=== PATIENT | male | born 1950 | race Caucasian/White ===

== ENCOUNTER 2017-07-03 12:11 | Inpatient (IN) | payer MEDICARE, SELFPAY ==
[2017-07-03] VITALS (18 sets, daily range): BP systolic 107–128; BP diastolic 60–77; PULSE 79–101; RESP 16–21; TEMP 36.8–37.6; O2SAT 91–94; BMI 28.4; BMI 28.0
[2017-07-03 12:25] LABS: Bedside Glucose 116 mg/dL (70-110)
--- NOTE | 2017-07-03 12:27 | EKG12_ITS ---
Test Reason : CONFUSSION Blood Pressure : / mmHG Vent. Rate : 101 BPM Atrial Rate : 101 BPM P-R Int : 154 ms QRS Dur : 100 ms QT Int : 356 ms P-R-T Axes : 066 040 009 degrees QTc Int : 461 ms Sinus tachycardia Otherwise normal ECG Confirmed by ROBERTA CARROLL, ROSAS ([id number]), photography editor JESS LEHMAN ([id number]) on 07/05/2017 3:18:19 PM Referred By: MALACHI Confirmed By:ROSAS GRANADOS MD
--- NOTE | 2017-07-03 12:27 | CT_ITS ---
STUDY: CT BRAIN WITHOUT CONTRAST REASON FOR EXAM: Male, 67 years old. Altered mental status RADIATION DOSAGE (If Supplied By Facility): CTDIvol = ( 44.99 ) mGy, DLP = ( 846.73 ) mGycm TECHNIQUE: Transaxial CT imaging of the brain was performed without administration of intravenous contrast material. Individualized dose optimization techniques were used for this CT. COMPARISON: None. FINDINGS: No evidence for shift of midline structures, mass effect or compression of ventricles noted. No acute intra-articular extra-axial hemorrhage is seen. No abnormal intracranial fluid collections identified. Age-related involutional changes are seen. Few scattered foci of low-attenuation in the periventricular and subcortical white matter which are nonspecific in imaging appearance however likely related with chronic small vessel disease. Intracranial atherosclerotic vascular calcifications are seen. The calvarium is intact. Mastoid air cells are clear. No discrete orbital mass. IMPRESSION: No evidence for acute intracranial hemorrhage, mass effect or acute large territory infarcts. Mild chronic small vessel disease. Electronically Signed: Brayden Ohara, at 14:38 EDT Tel , Service support , CT/Brain/Head without Contrast
--- NOTE | 2017-07-03 12:27 | RAD_ITS ---
STUDY: X-RAY CHEST REASON FOR EXAM: Male, 67 years old. Altered mental status TECHNIQUE: Single view of the chest was obtained COMPARISON: None. FINDINGS: Left lower lobe airspace opacity noted. Small left-sided pleural effusion. Mild pulmonary vascular congestion. No pneumothorax. Osseous structures demonstrate no acute abnormalities. IMPRESSION: Left lower lobe retrocardiac region airspace opacity and small left-sided pleural effusion. Mild pulmonary vascular congestion. Electronically Signed: Brayden Ohara, at 14:37 EDT Tel , Service support , RAD/Chest 1 View (Portable)
--- NOTE | 2017-07-03 12:30 | ED.VISSUMM ---
- ER Visit Summary Date of Service: 07/03/17 Chief Complaint: Altered mental status History of Present Illness: The patient is a 67 M with limited ability to provide history. Per nursing, the patient was confused at home. Slow to answer questions. EMS found that he was 74% on room air. He responded to nonrebreather. He was in the 80s on arrival here on room air and he was placed on a Ventimask. Patient has no complaints. Denies pain, chest pain, shortness of breath, nausea, vomiting, diarrhea, trouble urinating, abdominal pain or back pain, skin rashes, fevers, or injury. He says he never had this before. Physical Examination: Vital signs unremarkable. Heart rate 101 and respiratory rate 21. 91% on nasal cannula good patient is oriented ?2. Slow to respond and slightly lethargic. HEENT exam unremarkable. Neck nontender with good range of motion. Cranial nerves grossly intact. Heart sounds regular. Lungs clear. Abdomen soft and nontender. Skin shows some ecchymosis to his upper extremities, forearms. Neurovascularly intact distally in all extremities. Test Results: EKG showed sinus rhythm at a rate of 101. No sign of acute ischemia or infarction pattern. Laboratory studies, chest x-ray, head CT, urinalysis, and cultures pending. Emergency Department Course and Treatment: Patient presents with confusion and hypoxia. He was placed on oxygen and a monitor. He seems to be improved as far as his vital signs. He will need a thorough workup and close monitoring. Patient remained stable on the ventimask. Chest x-ray showed a left lower lobe infiltrate and he was started on Levaquin. Cultures are pending. Lactate is 2.2 and he does meets severe sepsis criteria without signs of shock. CT head showed no acute findings. White count 11.2. Troponin normal. ABG showed a pH of 7.376, O2 57 and CO2 50. Urinalysis unremarkable. Tox screen and alcohol unremarkable except for positive for opiates. Hospitalist was contacted. Patient will be admitted to PCU for further care. Treatment Plan: As above Disposition: Admission Impression: 1. Severe sepsis 2. Community-acquired pneumonia 3. Encephalopathy This note was generated with [employer] software. It may contain incorrect words, spelling, and punctuation that were not noted in review of the chart prior to signing ED Disposition - Plan for ED Patient: Chief Complaint: Confusion
--- NOTE | 2017-07-03 12:31 | PCA ---
NO OLD EKG IN MUSE
[2017-07-03] MEDS: Ipratropium/Albuterol Sulfate 3 ML AMPUL.NEB INHALATION ×3 (12:41→22:27)
[2017-07-03] MEDS: 0.9% Normal Saline 1,000 ML 999 ML IV (12:45)
[2017-07-03 12:47] LABS: Prothrombin Time (Protime)PT. 13.6 SECONDS (11.7-14.9)
[2017-07-03 12:48] LABS: Absolute Lymphocyte Count 1.79 X10^3/ul (0.83-4.51); Absolute Neutrophil Count 8.4 X10^3/uL (2.0-7.7); Basophil# 0.07 X10^3/uL; Basophil% 0.6 % (0-1); Eosinophil# 0.41 X10^3/uL; Eosinophils% 3.7 % (0-5); Hematocrit 44.4 % (40-54); Hemoglobin 14.2 g/dl (13.0-16.5); Lymphocyte # 1.79 X10^3/ul (4.0); Mean Corpuscular Hgb 30.9 pg (27.0-32.0); Mean Corpuscular Volume 96.7 fL (80-94); Mean Platelet Vol. 10.8 fl (6.2-12.0); Monocyte# 0.55 X10^3/uL; Monocyte% 4.9 % (0-10); Neutrophil # 8.35 X10^3/uL (2.7-7.7); Neutrophil % 74.5 % (47-70); POSITIVE COUNT NO; POSITIVE DIFFERENTIAL NO; POSITIVE MORPHOLOGY NO; Partial Thromboplast Time 32.2 Seconds (24.1-36.2); Platelet Count 124 K/mm3 (150-450); RBC Distribution Width CV 15.4 % (11.6-14.6); RBC Distribution Width SD 54.3 fl (35.1-43.9); Red Blood Count 4.59 M/mm3 (4.6-6.2); White Blood Count 11.2 K/mm3 (4.4-11.0)
[2017-07-03 12:55] LABS: ALB/GLOB Ratio 0.7 RATIO (0.9-2.4); AST(SGOT) 36 U/L (15-37); Alanine Aminotransfer ALT/SGPT 31 U/L (16-61); Albumin, Serum 3.2 g/dL (3.2-5.0); Alkaline Phosphatase 175 U/L (45-117); Anion Gap 4 (5-15); BUN 15 mg/dL (7-18); Calcium,Total 9.2 mg/dL (8.5-10.1); Chloride 101 mmol/L (98-107); Creatinine, Serum 1.36 mg/dL (0.70-1.30); EST Glomerular Filtration Rate 56 mL/min (>60); Est Glom Filt Rate - Afr Amer 67 mL/min (>60); Estimated Creatinine Clearance 61.28 ml/min; Globulin 4.7 g/dL (2.2-4.2); Glucose 118 mg/dL (74-106); Protein, Total 7.9 g/dL (6.4-8.2); Sodium Level 136 mmol/L (136-145)
[2017-07-03 12:58] LABS: Lactic Acid 2.2 mmol/L (0.4-2.0)
--- NOTE | 2017-07-03 12:58 | ED.RN ---
lactic acid 2.2
[2017-07-03 13:00] LABS: Allen Test POS; Base Excess 4 mmol/L (-2 to +2); Bicarbonate 29.3 mmol/L (22-26); Blood Gas Specimen Type ART; FI02 50; PO2 57 mmHG (75-100); SITE L Radial; SO2 88 % (95-99); Time Given 1254; Total Carbon Dioxide 31 mmol/L; pCO2 50.1 mmHg (35-45); pH 7.38 (7.35-7.45)
[2017-07-03 13:27] LABS: Bacteria 0 SEEN /hpf (None Seen); Mucous, Urine 0 SEEN /hpf (<or=2+); Red Blood Cells-Urine 0 SEEN /hpf (0-5)
[2017-07-03 13:28] LABS: Color, Urine Yellow (Yellow); Glucose, Dipstick Normal (Normal); Ketone-Dipstick Negative (Negative); Leukocyte Esterase-Dipstick 25 /ul (Negative); Nitrite-Dipstick Negative (Negative); Occult Blood-Urine 150 /ul (Negative); Protein-Dipstick 15 mg/dl (Negative); Urine Bilirubin Dipstick Negative (Negative); Urine Clarity Clear (Clear); Urine Urobilinogen Normal (Normal)
[2017-07-03 13:34] LABS: Squamous Epithelial Cells - UA 0-5 SEEN /hpf (0-5); White Blood Cells 0-5 SEEN /hpf (0-5)
[2017-07-03 14:04] LABS: Amphetamine Urine VISTA NEGATIVE (<1000 ng/mL); Barbiturate Urine VISTA NEGATIVE (< 200 ng/mL); Benzodiazepine Urine VISTA NEGATIVE (< 200 ng/mL); Cocaine Urine VISTA NEGATIVE (< 300 ng/mL); Ecstacy Urine VISTA NEGATIVE (< 500 ng/mL); Methadone Urine VISTA NEGATIVE (< 300 ng/mL); PCP Urine VISTA NEGATIVE (< 25 ng/mL); THC Urine VISTA NEGATIVE (< 50 ng/mL); Vista UDS pH Range 6
--- NOTE | 2017-07-03 14:23 | NURSING ---
DR COPELAND IN ROOM
[2017-07-03] MEDS: levoFLOXacin IV 750 MG/150 ML BAG 100 MG IV (15:14)
--- NOTE | 2017-07-03 15:27 | NURSING ---
111 SEVERE SEPSIS, ENCEPHALOPATHY TERELETSKY
[2017-07-03 16:38] LABS: Reflex Lactate? Y
--- NOTE | 2017-07-03 17:14 | PCM.HP.STD ---
Problem List (1) Mental status change Status: Acute Qualifiers: Altered mental status type: somnolence Qualified Code(s): R40.0 - Somnolence History of Present Illness Date of Admission: 07/03/17 Chief Complaint: Mental status change The patient is a 67 year old M who was seen in the emergency room at [facility] after being brought in at the direction of his due to change in mental status today. Patient had become more somnolent today and was acting confused at times and was incontinent of urine. Refused to go to the ER but the insisted and he was brought in by squad. Review of systems was unable to be obtained from the patient due to his lethargy and altered mental status, information was obtained from family members who were in the room at the time of my examination. Evaluation in the emergency room included labs which showed a white blood cell count of 11.2, creatinine was 1.36, lactic acid was 2.2, and patient's temperature was 99.2. Patient's pulse rate was increased at 101, respiratory rate was increased at 21. Patient was placed on a Ventimask due to low pulse ox, on a Ventimask with 50% oxygen, his pH was 7.38, PCO2 was 50.1, and PO2 was 57. Chest x-ray was obtained which showed the presence of a left lower lobe infiltrate, patient's brain CT did not show any acute process. Patient was felt to have severe sepsis due to community-acquired pneumonia, he was given IV Levaquin in the emergency room and he will be admitted to PCU for ongoing care. Past Medical History Allergies No Known Allergies Allergy (Verified 07/03/17 12:11) Home Medications: Ambulatory Orders Medication Instructions Recorded Aspirin [Aspirin, Baby] 81 mg PO DAILY@0800 07/03/17 Atenolol [Tenormin] 25 mg PO DAILY 07/03/17 Gabapentin [Neurontin] 600 mg PO TIDCM 07/03/17 Metformin HCl 1,000 mg PO BID 07/03/17 Multivitamin with Minerals/Lut 1 each PO BID 07/03/17 [Pub Multivitamin 50 Plus Tab] Oxycodone HCl/Acetaminophen 1 each PO 4X/DAY PRN PRN 07/03/17 [Oxycodon-Acetaminophen 7.5-325] Potassium Chloride [K-Dur] 10 meq PO DAILY 07/03/17 Simvastatin [Zocor] 10 mg PO QHS 07/03/17 Surgical History: total knee arthroplasty, - - Multiple coronary artery stents lumbar spine surgery due to degenerative disc disease of the lumbar spine Psychiatric History: No pertinent psych hx Lives: Spouse/ Significant Other Smoking Status: Heavy Smoker (>10/day) Tobacco Use: Cigarettes Alcohol: None Drugs: None - *Family History Maternal History Items: No pertinent history Paternal History Items: No pertinent history Review of Systems Comment: Review of systems was unobtainable due to the patient's somnolence and confusion, patient was oriented as to person and place VTE Information - Inpt Only VTE Present on Admission: No VTE Mechan Device Prophylaxis: None VTE Pharm Prophylaxis ordered?: Yes Patient Problems: Active and Suspected Problems Mental status change (Acute) - Physical Exam General: No apparent distress, Well developed, Well nourished, Lethargic HEENT: Atraumatic, PERRLA, Normocephalic Oral: Moist Mucosa Neck: Supple, No JVD, Negative Carotid Bruits, No Nuchal Rigidity, Trachea Midline, Thyroid Normal Size and Texture Lungs: Clear to auscultation, No rhonchi, No wheeze, No rales, Diminished Cardiovascular: Regular rate, Regular Rhythm, Normal S1, Normal S2, No murmurs, No Ectopic Activity, PMI Normal, No rub noted, No Gallop Abdomen: Bowel Sounds Present, Soft, Non Tender, Non-Distended, No hernias noted Extremities: No clubbing, No cyanosis, No edema, Capillary Refill Less than 3 Seconds Skin: No rashes, No breakdown Neurological: Cranial nerves II-XII grossly intact, Neuro grossly intact Psych/Mental Status: - - He is somnolent, he is oriented as to person and place Vital Signs Temp Pulse Resp BP Pulse Ox 98.2 F 91 18 120/60 94 07/03/17 15:58 07/03/17 15:58 07/03/17 15:58 07/03/17 15:58 07/03/17 15:58 Oxygen Flow Rate (L/min) 8 Oxygen Delivery Method Venturi Mask Weight: 98.9 kg Body Mass Index (BMI) 28.0 Laboratory Tests Past 24 Hrs 07/03/17 16:50 Lactic Acid Pending Assessment/Plan Active and Suspected Problems Mental status change (Acute) #1 severe sepsis secondary to left lower lobe community-acquired pneumonia-suspect gram-positive bacterial involvement-patient will be admitted to PCU, he will receive IV fluids, IV Levaquin will be continued, he will receive aerosol treatments, urine antigens will be ordered, sputum culture will be ordered, blood cultures were drawn in the emergency room, lactic acid will be repeated #2 left lower lobe community-acquired pneumonia-suspect gram-positive organism #3 metabolic encephalopathy secondary to #1 #2 #4 probable COPD-patient has an extensive pack history of smoking and currently smokes 2-1/2 packs of cigarettes a day. Nicotine patch will be administered #5 combined respiratory failure-patient's pulse ox will be monitored, oxygen will be adjusted #6 chronic pain syndrome due to degenerative joint disease of the lumbar spine-patient's oxycodone and Neurontin will be continued #7 type 2 diabetes-blood sugars will be monitored #8 hyperlipidemia #9 hypertension Code Visit Inpatient E&M: 21837 Init Hosp L3
--- NOTE | 2017-07-03 17:26 | HP.PCM_ITS ---
Problem List (1) Mental status change Status: Acute Qualifiers: Altered mental status type: somnolence Qualified Code(s): R40.0 - Somnolence History of Present Illness Date of Admission: 07/03/17 Chief Complaint: Mental status change The patient is a 67 year old M who was seen in the emergency room at [facility] after being brought in at the direction of his due to change in mental status today. Patient had become more somnolent today and was acting confused at times and was incontinent of urine. Refused to go to the ER but the insisted and he was brought in by squad. Review of systems was unable to be obtained from the patient due to his lethargy and altered mental status, information was obtained from family members who were in the room at the time of my examination. Evaluation in the emergency room included labs which showed a white blood cell count of 11.2, creatinine was 1.36, lactic acid was 2.2, and patient's temperature was 99.2. Patient's pulse rate was increased at 101, respiratory rate was increased at 21. Patient was placed on a Ventimask due to low pulse ox, on a Ventimask with 50% oxygen, his pH was 7.38 , PCO2 was 50.1, and PO2 was 57. Chest x-ray was obtained which showed the presence of a left lower lobe infiltrate, patient's brain CT did not show any acute process. Patient was felt to have severe sepsis due to community- acquired pneumonia, he was given IV Levaquin in the emergency room and he will be admitted to PCU for ongoing care. Past Medical History Allergies No Known Allergies Allergy (Verified 07/03/17 12:11) Home Medications: Ambulatory Orders Medication Instructions Recorded Aspirin [Aspirin, Baby] 81 mg PO DAILY@0800 07/03/17 Atenolol [Tenormin] 25 mg PO DAILY 07/03/17 Gabapentin [Neurontin] 600 mg PO TIDCM 07/03/17 Metformin HCl 1,000 mg PO BID 07/03/17 Multivitamin with Minerals/Lut 1 each PO BID 07/03/17 [Pub Multivitamin 50 Plus Tab] Oxycodone HCl/Acetaminophen 1 each PO 4X/DAY PRN PRN 07/03/17 [Oxycodon-Acetaminophen 7.5-325] Potassium Chloride [K-Dur] 10 meq PO DAILY 07/03/17 Simvastatin [Zocor] 10 mg PO QHS 07/03/17 Surgical History: total knee arthroplasty, - - Multiple coronary artery stents lumbar spine surgery due to degenerative disc disease of the lumbar spine Psychiatric History: No pertinent psych hx Lives: Spouse/ Significant Other Smoking Status: Heavy Smoker (>10/day) Tobacco Use: Cigarettes Alcohol: None Drugs: None - *Family History Maternal History Items: No pertinent history Paternal History Items: No pertinent history Review of Systems Comment: Review of systems was unobtainable due to the patient's somnolence and confusion, patient was oriented as to person and place VTE Information - Inpt Only VTE Present on Admission: No VTE Mechan Device Prophylaxis: None VTE Pharm Prophylaxis ordered?: Yes Patient Problems: Active and Suspected Problems Mental status change (Acute) - Physical Exam General: No apparent distress, Well developed, Well nourished, Lethargic HEENT: Atraumatic, PERRLA, Normocephalic Oral: Moist Mucosa Neck: Supple, No JVD, Negative Carotid Bruits, No Nuchal Rigidity, Trachea Midline, Thyroid Normal Size and Texture Lungs: Clear to auscultation, No rhonchi, No wheeze, No rales, Diminished Cardiovascular: Regular rate, Regular Rhythm, Normal S1, Normal S2, No murmurs, No Ectopic Activity, PMI Normal, No rub noted, No Gallop Abdomen: Bowel Sounds Present, Soft, Non Tender, Non-Distended, No hernias noted Extremities: No clubbing, No cyanosis, No edema, Capillary Refill Less than 3 Seconds Skin: No rashes, No breakdown Neurological: Cranial nerves II-XII grossly intact, Neuro grossly intact Psych/Mental Status: - - He is somnolent, he is oriented as to person and place Vital Signs Temp Pulse Resp BP Pulse Ox 98.2 F 91 18 120/60 94 07/03/17 15:58 07/03/17 15:58 07/03/17 15:58 07/03/17 15:58 07/03/17 15:58 Oxygen Flow Rate (L/min) 8 Oxygen Delivery Method Venturi Mask Weight: 98.9 kg Body Mass Index (BMI) 28.0 Laboratory Tests Past 24 Hrs 07/03/17 16:50 Lactic Acid Pending Assessment/Plan Active and Suspected Problems Mental status change (Acute) #1 severe sepsis secondary to left lower lobe community-acquired pneumonia- suspect gram-positive bacterial involvement-patient will be admitted to PCU, he will receive IV fluids, IV Levaquin will be continued, he will receive aerosol treatments, urine antigens will be ordered, sputum culture will be ordered, blood cultures were drawn in the emergency room, lactic acid will be repeated #2 left lower lobe community-acquired pneumonia-suspect gram-positive organism #3 metabolic encephalopathy secondary to #1 #2 #4 probable COPD-patient has an extensive pack history of smoking and currently smokes 2-1/2 packs of cigarettes a day. Nicotine patch will be administered #5 combined respiratory failure-patient's pulse ox will be monitored, oxygen will be adjusted #6 chronic pain syndrome due to degenerative joint disease of the lumbar spine- patient's oxycodone and Neurontin will be continued #7 type 2 diabetes-blood sugars will be monitored #8 hyperlipidemia #9 hypertension Code Visit Inpatient E&M: 09487 Init Hosp L3
[2017-07-03] MEDS: metFORMIN HCl 1,000 MG Tablet 1000 MG PO (17:28)
[2017-07-03] MEDS: 0.9% Normal Saline 1,000 ML 125 ML IV (17:28)
[2017-07-03] MEDS: Aspirin 81 MG TAB.CHEW PO (17:29)
[2017-07-03] MEDS: Gabapentin 600 MG Tablet PO (17:29)
[2017-07-03] MEDS: Atenolol 25 MG Tablet PO (17:31)
[2017-07-03 17:32] LABS: Lactic Acid 1.8 mmol/L (0.4-2.0)
[2017-07-03] MEDS: Glucerna Shake 120 ML LIQUID PO (17:37)
[2017-07-03 18:26] LABS: Bedside Glucose 129 mg/dL (70-110)
[2017-07-03] MEDS: Atorvastatin Calcium 10 MG Tablet 5 MG PO (21:10)
[2017-07-03] MEDS: oxyCODONE 5 MG Tablet PO (21:12)
[2017-07-03 22:20] LABS: Bedside Glucose 85 mg/dL (70-110)
[2017-07-04] VITALS (14 sets, daily range): BP systolic 121–147; BP diastolic 69–72; PULSE 82–102; RESP 16–18; TEMP 36.5–37.1; O2SAT 92–94
[2017-07-04] MEDS: 0.9% Normal Saline 1,000 ML 125 ML IV ×3 (00:26→18:37)
[2017-07-04] MEDS: Ipratropium/Albuterol Sulfate 3 ML AMPUL.NEB INHALATION ×3 (03:18→19:27)
[2017-07-04] MEDS: oxyCODONE 5 MG Tablet PO ×3 (05:51→21:00)
--- NOTE | 2017-07-04 05:55 | RAD_ITS ---
STUDY: X-RAY CHEST REASON FOR EXAM: Male, 67 years old. Cough. TECHNIQUE: AP portable chest. COMPARISON: July 03, 2017. FINDINGS: No significant change in left lower lobe airspace opacity and small left pleural effusion. Right lung well aerated. No pneumothorax. Normal size heart. Normal mediastinum and pearl. Normal visualized pulmonary arteries. Normal visualized aortic arch and descending thoracic aorta. Normal visualized thoracic spine. Normal visualized ribs, clavicles, and shoulders. There is no demonstrated abnormality of the visualized soft tissue structures of the upper abdomen. RAD/Chest 1 View (Portable) IMPRESSION: Left lower lobe pneumonia unchanged. Electronically Signed: Tesfaye Mark MD at 7:26 EDT , Service support ,
[2017-07-04 06:14] LABS: Absolute Lymphocyte Count 1.87 X10^3/ul (0.83-4.51); Absolute Neutrophil Count 5.5 X10^3/uL (2.0-7.7); Basophil# 0.05 X10^3/uL; Basophil% 0.6 % (0-1); Eosinophil# 0.59 X10^3/uL; Eosinophils% 6.7 % (0-5); Hematocrit 42.3 % (40-54); Hemoglobin 13.8 g/dl (13.0-16.5); Lymphocyte # 1.87 X10^3/ul (4.0); Lymphocyte % 21.3 % (19-41); Mean Corp Hgb Conc 32.6 g/gl (32-36); Mean Corpuscular Hgb 31.7 pg (27.0-32.0); Mean Platelet Vol. 10.8 fl (6.2-12.0); Monocyte# 0.76 X10^3/uL; Monocyte% 8.7 % (0-10); Neutrophil # 5.48 X10^3/uL (2.7-7.7); Neutrophil % 62.4 % (47-70); Platelet Count 117 K/mm3 (150-450); RBC Distribution Width CV 15.4 % (11.6-14.6); RBC Distribution Width SD 53.3 fl (35.1-43.9); Red Blood Count 4.36 M/mm3 (4.6-6.2); White Blood Count 8.8 K/mm3 (4.4-11.0)
[2017-07-04 06:32] LABS: Anion Gap 8 (5-15); BUN 14 mg/dL (7-18); BUN/Creat Ratio 12.3 RATIO (10-20); Calcium,Total 8.7 mg/dL (8.5-10.1); Chloride 103 mmol/L (98-107); Creatinine, Serum 1.14 mg/dL (0.70-1.30); EST Glomerular Filtration Rate 68 mL/min (>60); Est Glom Filt Rate - Afr Amer 82 mL/min (>60); Estimated Creatinine Clearance 73.11 ml/min; Glucose 101 mg/dL (74-106); Magnesium 1.7 mg/dL (1.6-2.6); Potassium 4.2 mmol/L (3.5-5.1); Sodium Level 140 mmol/L (136-145)
[2017-07-04 06:56] LABS: POSITIVE COUNT NO; POSITIVE DIFFERENTIAL NO; POSITIVE MORPHOLOGY NO
[2017-07-04 07:01] LABS: Bedside Glucose 110 mg/dL (70-110)
[2017-07-04] MEDS: Acetaminophen 325 MG Tablet 650 MG PO (08:24)
[2017-07-04] MEDS: metFORMIN HCl 1,000 MG Tablet 1000 MG PO ×2 (08:24→17:30)
[2017-07-04] MEDS: Gabapentin 600 MG Tablet PO ×3 (08:24→17:30)
[2017-07-04] MEDS: Aspirin 81 MG TAB.CHEW PO (08:28)
[2017-07-04] MEDS: Atenolol 25 MG Tablet PO (10:14)
[2017-07-04] MEDS: levoFLOXacin IV 750 MG/150 ML BAG 100 MG IV (10:14)
[2017-07-04] MEDS: Enoxaparin 40 MG/0.4 ML Syringe SC (10:14)
--- NOTE | 2017-07-04 10:49 | CT_ITS ---
STUDY: CT CHEST WITHOUT CONTRAST REASON FOR EXAM: Male, 67 years old. Cough. History of recent pneumonia. RADIATION DOSAGE (If Supplied By Facility): CTDIvol = ( 18.34 ) mGy, DLP = ( 655.32 ) mGycm TECHNIQUE: Transaxial imaging was performed without the administration of intravenous contrast material. Multiplanar coronal and sagittal images were reformatted. Individualized dose optimization techniques were used for this CT. COMPARISON: Comparison is made with prior chest radiograph done earlier in the day. FINDINGS: Mild diffuse enlargement of the thyroid gland. Consolidation in the left lower lobe. Small left pleural effusion with evidence of a left calcified pleural plaques. Increased linear markings in the right lower lobe suggestive of mild scarring. There are calcifications of the coronary arteries. There are multiple small lymph nodes within the mediastinum, which are normal in size and morphology most compatible with reactive lymph hyperplasia. Normal hilar regions. Normal unenhanced pulmonary arteries. There is atherosclerotic calcification of the aortic arch . There are multi-level degenerative changes of the thoracic spine. There is no demonstrated abnormality of the visualized upper abdomen. CT/Chest without Contrast IMPRESSION: Left lower lobe consolidation with small left pleural effusion and calcified pleural plaques in the left pleural space. Electronically Signed: Gianni Beltran MD at 15:33 EDT Tel [phone], Service support ,
[2017-07-04 12:00] LABS: Bedside Glucose 114 mg/dL (70-110)
[2017-07-04] MEDS: 0.9% NaCl Peripheral Flush Adult/Peds IV (12:09)
--- NOTE | 2017-07-04 14:17 | PN_ITS ---
Patient Problems: Active and Suspected Problems Mental status change (Acute) Subjective: Pt still significantly SOB and requiring 35% venti mask overnight. Coughing up mucus, no blood. No f/chils overnight. Smokes heavily 1-2 ppd since teenager. Still somewhat confused - states he is in [place]. Otherwise A/Ox2. - Physical Exam General: Alert, Oriented x3, Cooperative HEENT: Atraumatic, PERRLA, EOMI, Normocephalic Neck: Supple, No JVD, Negative Carotid Bruits Lungs: Diminished - severely Cardiovascular: Regular rate, No murmurs Abdomen: Bowel Sounds Present, Soft, Non Tender Extremities: No edema, Capillary Refill Less than 3 Seconds Skin: No rashes, No breakdown Musculoskeletal: No Tenderness to Palpation of Joints or Extremities Neurological: Cranial nerves II-XII grossly intact Psych/Mental Status: Normal Affect, Appropriate, Alert and oriented to time, place, person, mood and affect Vital Signs Temp Pulse Resp BP Pulse Ox 97.9 F 85 18 121/72 H 92 07/04/17 10:11 07/04/17 11:14 07/04/17 10:11 07/04/17 10:11 07/04/17 10:11 Oxygen Flow Rate (L/min) 8 Oxygen Delivery Method Venturi Mask Weight: 98.9 kg Body Mass Index (BMI) 28.0 Intake and Output for Last 24 Hours 07/02/17 07/03/17 07/04/17 23:59 23:59 23:59 Intake Total 1191 / 1191 1745 / 1745 Output Total 800 / 800 1025 / 1025 Balance 391 / 391 720 / 720 Laboratory Tests Past 24 Hrs 07/03/17 07/04/17 07/04/17 16:50 05:44 05:44 WBC 8.8 RBC 4.36 L Hgb 13.8 Hct 42.3 MCV 97.0 H MCH 31.7 MCHC 32.6 RDW 15.4 H RDW Differential 53.3 H Plt Count 117 L MPV 10.8 Immature Gran % (Auto) 0.300 Neut % (Auto) 62.4 Lymph % (Auto) 21.3 [place] % (Auto) 8.7 Eos % (Auto) 6.7 H Baso % (Auto) 0.6 Absolute Neuts (auto) 5.5 Absolute Lymphs (auto) 1.87 Total Counted Not Reportable Sodium 140 Potassium 4.2 Chloride 103 Carbon Dioxide 29.0 Anion Gap 8 BUN 14 Creatinine 1.14 Estim Creat Clear Calc 73.11 Est GFR (MDRD) Af Amer 82 Est GFR (MDRD) Non-Af 68 BUN/Creatinine Ratio 12.3 Glucose 101 Lactic Acid 1.8 Calcium 8.7 Magnesium 1.7 POC Glucose 07/04/17 07/04/17 07/03/17 11:58 06:53 21:23 POC Glucose 114 H 110 85 07/03/17 18:24 POC Glucose 129 H Medical Necessity - Tobacco Use Smoking Status: Heavy Smoker (>10/day) Tobacco Use: Cigarettes Assessment/Plan Active and Suspected Problems Mental status change (Acute) 1. Severe sepsis present on admission 2/2 LLL CAP - as evidenced by LLL pna on CXR, WBC elevation, lactate elevated, tachycardia, tachypnea on admission. Afebrile and WBC improving. Continue Levaquin, mucinex, pep, IS, aerosols. Sputum pending. Urine ag neg. Blood cx pending. Suspect gram positive. 2. Acute metabolic encephalopathy - still mildly confused. 2/[address] brain negative. 3. Acute hypoxic / hypercapneic respiratory failure 2/2 #1 - wean as tolerated. CT pending. Does not use home O2. Dyspneic and requiring 35% venti mask to maintain sats. Consider pulm c/s if no improvement. Encourage spirometer. 4. 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 Lungs severely diminished. Add steroids, continue duonebs, albuterol. 5. Nicotine patch - patch 6. T2DM - on metformin, SSI. 7. HLD - statin 8. HTN - stable 9. PVD - recently had cath for Lower extremity blockage and has plan for CTA of his legs later this month 10. CKD III - trend DVT ppx: lovenox DC planning: PTOT This patient was seen by Salvador Patel PA-C under the supervision of Dr. Prado.
--- NOTE | 2017-07-04 15:08 | CASEMGMT ---
PABLO met with patient, introduced self and role at [facility]. Patient's and daughters were also present. Patient lives with his family. He is mostly independent, but he does use his cane or walker most of the time. [facility] [place] [facility]. He does not have prescription coverage as he [facility]. He is not sure of d/c needs at this time. PABLO and RN CM to follow for d/c needs. Charley SALMERON MSW
--- NOTE | 2017-07-04 15:33 | NURSING ---
wound photo: right lateral foot
--- NOTE | 2017-07-04 15:33 | NURSING ---
wound photo: left lateral foot
--- NOTE | 2017-07-04 15:34 | NURSING ---
wound photo: right heel
[2017-07-04 17:30] LABS: Bedside Glucose 137 mg/dL (70-110)
[2017-07-04] MEDS: Atorvastatin Calcium 10 MG Tablet 5 MG PO (21:00)
[2017-07-04] MEDS: guaiFENesin 1,200 MG Tablet 1200 MG PO (21:00)
[2017-07-04 21:11] LABS: Bedside Glucose 148 mg/dL (70-110)
[2017-07-05] VITALS (31 sets, daily range): BP systolic 118–147; BP diastolic 64–95; PULSE 70–122; RESP 16–20; TEMP 36.2–36.6; O2SAT 89–95
[2017-07-05] MEDS: Ipratropium/Albuterol Sulfate 3 ML AMPUL.NEB INHALATION ×5 (00:33→19:05)
[2017-07-05] MEDS: 0.9% Normal Saline 1,000 ML 125 ML IV ×3 (02:48→18:22)
[2017-07-05] MEDS: oxyCODONE 5 MG Tablet PO ×3 (04:16→20:00)
[2017-07-05 05:58] LABS: Anion Gap 13 (5-15); BUN 19 mg/dL (7-18); BUN/Creat Ratio 15.8 RATIO (10-20); Calcium,Total 8.6 mg/dL (8.5-10.1); Chloride 103 mmol/L (98-107); EST Glomerular Filtration Rate 64 mL/min (>60); Est Glom Filt Rate - Afr Amer 78 mL/min (>60); Estimated Creatinine Clearance 69.45 ml/min; Glucose 138 mg/dL (74-106); Potassium 4.4 mmol/L (3.5-5.1); Sodium Level 141 mmol/L (136-145)
[2017-07-05 06:51] LABS: Bedside Glucose 152 mg/dL (70-110)
[2017-07-05] MEDS: Aspirin 81 MG TAB.CHEW PO (08:46)
[2017-07-05] MEDS: metFORMIN HCl 1,000 MG Tablet 1000 MG PO ×2 (08:46→16:59)
[2017-07-05] MEDS: Gabapentin 600 MG Tablet PO ×3 (08:46→16:59)
[2017-07-05] MEDS: Atenolol 25 MG Tablet PO (09:00)
[2017-07-05] MEDS: Enoxaparin 40 MG/0.4 ML Syringe SC (09:00)
[2017-07-05] MEDS: guaiFENesin 1,200 MG Tablet 1200 MG PO ×2 (09:00→21:55)
[2017-07-05] MEDS: levoFLOXacin IV 750 MG/150 ML BAG 100 MG IV (09:06)
[2017-07-05 11:41] LABS: Bedside Glucose 170 mg/dL (70-110)
--- NOTE | 2017-07-05 13:53 | PN_ITS ---
Patient Problems: Active and Suspected Problems Mental status change (Acute) Subjective: Pt notes improvement in his SOB and cough. No further sputum production today. No fever or chills overnight. He does not feel confused and now known where he is. He is now tolerating off the venti mask on O2 via NC. - Physical Exam General: Alert, Oriented x3, Cooperative HEENT: Atraumatic, PERRLA, EOMI, Normocephalic Neck: Supple, No JVD, Negative Carotid Bruits Lungs: Diminished Cardiovascular: Regular rate, No murmurs Abdomen: Bowel Sounds Present, Soft, Non Tender Extremities: No edema, Capillary Refill Less than 3 Seconds Skin: No rashes, No breakdown Musculoskeletal: No Tenderness to Palpation of Joints or Extremities Neurological: Cranial nerves II-XII grossly intact Psych/Mental Status: Normal Affect, Appropriate, Alert and oriented to time, place, person, mood and affect Vital Signs Temp Pulse Resp BP Pulse Ox 97.1 F L 95 20 H 147/76 H 93 07/05/17 10:15 07/05/17 11:03 07/05/17 10:45 07/05/17 10:15 07/05/17 13:10 Oxygen Flow Rate (L/min) 2 Oxygen Delivery Method Nasal Cannula Weight: 98.9 kg Body Mass Index (BMI) 28.0 Intake and Output for Last 24 Hours 07/03/17 07/04/17 07/05/17 23:59 23:59 23:59 Intake Total 1191 / 1191 3564 / 3564 1802 / 1802 Output Total 800 / 800 2175 / 2175 1150 / 1150 Balance 391 / 391 1389 / 1389 652 / 652 Microbiology Past 72 Hours 07/04/17 07:58 Gram Stain - Final Sputum, Expectorated/Coughed Respiratory Culture - Preliminary Appears to be normal respiratory jim. Further studies to follow. Laboratory Tests Past 24 Hrs 07/05/17 05:15 Sodium 141 Potassium 4.4 Chloride 103 Carbon Dioxide 25.0 Anion Gap 13 BUN 19 H Creatinine 1.20 Estim Creat Clear Calc 69.45 Est GFR (MDRD) Af Amer 78 Est GFR (MDRD) Non-Af 64 BUN/Creatinine Ratio 15.8 Glucose 138 H Calcium 8.6 POC Glucose 07/05/17 07/05/17 07/04/17 11:30 06:47 20:58 POC Glucose 170 H 152 H 148 H 07/04/17 17:00 POC Glucose 137 H Medical Necessity - Tobacco Use Smoking Status: Heavy Smoker (>10/day) Tobacco Use: Cigarettes Assessment/Plan Active and Suspected Problems Mental status change (Acute) 1. Severe sepsis present on admission 2/2 LLL CAP - as evidenced by LLL pna on CXR, WBC elevation, lactate elevated, tachycardia, tachypnea on admission. Afebrile and WBC improving. Continue Levaquin, mucinex, pep, IS, aerosols. Sputum pending. Urine ag neg. Blood cx pending. Suspect gram positive. 2. Acute metabolic encephalopathy - resolved. 2/[address] brain negative. 3. Acute hypoxic / hypercapneic respiratory failure 2/2 #1 - wean as tolerated. CT with pna. Improving. Continue current plan. 4. 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 Lungs severely diminished. Add steroids, continue duonebs, albuterol. 5. Nicotine patch - patch 6. T2DM - on metformin, SSI. 7. HLD - statin 8. HTN - stable 9. PVD - recently had cath for Lower extremity blockage and has plan for CTA of his legs later this month 10. CKD III - trend 11. Chronic BL feet wounds present on admission - wound care following. Follow up with podiatry as outpatient. Probably 2/2 PAD for which he will has an evaluation planned at the [facility]. DVT ppx: lovenox DC planning: PTOT This patient was seen by Salvador Patel PA-C under the supervision of Dr. Prado.
[2017-07-05 17:26] LABS: Bedside Glucose 164 mg/dL (70-110)
[2017-07-05] MEDS: Atorvastatin Calcium 10 MG Tablet 5 MG PO (21:55)
[2017-07-05] MEDS: 0.9% NaCl Peripheral Flush Adult/Peds IV (21:57)
[2017-07-05 22:15] LABS: Bedside Glucose 152 mg/dL (70-110)
[2017-07-06] VITALS (21 sets, daily range): BP systolic 105–145; BP diastolic 63–83; PULSE 78–118; RESP 14–21; TEMP 36.4–36.6; O2SAT 92–97
[2017-07-06] MEDS: oxyCODONE 5 MG Tablet PO ×5 (00:12→20:34)
[2017-07-06 00:27] LABS: Magnesium 1.8 mg/dL (1.6-2.6); Phosphorus 2.3 mg/dL (2.5-4.9)
[2017-07-06] MEDS: 0.9% Normal Saline 1,000 ML 125 ML IV ×2 (02:21→11:29)
[2017-07-06] MEDS: levoFLOXacin 750 MG Tablet PO (05:59)
[2017-07-06] MEDS: 0.9% NaCl Peripheral Flush Adult/Peds IV (05:59)
--- NOTE | 2017-07-06 06:35 | RAD_ITS ---
STUDY: X-RAY CHEST REASON FOR EXAM: Male, 67 years old. Shortness of breath. TECHNIQUE: AP and lateral views of the chest. COMPARISON: Comparison is made with prior study dated July 04, 2017. FINDINGS: EKG electrodes are seen. Persistent left lower lobe infiltrate with blunting of the left costophrenic angle. There has been improved aeration of the left lower lobe as compared to prior study. Minimal reticular changes are also seen at the right lung base. Normal size heart. Normal mediastinum and pearl. Normal visualized pulmonary arteries. Normal visualized aortic arch and descending thoracic aorta. There are diffuse degenerative changes of the visualized thoracic spine. Normal visualized ribs, clavicles, and shoulders. There is no demonstrated abnormality of the visualized soft tissue structures of the upper abdomen. RAD/Chest PA and Lateral IMPRESSION: Persistent pleural parenchymal changes at the left lung base although there has been [id number] degree of improvement. Electronically Signed: Gianni Beltran MD at 9:23 EDT Tel [phone], Service support ,
[2017-07-06 06:56] LABS: Bedside Glucose 137 mg/dL (70-110)
[2017-07-06] MEDS: metFORMIN HCl 1,000 MG Tablet 1000 MG PO ×2 (08:26→17:32)
[2017-07-06] MEDS: Gabapentin 600 MG Tablet PO ×3 (08:26→17:32)
[2017-07-06] MEDS: Aspirin 81 MG TAB.CHEW PO (08:26)
[2017-07-06] MEDS: Na Biphos/Potassium Phosphate PACKET 1 PACKET PO ×3 (08:45→17:32)
--- NOTE | 2017-07-06 10:10 | NURSING ---
scabbed areas to bilateral feet and right heel remain dry and intact. no redness noted. no drainage noted. 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 [facility]
[2017-07-06] MEDS: Ipratropium/Albuterol Sulfate 3 ML AMPUL.NEB INHALATION ×3 (10:13→19:57)
[2017-07-06] MEDS: guaiFENesin 1,200 MG Tablet 1200 MG PO ×2 (10:17→21:07)
[2017-07-06] MEDS: Atenolol 25 MG Tablet PO (10:17)
[2017-07-06] MEDS: Enoxaparin 40 MG/0.4 ML Syringe SC (10:17)
[2017-07-06] MEDS: Acetylcysteine 800 MG/4 ML VIAL.NEB. INHALATION ×2 (10:18→19:57)
[2017-07-06 11:25] LABS: Bedside Glucose 184 mg/dL (70-110)
--- NOTE | 2017-07-06 13:09 | PCM.PROGNOTE ---
Patient Problems: Active and Suspected Problems Mental status change (Acute) Subjective: Pt resting in chair at bedside, SOB significantly improved. Cough this AM without production. CXR continues to show consolidation, pt to attempt chest vest today. Family present stating pt appears much improved. No fevers or chills. No LE swelling. No CP. - Physical Exam General: Alert, Oriented x3, Cooperative HEENT: Atraumatic, PERRLA, EOMI, Normocephalic Neck: Supple, No JVD, Negative Carotid Bruits Lungs: Diminished Cardiovascular: Regular rate, No murmurs Abdomen: Bowel Sounds Present, Soft, Non Tender Extremities: No edema, Capillary Refill Less than 3 Seconds Skin: No rashes, No breakdown Musculoskeletal: No Tenderness to Palpation of Joints or Extremities Neurological: Cranial nerves II-XII grossly intact Psych/Mental Status: Normal Affect, Appropriate, Alert and oriented to time, place, person, mood and affect Vital Signs Temp Pulse Resp BP Pulse Ox 97.5 F L 96 21 H 132/66 H 95 07/06/17 10:15 07/06/17 12:03 07/06/17 10:20 07/06/17 10:15 07/06/17 10:15 Oxygen Flow Rate (L/min) 4 Oxygen Delivery Method Nasal Cannula Weight: 98.9 kg Body Mass Index (BMI) 28.0 Intake and Output for Last 24 Hours 07/04/17 07/05/17 07/06/17 23:59 23:59 23:59 Intake Total 3564 / 3564 3981 / 3981 1306 / 1306 Output Total 2175 / 2175 2400 / 2400 900 / 900 Balance 1389 / 1389 1581 / 1581 406 / 406 Microbiology Past 72 Hours 07/04/17 07:58 Gram Stain - Final Sputum, Expectorated/Coughed Respiratory Culture - Preliminary Staphylococcus aureus Mixed [place] Laboratory Tests Past 24 Hrs 07/05/17 07/06/17 23:56 11:35 Phosphorus 2.3 L Magnesium 1.8 MRSA (PCR) Pending POC Glucose 07/06/17 07/06/17 07/05/17 11:14 06:44 21:53 POC Glucose 184 H 137 H 152 H 07/05/17 16:57 POC Glucose 164 H Medical Necessity - Tobacco Use Smoking Status: Heavy Smoker (>10/day) Tobacco Use: Cigarettes Assessment/Plan Active and Suspected Problems Mental status change (Acute) 1. Severe sepsis present on admission 2/2 LLL CAP - LLL pna still present with poor clearing of mucus. Start chest vest, mucomyst. Sputum cx showing staph aureus, check nasal mrsa swap and follow final culture. Continue levaquin for now. 2. Acute metabolic encephalopathy - resolved. 2/[address] brain negative. 3. Acute hypoxic / hypercapneic respiratory failure 2/2 #1 - wean as tolerated. CT with pna. Improving. Continue current plan. 4. 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 Lungs severely diminished. steroids, continue duonebs, albuterol. Transition steroids to PO. 5. Nicotine patch - patch 6. T2DM - on metformin, SSI. 7. HLD - statin 8. HTN - stable 9. PVD - recently had cath for Lower extremity blockage and has plan for CTA of his legs later this month 10. CKD III - trend 11. Chronic BL feet wounds present on admission - wound care following. Follow up with podiatry as outpatient. Probably 2/2 PAD [facility] which [facility] 12. Low phos - replete DVT ppx: lovenox DC planning: PTOT, will likely need home O2. This patient was seen by Salvador Patel PA-C under the supervision of Dr. Prado.
[2017-07-06 13:35] LABS: M R Staph aureus DNA By PCR Negative (Negative); Probe Check PASS; Specimen Processing Control PASS
[2017-07-06 16:45] LABS: Bedside Glucose 116 mg/dL (70-110)
[2017-07-06] MEDS: Atorvastatin Calcium 10 MG Tablet 5 MG PO (21:07)
[2017-07-06 21:10] LABS: Bedside Glucose 93 mg/dL (70-110)
[2017-07-07] VITALS (14 sets, daily range): BP systolic 121–131; BP diastolic 68–78; PULSE 76–99; RESP 12–18; TEMP 36.4–36.6; O2SAT 87–93
[2017-07-07] MEDS: Ipratropium/Albuterol Sulfate 3 ML AMPUL.NEB INHALATION ×5 (00:03→15:20)
[2017-07-07] MEDS: levoFLOXacin 750 MG Tablet PO (05:37)
[2017-07-07 06:13] LABS: Absolute Lymphocyte Count 2.19 X10^3/ul (0.83-4.51); Absolute Neutrophil Count 6.1 X10^3/uL (2.0-7.7); Basophil# 0.01 X10^3/uL; Basophil% 0.1 % (0-1); Eosinophil# 0.03 X10^3/uL; Eosinophils% 0.3 % (0-5); Hematocrit 43.3 % (40-54); Hemoglobin 14.1 g/dl (13.0-16.5); Lymphocyte # 2.19 X10^3/ul (4.0); Lymphocyte % 24.4 % (19-41); Mean Corp Hgb Conc 32.6 g/gl (32-36); Mean Corpuscular Hgb 31.5 pg (27.0-32.0); Mean Corpuscular Volume 96.9 fL (80-94); Mean Platelet Vol. 10.4 fl (6.2-12.0); Monocyte# 0.66 X10^3/uL; Monocyte% 7.3 % (0-10); Neutrophil # 6.06 X10^3/uL (2.7-7.7); Neutrophil % 67.6 % (47-70); Platelet Count 121 K/mm3 (150-450); RBC Distribution Width CV 15.8 % (11.6-14.6); RBC Distribution Width SD 53.5 fl (35.1-43.9); Red Blood Count 4.47 M/mm3 (4.6-6.2)
[2017-07-07 06:14] LABS: POSITIVE COUNT NO; POSITIVE DIFFERENTIAL NO; POSITIVE MORPHOLOGY NO
[2017-07-07 06:33] LABS: Anion Gap 8 (5-15); BUN 26 mg/dL (7-18); BUN/Creat Ratio 25.7 RATIO (10-20); Calcium,Total 8.6 mg/dL (8.5-10.1); Chloride 106 mmol/L (98-107); Creatinine, Serum 1.01 mg/dL (0.70-1.30); EST Glomerular Filtration Rate 78 mL/min (>60); Est Glom Filt Rate - Afr Amer 95 mL/min (>60); Estimated Creatinine Clearance 82.52 ml/min; Glucose 85 mg/dL (74-106); Potassium 3.9 mmol/L (3.5-5.1); Sodium Level 140 mmol/L (136-145)
[2017-07-07 07:05] LABS: Bedside Glucose 85 mg/dL (70-110)
[2017-07-07 07:07] LABS: Phosphorus 2.8 mg/dL (2.5-4.9)
[2017-07-07] MEDS: Acetylcysteine 800 MG/4 ML VIAL.NEB. INHALATION ×2 (07:31→15:21)
--- NOTE | 2017-07-07 08:08 | RAD_ITS ---
STUDY: X-RAY CHEST REASON FOR EXAM: Male, 67 years old. Shortness of breath/dyspnea. TECHNIQUE: PA and lateral views of the chest. COMPARISON: Comparison is made with prior examination dated July 06, 2017. FINDINGS: Mild elevation of the left hemidiaphragm. Since prior study, there has been improved aeration of the left lung base with residual blunting of left costophrenic angle. Mild increased markings also at the right lung base. This is unchanged. Normal size heart. Normal mediastinum and pearl. Normal visualized pulmonary arteries. Normal visualized aortic arch and descending thoracic aorta. There are degenerative changes of the visualized thoracic spine. Normal visualized ribs, clavicles, and shoulders. There is no demonstrated abnormality of the visualized soft tissue structures of the upper abdomen. RAD/Chest PA and Lateral IMPRESSION: Improved aeration at the left lung base. Residual changes persist. Electronically Signed: Gianni Beltran MD at 9:38 EDT Tel [phone], Service support ,
[2017-07-07] MEDS: oxyCODONE 5 MG Tablet PO ×2 (08:40→13:03)
[2017-07-07] MEDS: metFORMIN HCl 1,000 MG Tablet 1000 MG PO ×2 (08:42→16:37)
[2017-07-07] MEDS: predniSONE 20 MG Tablet 40 MG PO (08:42)
[2017-07-07] MEDS: Aspirin 81 MG TAB.CHEW PO (08:42)
[2017-07-07] MEDS: Na Biphos/Potassium Phosphate PACKET 1 PACKET PO ×3 (08:43→16:37)
[2017-07-07] MEDS: Enoxaparin 40 MG/0.4 ML Syringe SC (08:43)
[2017-07-07] MEDS: Gabapentin 600 MG Tablet PO ×3 (08:43→16:37)
[2017-07-07] MEDS: Atenolol 25 MG Tablet PO (08:44)
[2017-07-07] MEDS: guaiFENesin 1,200 MG Tablet 1200 MG PO (08:44)
[2017-07-07 11:55] LABS: Bedside Glucose 185 mg/dL (70-110)
--- NOTE | 2017-07-07 15:10 | CASEMGMT ---
Per Shanta GALLAGHER, pt qualifies for home oxygen at this time. Pt states would like [facility]. Referral sent to [facility] at this time. This RN CM will send F2F once entered. Argelia GALLAGHER CM
--- NOTE | 2017-07-07 15:37 | PCM.HOSP.N ---
Hospitalist Note Hospitalist note: Patient's O2 sat on room air at rest today was 87%, patient was ambulated on 4 L/min via nasal cannula, his pulse ox was 90%. Patient is ambulatory at home and will need portable oxygen, diagnosis code was J18.9 He will need continuous oxygen at 4 L/min via nasal cannula
--- NOTE | 2017-07-07 15:49 | PCM.DC ---
- Discharge Diagnoses Current Active Problems: Current Active and Chronic Problems Mental status change (Acute) You will use the following diet at home:: Calorie/Carbohydrate Controlled (specify 1200, 1400, etc) - 1800 sachin Your food should be the consistency of: Regular Your liquids should be the consistency of: Regular/Thin Discharge Activity: Return to Normal Activity Weight Bearing Status: Full weight bearing Additional Instructions: oxygen at four liters continously, do not smoke Allergies/Adverse Reactions: Allergies No Known Allergies Allergy (Verified 07/03/17 12:11) Medications to take at Discharge Aspirin [Aspirin, Baby] 81 mg PO DAILY@0800 07/03/17 Atenolol [Tenormin] 25 mg PO DAILY 07/03/17 Gabapentin [Neurontin] 600 mg PO TIDCM 07/03/17 Metformin HCl 1,000 mg PO BID 07/03/17 Multivitamin with Minerals/Lut [Pub Multivitamin 50 Plus Tab] 1 each PO BID 07/03/17 Oxycodone HCl/Acetaminophen [Oxycodon-Acetaminophen 7.5-325] 1 each PO 4X/DAY PRN PRN 07/03/17 Simvastatin [Zocor] 10 mg PO QHS 07/03/17 Zolpidem Tartrate [Ambien] 5 mg PO QHS PRN PRN 07/06/17 Albuterol IH (ProAir) [Proair Hfa (SP)Vent Pts] 2 puff INHALATION 4X/DAY #1 inhaler 07/07/17 Prednisone 10 mg PO UD #30 tab 07/07/17 levoFLOXacin tablet [Levaquin tablet] 750 mg PO DAILY@0600 #7 tab 07/07/17 The following prescriptions were given: levoFLOXacin tablet [Levaquin tablet] 750 mg PO DAILY@0600 #7 tab Prednisone 10 mg PO UD #30 tab Albuterol IH (ProAir) [Proair Hfa (SP)Vent Pts] 2 puff INHALATION 4X/DAY #1 inhaler Primary Care Physician: [facility],[place] [Primary Care Provider] - Please follow up with your Primary Care Physician in: next week- you will need a chest x-ray in 10 days
--- NOTE | 2017-07-07 15:54 | DCINST_ITS ---
- Discharge Diagnoses Current Active Problems: Current Active and Chronic Problems Mental status change (Acute) You will use the following diet at home:: Calorie/Carbohydrate Controlled ( specify 1200, 1400, etc) - 1800 sachin Your food should be the consistency of: Regular Your liquids should be the consistency of: Regular/Thin Discharge Activity: Return to Normal Activity Weight Bearing Status: Full weight bearing Additional Instructions: oxygen at four liters continously, do not smoke Allergies/Adverse Reactions: Allergies No Known Allergies Allergy (Verified 07/03/17 12:11) Medications to take at Discharge Aspirin [Aspirin, Baby] 81 mg PO DAILY@0800 07/03/17 Atenolol [Tenormin] 25 mg PO DAILY 07/03/17 Gabapentin [Neurontin] 600 mg PO TIDCM 07/03/17 Metformin HCl 1,000 mg PO BID 07/03/17 Multivitamin with Minerals/Lut [Pub Multivitamin 50 Plus Tab] 1 each PO BID Oxycodone HCl/Acetaminophen [Oxycodon-Acetaminophen 7.5-325] 1 each PO 4X/DAY PRN PRN 07/03/17 Simvastatin [Zocor] 10 mg PO QHS 07/03/17 Zolpidem Tartrate [Ambien] 5 mg PO QHS PRN PRN 07/06/17 Albuterol IH (ProAir) [Proair Hfa (SP)Vent Pts] 2 puff INHALATION 4X/DAY #1 inhaler 07/07/17 Prednisone 10 mg PO UD #30 tab 07/07/17 levoFLOXacin tablet [Levaquin tablet] 750 mg PO DAILY@0600 #7 tab 07/07/17 The following prescriptions were given: levoFLOXacin tablet [Levaquin tablet] 750 mg PO DAILY@0600 #7 tab Prednisone 10 mg PO UD #30 tab Albuterol IH (ProAir) [Proair Hfa (SP)Vent Pts] 2 puff INHALATION 4X/DAY #1 inhaler Primary Care Physician: [facility],[place] [Primary Care Provider] - Please follow up with your Primary Care Physician in: next week- you will need a chest x-ray in 10 days
--- NOTE | 2017-07-07 16:09 | PCA ---
d/c summary faxed to [facility] at [phone].
--- NOTE | 2017-07-07 16:14 | CASEMGMT ---
F2F faxed to [facility] at this time. Call to [facility] to verify information received and to verify that they will be delivering tank for pt discharge today. Per Marilin, they are 'working on it and the tank will be delivered shortly.' Argelia GALLAGHER CM
[2017-07-07 17:05] LABS: Bedside Glucose 206 mg/dL (70-110)
--- NOTE | 2017-07-08 16:37 | PCM.DC.SUM ---
Discharge Date and Diagnosis Date of Admission: 07/03/17 Date of Discharge: 07/07/17 - Primary Discharge Diagnosis #1 severe sepsis secondary to left lower lobe community-acquired pneumonia from methicillin sensitive staph aureus #2 left lower lobe community-acquired pneumonia secondary to methicillin sensitive staph aureus #3 metabolic encephalopathy secondary to #1 and 2 #4 chronic obstructive pulmonary disease #5 combined respiratory failure secondary to left lower lobe community-acquired pneumonia on a backdrop of chronic obstructive pulmonary disease #6 chronic pain syndrome due to degenerative joint disease lumbar spine #7 type 2 diabetes #8 hyperlipidemia #9 hypertension Hospital Course and Treatment Consultations 07/03/17 20:03 Consult: Onc/Wound/collection systems administrator Routine Comment: Reason for Consult:: wounds to bilat feet Operations: None Procedures: None Summary of Care Provided: The patient is a 67 year old M who was seen in the emergency room at [facility] after being brought in by his with complaints of somnolence and confusion. Patient was also incontinent of urine. Evaluation in the emergency room included labs which showed an elevated white blood cell count, creatinine was elevated, lactic acid was elevated at 2.2, patient's temperature is 99.2. Patient's pulse rate was increased at 101, respiratory rate was increased at 21. Patient had a low pulse ox and required a Ventimask to raise his oxygen sat above 90%. Blood gases showed a combined respiratory failure with an elevated PCO2 and decreased PO2. Chest x-ray is obtained which showed left lower lobe infiltrate. Patient was felt to have severe sepsis due to community-acquired pneumonia, he was given IV Levaquin and aerosol treatments and admitted to PCU. Over the next several days, patient's labs were followed, he remained on IV Levaquin and aerosol treatments. Left lower lobe infiltrate persisted and sputum culture was positive for staph aureus which was methicillin sensitive. Patient's oxygen requirement diminished but he still remained on nasal cannula O2. On 07/08/17, patient was seen and examined and felt to be stable condition for discharge home, he required home O2 to maintain his pulse ox above 88%. Discharge Activity: Return to Normal Activity Weight Bearing Status: Full weight bearing Home Medications: Medications to take at Discharge Aspirin [Aspirin, Baby] 81 mg PO DAILY@0800 07/03/17 Atenolol [Tenormin] 25 mg PO DAILY 07/03/17 Gabapentin [Neurontin] 600 mg PO TIDCM 07/03/17 Metformin HCl 1,000 mg PO BID 07/03/17 Multivitamin with Minerals/Lut [Pub Multivitamin 50 Plus Tab] 1 each PO BID 07/03/17 Oxycodone HCl/Acetaminophen [Oxycodon-Acetaminophen 7.5-325] 1 each PO 4X/DAY PRN PRN 07/03/17 Simvastatin [Zocor] 10 mg PO QHS 07/03/17 Zolpidem Tartrate [Ambien] 5 mg PO QHS PRN PRN 07/06/17 Albuterol IH (ProAir) [Proair Hfa (SP)Vent Pts] 2 puff INHALATION 4X/DAY #1 inhaler 07/07/17 Prednisone 10 mg PO UD #30 tab 07/07/17 levoFLOXacin tablet [Levaquin tablet] 750 mg PO DAILY@0600 #7 tab 07/07/17 Following Prescrptions Were Given to Patient: levoFLOXacin tablet [Levaquin tablet] 750 mg PO DAILY@0600 #7 tab Prednisone 10 mg PO UD #30 tab Albuterol IH (ProAir) [Proair Hfa (SP)Vent Pts] 2 puff INHALATION 4X/DAY #1 inhaler [facility] [Primary Care Provider] - Please follow up with your Primary Care Physician in: next week- you will need a chest x-ray in 10 days Disposition: Home Minutes spent on discharge:: 35 Patient Condition:: Stable Medical Necessity - Tobacco Use Smoking Status: Heavy Smoker (>10/day) Tobacco Use: Cigarettes Meaningful Use Info Meaningful Use Diagnoses (Choose all that apply): None applicable Code Visit Inpatient E&M: 88262 Disch Hosp
--- NOTE | 2017-07-08 16:41 | DS.PCM_ITS ---
Discharge Date and Diagnosis Date of Admission: 07/03/17 Date of Discharge: 07/07/17 - Primary Discharge Diagnosis #1 severe sepsis secondary to left lower lobe community-acquired pneumonia from methicillin sensitive staph aureus #2 left lower lobe community-acquired pneumonia secondary to methicillin sensitive staph aureus #3 metabolic encephalopathy secondary to #1 and 2 #4 chronic obstructive pulmonary disease #5 combined respiratory failure secondary to left lower lobe community-acquired pneumonia on a backdrop of chronic obstructive pulmonary disease #6 chronic pain syndrome due to degenerative joint disease lumbar spine #7 type 2 diabetes #8 hyperlipidemia #9 hypertension Hospital Course and Treatment Consultations 07/03/17 20:03 Consult: Onc/Wound/clinical biochemist Routine Comment: Reason for Consult:: wounds to bilat feet Operations: None Procedures: None Summary of Care Provided: The patient is a 67 year old M who was seen in the emergency room at [facility] after being brought in by his with complaints of somnolence and confusion. Patient was also incontinent of urine. Evaluation in the emergency room included labs which showed an elevated white blood cell count, creatinine was elevated, lactic acid was elevated at 2.2, patient's temperature is 99.2. Patient's pulse rate was increased at 101, respiratory rate was increased at 21. Patient had a low pulse ox and required a Ventimask to raise his oxygen sat above 90%. Blood gases showed a combined respiratory failure with an elevated PCO2 and decreased PO2. Chest x-ray is obtained which showed left lower lobe infiltrate. Patient was felt to have severe sepsis due to community-acquired pneumonia, he was given IV Levaquin and aerosol treatments and admitted to PCU. Over the next several days, patient's labs were followed, he remained on IV Levaquin and aerosol treatments. Left lower lobe infiltrate persisted and sputum culture was positive for staph aureus which was methicillin sensitive. Patient's oxygen requirement diminished but he still remained on nasal cannula O2. On 07/08/17, patient was seen and examined and felt to be stable condition for discharge home, he required home O2 to maintain his pulse ox above 88%. Discharge Activity: Return to Normal Activity Weight Bearing Status: Full weight bearing Home Medications: Medications to take at Discharge Aspirin [Aspirin, Baby] 81 mg PO DAILY@0800 07/03/17 Atenolol [Tenormin] 25 mg PO DAILY 07/03/17 Gabapentin [Neurontin] 600 mg PO TIDCM 07/03/17 Metformin HCl 1,000 mg PO BID 07/03/17 Multivitamin with Minerals/Lut [Pub Multivitamin 50 Plus Tab] 1 each PO BID Oxycodone HCl/Acetaminophen [Oxycodon-Acetaminophen 7.5-325] 1 each PO 4X/DAY PRN PRN 07/03/17 Simvastatin [Zocor] 10 mg PO QHS 07/03/17 Zolpidem Tartrate [Ambien] 5 mg PO QHS PRN PRN 07/06/17 Albuterol IH (ProAir) [Proair Hfa (SP)Vent Pts] 2 puff INHALATION 4X/DAY #1 inhaler 07/07/17 Prednisone 10 mg PO UD #30 tab 07/07/17 levoFLOXacin tablet [Levaquin tablet] 750 mg PO DAILY@0600 #7 tab 07/07/17 Following Prescrptions Were Given to Patient: levoFLOXacin tablet [Levaquin tablet] 750 mg PO DAILY@0600 #7 tab Prednisone 10 mg PO UD #30 tab Albuterol IH (ProAir) [Proair Hfa (SP)Vent Pts] 2 puff INHALATION 4X/DAY #1 inhaler [facility] Physician: [facility] [Primary Care Provider] - Please follow up with your Primary Care Physician in: next week- you will need a chest x-ray in 10 days Disposition: Home Minutes spent on discharge:: 35 Patient Condition:: Stable Medical Necessity - Tobacco Use Smoking Status: Heavy Smoker (>10/day) Tobacco Use: Cigarettes Meaningful Use Info Meaningful Use Diagnoses (Choose all that apply): None applicable Code Visit Inpatient E&M: 61011 Disch Hosp
== END 2017-07-07 18:07 | disposition home or self-care (01) | DRG 871 ==
LOC: ED 14:26 → PCU 15:33
PROVIDERS: Internal Medicine; Physician Assistant; Admitting Provider Internal Medicine; Emergency Provider Emergency Medicine; Visit Provider Internal Medicine
DX: A41.9 Sepsis, unspecified organism (principal); J15.211 Pneumonia due to Methicillin susceptible Staphylococcus aureus; J96.02 Acute respiratory failure with hypercapnia; G93.41 Metabolic encephalopathy; J96.01 Acute respiratory failure with hypoxia; J44.0 Chronic obstructive pulmonary disease with (acute) lower respiratory infection; F17.210 Nicotine dependence, cigarettes, uncomplicated; R65.20 Severe sepsis without septic shock; I12.9 Hypertensive chronic kidney disease with stage 1 through stage 4 chronic kidney disease, or unspecified chronic kidney disease; E11.22 Type 2 diabetes mellitus with diabetic chronic kidney disease; N18.3 Chronic kidney disease, stage 3 (moderate); I25.2 Old myocardial infarction; E83.39 Other disorders of phosphorus metabolism; S91.302A Unspecified open wound, left foot, initial encounter; S91.301A Unspecified open wound, right foot, initial encounter; I73.9 Peripheral vascular disease, unspecified; M47.816 Spondylosis without myelopathy or radiculopathy, lumbar region; G89.4 Chronic pain syndrome; E78.5 Hyperlipidemia, unspecified; Z79.82 Long term (current) use of aspirin; Z79.84 Long term (current) use of oral hypoglycemic drugs; Z79.891 Long term (current) use of opiate analgesic; Z79.899 Other long term (current) drug therapy
CPT/HCPCS: 36415; 36600; 70450; 71045; 71046; 71250; 80048; 80053; 80307; 80320; 81001; 82140; 82803; 82962; 83605; 83735; 84100; 84484; 85025; 85610; 85730; 87040; 87070; 87077; 87086; 87186; 87205; 87449; 87641; 93005; 94640; 94664; 94667; 94668; 97110; 97116; 97161; 97165; 97530; 97802; 99285; 99406; J7030; A4216; G0480

== ENCOUNTER 2017-09-20 11:26 | Inpatient (IN) | payer MEDICARE, SELFPAY ==
[2017-09-20] VITALS (18 sets, daily range): BP systolic 105–146; BP diastolic 51–76; PULSE 95–112; RESP 14–20; TEMP 37.4–37.8; O2SAT 84–97; BMI 28.3; BMI 27.4; BMI 27.5
[2017-09-20] MEDS: Ipratropium/Albuterol Sulfate 3 ML AMPUL.NEB INHALATION ×2 (11:54→19:21)
--- NOTE | 2017-09-20 12:15 | RAD_ITS ---
STUDY: X-RAY CHEST REASON FOR EXAM: Male, 67 years old. Shortness of breath. Dyspnea. TECHNIQUE: Chest two-view is, PA and lateral projections. COMPARISON: 07/04/2017 FINDINGS: EKG wires overlie chest and upper abdomen. Right lung appears well-expanded shows minimal patchy heterogeneous opacity right base medially. Left lung shows decreased basal volume with mostly homogeneous increased density obscuring the left lower heart shadow which may be due to elevation of the diaphragm with or without atelectasis, pleural fluid, pneumonia, mass or combination. No large gross pneumothorax identified. With lateral view, increased density partially obscures the upper thoracic spine, cannot exclude mass. Heart is obscured by left lung base opacity described above. Stable appearing mediastinum and pearl. Central pulmonary vessels show increased caliber similar to prior study suggestive pulmonary arterial hypertension . Severe aortic knob calcification, stable appearance. Stable appearing visualized moderate to severe degenerative thoracic spine. Nonacute visualized ribs, clavicles and shoulders. There is no demonstrated abnormality of the visualized soft tissue structures of the upper abdomen. No subdiaphragmatic free air seen grossly. RAD/Chest PA and Lateral IMPRESSION: Increased left lung base fairly homogeneous opacity, may represent elevated diaphragm but cannot exclude underlying consolidative pneumonia, atelectasis, pleural fluid, mass or combination. If clinically indicated, recommend CT chest without IV contrast for further evaluation. Increased diffuse density obscuring upper thoracic spine with lateral view, cannot exclude mass versus artifact. If clinically indicated, also recommend CT chest with IV contrast for further evaluation. No overt cardiac failure identified. Heart obscured by left lung base opacity as described. Clinical correlation recommended. Electronically Signed: Michael Gates, at 13:01 EDT Tel , Service support ,
[2017-09-20 12:25] LABS: Absolute Lymphocyte Count 1.62 X10^3/ul (0.83-4.51); Absolute Neutrophil Count 11.3 X10^3/uL (2.0-7.7); Basophil# 0.11 X10^3/uL; Basophil% 0.8 % (0-1); Eosinophil# 0.31 X10^3/uL; Eosinophils% 2.2 % (0-5); Hematocrit 44.6 % (40-54); Hemoglobin 14.3 g/dl (13.0-16.5); Lymphocyte # 1.62 X10^3/ul (4.0); Lymphocyte % 11.3 % (19-41); Mean Corp Hgb Conc 32.1 g/gl (32-36); Mean Corpuscular Hgb 30.8 pg (27.0-32.0); Mean Corpuscular Volume 96.1 fL (80-94); Mean Platelet Vol. 10.9 fl (6.2-12.0); Monocyte# 1.04 X10^3/uL; Monocyte% 7.2 % (0-10); Neutrophil # 11.26 X10^3/uL (2.7-7.7); Neutrophil % 78.2 % (47-70); POSITIVE COUNT NO; POSITIVE DIFFERENTIAL NO; POSITIVE MORPHOLOGY NO; Platelet Count 163 K/mm3 (150-450); RBC Distribution Width CV 16.6 % (11.6-14.6); RBC Distribution Width SD 56.9 fl (35.1-43.9); Red Blood Count 4.64 M/mm3 (4.6-6.2); White Blood Count 14.4 K/mm3 (4.4-11.0)
[2017-09-20 12:35] LABS: Anion Gap 7 (5-15); BUN 14 mg/dL (7-18); BUN/Creat Ratio 8.8 RATIO (10-20); Calcium,Total 9.1 mg/dL (8.5-10.1); Chloride 102 mmol/L (98-107); Creatinine, Serum 1.59 mg/dL (0.70-1.30); EST Glomerular Filtration Rate 46 mL/min (>60); Est Glom Filt Rate - Afr Amer 56 mL/min (>60); Estimated Creatinine Clearance 52.42 ml/min; Glucose 106 mg/dL (74-106); Potassium 5.1 mmol/L (3.5-5.1); Sodium Level 140 mmol/L (136-145)
--- NOTE | 2017-09-20 13:45 | CT_ITS ---
STUDY: CTA CHEST REASON FOR EXAM: Male, 67 years old. Hypoxia. Fever. Short of breath. RADIATION DOSAGE (If Supplied By Facility): CTDIvol = ( 15.7 ) mGy, DLP = ( 683.88 ) mGycm TECHNIQUE: The examination was performed with the intravenous administration of 100 ml of Isovue 370 contrast material. Post-processing of the angiographic images was performed, with multiplanar reformation and 3D reconstruction. Individualized dose optimization techniques were used for this CT. COMPARISON: None. FINDINGS: Limited by motion. Normal enhancement of the main pulmonary artery and right and left pulmonary arteries. Normal enhancement of the bilateral peripheral pulmonary arteries. There is no demonstrated pulmonary embolism. Normal thoracic aorta and visualized great vessels. There is no demonstrated aortic dissection. Normal heart and pericardium. Normal mediastinum. Normal hilar regions. Normal visualized trachea and bronchi. There is elevated left hemidiaphragm. There is atelectasis and/or infiltrate in the posterior lower left lung. Normal pleura. There are no pleural effusions. Normal chest wall structures. There are degenerative changes of thoracic spine. Normal visualized upper abdomen. CT/CTA Chest W/WO Contrast IMPRESSION: Limited by motion. No evidence for PE. Moderate airspace disease in the posterior lower left lung. Electronically Signed: Maicol Espinal MD at 14:25 EDT , Service support ,
[2017-09-20] MEDS: 0.9% Normal Saline 1,000 ML 1000 ML IV (13:57)
--- NOTE | 2017-09-20 14:34 | NURSING ---
DR DAMION FORD
--- NOTE | 2017-09-20 14:36 | ED.VISSUMM ---
- ER Visit Summary Date of Service: 09/20/17 Chief Complaint: Shortness of breath History of Present Illness: The patient is a 67 M who presents with shortness of breath that began today while at rest. Patient states his breathing is worse with any exertion. Patient admits to recent cough with some yellow sputum. Patient denies any fevers or chills. Patient denies any chest pain. Patient denies any nausea or vomiting. Patient states he just cannot catch his breath. Physical Examination: Vital signs showed tachycardia of 111 and a low pulse oximeter reading of 84% on room air. Patient is a temperature of 100?. Oral mucosa is pink and moist. Neck is supple. There is no JVD noted. Heart was regular and tachycardic. Lungs are diminished in the bases bilaterally but worse on the left. Abdomen is soft and nontender. Cranial nerves II through XII are intact. There are no focal motor or sensory deficits noted. Skin is warm and dry. There is an ulceration on with his right heel. There is no active discharge or drainage noted. There is no bleeding noted. Test Results: EKG showed sinus tachycardia with a rate of 112. There are nonspecific ST-T wave changes. There are no acute changes noted. CBC showed a leukocytosis of 14.4. Basic metabolic profile shows slightly elevated creatinine of 1.56. Troponin was slightly elevated at 0.16. Blood cultures and lactate were obtained and are pending. Chest x-ray shows increased left lung base opacity which may be infiltrate, atelectasis, pleural fluid, or mass. There is also a diffuse density obscuring the upper thoracic spine on the lateral view. CT scan of the chest without and with IV contrast were recommended. CTA of the chest with and without IV contrast was obtained. There is no evidence of pulmonary embolism. There is airspace disease in the posterior lower left lung. Emergency Department Course and Treatment: Patient was started on Levaquin here. Case was discussed with Dr. Chambers. He will admit the patient to his service. Disposition: Admit to hospital Impression: Healthcare associated pneumonia This note was generated with [employer] dictation software. It may contain incorrect words, spelling, and punctuation that were not noted in review of the chart prior to signing ED Disposition - Plan for ED Patient: Disposition: Acute Care Hospital [facility] Chief Complaint: Shortness of Breath Diagnosis: Healthcare-associated pneumonia [facility] [[facility] Provider] -
[2017-09-20] MEDS: levoFLOXacin IV 750 MG/150 ML BAG 100 MG IV (14:42)
--- NOTE | 2017-09-20 14:42 | ED.DCSUM_ITS ---
- ER Visit Summary Date of Service: 09/20/17 Chief Complaint: Shortness of breath History of Present Illness: The patient is a 67 M who presents with shortness of breath that began today while at rest. Patient states his breathing is worse with any exertion. Patient admits to recent cough with some yellow sputum. Patient denies any fevers or chills. Patient denies any chest pain. Patient denies any nausea or vomiting. Patient states he just cannot catch his breath. Physical Examination: Vital signs showed tachycardia of 111 and a low pulse oximeter reading of 84% on room air. Patient is a temperature of 100?. Oral mucosa is pink and moist. Neck is supple. There is no JVD noted. Heart was regular and tachycardic. Lungs are diminished in the bases bilaterally but worse on the left. Abdomen is soft and nontender. Cranial nerves II through XII are intact. There are no focal motor or sensory deficits noted. Skin is warm and dry. There is an ulceration on with his right heel. There is no active discharge or drainage noted. There is no bleeding noted. Test Results: EKG showed sinus tachycardia with a rate of 112. There are nonspecific ST-T wave changes. There are no acute changes noted. CBC showed a leukocytosis of 14.4. Basic metabolic profile shows slightly elevated creatinine of 1.56. Troponin was slightly elevated at 0.16. Blood cultures and lactate were obtained and are pending. Chest x-ray shows increased left lung base opacity which may be infiltrate, atelectasis, pleural fluid, or mass. There is also a diffuse density obscuring the upper thoracic spine on the lateral view. CT scan of the chest without and with IV contrast were recommended. CTA of the chest with and without IV contrast was obtained. There is no evidence of pulmonary embolism. There is airspace disease in the posterior lower left lung. Emergency Department Course and Treatment: Patient was started on Levaquin here. Case was discussed with Dr. Chambers. He will admit the patient to his service. Disposition: Admit to hospital Impression: Healthcare associated pneumonia This note was generated with [employer] dictation software. It may contain incorrect words, spelling, and punctuation that were not noted in review of the chart prior to signing ED Disposition - Plan for ED Patient: Disposition: Acute Care Hospital [facility] Chief Complaint: Shortness of Breath Diagnosis: Healthcare-associated pneumonia [facility] [Primary [facility] Provider] -
[2017-09-20 15:24] LABS: Lactic Acid 2.8 mmol/L (0.4-2.0)
--- NOTE | 2017-09-20 15:24 | NURSING ---
105 SEPSIS, PNEUMONIA DAMION
--- NOTE | 2017-09-20 15:24 | PCM.HP.STD ---
Problem List (1) Severe sepsis Status: Acute (2) Pneumonia Status: Acute (3) Elevated troponin Status: Acute History of Present Illness Date of Admission: 09/20/17 Chief Complaint: Shortness of breath. The patient is a 67 year old M who is a poor historian who is lifted. The history was obtained through the emergency room physician's report is no family is present at bedside and patient has no insight in regards to his presenting symptoms. Patient began having shortness of breath at rest. Presented to the emergency room and had a CTA of his chest that showed she received Levaquin concern for healthcare acquired pneumonia given a hospitalization at age and had back in June. Additionally, patient had an elevated troponin of 0.16. Patient denies any chest pain. Patient states that he is has recently had a heart cath [place]. He does not know what those results were. He denies any shortness of breath to me nor any chest pain. He denies any fever or chills. [] Past Medical History Medical History: Medical History (Last Updated 09/20/17 @ 15:31 by Laci Chambers DO) CAD (coronary artery disease) I25.10 DM2 (diabetes mellitus, type 2) E11.9 Hyperlipidemia E78.5 Non-healing wound of right heel S91.301A PAD (peripheral artery disease) I73.9 HTN (hypertension) I10 Allergies No Known Allergies Allergy (Verified 09/20/17 11:33) Home Medications: Ambulatory Orders Medication Instructions Recorded Atenolol [Tenormin] 25 mg PO DAILY 07/03/17 Gabapentin [Neurontin] 600 mg PO TIDCM 07/03/17 Metformin HCl 1,000 mg PO BID 07/03/17 Multivitamin with Minerals/Lut 1 tab PO BID 07/03/17 [Pub Multivitamin 50 Plus Tab] Oxycodone HCl/Acetaminophen 1 each PO Q6H PRN 07/03/17 [Oxycodon-Acetaminophen 7.5-325] Simvastatin [Zocor] 10 mg PO QHS 07/03/17 Aspirin E.C. [Ecotrin] 81 mg PO DAILY 09/20/17 Cyclobenzaprine [Flexeril] 10 mg PO BID 09/20/[address] [place]-3/Dha/Epa/Fish Oil [[place] 3 500 mg PO BID 09/20/17 500 Softgel] Potassium Chloride [Klor-Con M10] 10 meq PO DAILY 09/20/17 Urea [Urevaz] 1 applicatio TP PRN PRN 09/20/17 Zolpidem Tartrate [Ambien] 10 mg PO QHS 09/20/17 Surgical History: total knee arthroplasty, - - Multiple coronary artery stents lumbar spine surgery due to degenerative disc disease of the lumbar spine Psychiatric History: No pertinent psych hx Smoking Status: Former smoker Alcohol: None Drugs: None - *Family History Maternal History Items: No pertinent history, - - no CAD Paternal History Items: No pertinent history Review of Systems Constitutional: Denies: Anorexia, Chills, Fever Eyes: Denies: Blurred vision, Double vision HEENT: Denies: Head Aches, Sinus Congestion, Sinus Drainage Cardiovascular: Denies: Chest Pain, Palpitations Respiratory: Denies: Cough, Shortness of breath at rest, Sputum production Gastrointestinal: Denies: Abdominal Pain, Nausea, Vomiting Genitourinary: Denies: Dysuria Musculoskeletal: Denies: Joint Pain, Joint Tenderness Skin: Denies: Dryness, Jaundice Neurological: Denies: Numbness, Tingling, Focal weakness Psychiatric: Denies: Anxiety, Depression Hematologic/ Lymphatic: Reports: Hx of blood clot. Denies: Easy Bruising, Easy Bleeding Comment: All review of systems are negative except as mentioned in the history of present illness and the other review of systems. VTE Information - Inpt Only VTE Present on Admission: No VTE Mechan Device Prophylaxis: None VTE Pharm Prophylaxis ordered?: Yes Patient Problems: Active and Suspected Problems Healthcare-associated pneumonia (Acute) Severe sepsis (Acute) Pneumonia (Acute) Elevated troponin (Acute) - Physical Exam General: Alert, Cooperative, No apparent distress, - - Afebrile. No respiratory distress. No conversational dyspnea. Alert and oriented ?2 HEENT: Atraumatic, Normocephalic Oral: Moist Mucosa, No Gingival or Mucosal Lesions/ Ulcerations Neck: No Nodes, Thyroid Normal Size and Texture Lungs: Clear to auscultation, No rhonchi, No wheeze, Diminished Cardiovascular: Regular rate, Regular Rhythm, Normal S1, Normal S2, No murmurs Abdomen: Bowel Sounds Present, Soft, Non Tender, Non-Distended, No Hepato-splenomegaly Extremities: No edema, No Calf Tenderness, Peripheral Pulses Normal Skin: No rashes, - - Appears to be healing. Musculoskeletal: No Tenderness to Palpation of Joints or Extremities, No Muscle Wasting Neurological: Neuro grossly intact, Muscle tone normal, Sensory exam intact to light touch and pain Psych/Mental Status: Normal Affect, Appropriate Vital Signs Temp Pulse Resp BP Pulse Ox 37.4 C H 101 H 15 146/76 H 94 09/20/17 14:46 09/20/17 15:15 09/20/17 15:15 09/20/17 15:15 09/20/17 15:15 Oxygen Flow Rate (L/min) 5 Oxygen Delivery Method Nasal Cannula Weight: 100.2 kg Body Mass Index (BMI) 28.3 Finger Stick Blood Glucose 116 Laboratory Tests Past 24 Hrs 09/20/17 09/20/17 09/20/17 11:35 11:35 14:50 WBC 14.4 H RBC 4.64 Hgb 14.3 Hct 44.6 MCV 96.1 H MCH 30.8 MCHC 32.1 RDW 16.6 H RDW Differential 56.9 H Plt Count 163 MPV 10.9 Immature Gran % (Auto) 0.300 Neut % (Auto) 78.2 H Lymph % (Auto) 11.3 L Nicholas % (Auto) 7.2 Eos % (Auto) 2.2 Baso % (Auto) 0.8 Absolute Neuts (auto) 11.3 H Absolute Lymphs (auto) 1.62 Total Counted Not Reportable Sodium 140 Potassium 5.1 Chloride 102 Carbon Dioxide 31.0 Anion Gap 7 BUN 14 Creatinine 1.59 H Estim Creat Clear Calc 52.42 Est GFR (MDRD) Af Amer 56 L Est GFR (MDRD) Non-Af 46 L BUN/Creatinine Ratio 8.8 L Glucose 106 Lactic Acid 2.8 H Calcium 9.1 Troponin I 0.162 H CTA of the chest are reviewed and shows a chronic infiltrative changes in the left lower lobe that were essentially unchanged from July 04. Some new patchy right lower lobe infiltrate not present on the prior CAT scan. EKG reviewed and showed normal sinus rhythm with no acute changes. Assessment/Plan All Active Problems Mental status change (Acute) Healthcare-associated pneumonia (Acute) Severe sepsis (Acute) Pneumonia (Acute) Elevated troponin (Acute) 1. Severe sepsis Present on arrival Lactic acid of 2.8 Suspect related with the patient's underlying pneumonia IV fluids and follow-up lactic acid Complicating the patient's lactic acidosis the fact that he is on Metformin and that will be held. 2. Suspected gram-negative pneumonia Pulmonary toilet Aerosols Check urinary antigens for strep and Legionella Check sputum culture Vancomycin and Zosyn Will have speech therapy evaluate the patient to see if there is any concern for aspiration 3. Elevated troponin We will cycle Patient asymptomatic Unclear reasoning why it was checked in the first place Patient states that he has had a recent heart catheterization within the past several days. It is unclear if that is accurate or not but [facility] If enzymes start to climb further then may consider consulting cardiology Troponins may be skewed upwards given what appears to be some acute kidney injury as well. 4. Acute kidney injury IV fluids Follow-up creatinine Patient did have contrast with a CT angiogram so it is possible that it may get worse before he gets better but does start getting worse consider a nephrology consultation 5. Diabetes mellitus type 2 Hold metformin and that he had received. Will not be able to resume until the 12th at the earliest. Sliding scale insulin 6. DVT prophylaxis with Lovenox Code Visit Inpatient E&M: 04135 Init Hosp L3
--- NOTE | 2017-09-20 15:29 | HP.PCM_ITS ---
Problem List (1) Severe sepsis Status: Acute (2) Pneumonia Status: Acute (3) Elevated troponin Status: Acute History of Present Illness Date of Admission: 09/20/17 Chief Complaint: Shortness of breath. The patient is a 67 year old M who is a poor historian who is lifted. The history was obtained through the emergency room physician's report is no family is present at bedside and patient has no insight in regards to his presenting symptoms. Patient began having shortness of breath at rest. Presented to the emergency room and had a CTA of his chest that showed she received Levaquin concern for healthcare acquired pneumonia given a hospitalization at age and had back in June. Additionally, patient had an elevated troponin of 0.16. Patient denies any chest pain. Patient states that he is has recently had a heart cath at [place]. He does not know what those results were. He denies any shortness of breath to me nor any chest pain. He denies any fever or chills. [ ] Past Medical History Medical History: Medical History (Last Updated 09/20/17 @ 15:31 by Laci Chambers DO) CAD (coronary artery disease) I25.10 DM2 (diabetes mellitus, type 2) E11.9 Hyperlipidemia E78.5 Non-healing wound of right heel S91.301A PAD (peripheral artery disease) I73.9 HTN (hypertension) I10 Allergies No Known Allergies Allergy (Verified 09/20/17 11:33) Home Medications: Ambulatory Orders Medication Instructions Recorded Atenolol [Tenormin] 25 mg PO DAILY 07/03/17 Gabapentin [Neurontin] 600 mg PO TIDCM 07/03/17 Metformin HCl 1,000 mg PO BID 07/03/17 Multivitamin with Minerals/Lut 1 tab PO BID 07/03/17 [Pub Multivitamin 50 Plus Tab] Oxycodone HCl/Acetaminophen 1 each PO Q6H PRN 07/03/17 [Oxycodon-Acetaminophen 7.5-325] Simvastatin [Zocor] 10 mg PO QHS 07/03/17 Aspirin E.C. [Ecotrin] 81 mg PO DAILY 09/20/17 Cyclobenzaprine [Flexeril] 10 mg PO BID 09/20/17 [place]-3/Dha/Epa/Fish Oil [[place] 3 500 mg PO BID 09/20/17 500 Softgel] Potassium Chloride [Klor-Con M10] 10 meq PO DAILY 09/20/17 Urea [Urevaz] 1 applicatio TP PRN PRN 09/20/17 Zolpidem Tartrate [Ambien] 10 mg PO QHS 09/20/17 Surgical History: total knee arthroplasty, - - Multiple coronary artery stents lumbar spine surgery due to degenerative disc disease of the lumbar spine Psychiatric History: No pertinent psych hx Smoking Status: Former smoker Alcohol: None Drugs: None - *Family History Maternal History Items: No pertinent history, - - no CAD Paternal History Items: No pertinent history Review of Systems Constitutional: Denies: Anorexia, Chills, Fever Eyes: Denies: Blurred vision, Double vision HEENT: Denies: Head Aches, Sinus Congestion, Sinus Drainage Cardiovascular: Denies: Chest Pain, Palpitations Respiratory: Denies: Cough, Shortness of breath at rest, Sputum production Gastrointestinal: Denies: Abdominal Pain, Nausea, Vomiting Genitourinary: Denies: Dysuria Musculoskeletal: Denies: Joint Pain, Joint Tenderness Skin: Denies: Dryness, Jaundice Neurological: Denies: Numbness, Tingling, Focal weakness Psychiatric: Denies: Anxiety, Depression Hematologic/ Lymphatic: Reports: Hx of blood clot. Denies: Easy Bruising, Easy Bleeding Comment: All review of systems are negative except as mentioned in the history of present illness and the other review of systems. VTE Information - Inpt Only VTE Present on Admission: No VTE Mechan Device Prophylaxis: None VTE Pharm Prophylaxis ordered?: Yes Patient Problems: Active and Suspected Problems Healthcare-associated pneumonia (Acute) Severe sepsis (Acute) Pneumonia (Acute) Elevated troponin (Acute) - Physical Exam General: Alert, Cooperative, No apparent distress, - - Afebrile. No respiratory distress. No conversational dyspnea. Alert and oriented ?2 HEENT: Atraumatic, Normocephalic Oral: Moist Mucosa, No Gingival or Mucosal Lesions/ Ulcerations Neck: No Nodes, Thyroid Normal Size and Texture Lungs: Clear to auscultation, No rhonchi, No wheeze, Diminished Cardiovascular: Regular rate, Regular Rhythm, Normal S1, Normal S2, No murmurs Abdomen: Bowel Sounds Present, Soft, Non Tender, Non-Distended, No Hepato- splenomegaly Extremities: No edema, No Calf Tenderness, Peripheral Pulses Normal Skin: No rashes, - - Appears to be healing. Musculoskeletal: No Tenderness to Palpation of Joints or Extremities, No Muscle Wasting Neurological: Neuro grossly intact, Muscle tone normal, Sensory exam intact to light touch and pain Psych/Mental Status: Normal Affect, Appropriate Vital Signs Temp Pulse Resp BP Pulse Ox 37.4 C H 101 H 15 146/76 H 94 09/20/17 14:46 09/20/17 15:15 09/20/17 15:15 09/20/17 15:15 09/20/17 15:15 Oxygen Flow Rate (L/min) 5 Oxygen Delivery Method Nasal Cannula Weight: 100.2 kg Body Mass Index (BMI) 28.3 Finger Stick Blood Glucose 116 Laboratory Tests Past 24 Hrs 09/20/17 09/20/17 09/20/17 11:35 11:35 14:50 WBC 14.4 H RBC 4.64 Hgb 14.3 Hct 44.6 MCV 96.1 H MCH 30.8 MCHC 32.1 RDW 16.6 H RDW Differential 56.9 H Plt Count 163 MPV 10.9 Immature Gran % (Auto) 0.300 Neut % (Auto) 78.2 H Lymph % (Auto) 11.3 L [place] % (Auto) 7.2 Eos % (Auto) 2.2 Baso % (Auto) 0.8 Absolute Neuts (auto) 11.3 H Absolute Lymphs (auto) 1.62 Total Counted Not Reportable Sodium 140 Potassium 5.1 Chloride 102 Carbon Dioxide 31.0 Anion Gap 7 BUN 14 Creatinine 1.59 H Estim Creat Clear Calc 52.42 Est GFR (MDRD) Af Amer 56 L Est GFR (MDRD) Non-Af 46 L BUN/Creatinine Ratio 8.8 L Glucose 106 Lactic Acid 2.8 H Calcium 9.1 Troponin I 0.162 H CTA of the chest are reviewed and shows a chronic infiltrative changes in the left lower lobe that were essentially unchanged from July 04. Some new patchy right lower lobe infiltrate not present on the prior CAT scan. EKG reviewed and showed normal sinus rhythm with no acute changes. Assessment/Plan All Active Problems Mental status change (Acute) Healthcare-associated pneumonia (Acute) Severe sepsis (Acute) Pneumonia (Acute) Elevated troponin (Acute) 1. Severe sepsis * Present on arrival * Lactic acid of 2.8 * Suspect related with the patient's underlying pneumonia * IV fluids and follow-up lactic acid * Complicating the patient's lactic acidosis the fact that he is on Metformin and that will be held. 2. Suspected gram-negative pneumonia * Pulmonary toilet * Aerosols * Check urinary antigens for strep and Legionella * Check sputum culture * Vancomycin and Zosyn * Will have speech therapy evaluate the patient to see if there is any concern for aspiration 3. Elevated troponin * We will cycle * Patient asymptomatic * Unclear reasoning why it was checked in the first place * Patient states that he has had a recent heart catheterization within the past several days. It is unclear if that is accurate or not but will request records from the [place] * If enzymes start to climb further then may consider consulting cardiology * Troponins may be skewed upwards given what appears to be some acute kidney injury as well. * 4. Acute kidney injury * IV fluids * Follow-up creatinine * Patient did have contrast with a CT angiogram so it is possible that it may get worse before he gets better but does start getting worse consider a nephrology consultation 5. Diabetes mellitus type 2 * Hold metformin and that he had received. Will not be able to resume until the at the earliest. * Sliding scale insulin 6. DVT prophylaxis with Lovenox Code Visit Inpatient E&M: 46268 Init Hosp L3
[2017-09-20] MEDS: 0.9% Normal Saline 1,000 ML 150 ML IV (16:30)
--- NOTE | 2017-09-20 16:50 | PCM.RX.CS ---
Consult Pharmacy has been consulted to manage selected antiobiotic: Vancomycin Type of Consult: New start Suspected Infection: Pneumonia Prior Doses of Antibiotics Received/Current Regimen: NONE Labs: Sodium 140 mmol/L (136-145) 09/20/17 11:35 Potassium 5.1 mmol/L (3.5-5.1) 09/20/17 11:35 Chloride 102 mmol/L (98-107) 09/20/17 11:35 Carbon Dioxide 31.0 mmol/L (21.0-32.0) 09/20/17 11:35 Anion Gap 7 (5-15) 09/20/17 11:35 BUN 14 mg/dL (7-18) 09/20/17 11:35 Creatinine 1.59 mg/dL (0.70-1.30) H 09/20/17 11:35 Est GFR (MDRD) Af Amer 56 mL/min (>60) L 09/20/17 11:35 Est GFR (MDRD) Non-Af 46 mL/min (>60) L 09/20/17 11:35 BUN/Creatinine Ratio 8.8 RATIO (10-20) L 09/20/17 11:35 Glucose 106 mg/dL (74-106) 09/20/17 11:35 Weight used for dosin kg Estimated Creatinine Clearance: 52 ML/MIN Goal Trough: 15-20 mcg/mL Pharmacy Plan for Drug Dosing: PLAN/RECOMMENDATIONS 1. Vancomycin 1500mg x1 initial dose 09/20 @1800 2. Scheduled vancomycin 1000mg IV Q12hrs to start 09/21/17 @0600 3. Trough scheduled 09/22/17 @0530, prior to the 4th total vancomycin dose 4. Pharmacy Service will continue to monitor and adjust dosing as required.
[2017-09-20 17:01] LABS: Bedside Glucose 107 mg/dL (70-110)
[2017-09-20] MEDS: Gabapentin 600 MG Tablet PO (18:00)
[2017-09-20] MEDS: oxyCODONE 5 MG Tablet PO (18:01)
[2017-09-20 18:55] LABS: Reflex Lactate? Y
--- NOTE | 2017-09-20 19:23 | ECHOD_ITS ---
Reason For Study: Elevated Troponin Procedure This was a 2D Doppler, Color Flow transthoracic echocardiogram. Exam performed portable in patient room. Left Ventricle Normal size and thickness. The estimated ejection fraction is 65 %. Stage 1 diastolic dysfunction. No regional wall motion abnormalities noted. Right Ventricle Normal size and thickness. Normal systolic function. Atria Normal left atrium. Normal right atrium. Normal atrial septum. Mitral Valve The mitral valve is structurally normal. No prolapse or stenosis seen. Trivial mitral valve insufficiency. Tricuspid Valve Normal tricuspid valve. Unable to estimate RV systolic pressure due to inadequate jet, pulmonary artery pressure probably normal. Aortic Valve Normal aortic valve. Trisinus/trileaflet aortic valve. Pulmonic Valve Normal pulmonic valve. Great Vessels Normal aortic root. Mild atherosclerosis of the aortic arch. Normal inferior vena cava. Inferior vena cava collapse with sniff. Pericardium/Pleural No pericardial effusion. MMode/2D Measurements & Calculations LVIDd: 4.9 cm IVSd: 1.0 cm Ao root diam: 3.6 cm LVIDs: 3.5 cm LVPWd: 1.0 cm RVDd: 4.0 cm FS: 28.4 % LAV(MOD-bp): 47.3 ml EDV(MOD-sp4): 106.3 ml SV(MOD-sp4): 55.1 ml LAV(MOD-bp) Indexed: 21.2 ml/m2 ESV(MOD-sp4): 51.2 ml LAV(MOD-sp2): 57.5 ml EF(MOD-sp4): 51.8 % LAV(MOD-sp4): 33.8 ml LA A4 area: 14.7 cm2 RA A4 area: 14.6 cm2 Doppler Measurements & Calculations MV E max andrés: 75.9 cm/sec Lat Peak E' Andrés: 8.8 cm/sec Med Peak E' Andrés: 8.3 cm/sec MV A max andrés: 81.5 cm/sec E/E' lat: 8.6 E/E' med: 9.1 MV E/A: 0.93 Ao V2 max: 164.6 cm/sec LV V1 max: 127.4 cm/sec PA V2 max: 149.1 cm/sec Ao max P.8 mmHg LV V1 max P.5 mmHg Ao V2 mean: 130.6 cm/sec Ao mean P.3 mmHg Ao V2 VTI: 33.0 cm Interpretation Summary The estimated ejection fraction is 65 %. Stage 1 diastolic dysfunction. Unable to estimate RV systolic pressure due to inadequate jet, pulmonary artery pressure probably normal. There is no comparison study available. Ordering Physician: Laci Chambers Referring Physician: [facility] Performed By: Tamika Reyna, DUGLAS, RVT
[2017-09-20] MEDS: Enoxaparin 100 MG/ML Syringe SC (19:53)
[2017-09-20 19:54] LABS: Lactic Acid 1.8 mmol/L (0.4-2.0)
[2017-09-20 20:57] LABS: Bacteria 0 SEEN /hpf (None Seen); Mucous, Urine 0 SEEN /hpf (<or=2+); Squamous Epithelial Cells - UA 0 SEEN /hpf (0-5)
[2017-09-20 20:59] LABS: Color, Urine Yellow (Yellow); Glucose, Dipstick Normal (Normal); Ketone-Dipstick Negative (Negative); Leukocyte Esterase-Dipstick 25 /ul (Negative); Nitrite-Dipstick Negative (Negative); Occult Blood-Urine 250 /ul (Negative); Protein-Dipstick 15 mg/dl (Negative); Specific Gravity, Urine 1.015 (1.002-1.030); Urine Bilirubin Dipstick Negative (Negative); Urine Clarity Clear (Clear); Urine Urobilinogen Normal (Normal)
[2017-09-20 21:07] LABS: Red Blood Cells-Urine 5-10 SEEN /hpf (0-5); White Blood Cells 0-5 SEEN /hpf (0-5)
[2017-09-20] MEDS: guaiFENesin 1,200 MG Tablet 1200 MG PO (22:20)
[2017-09-20] MEDS: Atorvastatin Calcium 10 MG Tablet 5 MG PO (22:20)
[2017-09-20] MEDS: Piperacil/Tazobactam 3.375 GM/50 ML ML IV (22:20)
[2017-09-20 22:35] LABS: Bedside Glucose 115 mg/dL (70-110)
[2017-09-21] VITALS (25 sets, daily range): BP systolic 112–134; BP diastolic 53–73; PULSE 64–111; RESP 18–20; TEMP 36.5–37.2; O2SAT 86–94
--- NOTE | 2017-09-21 02:47 | RAD_ITS ---
STUDY: X-RAY - SOFT TISSUE NECK REASON FOR EXAM: Male, 67 years old. Epiglottitis. TECHNIQUE: A single lateral view of the neck was obtained. COMPARISON: None. FINDINGS: Normal visualized nasopharynx, oropharynx, hypopharynx. Normal epiglottis. Normal visualized subglottic tracheal air column. Normal prevertebral soft tissue structures. Normal visualized osseous structures. The soft tissue structures are unremarkable. There are multilevel degenerative changes of the visualized cervical spine. RAD/Neck for Soft Tissue IMPRESSION: Normal x-ray soft tissue neck. No evidence for epiglottitis. Electronically Signed: Tigre Kilgore MD at 3:43 EDT , Service support ,
[2017-09-21] MEDS: 0.9% NaCl Peripheral Flush Adult/Peds IV ×2 (02:54→16:00)
[2017-09-21] MEDS: MethylPREDNISolone 125 MG/2 ML Vial IV (02:54)
[2017-09-21] MEDS: Racepinephrine HCl 0.5 ML VIAL.NEB. INHALATION (03:09)
[2017-09-21 04:59] LABS: Anion Gap 9 (5-15); BUN 13 mg/dL (7-18); BUN/Creat Ratio 9.6 RATIO (10-20); Calcium,Total 8.3 mg/dL (8.5-10.1); Chloride 105 mmol/L (98-107); Creatinine, Serum 1.36 mg/dL (0.70-1.30); EST Glomerular Filtration Rate 56 mL/min (>60); Est Glom Filt Rate - Afr Amer 67 mL/min (>60); Estimated Creatinine Clearance 61.28 ml/min; Glucose 128 mg/dL (74-106); Potassium 4.2 mmol/L (3.5-5.1); Sodium Level 141 mmol/L (136-145)
[2017-09-21] MEDS: Enoxaparin 100 MG/ML Syringe SC (05:52)
[2017-09-21] MEDS: oxyCODONE 5 MG Tablet PO ×3 (05:53→22:49)
[2017-09-21] MEDS: Vancomycin IV 1,000 MG/200 ML BAG 200 MG IV (05:53)
[2017-09-21] MEDS: Piperacil/Tazobactam 3.375 GM/50 ML ML IV ×3 (05:53→22:52)
[2017-09-21 06:51] LABS: Bedside Glucose 171 mg/dL (70-110)
[2017-09-21] MEDS: Ipratropium/Albuterol Sulfate 3 ML AMPUL.NEB INHALATION ×4 (07:13→23:54)
--- NOTE | 2017-09-21 09:11 | RAD_ITS ---
STUDY: X-RAY CHEST REASON FOR EXAM: Male, 67 years old. Sinus of breath, sepsis, pneumonia TECHNIQUE: Single AP portable view of the chest. COMPARISON: 09/20/2017 FINDINGS: Cardiac monitoring leads overlie the chest. There is continued patchy airspace opacity at both lung bases. There is no demonstrated pleural abnormality. There is mild cardiac enlargement. Normal mediastinum and pearl. Normal visualized pulmonary arteries. There is mild calcification of the aortic arch. Normal visualized thoracic spine. There is widening to the right acromioclavicular joint. There is no demonstrated abnormality of the visualized soft tissue structures of the upper abdomen. RAD/Chest 1 View (Portable) IMPRESSION: Bilateral lower lobe airspace disease, more prominent on the left. This is very similar to yesterday's examination. Electronically Signed: Guilherme Rogers DO at 9:58 EDT Tel , Service support ,
[2017-09-21 09:43] LABS: Absolute Lymphocyte Count 1.29 X10^3/ul (0.83-4.51); Absolute Neutrophil Count 6.9 X10^3/uL (2.0-7.7); Basophil# 0.05 X10^3/uL; Basophil% 0.5 % (0-1); Eosinophil# 0.42 X10^3/uL; Eosinophils% 4.5 % (0-5); Hemoglobin 12.9 g/dl (13.0-16.5); Lymphocyte # 1.29 X10^3/ul (4.0); Lymphocyte % 13.8 % (19-41); Mean Corp Hgb Conc 31.5 g/gl (32-36); Mean Corpuscular Hgb 30.4 pg (27.0-32.0); Mean Corpuscular Volume 96.7 fL (80-94); Monocyte# 0.62 X10^3/uL; Monocyte% 6.6 % (0-10); Neutrophil # 6.94 X10^3/uL (2.7-7.7); Neutrophil % 74.4 % (47-70); Platelet Count 123 K/mm3 (150-450); RBC Distribution Width CV 16.6 % (11.6-14.6); RBC Distribution Width SD 58.5 fl (35.1-43.9); Red Blood Count 4.24 M/mm3 (4.6-6.2); White Blood Count 9.3 K/mm3 (4.4-11.0)
[2017-09-21 09:44] LABS: POSITIVE COUNT NO; POSITIVE DIFFERENTIAL NO; POSITIVE MORPHOLOGY NO
[2017-09-21 11:45] LABS: Bedside Glucose 213 mg/dL (70-110)
--- NOTE | 2017-09-21 11:49 | CASEMGMT ---
Face to Face with patient for initial transition planning/care coordination assessment. AILEEN BACH introduced self and role at [facility], pt voices understanding and consents to assessment at this time. Pt is sitting up in bed in no distress at this time. Pt is A/Ox4 at this time and answers all questions appropriately at this time. Care providers, pharmacy, and demographics verified. See attached link. Pt voices no further concerns/needs at this time. Advised pt to ask for CM if any further questions/concerns/needs arise, voices understanding. PLAN[place] AILEEN BACH
--- NOTE | 2017-09-21 13:50 | RAD_ITS ---
STUDY: SWALLOWING STUDY (MODIFIED BARIUM SWALLOW WITH SPEECH THERAPY) REASON FOR EXAM: Male, 67 years old. Dysphagia. TECHNIQUE: The examination was performed with Speech Pathology in attendance. Under fluoroscopic observation, the patient ingested thin barium, thick barium, barium pudding, and barium coated cracker. FLUOROSCOPY TIME: 3:20 minutes/seconds DOSE: 10.18 mGy RADIOLOGIST INVOLVEMENT: Yes, present COMPARISON: None available. FINDINGS: The following was observed during swallowing of the various mixtures of barium: Thin Barium: There was no finding of aspiration below the vocal cords. Thick Barium: There was no finding of aspiration below the vocal cords. Barium Pudding: There was no finding of aspiration below the vocal cords. Barium Coated Cracker: There was no finding of aspiration below the vocal cords. RAD/Swallowing Function w/Video IMPRESSION: No finding of increased risk for aspiration below the vocal cords. The swallow study findings were discussed with the patient by the speech pathologist at the conclusion of the examination. Please see speech pathology report for more information and recommendations. The procedure was performed by Laci Chambers under the direct supervision of Dr. Gates. Electronically Signed: Michael Gates, at 15:49 EDT Tel , Service support ,
--- NOTE | 2017-09-21 14:00 | SP.MBSS_ITS ---
PRIMARY / SECONDARY DIAGNOSIS: dysphagia (R13.10) REFERRING PHYSICIAN: Dr. Laci Chambers MD CURRENT DIET: mechanical soft textures, thin liquids DENTITION: edentulous MENTAL STATUS: WNL RESPIRATORY STATUS: O2 via room air PREVIOUS MODIFIED BARIUM SWALLOW STUDY: REASON FOR REFERRAL: Patient is a 67 year old male referred for a modified barium swallow (MBS) study to objectively assess the Patients oropharyngeal swallow function under fluoroscopy secondary to concerns for silent aspiration. ADDITIONAL OBJECTIVE ASSESSMENT RESULTS: 09/21/2017 soft tissue neck X-ray revealed normal x-ray soft tissue neck; no evidence for epiglottitis. 09/20/[address] revealed limited by motion; no evidence for PE; moderate airspace disease in the posterior lower left lung. 09/20/2017 CXR revealed increased left lung base fairly homogeneous opacity, may represent elevated diaphragm but cannot exclude underlying consolidative pneumonia, atelectasis, pleural fluid, mass or combination; increased diffuse density obscuring upper thoracic spine with lateral view, cannot exclude mass versus artifact; no overt cardiac failure identified; heart obscured by left lung base opacity as described. MEDICAL HISTORY: Coronary artery disease, hyperlipidemia, non-healing wound of right heel, peripheral artery disease, hypertension, type II diabetes mellitus STUDY FINDINGS: Patient participated in a Modified Barium Swallow (MBS) study on 09/21/2017. Dr. Gates was the radiologist present for this evaluation. This study was recorded in the lateral view and images were sent to PACs for storage. The following consistencies were presented to this patient for analysis of oropharyngeal swallow function: thin liquids, nectar thickened liquids, honey thickened liquids, pudding, and a regular textured, [place]anca [place] cookie. Results of the MBS are as follows: PENETRATION / ASPIRATION SCALE (RIGGINS): 1 = does not enter airway 2 = enters airway/above vocal folds/ejected 3 = enters airway/above vocal folds/not ejected 4 = enters airway/contacts vocal folds/ejected 5 = enters airway/contacts vocal folds/not ejected 6 = enters airway/below vocal folds/ejected 7 = enters airway/below vocal folds/not ejected despite effort 8 = enters airway/below vocal folds/no effort PENETRATION / ASPIRATION SCALE (SCORE): Thin liquid - 5 mL tsp.: 1 Thin liquids via cup (single sip): 1 Thin liquids via cup (single sip): 5* Thin liquids via cup (single sip): 5 Thin liquids via cup (single sip): 5 [place] thickened liquids via cup (single sip): 1 [place] thickened liquids via cup (single sip): 1 [place] thickened liquids via cup (single sip): 1 [place] thickened liquids via cup (chin tuck): 1 [place] thickened liquids via cup (chin tuck): NA [place] thickened liquids via cup (chin tuck): 1 Honey thickened liquids via cup (single sip): 1 Honey thickened liquids via cup (single sip): 1 Honey thickened liquids via cup (single sip): 1 Honey thickened liquids via cup (single sip): 1 Pudding via spoon: 1 Regular textured cookie: 1 [place] thickened liquids via cup (single sip): 1 * denotes questionable silent aspiration, unable to verify denotes continual presence of previously penetrated thin liquids denotes inability to view laryngeal vestibule during deglutition due to Patient movements IMPRESSION: DIAGNOSIS: moderate oropharyngeal dysphagia (R13.12) ORAL PHASE CHARACTERIZED BY: LABIAL SEAL: no labial escape TONGUE CONTROL DURING BOLUS MANIPULATION: cohesive bolus between tongue to palatal seal BOLUS PREPARATION / MASTICATION: slow prolonged chewing/mashing with complete recollection BOLUS TRANSPORT / LINGUAL MOTION: minimal repetitive/disorganized tongue motions (fasciculations) ORAL RESIDUE: residue collection on oral structures PHARYNGEAL PHASE CHARACTERIZED BY: INITIATION OF PHARYNGEAL SWALLOW: bolus head at posterior laryngeal surface of epiglottis at first hyoid excursion SOFT PALATE ELEVATION: no bolus between soft palate and pharyngeal wall LARYNGEAL ELEVATION: partial superior movement of thyroid cartilage/partial approximation of arytenoids cartilage to epiglottic petiole ANTERIOR HYOID EXCURSION: partial anterior movement EPIGLOTTIC MOVEMENT: partial epiglottic inversion LARYNGEAL VESTIBULE CLOSURE AT HEIGHT OF SWALLOW: incomplete laryngeal vestibule closure with narrow column of air/contrast in laryngeal vestibule PHARYNGEAL STRIPPING WAVE: pharyngeal stripping wave present / complete PHARYNGOESOPHAGEAL SEGMENT OPENING: complete distension and complete duration with no obstruction of flow TONGUE BASE RETRACTION: trace column of contrast between tongue base and posterior pharyngeal wall ESOPHAGEAL PHASE CHARACTERIZED BY: ESOPHAGEAL BOLUS CLEARANCE IN THE UPRIGHT POSITION: could not view EFFECTS OF TREATMENT STRATEGIES ATTEMPTED: Chin tuck posture = moderately effective Reduced bolus size = moderately effective DIET TEXTURE RECOMMENDATIONS: Will recommend a pureed textured, nectar thickened liquid diet. COMPENSATORY STRATEGIES RECOMMENDED: Supervision, reduced bolus volume, reduced rate of intake, seated upright at 90 degrees during PO intake, medications with applesauce, INTERPRETATION OF RESULTS: Patient presents with moderate oropharyngeal dysphagia (R13.12) likely exacerbated from baseline due to current respiratory complications. Oral phase primarily marked by mild to moderate mastication inefficiency with suboptimal lingual control with noted intermittent lingual fasciculations; all impacted by current oxygenation demands (6L/min with very low SpO2 between 88-84). Pharyngeal phase marked by impaired and inconsistent pharyngeal swallow onset timing and reduced closure of the airway during deglutition, again complicated by oxygenation demands. Pharyngeal motility inconsistent throughout the study, with the Patient demonstrating very poor epiglottic deflection and subsequent significant retention within the valleculae, and later clearing with little dysmotility. Noted insufficient laryngeal vestibule pressure generated to expel penetrated material consistently throughout the study. No aspiration appreciated throughout trials, unable to definitively rule out silent aspiration. RECOMMENDATIONS: Patient requires continued skilled speech-language intervention targeting continued diet texture management and training / implementation of recommended compensatory strategies; with Patient and caregiver training targeting meal preparation / thickened liquid preparation if unable to advance to baseline diet textures prior to discharge. Anticipate improvement in swallow function to correlate with improvement in respiratory functioning. ADDITIONAL COMMENTS/RECOMMENDATIONS: Results and recommendations were discussed with the Patient immediately following MBS completion, with the Patient verbalizing understanding and agreement with all recommendations and education provided. IMAGE COUNT: [id number]
--- NOTE | 2017-09-21 14:31 | PCM.CONS.C ---
Problem List (1) Elevated troponin Status: Acute Reason for Consult Date of Consultation: 09/21/17 Reason for Consultation: Coronary artery disease, status post stenting, hypertension, hypercholesterolemia, non-STEMI History of Present Illness: The patient is a 67 year old M, current smoker of about 1-2 packs per day for the past 40 years, with a history of diabetes, hypertension, hypercholesterolemia, coronary artery disease status [facility] He has had no catheterization since that time. He denies previous bypass surgery. Patient reports that they discovered a abdominal aortic aneurysm at the [facility], and he apparently underwent a non-walking nuclear stress test approximately 1 week ago but has not heard back from the [facility]. Apparently he is awaiting AAA stent grafting in approximately 1 month's time. Patient developed mental status changes, confusion, and was felt to have a possible infection and was brought to [facility] ER yesterday evening. Patient had a chest x-ray which demonstrated possible infiltrate of the bilateral lower lobes and underwent CT scan which confirmed left lower lobe infiltrate. Patient was treated with antibiotics and his mental status changes have completely resolved. Prior to his presentation he denies any exertional chest pain, angina, shortness of breath or dyspnea on exertion. As part of his cardiac evaluation he underwent a troponin evaluation which showed indeterminate troponins consistent with a type II non-ST elevation myocardial infarction. Patient is never been diagnosed with COPD in the past. His EKG on admission showed sinus tachycardia with an intraventricular conduction delay and nonspecific ST and T-wave changes. Echocardiogram done today showed preserved LV function with an EF around 60%, stage I diastolic dysfunction, and unable to quantitate RVSP due to lack of tricuspid regurgitant jet. [] Past Medical History Allergies/Adverse Reactions: Allergies No Known Allergies Allergy (Verified 09/20/17 11:33) Home Medications: Ambulatory Orders Medication Instructions Recorded Atenolol [Tenormin] 25 mg PO DAILY 07/03/17 Gabapentin [Neurontin] 600 mg PO TIDCM 07/03/17 Metformin HCl 1,000 mg PO BID 07/03/17 Multivitamin with Minerals/Lut 1 tab PO BID 07/03/17 [Pub Multivitamin 50 Plus Tab] Oxycodone HCl/Acetaminophen 1 each PO Q6H PRN 07/03/17 [Oxycodon-Acetaminophen 7.5-325] Simvastatin [Zocor] 10 mg PO QHS 07/03/17 Aspirin E.C. [Ecotrin] 81 mg PO DAILY 09/20/17 Cyclobenzaprine [Flexeril] 10 mg PO BID 09/20/17 [place]-3/Dha/Epa/Fish Oil [[place] 3 500 mg PO BID 09/20/17 500 Softgel] Potassium Chloride [Klor-Con M10] 10 meq PO DAILY 09/20/17 Urea [Urevaz] 1 applicatio TP PRN PRN 09/20/17 Zolpidem Tartrate [Ambien] 10 mg PO QHS 09/20/17 Surgical History: total knee arthroplasty, - - Multiple coronary artery stents lumbar spine surgery due to degenerative disc disease of the lumbar spine Psychiatric History: No pertinent psych hx - *Family History Maternal History Items: No pertinent history, - - no CAD Paternal History Items: No pertinent history Smoking Status: Current every day smoker Tobacco Use: Cigarettes Alcohol: None Drugs: None Review of Systems - Review of Systems General: Reports: Fever, Fatigue, Malaise, Weakness Cardiovascular: Denies: Chest Discomfort, Shortness of Breath, Orthopnea, PND, Peripheral Edema, Palpitations, Lightheadedness, Dizziness, Near Syncope, Syncope Respiratory: Denies: Cough, Sputum Production, Hemoptysis Gastrointestinal: Denies: Hematemesis, Hematochezia, Melena Genitourinary: Denies: Dysuria, Hematuria Skin: Denies: Rash Subjectve: Patient sitting in a chair, no acute distress. Objective: Vital Signs Temp Pulse Resp BP Pulse Ox 98.1 F 96 20 H 122/63 H 90 09/21/17 13:30 09/21/17 13:30 09/21/17 13:30 09/21/17 13:30 09/21/17 13:30 Oxygen Flow Rate (L/min) 12 Oxygen Delivery Method Venturi Mask Weight: 213 lb 13.574 oz Body Mass Index (BMI) 27.4 Intake and Output for Last 24 Hours 09/19/17 09/20/17 09/21/17 23:59 23:59 23:59 Intake Total 1507 / 1507 292.2 / 292.2 Output Total 675 / 675 750 / 750 Balance 832 / 832 -457.8 / -457.8 General: Awake, Alert, Oriented x 3 HEENT: PERRL, EOMI, Sclera Non Icteric Neck: Supple, Good ROM, No Lymph Node Enlargement Lungs: Clear to auscultation Cardiovascular: Regular Rhythm, Normal S1, Normal S2, No Murmurs, No Rubs, No Gallops Vascular: No Carotid Bruits, Normal Femoral Pulses, Normal Radial Pulses, Normal Dorsalis Pedal Pulse, Normal Posterior Tibial Pulses Abdomen: Bowel Sounds Present, Soft, Non Tender, No HSM, No Organomegaly Extremities: No Cyanosis, No Clubbing, No edema Neurological: No Focal Motor or Sensory Deficit 09/20/17 16:35: Troponin I 0.458 H 09/20/17 18:51: Troponin I 0.471 H 09/20/17 18:51: Lactic Acid 1.8 09/20/17 19:40: Urine Color Yellow, Urine Clarity Clear, Urine pH 5.0, Ur Specific [place] 1.015, Urine Protein 15 H, Urine Glucose (UA) Normal, Urine Ketones Negative, Urine Occult Blood 250 H, Urine Nitrite Negative, Urine Bilirubin Negative, Urine Urobilinogen Normal, Ur Leukocyte Esterase 25 H, Urine RBC 5-10 SEEN, Urine WBC 0-5 SEEN 09/20/17 21:30: Troponin I 0.443 H 09/21/17 00:45: Troponin I 0.487 H 09/21/17 04:08: Sodium 141, Potassium 4.2, Chloride 105, Carbon Dioxide 27.0, Anion Gap 9, BUN 13, Creatinine 1.36 H, Est GFR (MDRD) Af Amer 67, Est GFR (MDRD) Non-Af 56 L, BUN/Creatinine Ratio 9.6 L, Glucose 128 H, Calcium 8.3 L 09/21/17 04:08: Troponin I 0.440 H 09/21/17 04:08: WBC 9.3, RBC 4.24 L, Hgb 12.9 L, Hct 41.0, MCV 96.7 H, MCH 30.4, MCHC 31.5 L, RDW 16.6 H, RDW Differential 58.5 H, Plt Count 123 L, MPV 11.0, Immature Gran % (Auto) 0.200, Neut % (Auto) 74.4 H, Lymph % (Auto) 13.8 L, [place] % (Auto) 6.6, Eos % (Auto) 4.5, Baso % (Auto) 0.5, Absolute Neuts (auto) 6.9, Total Counted Not Reportable Rhythm: Telemetry showed normal sinus rhythm/sinus tachycardia, rare PVC. EKG: Normal sinus rhythm, normal axis, normal intervals, nonspecific ST and T-wave changes. ECHO: As above Stress Test: Cardiac Cath: Pending PCI: CT Surgery: Holter monitor: EPS: PPM: CXR: Chest CT Scan: Assessment/Plan #1. Non-STEMI: Patient presents with what appears to be left lower lobe pneumonia, confusion, delusional, and mental status changes consistent with an infection. In addition he was found to have a mildly elevated troponin in the face of a triple a which may require open resection in the near future. Patient is asymptomatic from a cardiac standpoint and denies any chest pain or angina. His echocardiogram today shows intact LV function without evidence of wall motion abnormalities. Patient has a history of coronary artery disease status post angioplasty and stenting to the right coronary artery per the patient and their family. Patient underwent a nuclear [facility] about 1 [facility] ago but has not received the results. This was in anticipation of aortic stent graft in the next 1-2 months. Given the patient's presentation, known coronary disease, onset going smoking, abdominal aortic aneurysm which may require open resection, and abnormal troponins, I recommend he undergo a repeat catheterization to assess his coronary anatomy to further risk stratify him for upcoming abdominal aortic aneurysm repair either percutaneously or openly. Patient was given 3 mg of Plavix and 75 mg of Plavix daily. He is currently on baby aspirin. The risks/benefits of the procedure were thoroughly examined the patient and his family with specific attention to lack of on-site surgical backup, and the patient has agreed to proceed. We will use a long sheath to protect against disturbing his AAA. The meantime I recommend he continue his baby aspirin, and atenolol. Recommend starting him on Cozaar for his peripheral vascular disease 25 mg p.o. daily. 2. Hyperlipidemia: The patient requires aggressive LDL reduction given his peripheral vascular disease and known coronary disease. He apparently was on simvastatin at home. Recommend repeat lipid profile and an LDL less than 70. 3. Tobacco cessation: I had a long and thorough discussion with the patient regarding tobacco abuse, and strongly recommended he discontinue all tobacco products. 4. Thank you very much for the opportunity to participate in the cardiac care of your patient. Consultation time took place between 1230 and 1 PM. Code Visit Inpatient E&M: 20786 Init Hosp L2
--- NOTE | 2017-09-21 14:36 | CON.PCM_ITS ---
Problem List (1) Elevated troponin Status: Acute Reason for Consult Date of Consultation: 09/21/17 Reason for Consultation: Coronary artery disease, status post stenting, hypertension, hypercholesterolemia, non-STEMI History of Present Illness: The patient is a 67 year old M, current smoker of about 1-2 packs per day for the past 40 years, with a history of diabetes, hypertension, hypercholesterolemia, coronary artery disease status post angioplasty of the right coronary artery in 1995 at [facility]. He has had no catheterization since that time. He denies previous bypass surgery. Patient reports that they discovered a abdominal aortic aneurysm at the [facility], and he apparently underwent a non-walking nuclear stress test approximately 1 week ago but has not heard back from the CO. Apparently he is awaiting AAA stent grafting in approximately 1 month's time. Patient developed mental status changes, confusion, and was felt to have a possible infection and was brought to [facility] ER yesterday evening. Patient had a chest x-ray which demonstrated possible infiltrate of the bilateral lower lobes and underwent CT scan which confirmed left lower lobe infiltrate. Patient was treated with antibiotics and his mental status changes have completely resolved. Prior to his presentation he denies any exertional chest pain, angina, shortness of breath or dyspnea on exertion. As part of his cardiac evaluation he underwent a troponin evaluation which showed indeterminate troponins consistent with a type II non-ST elevation myocardial infarction. Patient is never been diagnosed with COPD in the past. His EKG on admission showed sinus tachycardia with an intraventricular conduction delay and nonspecific ST and T-wave changes. Echocardiogram done today showed preserved LV function with an EF around 60%, stage I diastolic dysfunction, and unable to quantitate RVSP due to lack of tricuspid regurgitant jet. [] Past Medical History Allergies/Adverse Reactions: Allergies No Known Allergies Allergy (Verified 09/20/17 11:33) Home Medications: Ambulatory Orders Medication Instructions Recorded Atenolol [Tenormin] 25 mg PO DAILY 07/03/17 Gabapentin [Neurontin] 600 mg PO TIDCM 07/03/17 Metformin HCl 1,000 mg PO BID 07/03/17 Multivitamin with Minerals/Lut 1 tab PO BID 07/03/17 [Pub Multivitamin 50 Plus Tab] Oxycodone HCl/Acetaminophen 1 each PO Q6H PRN 07/03/17 [Oxycodon-Acetaminophen 7.5-325] Simvastatin [Zocor] 10 mg PO QHS 07/03/17 Aspirin E.C. [Ecotrin] 81 mg PO DAILY 09/20/17 Cyclobenzaprine [Flexeril] 10 mg PO BID 09/20/17 [place]-3/Dha/Epa/Fish Oil [[place] 3 500 mg PO BID 09/20/17 500 Softgel] Potassium Chloride [Klor-Con M10] 10 meq PO DAILY 09/20/17 Urea [Urevaz] 1 applicatio TP PRN PRN 09/20/17 Zolpidem Tartrate [Ambien] 10 mg PO QHS 09/20/17 Surgical History: total knee arthroplasty, - - Multiple coronary artery stents lumbar spine surgery due to degenerative disc disease of the lumbar spine Psychiatric History: No pertinent psych hx - *Family History Maternal History Items: No pertinent history, - - no CAD Paternal History Items: No pertinent history Smoking Status: Current every day smoker Tobacco Use: Cigarettes Alcohol: None Drugs: None Review of Systems - Review of Systems General: Reports: Fever, Fatigue, Malaise, Weakness Cardiovascular: Denies: Chest Discomfort, Shortness of Breath, Orthopnea, PND, Peripheral Edema, Palpitations, Lightheadedness, Dizziness, Near Syncope, Syncope Respiratory: Denies: Cough, Sputum Production, Hemoptysis Gastrointestinal: Denies: Hematemesis, Hematochezia, Melena Genitourinary: Denies: Dysuria, Hematuria Skin: Denies: Rash Subjectve: Patient sitting in a chair, no acute distress. Objective: Vital Signs Temp Pulse Resp BP Pulse Ox 98.1 F 96 20 H 122/63 H 90 09/21/17 13:30 09/21/17 13:30 09/21/17 13:30 09/21/17 13:30 09/21/17 13:30 Oxygen Flow Rate (L/min) 12 Oxygen Delivery Method Venturi Mask Weight: 213 lb 13.574 oz Body Mass Index (BMI) 27.4 Intake and Output for Last 24 Hours 09/19/17 09/20/17 09/21/17 23:59 23:59 23:59 Intake Total 1507 / 1507 292.2 / 292.2 Output Total 675 / 675 750 / 750 Balance 832 / 832 -457.8 / -457.8 General: Awake, Alert, Oriented x 3 HEENT: PERRL, EOMI, Sclera Non Icteric Neck: Supple, Good ROM, No Lymph Node Enlargement Lungs: Clear to auscultation Cardiovascular: Regular Rhythm, Normal S1, Normal S2, No Murmurs, No Rubs, No Gallops Vascular: No Carotid Bruits, Normal Femoral Pulses, Normal Radial Pulses, Normal Dorsalis Pedal Pulse, Normal Posterior Tibial Pulses Abdomen: Bowel Sounds Present, Soft, Non Tender, No HSM, No Organomegaly Extremities: No Cyanosis, No Clubbing, No edema Neurological: No Focal Motor or Sensory Deficit 09/20/17 16:35: Troponin I 0.458 H 09/20/17 18:51: Troponin I 0.471 H 09/20/17 18:51: Lactic Acid 1.8 09/20/17 19:40: Urine Color Yellow, Urine Clarity Clear, Urine pH 5.0, Ur Specific [place] 1.015, Urine Protein 15 H, Urine Glucose (UA) Normal, Urine Ketones Negative, Urine Occult Blood 250 H, Urine Nitrite Negative, Urine Bilirubin Negative, Urine Urobilinogen Normal, Ur Leukocyte Esterase 25 H, Urine RBC 5-10 SEEN, Urine WBC 0-5 SEEN 09/20/17 21:30: Troponin I 0.443 H 09/21/17 00:45: Troponin I 0.487 H 09/21/17 04:08: Sodium 141, Potassium 4.2, Chloride 105, Carbon Dioxide 27.0, Anion Gap 9, BUN 13, Creatinine 1.36 H, Est GFR (MDRD) Af Amer 67, Est GFR (MDRD ) Non-Af 56 L, BUN/Creatinine Ratio 9.6 L, Glucose 128 H, Calcium 8.3 L 09/21/17 04:08: Troponin I 0.440 H 09/21/17 04:08: WBC 9.3, RBC 4.24 L, Hgb 12.9 L, Hct 41.0, MCV 96.7 H, MCH 30.4 , MCHC 31.5 L, RDW 16.6 H, RDW Differential 58.5 H, Plt Count 123 L, MPV 11.0, Immature Gran % (Auto) 0.200, Neut % (Auto) 74.4 H, Lymph % (Auto) 13.8 L, [place] % (Auto) 6.6, Eos % (Auto) 4.5, Baso % (Auto) 0.5, Absolute Neuts (auto) 6.9, Total Counted Not Reportable Rhythm: Telemetry showed normal sinus rhythm/sinus tachycardia, rare PVC. EKG: Normal sinus rhythm, normal axis, normal intervals, nonspecific ST and T- wave changes. ECHO: As above Stress Test: Cardiac Cath: Pending PCI: CT Surgery: Holter monitor: EPS: PPM: CXR: Chest CT Scan: Assessment/Plan #1. Non-STEMI: Patient presents with what appears to be left lower lobe pneumonia, confusion, delusional, and mental status changes consistent with an infection. In addition he was found to have a mildly elevated troponin in the face of a triple a which may require open resection in the near future. Patient is asymptomatic from a cardiac standpoint and denies any chest pain or angina. His echocardiogram today shows intact LV function without evidence of wall motion abnormalities. Patient has a history of coronary artery disease status post angioplasty and stenting to the right coronary artery per the patient and their family. Patient underwent a nuclear non-walking stress test at the [facility] in [facility] about 1 week ago but has not received the results. This was in anticipation of aortic stent graft in the next 1-2 months. Given the patient's presentation, known coronary disease, onset going smoking, abdominal aortic aneurysm which may require open resection, and abnormal troponins, I recommend he undergo a repeat catheterization to assess his coronary anatomy to further risk stratify him for upcoming abdominal aortic aneurysm repair either percutaneously or openly. Patient was given 3 mg of Plavix and 75 mg of Plavix daily. He is currently on baby aspirin. The risks/benefits of the procedure were thoroughly examined the patient and his family with specific attention to lack of on-site surgical backup, and the patient has agreed to proceed. We will use a long sheath to protect against disturbing his AAA. The meantime I recommend he continue his baby aspirin, and atenolol. Recommend starting him on Cozaar for his peripheral vascular disease 25 mg p.o. daily. 2. Hyperlipidemia: The patient requires aggressive LDL reduction given his peripheral vascular disease and known coronary disease. He apparently was on simvastatin at home. Recommend repeat lipid profile and an LDL less than 70. 3. Tobacco cessation: I had a long and thorough discussion with the patient regarding tobacco abuse, and strongly recommended he discontinue all tobacco products. 4. Thank you very much for the opportunity to participate in the cardiac care of your patient. Consultation time took place between 1230 and 1 PM. Code Visit Inpatient E&M: 13946 Init Hosp L2
[2017-09-21] MEDS: Insulin Lispro 100 UNIT/ML INSULN.PEN SQ (14:41)
--- NOTE | 2017-09-21 15:02 | CPS ---
put on 8 lpm nc by nursing, patient needed swallow eval. 86% on 8 lpm, put back on 50% venti mask
[2017-09-21 15:22] LABS: Cholesterol 131 mg/dL (200); High Density Lipoprotein 35 mg/dL; Triglycerides 168 mg/dL; Very Low Density Lipoprotein 34 mg/dL (5-40)
[2017-09-21] MEDS: Clopidogrel Bisulfate 300 MG Tablet PO (15:59)
[2017-09-21] MEDS: Gabapentin 600 MG Tablet PO (15:59)
--- NOTE | 2017-09-21 17:39 | PCM.PROGNOTE ---
Patient Problems: Active and Suspected Problems (Last Updated 09/20/17 @ 15:31 by Laci Chambers DO) Severe sepsis (Acute) Pneumonia (Acute) Elevated troponin (Acute) Subjective: Patient seen and examined today, he had wheezing on examination today and he required increased oxygen demand, I placed patient on IV Solu-Medrol and increased his aerosol treatments to every 4 hours. Patient had a swallowing exam today which showed moderate oropharyngeal dysphagia, his diet is been changed to pur?ed with nectar thickened liquids. Cardiology saw the patient today and is recommending a cardiac catheterization due to his non-STEMI - Physical Exam General: Alert, Cooperative, Well developed HEENT: Atraumatic, PERRLA, EOMI, Normocephalic Oral: Moist Mucosa Neck: Supple, No JVD, Trachea Midline, Thyroid Normal Size and Texture Lungs: No rhonchi, No rales, Diminished, Wheezes - He has expiratory wheezes bilaterally Cardiovascular: Regular rate, Regular Rhythm, Normal S1, Normal S2, No murmurs, No Ectopic Activity, PMI Normal, No rub noted, No Gallop Abdomen: Bowel Sounds Present, Soft, Non Tender, Non-Distended, No hernias noted Extremities: No clubbing, No cyanosis, No edema, Capillary Refill Less than 3 Seconds Skin: No rashes, No breakdown Neurological: Cranial nerves II-XII grossly intact, Neuro grossly intact, Sensory exam intact to light touch and pain, Coordination normal Psych/Mental Status: Normal Affect, Appropriate Vital Signs Temp Pulse Resp BP Pulse Ox 97.8 F 97 20 H 134/73 H 92 09/21/17 15:30 09/21/17 15:30 09/21/17 15:30 09/21/17 15:30 09/21/17 15:30 Oxygen Flow Rate (L/min) 8 Oxygen Delivery Method Venturi Mask Weight: 97 kg Body Mass Index (BMI) 27.4 Intake and Output for Last 24 Hours 09/19/17 09/20/17 09/21/17 23:59 23:59 23:59 Intake Total 1507 / 1507 292.2 / 292.2 Output Total 675 / 675 750 / 750 Balance 832 / 832 -457.8 / -457.8 Microbiology Past 72 Hours 09/21/17 02:25 Gram Stain - Final Sputum, Expectorated/Coughed 09/20/17 19:40 Legionella Antigen - Final Interface Orders Streptococcus pneumoniae Antigen (M - Final Laboratory Tests Past 24 Hrs 09/20/17 09/20/17 09/20/17 18:51 18:51 19:40 WBC RBC Hgb Hct MCV MCH MCHC RDW RDW Differential Plt Count MPV Immature Gran % (Auto) Neut % (Auto) Lymph % (Auto) Price % (Auto) Eos % (Auto) Baso % (Auto) Absolute Neuts (auto) Absolute Lymphs (auto) Total Counted Sodium Potassium Chloride Carbon Dioxide Anion Gap BUN Creatinine Estim Creat Clear Calc Est GFR (MDRD) Af Amer Est GFR (MDRD) Non-Af BUN/Creatinine Ratio Glucose Lactic Acid 1.8 Calcium Troponin I 0.471 H Triglycerides Cholesterol LDL Cholesterol VLDL Cholesterol HDL Cholesterol Urine Color Yellow Urine Clarity Clear Urine pH 5.0 Ur Specific [place] 1.015 Urine Protein 15 H Urine Glucose (UA) Normal Urine Ketones Negative Urine Occult Blood 250 H Urine Nitrite Negative Urine Bilirubin Negative Urine Urobilinogen Normal Ur Leukocyte Esterase 25 H Urine RBC 5-10 SEEN Urine WBC 0-5 SEEN Ur Squamous Epith Cells 0 SEEN Urine Bacteria 0 SEEN Urine Mucus 0 SEEN 09/20/17 09/21/17 09/21/17 21:30 00:45 04:08 WBC RBC Hgb Hct MCV MCH MCHC RDW RDW Differential Plt Count MPV Immature Gran % (Auto) Neut % (Auto) Lymph % (Auto) Price % (Auto) Eos % (Auto) Baso % (Auto) Absolute Neuts (auto) Absolute Lymphs (auto) Total Counted Sodium 141 Potassium 4.2 Chloride 105 Carbon Dioxide 27.0 Anion Gap 9 BUN 13 Creatinine 1.36 H Estim Creat Clear Calc 61.28 Est GFR (MDRD) Af Amer 67 Est GFR (MDRD) Non-Af 56 L BUN/Creatinine Ratio 9.6 L Glucose 128 H Lactic Acid Calcium 8.3 L Troponin I 0.443 H 0.487 H Triglycerides Cholesterol LDL Cholesterol VLDL Cholesterol HDL Cholesterol Urine Color Urine Clarity Urine pH Ur Specific [place] Urine Protein Urine Glucose (UA) Urine Ketones Urine Occult Blood Urine Nitrite Urine Bilirubin Urine Urobilinogen Ur Leukocyte Esterase Urine RBC Urine WBC Ur Squamous Epith Cells Urine Bacteria Urine Mucus 09/21/17 09/21/17 09/21/17 04:08 04:08 04:08 WBC 9.3 RBC 4.24 L Hgb 12.9 L Hct 41.0 MCV 96.7 H MCH 30.4 MCHC 31.5 L RDW 16.6 H RDW Differential 58.5 H Plt Count 123 L MPV 11.0 Immature Gran % (Auto) 0.200 Neut % (Auto) 74.4 H Lymph % (Auto) 13.8 L Price % (Auto) 6.6 Eos % (Auto) 4.5 Baso % (Auto) 0.5 Absolute Neuts (auto) 6.9 Absolute Lymphs (auto) 1.29 Total Counted Not Reportable Sodium Potassium Chloride Carbon Dioxide Anion Gap BUN Creatinine Estim Creat Clear Calc Est GFR (MDRD) Af Amer Est GFR (MDRD) Non-Af BUN/Creatinine Ratio Glucose Lactic Acid Calcium Troponin I 0.440 H Triglycerides 168 Cholesterol 131 LDL Cholesterol 62 VLDL Cholesterol 34 HDL Cholesterol 35 L Urine Color Urine Clarity Urine pH Ur Specific [place] Urine Protein Urine Glucose (UA) Urine Ketones Urine Occult Blood Urine Nitrite Urine Bilirubin Urine Urobilinogen Ur Leukocyte Esterase Urine RBC Urine WBC Ur Squamous Epith Cells Urine Bacteria Urine Mucus POC Glucose 09/21/17 09/21/17 09/20/17 11:34 06:48 22:28 POC Glucose 213 H 171 H 115 H Medical Necessity - Tobacco Use Smoking Status: Current every day smoker Tobacco Use: Cigarettes Assessment/Plan All Active Problems (Last Updated 09/20/17 @ 15:31 by Laci Chambers DO) Mental status change (Acute) Healthcare-associated pneumonia (Ruled-out) Severe sepsis (Acute) Pneumonia (Acute) Elevated troponin (Acute) #1 Severe sepsis-secondary to suspected gram-negative pneumonia, continue patient on IV Zosyn, patient may have aspiration pneumonia since he has oropharyngeal dysphagia. #2 right and left lower lobe pneumonia-probably aspiration, continue Zosyn #3 [id number] has recommended the patient undergo a cardiac catheterization. #4 oropharyngeal dysphagia-moderate, patient's diet was altered today #5 chronic obstructive pulmonary disease #6 type 2 diabetes-continue to cover blood sugars with sliding scale insulin Code Visit Inpatient E&M: 03841 Subs Hosp L2
[2017-09-21] MEDS: guaiFENesin 1,200 MG Tablet 1200 MG PO (22:50)
[2017-09-21] MEDS: Atorvastatin Calcium 10 MG Tablet 5 MG PO (22:52)
[2017-09-22] VITALS (33 sets, daily range): BP systolic 90–141; BP diastolic 45–81; PULSE 76–109; RESP 13–87; TEMP 36.6–37.2; O2SAT 87–96; BMI 27.3
[2017-09-22 00:26] LABS: Bedside Glucose 161 mg/dL (70-110)
[2017-09-22] MEDS: Piperacil/Tazobactam 3.375 GM/50 ML ML IV ×2 (05:20→16:30)
[2017-09-22] MEDS: Atenolol 25 MG Tablet PO (05:30)
[2017-09-22] MEDS: Clopidogrel Bisulfate 75 MG Tablet PO (05:30)
[2017-09-22] MEDS: Aspirin E.C. 81 MG Tablet PO (05:30)
[2017-09-22 05:35] LABS: Absolute Lymphocyte Count 0.84 X10^3/ul (0.83-4.51); Absolute Neutrophil Count 10.4 X10^3/uL (2.0-7.7); Basophil# 0.02 X10^3/uL; Basophil% 0.2 % (0-1); Hematocrit 41.6 % (40-54); Hemoglobin 13.3 g/dl (13.0-16.5); Lymphocyte # 0.84 X10^3/ul (4.0); Lymphocyte % 7.1 % (19-41); Mean Corpuscular Hgb 30.2 pg (27.0-32.0); Mean Corpuscular Volume 94.5 fL (80-94); Mean Platelet Vol. 10.6 fl (6.2-12.0); Monocyte# 0.55 X10^3/uL; Monocyte% 4.7 % (0-10); Neutrophil # 10.39 X10^3/uL (2.7-7.7); Neutrophil % 87.8 % (47-70); Platelet Count 146 K/mm3 (150-450); RBC Distribution Width CV 16.5 % (11.6-14.6); RBC Distribution Width SD 54.9 fl (35.1-43.9); White Blood Count 11.8 K/mm3 (4.4-11.0)
[2017-09-22 05:39] LABS: Prothrombin Time (Protime)PT. 13.5 SECONDS (11.7-14.9)
[2017-09-22 05:40] LABS: Partial Thromboplast Time 33.5 Seconds (24.1-36.2)
[2017-09-22 05:41] LABS: Bedside Glucose 163 mg/dL (70-110)
[2017-09-22] MEDS: Losartan Potassium 25 MG Tablet PO (05:42)
[2017-09-22 05:52] LABS: POSITIVE COUNT NO; POSITIVE DIFFERENTIAL NO; POSITIVE MORPHOLOGY NO
[2017-09-22 06:11] LABS: BUN 16 mg/dL (7-18); Creatinine, Serum 1.29 mg/dL (0.70-1.30); Glucose 155 mg/dL (74-106)
[2017-09-22 06:12] LABS: Anion Gap 11 (5-15); BUN/Creat Ratio 12.4 RATIO (10-20); Calcium,Total 8.7 mg/dL (8.5-10.1); Chloride 104 mmol/L (98-107); EST Glomerular Filtration Rate 59 mL/min (>60); Est Glom Filt Rate - Afr Amer 71 mL/min (>60); Estimated Creatinine Clearance 64.61 ml/min; Sodium Level 142 mmol/L (136-145)
[2017-09-22] MEDS: DiphenhydrAMINE 25 MG Capsule 50 MG PO (07:02)
[2017-09-22] MEDS: Ipratropium/Albuterol Sulfate 3 ML AMPUL.NEB INHALATION ×5 (07:02→23:10)
--- NOTE | 2017-09-22 07:32 | NURSING ---
Report called to Erica in brush clearing laborer at this time. Pt. being taken down to brush clearing laborer .
--- NOTE | 2017-09-22 09:44 | NURSING ---
verbal report given to AILEEN Rendon
--- NOTE | 2017-09-22 09:45 | NURSING ---
VSA not taken at 09 due to pt off floor for procedure, then tx to ICU
[2017-09-22 10:06] LABS: ACT Activated Clotting Time 197 sec (74-137)
--- NOTE | 2017-09-22 10:22 | CL.I_ITS ---
Patient Name: MANPREET VASQUEZ Study Date: 09/22/2017 Performing: Kimo Ruff MD Ht: 74.01 inches 188 cm : 1950 Wt: 213.85 lbs 97 kg Age: 67 Gender: male BSA: 2.24 PROCEDURE(S) PERFORMED [id number]/COR/LV [id number], CORONARY OR GRAFT, INITIAL VESSEL [id number] W OR WO PTCA, SINGLE CORONARY ARTERY [id number], EACH ADD'L CORONARY ART, SAME MAJOR [id number] RENAL ANGIO WITH HEART CATH CLINICAL PROFILE AND CO-MORBIDITIES Indications: ACS <= 24 hrs, Stable Known CAD, Suspected CAD, LV Dysfunction Heart Failure: NYHA Class: 2, Heart Failure Type: Systolic, Newly Diagnosed: Yes Stress/Imaging Stress/Image Study Performed: No Angina Classification Anginal Classification w/in 2 Weeks: CCS III CAD Presentations: Non-STEMI. Symptom onset Date/Time: 09/20/2017 Time Not Available Comorbidities/Risk Factors: Hypertension Dyslipidemia Current/Recent Smoker (< 1year) Prior PCI CONCLUSIONS Double vessel CAD of the occluded RCA, probably significant lesions in LAD. Segmented LV systolic dysfunction- Moderate LVEF: by LV gram 40-45 % Successful PTCA/ALFREDITO of the of mid LAD after FFR eval (0.75) utilizing a 3.5 x 16 Promus Synergy; 75%- ->0%, no dissection. Successful PTCA/ALFREDITO of the Proximal LAD after FFR evaluation (0.74) utilizing a 4.0 x 24 Promus Syner gy; 75%-->0%, no dissection. Successful PCI with PTCA to the ostial DIAG#3 with a 2.0 x 12 balloon; 85%-->40%, no dissection. RECOMMENDATIONS FFR of LAD to eval for upcoming AAA repair. Highly recommend quitting all tobacco products Follow up with primary pheresis nurse Risk factor modification ASA Indefinitley Plavix for at least 12 months Routine post interventional care Refer for Outpatient Cardiac Rehab Manual sheath removal per protocol Follow up with Dr. Ruff Pt is at low risk for AAA repair. Medical management of occluded RCA stent; pt has robust L to R collateral flow. asa/plavix for life. Will give copy of cath film to family to provide [facility]. Manual sheath removal due to upcoming AAA repair. DESCRIPTION OF PROCEDURE The patient arrived to the procedure lab. The risks and benefits of the procedure as well as a full d escription of our services here and lack of surgical backup were fully explained to the patient and/o r their significant other prior to the catheterization. The Timeout was completed, verifying the farshad ect patient and procedure. The patient's procedural site was prepped and draped in the usual fashion. Local anesthetic was given subcutaneously to right groin region with Lidocaine 2%. Using a modified Seldinger technique, arterial access was obtained via the right femoral artery, a 4Fr 45 cm sheath wa s inserted. Left Coronary Artery selective angiography was performed in multiple views using a 4 Fr. JL5 catheter. Right Coronary Artery selective angiography was then performed in multiple views using a 4 Fr. 3DRC catheter. Left Ventriculography was performed in GERMAN projection using a 4 Fr. Pigtail c atheter. LV to AO pullback pressures were then recorded. Descending aorta selective angiography was t hen performed in single view using pigtail catheterThe images were reviewed and options discussed. A decision was then made to proceed with an Intervention, IVUS or other adjunct procedure. Arterial sheath was exchanged for a 6 Fr 45cm Sheath. EBU 3.75 Guide Guide catheter was inserted and engaged into the LCA. The FFR/iFR wire was inserted. Adenosine was then given per protocol. 2.0 x 12 Emerge Balloon catheter was inserted. Balloon catheter was advanced across lesion in the LAD, mid. PT CA balloon inflated at 10 atms for 9 secs. Angiogram performed post balloon dilatation. Balloon higinio ter was repositioned to additional lesion in the LAD, proximal. PTCA balloon inflated at 10 atms for 7 secs. PTCA balloon inflated at 10 atms for 6 secs. Angiogram performed post balloon dilatation. 3.5 x 16 Synergy Drug Eluting stent was inserted. Drug Eluting stent was advanced across the lesion in t he LAD, mid. Angiogram performed post stent deployment. 4.0 x 24 Synergy Drug Eluting stent was inser francesco. Drug Eluting stent was advanced across the lesion in the LAD, proximal. Angiogram performed pre stent deployment. Angiogram performed post stent deployment. BMW Ashton Guide wire was inserted as a rylie wire into the 3rd diagonal 2.0 x 12 Emerge Balloon catheter was reinserted Balloon catheter was advanced across lesion in the third diagonal, ostial Angiogram performed pre balloon dilatation. PTCA balloon inflated at 6 atms for 26 secs. Angiogram performed post balloon dilatation. The arter ial sheath was exchanged to a standard sheath and left inplace to be pulled in the ICU. The arterial sheath was sutured in place and capped CORONARY ANGIOGRAPHY DOMINANCE: Right Dominant LEFT HEART ASSESSMENT Left Ventricular Ejection Fraction: by LV Gram 40-45 % Normal Left Ventricular End Diastolic Pressure Depressed Left Ventricular systolic function Abnormal Left Ventricular contraction pattern Inferior Basal Akinesis. Posterior Basal Hypokinesis - Severe LEFT MAIN: No significant disease noted LEFT ANTERIOR DECENDING ARTERY: PROX LAD: 75 % Stenosis MID LAD: 75 % Stenosis CIRCUMFLEX ARTERY: Mild luminal irregularities less than 30% RIGHT CORONARY ARTERY: is occluded COLLATERAL FLOW: Collateral flow from Left to Right PERIPHERAL FINDINGS: Abdominal Aorta: Aneurysm unkown cm INTERVENTION INFORMATION LESION SITE: LAD (Mid) Lesion Complexity: High/C, lesion at bifurcation: No, thrombus present: No, lesion length: 24 mm, cul prit lesion: Yes Pre Stenosis: 75 % Pre intervention LEBRON flow: 3 PROCEDURE: FFR of 0.74, Drug Eluting Stent with pre dilatation. Post Stenosis: 0 % Post intervention LEBRON flow: 3 Lesion Devices: XanEdutronic 6 Fr EBU3.75 100cm Guide Catheter IGT Devices ( Formerly MolecularMD) Coronary FFR Wire Adal Sci EMERGE MR 2.00x12 BALLOON Adal Sci Synergy MR ALFREDITO 3.50x16 LESION SITE: LAD (Proximal) Lesion Complexity: Non-High/Non-C, lesion at bifurcation: Yes, thrombus present: No, lesion length: 1 6 mm, culprit lesion: No Pre Stenosis: 75 % Pre intervention LEBRON flow: 3 PROCEDURE: Drug Eluting Stent with pre dilatation. FFR=0.75 Post Stenosis: 0 % Post intervention LEBRON flow: 3 Lesion Devices: XanEdutronic 6 Fr EBU3.75 100cm Guide Catheter IGT Devices ( Formerly MolecularMD) Coronary FFR Wire Adal Sci EMERGE MR 2.00x12 BALLOON Adal Sci Synergy MR ALFREDITO 4.00x24 LESION SITE: 3rd Diagonal (Ostial) Lesion Complexity: Non-High/Non-C, lesion at bifurcation: Yes, thrombus present: No, lesion length: 8 mm, culprit lesion: No Pre Stenosis: 85 % Pre intervention LEBRON flow: 3 PROCEDURE: Balloon Angioplasty 40 % Post intervention LEBRON flow: 3 Lesion Devices: Medtronic 6 Fr EBU3.75 100cm Guide Catheter IGT Devices ( Formerly [place]) Coronary FFR Wire Adal Sci EMERGE MR 2.00x12 BALLOON Mark .014 BMW Ashton Straight 190cm COMPLICATIONS No Complications PROCEDURE MEDICATIONS Oxygen: 8 L/min via nasal cannula Adenosine drip for FFR 19.8 ml IV @ 09/22/2017 09:32:42 Heparin 6000 unit(s) IV 09/22/2017 09:24:20 Nitro 200 mcg IC 09/22/2017 09:46:00 Nitro 200 mcg IC 09/22/2017 09:46:00 IV Bolus: .9 NaCl 700 ml total 09/22/2017 09:40:57 SUMMARY OF HEMODYNAMIC DATA Time AIR REST ECG 08:48:08 AO 132/69 (96) SA 09:11:12 LV 128/-9, 12 09:18:13 LV 122/-7, 13 09:18:19 LVp 126/-10, 10 09:18:26 AOp 127/60 (86) 09:18:31 Signed By Kimo Ruff MD On 09/22/2017 10:21:19 Kimo Ruff MD
--- NOTE | 2017-09-22 11:12 | CPS ---
Did not perform PEP at this time. Patient recently back from equipment operator/laborer.
[2017-09-22] MEDS: guaiFENesin 1,200 MG Tablet 1200 MG PO ×2 (11:29→21:33)
[2017-09-22] MEDS: Gabapentin 600 MG Tablet PO ×2 (11:29→16:30)
[2017-09-22] MEDS: Multivitamins,Ther W-Minerals Tablet 1 TABLET PO (11:30)
[2017-09-22] MEDS: 0.9% Normal Saline 1,000 ML 150 ML IV (11:31)
[2017-09-22] MEDS: LORazepam 1 MG Tablet PO ×2 (11:31→18:15)
[2017-09-22] MEDS: oxyCODONE 5 MG Tablet PO ×2 (11:31→18:15)
[2017-09-22 11:55] LABS: Bedside Glucose 163 mg/dL (70-110)
[2017-09-22] MEDS: Insulin Lispro 100 UNIT/ML INSULN.PEN SQ (12:08)
[2017-09-22 12:15] LABS: ACT Activated Clotting Time 142 sec (74-137)
[2017-09-22] MEDS: Morphine 4 MG/ML Syringe IV (13:08)
[2017-09-22] MEDS: Albuterol 2.5 MG/3 ML VIAL.NEB. INHALATION (13:23)
--- NOTE | 2017-09-22 13:32 | CRPHASE1 ---
Patient Data/Charges Big Data Hadoop Developer:: Kimo Ruff Refer Phase II:: Yes Phase II Referral:: [facility] Start Phase II:: After follow up visit with Cardiology Phase I Charge:: Level I - Education Risk Factors/Lifestyle Smoking Status: Current every day smoker Hx Hypertension: Yes Hx Diabetes Mellitus Type 2: Yes Hx Dyslipidemia: Yes Hx Obesity: Yes Height: 1.88 m Weight:: 96.615 kg BMI: 27.3 Stress: Recent Risk Factor for Sedentary Lifestyle: Highest Risk Family History: Hypertension, Stroke Past Cardiac Illness: Coronary Artery Disease, Previous PCI w/Stent Laboratory Values: Cardiac Rehab Phase I Labs Triglycerides 168 mg/dL (-199) 09/21/17 04:08 Cholesterol 131 mg/dL (200) 09/21/17 04:08 LDL Cholesterol 62 mg/dL (0-130) 09/21/17 04:08 HDL Cholesterol 35 mg/dL (40-) L 09/21/17 04:08 Phase I Education Given On:: [place], Nutrition, Antiplatelet medication, CHF, Smoking cessation, Diabetes - Type II Issues Affecting Care:: Physical Knowledge of Condition:: Yes Learning Preferences: Verbal, Written, Audio/Visual, Demonstration Medical/Surgical History HI:: Yes Diabetes Type II:: Yes Hypertension:: Yes Dyslipidemia:: Yes PAD:: Yes Arthritis:: Yes PTCA:: Yes Discharge/Home/Social Eval Marital Status: Patient Lives With:: spouse who was in room during Ph I interview and ed, as well as his daughter
--- NOTE | 2017-09-22 13:37 | CRPHASE1_ITS ---
Patient Data/Charges Warehouse Receiving Supervisor:: Kimo Ruff Refer Phase II:: Yes Phase II Referral:: [facility] Start Phase II:: After follow up visit with Cardiology Phase I Charge:: Level I - Education Risk Factors/Lifestyle Smoking Status: Current every day smoker Hx Hypertension: Yes Hx Diabetes Mellitus Type 2: Yes Hx Dyslipidemia: Yes Hx Obesity: Yes Height: 1.88 m Weight:: 96.615 kg BMI: 27.3 Stress: Recent Risk Factor for Sedentary Lifestyle: Highest Risk Family History: Hypertension, Stroke Past Cardiac Illness: Coronary Artery Disease, Previous PCI w/Stent Laboratory Values: Cardiac Rehab Phase I Labs Triglycerides 168 mg/dL (-199) 09/21/17 04:08 Cholesterol 131 mg/dL (200) 09/21/17 04:08 LDL Cholesterol 62 mg/dL (0-130) 09/21/17 04:08 HDL Cholesterol 35 mg/dL (40-) L 09/21/17 04:08 Phase I Education Given On:: Jerome, Nutrition, Antiplatelet medication, CHF, Smoking cessation, Diabetes - Type II Issues Affecting Care:: Physical Knowledge of Condition:: Yes Learning Preferences: Verbal, Written, Audio/Visual, Demonstration Medical/Surgical History NE:: Yes Diabetes Type II:: Yes Hypertension:: Yes Dyslipidemia:: Yes PAD:: Yes Arthritis:: Yes PTCA:: Yes Discharge/Home/Social Eval Marital Status: Patient Lives With:: spouse who was in room during Ph I interview and ed, as well as his daughter
--- NOTE | 2017-09-22 13:39 | CRPH1.INST_ITS ---
General Education CAD and cardiac anatomy and function:: Patient communicates acknowledgment, Family communicates acknowledgment, Needs reinforcement Explanation of diagnoses and procedures:: Patient communicates acknowledgment, Family communicates acknowledgment, Needs reinforcement Sign/Symptoms of KS:: Patient communicates acknowledgment, Family communicates acknowledgment, Needs reinforcement Antiplatelet therapy: Patient communicates acknowledgment, Family communicates acknowledgment, Needs reinforcement Proper use of NTG-SL: Patient communicates acknowledgment, Family communicates acknowledgment, Needs reinforcement Emergency procedures and activation of EMS: Patient communicates acknowledgment , Family communicates acknowledgment, Needs reinforcement Compliance of all prescribed medications: Patient communicates acknowledgment, Family communicates acknowledgment, Needs reinforcement Smoking Patient Nicotine/Smoking Risk Factors Are:: Cigarettes Recommendations Include:: Smoking cessation strategies/Smoking packet, Second- hand smoke recommendation, Participation in a smoking cessation program Nicotine/Smoking Response Code:: Patient communicates acknowledgment, Family communicates acknowledgment, Needs reinforcement Dyslipidemia Recommendations Include:: Lipid profile not available, Reviewed NCEP/ATP guidelines, Therapeutic Lifestyle Change dietary guidelines Dyslipidemia Response Code:: Patient communicates acknowledgment, Family communicates acknowledgment, Needs reinforcement Overweight/Obesity Patient Overweight/Obesity Risk Factors Are:: Overweight = 26-29 Recommendations Include:: Weight loss of 5-10%, Reduced calorie diet, Exercise 5 -7 times/week Overweight/Obesity:: Patient communicates acknowledgment, Family communicates acknowledgment, Needs reinforcement Hypertension Recommendations Include:: BP <130/80 if diabetic, DASH dietary guidelines, Decrease/maintain normal body weight, Moderation of ETOH Hypertension:: Patient communicates acknowledgment, Family communicates acknowledgment, Needs reinforcement Heart Disease Patient Heart Disease Risk Factors Are:: Family history of heart disease < 65 years old, Previous cardiac event Recommendations Include:: Educated family members of their risk, Educated family members of importance of prevention of heart disease Heart Disease Response Code:: Patient communicates acknowledgment, Family communicates acknowledgment, Needs reinforcement Diabetes Recommendations Include:: Maintain fasting blood sugars 70-110 md/dL, Maintain HgbA1c of 6% or less, Monitor blood sugar as prescribed, Diabetic dietary guidelines, Decrease/maintain body weight Diabetes:: Patient communicates acknowledgment, Family communicates acknowledgment, Needs reinforcement Metabolic Syndrome Recommendations Include:: Patient is diabetic Metabolic Syndrome Response Code:: Not instructed Sedentary Patient Sedentary Risk Factors Are:: Lack of regular exercise Recommendations Include:: Aerobic exercise 5-7 times/week for 20-30 minutes continuously, Benefits of regular exercise, Discussed home walking program, Monitored Outpatient Cardiac Rehab Sedentary Response Code:: Patient communicates acknowledgment, Family communicates acknowledgment, Needs reinforcement Stress Recommendations Include:: Identification of stressors, and assessment of coping skills, Stress management techniques Stress Response Code:: Patient communicates acknowledgment, Family communicates acknowledgment, Needs reinforcement
--- NOTE | 2017-09-22 14:17 | CPS ---
PEP therapy on hold per RN request.
--- NOTE | 2017-09-22 15:53 | CPS ---
PEP held per RN request.
--- NOTE | 2017-09-22 17:11 | PN_ITS ---
Progress Note Patient is scheduled for post hospital follow-up on 10/07/2017 at 10:00 AM with Anival Carpenter Nurse Practitioner, at the [facility] office. If this needs changed or there are questions, please call [facility] at [phone].
[2017-09-22 17:45] LABS: Bedside Glucose 133 mg/dL (70-110)
--- NOTE | 2017-09-22 18:58 | PN_ITS ---
Patient Problems: Active and Suspected Problems (Last Updated 09/20/17 @ 15:31 by Laci Chambers DO ) Tobacco abuse (Acute) Severe sepsis (Acute) Pneumonia (Acute) Elevated troponin (Acute) Subjective: Patient was seen and examined today, he underwent drug-eluting stent placement in his LAD artery today ?2. Patient appears comfortable after his procedure. He does not complain of any shortness of breath to this examiner. - Physical Exam General: Alert, Oriented x3, Cooperative, No apparent distress, Well developed, Well nourished HEENT: Atraumatic, PERRLA, EOMI, Normocephalic Oral: Moist Mucosa Neck: Supple, No JVD, Negative Carotid Bruits Lungs: Diminished, Rhonchi - Expiratory rhonchi over both lung sadler are noted Cardiovascular: Regular rate, Regular Rhythm, Normal S1, Normal S2, No murmurs, No Ectopic Activity, PMI Normal, No rub noted, No Gallop Abdomen: Bowel Sounds Present, Soft, Non Tender, Non-Distended, No hernias noted Extremities: No clubbing, No cyanosis, No edema, Capillary Refill Less than 3 Seconds Skin: No rashes, No breakdown Musculoskeletal: No Tenderness to Palpation of Joints or Extremities Neurological: Cranial nerves II-XII grossly intact, Neuro grossly intact, Sensory exam intact to light touch and pain, Coordination normal Psych/Mental Status: Normal Affect, Appropriate, Alert and oriented to time, place, person, mood and affect Vital Signs Temp Pulse Resp BP Pulse Ox 98.4 F 88 15 99/45 L 88 09/22/17 12:00 09/22/17 18:00 09/22/17 18:00 09/22/17 18:00 09/22/17 18:00 Oxygen Flow Rate (L/min) 8 Oxygen Delivery Method Nasal Cannula Weight: 96.615 kg Body Mass Index (BMI) 27.4 Intake and Output for Last 24 Hours 09/20/17 09/21/17 09/22/17 23:59 23:59 23:59 Intake Total 1507 / 1507 813.2 / 813.2 0 / 0 Output Total 675 / 675 1250 / 1250 800 / 800 Balance 832 / 832 -436.8 / -436.8 -800 / -800 Microbiology Past 72 Hours 09/21/17 02:25 Gram Stain - Final Sputum, Expectorated/Coughed Respiratory Culture - Preliminary Staphylococcus aureus 09/20/17 19:40 Urine Culture - Preliminary Urine, Clean Catch Culture exhibits no growth. 09/20/17 19:40 Legionella Antigen - Final Interface Orders Streptococcus pneumoniae Antigen (M - Final Laboratory Tests Past 24 Hrs 09/22/17 09/22/17 09/22/17 05:10 05:10 05:10 WBC 11.8 H RBC 4.40 L Hgb 13.3 Hct 41.6 MCV 94.5 H MCH 30.2 MCHC 32.0 RDW 16.5 H RDW Differential 54.9 H Plt Count 146 L MPV 10.6 Immature Gran % (Auto) 0.200 Neut % (Auto) 87.8 H Lymph % (Auto) 7.1 L [place] % (Auto) 4.7 Eos % (Auto) 0.0 Baso % (Auto) 0.2 Absolute Neuts (auto) 10.4 H Absolute Lymphs (auto) 0.84 Total Counted Not Reportable PT 13.5 INR 1.0 APTT 33.5 Activated Clotting Time Sodium 142 Potassium 4.0 Chloride 104 Carbon Dioxide 27.0 Anion Gap 11 BUN 16 Creatinine 1.29 Estim Creat Clear Calc 64.61 Est GFR (MDRD) Af Amer 71 Est GFR (MDRD) Non-Af 59 L BUN/Creatinine Ratio 12.4 Glucose 155 H Calcium 8.7 09/22/17 09/22/17 09:58 12:03 WBC RBC Hgb Hct MCV MCH MCHC RDW RDW Differential Plt Count MPV Immature Gran % (Auto) Neut % (Auto) Lymph % (Auto) [place] % (Auto) Eos % (Auto) Baso % (Auto) Absolute Neuts (auto) Absolute Lymphs (auto) Total Counted PT INR APTT Activated Clotting Time 197 H 142 H Sodium Potassium Chloride Carbon Dioxide Anion Gap BUN Creatinine Estim Creat Clear Calc Est GFR (MDRD) Af Amer Est GFR (MDRD) Non-Af BUN/Creatinine Ratio Glucose Calcium POC Glucose 09/22/17 09/22/17 09/22/17 16:34 11:52 05:33 POC Glucose 133 H 163 H 163 H 09/21/17 23:02 POC Glucose 161 H Medical Necessity - Tobacco Use Smoking Status: Current every day smoker Tobacco Use: Cigarettes Assessment/Plan All Active Problems (Last Updated 09/20/17 @ 15:31 by Laci Chambers DO) Tobacco abuse (Acute) Mental status change (Acute) Healthcare-associated pneumonia (Ruled-out) Severe sepsis (Acute) Pneumonia (Acute) Elevated troponin (Acute) #1 Severe sepsis-secondary to suspected gram-negative pneumonia, continue patient on IV Zosyn, patient may have aspiration pneumonia since he has oropharyngeal dysphagia. He is currently in the ICU following his stent placement #2 right and left lower lobe pneumonia-probably aspiration, continue Zosyn #3 [id number] day 0 drug-eluting stent ?2 to LAD-cardiology is participating in his care #4 oropharyngeal dysphagia-moderate, speech therapy is following the patient #5 chronic obstructive pulmonary disease #6 type 2 diabetes-continue to cover blood sugars with sliding scale insulin Code Visit Inpatient E&M: 35809 Subs Hosp L2
[2017-09-22] MEDS: Atorvastatin Calcium 10 MG Tablet 5 MG PO (21:32)
[2017-09-22] MEDS: Amox/Clavulanate 875 MG Tablet PO (21:33)
[2017-09-22] MEDS: 0.9% NaCl Peripheral Flush Adult/Peds IV (21:33)
[2017-09-22 21:46] LABS: Bedside Glucose 239 mg/dL (70-110)
[2017-09-22] MEDS: Insulin Lispro 100 UNIT/ML INSULN.PEN SC (21:55)
[2017-09-23] VITALS (33 sets, daily range): BP systolic 84–128; BP diastolic 45–73; PULSE 77–99; RESP 14–22; TEMP 36.6–36.8; O2SAT 88–94
[2017-09-23 04:16] LABS: Hematocrit 40.8 % (40-54); Hemoglobin 13.2 g/dl (13.0-16.5); Mean Corp Hgb Conc 32.4 g/gl (32-36); Mean Corpuscular Hgb 31.1 pg (27.0-32.0); Mean Platelet Vol. 10.2 fl (6.2-12.0); Platelet Count 162 K/mm3 (150-450); RBC Distribution Width CV 16.7 % (11.6-14.6); RBC Distribution Width SD 56.3 fl (35.1-43.9); Red Blood Count 4.25 M/mm3 (4.6-6.2); Scan Indicated on CBC? Y/N NO; White Blood Count 11.9 K/mm3 (4.4-11.0)
[2017-09-23 04:31] LABS: Anion Gap 8 (5-15); BUN 24 mg/dL (7-18); Calcium,Total 8.6 mg/dL (8.5-10.1); Chloride 110 mmol/L (98-107); Creatinine, Serum 1.41 mg/dL (0.70-1.30); EST Glomerular Filtration Rate 53 mL/min (>60); Est Glom Filt Rate - Afr Amer 64 mL/min (>60); Estimated Creatinine Clearance 59.11 ml/min; Glucose 130 mg/dL (74-106); Potassium 4.2 mmol/L (3.5-5.1); Sodium Level 145 mmol/L (136-145)
[2017-09-23] MEDS: 0.9% NaCl Peripheral Flush Adult/Peds IV ×4 (05:27→20:43)
--- NOTE | 2017-09-23 06:28 | RAD_ITS ---
STUDY: X-RAY CHEST REASON FOR EXAM: Male, 67 years old. Shortness of breath. TECHNIQUE: Single AP upright portable chest. COMPARISON: 09/21/2017. FINDINGS: EKG wires and oxygen tubing overlie chest. Lungs show suboptimal inspiration with moderate left elevated diaphragm seen in left lung base volume loss. Heterogeneous left hilar opacity is seen, cannot exclude infiltrate due to pneumonia or atelectasis not seen previously or congestive change. Right lung base heterogeneous opacity is also noted, appears more diffuse, less dense but slightly larger in size. No large gross pneumothorax suggested. Normal size heart for projection. Nonacute mediastinum and right hilum. Moderately enlarged visualized pulmonary arteries suggested, appear mildly increased since chest 09/21/2017. Stable appearing visualized aortic arch and descending thoracic aorta. Nonacute appearing visualized bones. There is no demonstrated abnormality of the visualized soft tissue structures of the upper abdomen. No subdiaphragmatic free intraperitoneal air identified. GI contrast noted within splenic flexure of the colon without dilatation, incompletely seen. RAD/Chest 1 View (Portable) IMPRESSION: New left hilar heterogeneous opacity, may represent infiltrate due to pneumonia or atelectasis. Clinical correlation recommended. Recommend follow-up chest exam performed for 2 view study with full inspiratory effort as clinically indicated for complete clearing. Heterogeneous right lung base opacity appears more diffuse and less dense but mildly increased in size. Mildly enlarged pulmonary arteries suggested, may represent increased congestive changes and/or arterial hypertension. Clinical correlation recommended. Suboptimal inspiration is described. Electronically Signed: Michael Kody, at 9:50 EDT Tel , Service support ,
--- NOTE | 2017-09-23 06:45 | PCM.CON.CC ---
Problem List (1) Tobacco abuse Status: Acute (2) Mental status change Status: Acute Qualifiers: Altered mental status type: somnolence Qualified Code(s): R40.0 - Somnolence (3) Healthcare-associated pneumonia Status: Ruled-out (4) Severe sepsis Status: Acute (5) Pneumonia Status: Acute (6) Elevated troponin Status: Acute Reason for Consult Date of Consultation: 09/23/17 Reason for Consultation: Acute hypoxic respiratory failure History of Present Illness: The patient is a 67 year old M, with past medical history listed below, who presented to [facility] on 09/20[facility]2017 secondary to shortness of breath, cough productive of yellow sputum and some reported change in mental status. On presentation to the emergency room, patient was noted to be 84% on room air. Laboratory workup showed a nonspecific ST-T wave changes with a leukocytosis and mildly elevated troponin. CTA of the chest did not show any evidence of pulmonary embolism, but a left lower lobe infiltrate was appreciated. Patient was admitted to the PCU and initiated on supplemental oxygen. Yesterday, patient went for a cardiac catheterization and had 3 stents placed. Patient reports subjective improvement in overall condition, but while in the intensive care unit has been increased to 8 L nasal cannula to maintain appropriate saturations. Patient continues to have an intermittently productive cough of white to pale yellow sputum. Sputum cultures have come back with staph aureus, but no MRSA's probe was obtained on admission to the intensive care unit. Patient denies any bleeding complications. No chest pain is reported. Patient has had improvement in his fever curve is currently being treated with Augmentin. Patient does report a long smoking history, but is never seen a planer offbearer or had pulmonary function testing. Patient does not use any inhalers at home. Patient reports that he is currently a disabled , but previously worked as a freight trucker. Patient denies any exposure to asbestos or tuberculosis. Patient does continue to smoke 1-1-1/2 packs per day. Patient has not used supplemental oxygen previously. Past Medical History Medical History: Medical History (Last Updated 09/20/17 @ 15:31 by Laci Chambers DO) CAD (coronary artery disease) I25.10 DM2 (diabetes mellitus, type 2) E11.9 Hyperlipidemia E78.5 Non-healing wound of right heel S91.301A PAD (peripheral artery disease) I73.9 HTN (hypertension) I10 Allergies No Known Allergies Allergy (Verified 09/20/17 11:33) Home Medications: Ambulatory Orders Medication Instructions Recorded Atenolol [Tenormin] 25 mg PO DAILY 07/03/17 Gabapentin [Neurontin] 600 mg PO TIDCM 07/03/17 Metformin HCl 1,000 mg PO BID 07/03/17 Multivitamin with Minerals/Lut 1 tab PO BID 07/03/17 [Pub Multivitamin 50 Plus Tab] Oxycodone HCl/Acetaminophen 1 each PO Q6H PRN 07/03/17 [Oxycodon-Acetaminophen 7.5-325] Simvastatin [Zocor] 10 mg PO QHS 07/03/17 Aspirin E.C. [Ecotrin] 81 mg PO DAILY 09/20/17 Cyclobenzaprine [Flexeril] 10 mg PO BID 09/20/17 [place]-3/Dha/Epa/Fish Oil [[place] 3 500 mg PO BID 09/20/17 500 Softgel] Potassium Chloride [Klor-Con M10] 10 meq PO DAILY 09/20/17 Urea [Urevaz] 1 applicatio TP PRN PRN 09/20/17 Zolpidem Tartrate [Ambien] 10 mg PO QHS 09/20/17 Surgical History: total knee arthroplasty, - - Multiple coronary artery stents lumbar spine surgery due to degenerative disc disease of the lumbar spine Psychiatric History: No pertinent psych hx Lives: Spouse/ Significant Other Smoking Status: Current every day smoker Tobacco Use: Cigarettes Alcohol: None Drugs: None - *Family History Maternal History Items: No pertinent history, - - no CAD Paternal History Items: No pertinent history Review of Systems Comment: See HPI, otherwise negative ?10 systems. Patient Problems: Active and Suspected Problems (Last Updated 09/20/17 @ 15:31 by Laci Chambers DO) Tobacco abuse (Acute) Severe sepsis (Acute) Pneumonia (Acute) Elevated troponin (Acute) Objective: Original chest x-ray and CT scan of the chest were reviewed. These do show emphysematous changes in the left lower lobe infiltrate. No pleural effusion or PE is appreciated. Echocardiogram showed an EF of 65% with stage I diastolic dysfunction with nonvisible pulmonary jet. - Physical Exam General: Alert, Oriented x3, Cooperative, - - Mild to moderate respiratory distress. Appears older than stated age. HEENT: Atraumatic, PERRLA, EOMI, Normocephalic, - - No scleral icterus or injection noted. No epistaxis noted. Oral: Moist Mucosa, No Gingival or Mucosal Lesions/ Ulcerations, - - Fair dentition Neck: Supple, No Nodes, Trachea Midline, JVD, Right Lungs: Diminished, Rhonchi - Left base, Wheezes Cardiovascular: Regular rate, Regular Rhythm, Normal S1, Normal S2, No murmurs, No rub noted, No Gallop Abdomen: Bowel Sounds Present, Soft, Non Tender, Non-Distended Extremities: No cyanosis, No edema, Capillary Refill Less than 3 Seconds, Clubbing Skin: No rashes, No breakdown Musculoskeletal: No Tenderness to Palpation of Joints or Extremities Lymphatic: No Cervical, Supraclavicular, or Inguinal Adenopathy Neurological: Cranial nerves II-XII grossly intact, Neuro grossly intact, Motor Exam 5/5 strength throughout Psych/Mental Status: Alert and oriented to time, place, person, mood and affect Vital Signs Temp Pulse Resp BP Pulse Ox 36.7 C 81 15 116/63 93 09/23/17 00:00 09/23/17 06:00 09/23/17 06:00 09/23/17 06:00 09/23/17 06:00 Oxygen Flow Rate (L/min) 7 Oxygen Delivery Method Nasal Cannula Weight: 96.615 kg Body Mass Index (BMI) 27.4 Intake and Output for Last 24 Hours 09/21/17 09/22/17 09/23/17 23:59 23:59 23:59 Intake Total 813.2 / 813.2 1381.4 / 1381.4 Output Total 1250 / 1250 1950 / 1950 500 / 500 Balance -436.8 / -436.8 -568.6 / -568.6 -500 / -500 Microbiology Past 72 Hours 09/21/17 02:25 Gram Stain - Final Sputum, Expectorated/Coughed Respiratory Culture - Preliminary Staphylococcus aureus 09/20/17 19:40 Urine Culture - Preliminary Urine, Clean Catch Culture exhibits no growth. 09/20/17 19:40 Legionella Antigen - Final Interface Orders Streptococcus pneumoniae Antigen (M - Final Laboratory Tests Past 24 Hrs 09/22/17 09/22/17 09/23/17 09:58 12:03 04:05 WBC 11.9 H RBC 4.25 L Hgb 13.2 Hct 40.8 MCV 96.0 H MCH 31.1 MCHC 32.4 RDW 16.7 H RDW Differential 56.3 H Plt Count 162 MPV 10.2 Activated Clotting Time 197 H 142 H Sodium Potassium Chloride Carbon Dioxide Anion Gap BUN Creatinine Estim Creat Clear Calc Est GFR (MDRD) Af Amer Est GFR (MDRD) Non-Af BUN/Creatinine Ratio Glucose Calcium 09/23/17 04:05 WBC RBC Hgb Hct MCV MCH MCHC RDW RDW Differential Plt Count MPV Activated Clotting Time Sodium 145 Potassium 4.2 Chloride 110 H Carbon Dioxide 27.0 Anion Gap 8 BUN 24 H Creatinine 1.41 H Estim Creat Clear Calc 59.11 Est GFR (MDRD) Af Amer 64 Est GFR (MDRD) Non-Af 53 L BUN/Creatinine Ratio 17.0 Glucose 130 H Calcium 8.6 POC Glucose 09/22/17 09/22/17 09/22/17 21:32 16:34 11:52 POC Glucose 239 H 133 H 163 H Assessment/Plan Active and Suspected Problems (Last Updated 09/20/17 @ 15:31 by Laci Chambers DO) Tobacco abuse (Acute) Severe sepsis (Acute) Pneumonia (Acute) Elevated troponin (Acute) RECOMMENDATIONS: 1. Continue antibiotics, bronchodilators, steroids and mucolytic's 2. Obtain chest x-ray and BNP 3. Add Acapella for pulmonary toileting 4. Clarify CODE STATUS 5. Wean oxygen as tolerated with walking oximetry prior to discharge 6. Outpatient pulmonary function test IMPRESSIONS: 1. Acute hypoxic respiratory failure secondary to staphylococcal pneumonia This is likely multifactorial. Patient does have emphysematous changes noted on CT scan of the chest and staph aureus growing from his sputum. Patient has been placed on Augmentin therapy and appears to be improving subjectively. Unclear if patient has an element of congestive heart failure also complicating current situation. Will obtain a chest x-ray and BNP. Patient may tolerate Ventimask better than high flow nasal cannula. Keep saturations greater than 90% at all times. 2. Non-ST elevation [place] status post stents/chronic diastolic CHF Patient with stents placed. Patient is on appropriate medical care at this time. Cardiology is currently following. Unclear if patient is developing an acute on chronic diastolic dysfunction adding to current situation. Chest x-ray has been ordered. We will also order a BNP. 3. Probable COPD Patient does have a long smoking history with emphysematous changes noted on CT scan of the chest. Unfortunately, there are no pulmonary function test for quantification and clarification of lung function. Treatment with steroids and bronchodilators is appropriate. Will add Acapella for pulmonary toileting. Patient should have PFTs as an outpatient. Wean oxygen as tolerated. Walking oximetry prior to discharge. 4. Tobacco abuse/type 2 diabetes mellitus/poor historian/chronic pain syndrome Complicates care, management, recovery and prognosis. Baseline metformin has been discontinued secondary to recent dye load. Pain medications have been ordered. 5. CODE STATUS Attempted to address CODE STATUS with patient. Patient is feeling that he would not want to be intubated, but wants to discuss with his before making any formal changes. Code Visit Inpatient E&M: 49740 Init Hosp L3
--- NOTE | 2017-09-23 06:50 | CON.PCM_ITS ---
Problem List (1) Tobacco abuse Status: Acute (2) Mental status change Status: Acute Qualifiers: Altered mental status type: somnolence Qualified Code(s): R40.0 - Somnolence (3) Healthcare-associated pneumonia Status: Ruled-out (4) Severe sepsis Status: Acute (5) Pneumonia Status: Acute (6) Elevated troponin Status: Acute Reason for Consult Date of Consultation: 09/23/17 Reason for Consultation: Acute hypoxic respiratory failure History of Present Illness: The patient is a 67 year old M, with past medical history listed below, who presented to [facility] on 09/20/2017 secondary to shortness of breath, cough productive of yellow sputum and some reported change in mental status. On presentation to the emergency room, patient was noted to be 84% on room air. Laboratory workup showed a nonspecific ST-T wave changes with a leukocytosis and mildly elevated troponin. CTA of the chest did not show any evidence of pulmonary embolism, but a left lower lobe infiltrate was appreciated. Patient was admitted to the PCU and initiated on supplemental oxygen. Yesterday, patient went for a cardiac catheterization and had 3 stents placed. Patient reports subjective improvement in overall condition, but while in the intensive care unit has been increased to 8 L nasal cannula to maintain appropriate saturations. Patient continues to have an intermittently productive cough of white to pale yellow sputum. Sputum cultures have come back with staph aureus, but no MRSA's probe was obtained on admission to the intensive care unit. Patient denies any bleeding complications. No chest pain is reported. Patient has had improvement in his fever curve is currently being treated with Augmentin. Patient does report a long smoking history, but is never seen a counter waiter or had pulmonary function testing. Patient does not use any inhalers at home. Patient reports that he is currently a disabled , but previously worked as a trash collector truck driver. Patient denies any exposure to asbestos or tuberculosis. Patient does continue to smoke 1-1-1/2 packs per day. Patient has not used supplemental oxygen previously. Past Medical History Medical History: Medical History (Last Updated 09/20/17 @ 15:31 by Laci Chambers DO) CAD (coronary artery disease) I25.10 DM2 (diabetes mellitus, type 2) E11.9 Hyperlipidemia E78.5 Non-healing wound of right heel S91.301A PAD (peripheral artery disease) I73.9 HTN (hypertension) I10 Allergies No Known Allergies Allergy (Verified 09/20/17 11:33) Home Medications: Ambulatory Orders Medication Instructions Recorded Atenolol [Tenormin] 25 mg PO DAILY 07/03/17 Gabapentin [Neurontin] 600 mg PO TIDCM 07/03/17 Metformin HCl 1,000 mg PO BID 07/03/17 Multivitamin with Minerals/Lut 1 tab PO BID 07/03/17 [Pub Multivitamin 50 Plus Tab] Oxycodone HCl/Acetaminophen 1 each PO Q6H PRN 07/03/17 [Oxycodon-Acetaminophen 7.5-325] Simvastatin [Zocor] 10 mg PO QHS 07/03/17 Aspirin E.C. [Ecotrin] 81 mg PO DAILY 09/20/17 Cyclobenzaprine [Flexeril] 10 mg PO BID 09/20/17 Kirk-3/Dha/Epa/Fish Oil [Kirk 3 500 mg PO BID 09/20/17 500 Softgel] Potassium Chloride [Klor-Con M10] 10 meq PO DAILY 09/20/17 Urea [Urevaz] 1 applicatio TP PRN PRN 09/20/17 Zolpidem Tartrate [Ambien] 10 mg PO QHS 09/20/17 Surgical History: total knee arthroplasty, - - Multiple coronary artery stents lumbar spine surgery due to degenerative disc disease of the lumbar spine Psychiatric History: No pertinent psych hx Lives: Spouse/ Significant Other Smoking Status: Current every day smoker Tobacco Use: Cigarettes Alcohol: None Drugs: None - *Family History Maternal History Items: No pertinent history, - - no CAD Paternal History Items: No pertinent history Review of Systems Comment: See HPI, otherwise negative ?10 systems. Patient Problems: Active and Suspected Problems (Last Updated 09/20/17 @ 15:31 by Laci hCambers DO ) Tobacco abuse (Acute) Severe sepsis (Acute) Pneumonia (Acute) Elevated troponin (Acute) Objective: Original chest x-ray and CT scan of the chest were reviewed. These do show emphysematous changes in the left lower lobe infiltrate. No pleural effusion or PE is appreciated. Echocardiogram showed an EF of 65% with stage I diastolic dysfunction with nonvisible pulmonary jet. - Physical Exam General: Alert, Oriented x3, Cooperative, - - Mild to moderate respiratory distress. Appears older than stated age. HEENT: Atraumatic, PERRLA, EOMI, Normocephalic, - - No scleral icterus or injection noted. No epistaxis noted. Oral: Moist Mucosa, No Gingival or Mucosal Lesions/ Ulcerations, - - Fair dentition Neck: Supple, No Nodes, Trachea Midline, JVD, Right Lungs: Diminished, Rhonchi - Left base, Wheezes Cardiovascular: Regular rate, Regular Rhythm, Normal S1, Normal S2, No murmurs, No rub noted, No Gallop Abdomen: Bowel Sounds Present, Soft, Non Tender, Non-Distended Extremities: No cyanosis, No edema, Capillary Refill Less than 3 Seconds, Clubbing Skin: No rashes, No breakdown Musculoskeletal: No Tenderness to Palpation of Joints or Extremities Lymphatic: No Cervical, Supraclavicular, or Inguinal Adenopathy Neurological: Cranial nerves II-XII grossly intact, Neuro grossly intact, Motor Exam 5/5 strength throughout Psych/Mental Status: Alert and oriented to time, place, person, mood and affect Vital Signs Temp Pulse Resp BP Pulse Ox 36.7 C 81 15 116/63 93 09/23/17 00:00 09/23/17 06:00 09/23/17 06:00 09/23/17 06:00 09/23/17 06:00 Oxygen Flow Rate (L/min) 7 Oxygen Delivery Method Nasal Cannula Weight: 96.615 kg Body Mass Index (BMI) 27.4 Intake and Output for Last 24 Hours 09/21/17 09/22/17 09/23/17 23:59 23:59 23:59 Intake Total 813.2 / 813.2 1381.4 / 1381.4 Output Total 1250 / 1250 1950 / 1950 500 / 500 Balance -436.8 / -436.8 -568.6 / -568.6 -500 / -500 Microbiology Past 72 Hours 09/21/17 02:25 Gram Stain - Final Sputum, Expectorated/Coughed Respiratory Culture - Preliminary Staphylococcus aureus 09/20/17 19:40 Urine Culture - Preliminary Urine, Clean Catch Culture exhibits no growth. 09/20/17 19:40 Legionella Antigen - Final Interface Orders Streptococcus pneumoniae Antigen (M - Final Laboratory Tests Past 24 Hrs 09/22/17 09/22/17 09/23/17 09:58 12:03 04:05 WBC 11.9 H RBC 4.25 L Hgb 13.2 Hct 40.8 MCV 96.0 H MCH 31.1 MCHC 32.4 RDW 16.7 H RDW Differential 56.3 H Plt Count 162 MPV 10.2 Activated Clotting Time 197 H 142 H Sodium Potassium Chloride Carbon Dioxide Anion Gap BUN Creatinine Estim Creat Clear Calc Est GFR (MDRD) Af Amer Est GFR (MDRD) Non-Af BUN/Creatinine Ratio Glucose Calcium 09/23/17 04:05 WBC RBC Hgb Hct MCV MCH MCHC RDW RDW Differential Plt Count MPV Activated Clotting Time Sodium 145 Potassium 4.2 Chloride 110 H Carbon Dioxide 27.0 Anion Gap 8 BUN 24 H Creatinine 1.41 H Estim Creat Clear Calc 59.11 Est GFR (MDRD) Af Amer 64 Est GFR (MDRD) Non-Af 53 L BUN/Creatinine Ratio 17.0 Glucose 130 H Calcium 8.6 POC Glucose 09/22/17 09/22/17 09/22/17 21:32 16:34 11:52 POC Glucose 239 H 133 H 163 H Assessment/Plan Active and Suspected Problems (Last Updated 09/20/17 @ 15:31 by Laci Chambers DO ) Tobacco abuse (Acute) Severe sepsis (Acute) Pneumonia (Acute) Elevated troponin (Acute) RECOMMENDATIONS: 1. Continue antibiotics, bronchodilators, steroids and mucolytic's 2. Obtain chest x-ray and BNP 3. Add Acapella for pulmonary toileting 4. Clarify CODE STATUS 5. Wean oxygen as tolerated with walking oximetry prior to discharge 6. Outpatient pulmonary function test IMPRESSIONS: 1. Acute hypoxic respiratory failure secondary to staphylococcal pneumonia This is likely multifactorial. Patient does have emphysematous changes noted on CT scan of the chest and staph aureus growing from his sputum. Patient has been placed on Augmentin therapy and appears to be improving subjectively. Unclear if patient has an element of congestive heart failure also complicating current situation. Will obtain a chest x-ray and BNP. Patient may tolerate Ventimask better than high flow nasal cannula. Keep saturations greater than 90% at all times. 2. Non-ST elevation RI status post stents/chronic diastolic CHF Patient with stents placed. Patient is on appropriate medical care at this time. Cardiology is currently following. Unclear if patient is developing an acute on chronic diastolic dysfunction adding to current situation. Chest x-ray has been ordered. We will also order a BNP. 3. Probable COPD Patient does have a long smoking history with emphysematous changes noted on CT scan of the chest. Unfortunately, there are no pulmonary function test for quantification and clarification of lung function. Treatment with steroids and bronchodilators is appropriate. Will add Acapella for pulmonary toileting. Patient should have PFTs as an outpatient. Wean oxygen as tolerated. Walking oximetry prior to discharge. 4. Tobacco abuse/type 2 diabetes mellitus/poor historian/chronic pain syndrome Complicates care, management, recovery and prognosis. Baseline metformin has been discontinued secondary to recent dye load. Pain medications have been ordered. 5. CODE STATUS Attempted to address CODE STATUS with patient. Patient is feeling that he would not want to be intubated, but wants to discuss with his before making any formal changes. Code Visit Inpatient E&M: 15226 Init Hosp L3
[2017-09-23 06:51] LABS: Bedside Glucose 138 mg/dL (70-110)
[2017-09-23] MEDS: Ipratropium/Albuterol Sulfate 3 ML AMPUL.NEB INHALATION ×3 (07:26→15:19)
[2017-09-23 07:44] LABS: Magnesium 2.2 mg/dL (1.6-2.6)
[2017-09-23] MEDS: Furosemide 40 MG/4 ML Vial IV (08:03)
--- NOTE | 2017-09-23 08:47 | PCM.PN.CARD ---
Subjectve: Patient doing fairly well this morning. No chest pain symptoms. Telemetry showed normal sinus rhythm with rare PVC. EKG showed normal sinus rhythm with no acute changes. Patient did have increased O2 requirements last evening from 6-8 L/min. Right groin is clean/dry/intact, no thrills, bruits or hematoma. 2+ DP and PT pulses bilaterally. Hemoglobin and creatinine within nominal limits. Patient has new left-sided egophony by physical exam. Objective: Vital Signs Temp Pulse Resp BP Pulse Ox 98.1 F 84 14 127/69 H 94 09/23/17 08:00 09/23/17 08:00 09/23/17 08:00 09/23/17 08:00 09/23/17 08:00 Oxygen Flow Rate (L/min) 9 Oxygen Delivery Method Nasal Cannula Weight: 213 lb Body Mass Index (BMI) 27.4 Intake and Output for Last 24 Hours 09/21/17 09/22/17 09/23/17 23:59 23:59 23:59 Intake Total 813.2 / 813.2 1381.4 / 1381.4 Output Total 1250 / 1250 1950 / 1950 500 / 500 Balance -436.8 / -436.8 -568.6 / -568.6 -500 / -500 General: Awake, Alert, Oriented x 3 HEENT: PERRL, EOMI, Sclera Non Icteric Neck: Supple, Good ROM, No Lymph Node Enlargement Lungs: Diminished Left Base, Rales - Tung Bases Cardiovascular: Regular Rhythm, Normal S1, Normal S2, No Murmurs, No Rubs, No Gallops Vascular: No Carotid Bruits, Normal Femoral Pulses, Normal Radial Pulses, Normal Dorsalis Pedal Pulse, Normal Posterior Tibial Pulses Abdomen: Bowel Sounds Present, Soft, Non Tender, No HSM, No Organomegaly Extremities: No Cyanosis, No Clubbing, No edema Neurological: No Focal Motor or Sensory Deficit 09/23/17 04:05: WBC 11.9 H, RBC 4.25 L, Hgb 13.2, Hct 40.8, MCV 96.0 H, MCH 31.1, MCHC 32.4, RDW 16.7 H, RDW Differential 56.3 H, Plt Count 162, MPV 10.2 09/23/17 04:05: Sodium 145, Potassium 4.2, Chloride 110 H, Carbon Dioxide 27.0, Anion Gap 8, BUN 24 H, Creatinine 1.41 H, Est GFR (MDRD) Af Amer 64, Est GFR (MDRD) Non-Af 53 L, BUN/Creatinine Ratio 17.0, Glucose 130 H, Calcium 8.6 09/23/17 04:05: Magnesium 2.2 Rhythm: EKG: ECHO: Stress Test: Cardiac Cath: PCI: CT Surgery: Holter monitor: EPS: PPM: CXR: Chest CT Scan: Medical Necessity - Tobacco Use Smoking Status: Current every day smoker Tobacco Use: Cigarettes Assessment/Plan #1. Non-STEMI: Patient presents with what appears to be left lower lobe pneumonia, confusion, delusional, and mental status changes consistent with an infection. In addition he was found to have a mildly elevated troponin in the face of a triple a which may require open resection in the near future. Patient is asymptomatic from a cardiac standpoint and denies any chest pain or angina. His echocardiogram today shows intact LV function without evidence of wall motion abnormalities. Patient has a history of coronary artery disease status post angioplasty and stenting to the right coronary artery per the patient and their family. Patient underwent a nuclear non-walking stress test at the [facility] in [place] in [place] about 1 week ago but has not received the results. This was in anticipation of aortic stent graft in the next 1-2 months. Given the patient's presentation, known coronary disease, onset going smoking, abdominal aortic aneurysm which may require open resection, and abnormal troponins, I recommended that he undergo a repeat catheterization to assess his coronary anatomy to further risk stratify him for upcoming abdominal aortic aneurysm repair either percutaneously or openly. Patient was given 300 mg of Plavix and 75 mg of Plavix daily. He is currently on baby aspirin. Patient underwent successful left heart catheterization with discovery of 2 lesions in his proximal mid LAD requiring intervention. Patient had flow wire evaluation of his LAD which was found to be abnormal. He underwent successful angioplasty and drug-eluting stenting to his mid and proximal LAD with an excellent result. His right coronary artery stent was occluded with adequate left to right collaterals. In addition his abdominal aortogram demonstrated a AAA with an adequate proximal and distal neck for percutaneous stent grafting. Patient did well overnight, and recommend continuing his aspirin, Plavix, atenolol, and Cozaar. I have given the patient his catheterization films to take to the [facility] in [place] for his AAA repair in several weeks time. Recommend Lasix 20 mg IV x1 now for his decreased O2 sats and increasing O2 requirements in light of his left lower lobe egophony. Repeat chest x-ray is pending. The meantime I recommend he continue his baby aspirin, and atenolol. Recommend starting him on Cozaar for his peripheral vascular disease 25 mg p.o. daily. 2. Hyperlipidemia: The patient requires aggressive LDL reduction given his peripheral vascular disease and known coronary disease. He apparently was on simvastatin at home. Recommend repeat lipid profile and an LDL less than 70. 3. Tobacco cessation: I had a long and thorough discussion with the patient regarding tobacco abuse, and strongly recommended he discontinue all tobacco products. 4. Thank you very much for the opportunity to participate in the cardiac care of your patient. Discussed with Dr. Soni. Patient may be downgraded to PCU if clinically able to do so. Code Visit Inpatient E&M: 05447 Subs Hosp L2
--- NOTE | 2017-09-23 08:51 | PN.CARD_ITS ---
Subjectve: Patient doing fairly well this morning. No chest pain symptoms. Telemetry showed normal sinus rhythm with rare PVC. EKG showed normal sinus rhythm with no acute changes. Patient did have increased O2 requirements last evening from 6-8 L/min. Right groin is clean/dry/intact, no thrills, bruits or hematoma. 2 + DP and PT pulses bilaterally. Hemoglobin and creatinine within nominal limits. Patient has new left-sided egophony by physical exam. Objective: Vital Signs Temp Pulse Resp BP Pulse Ox 98.1 F 84 14 127/69 H 94 09/23/17 08:00 09/23/17 08:00 09/23/17 08:00 09/23/17 08:00 09/23/17 08:00 Oxygen Flow Rate (L/min) 9 Oxygen Delivery Method Nasal Cannula Weight: 213 lb Body Mass Index (BMI) 27.4 Intake and Output for Last 24 Hours 09/21/17 09/22/17 09/23/17 23:59 23:59 23:59 Intake Total 813.2 / 813.2 1381.4 / 1381.4 Output Total 1250 / 1250 1950 / 1950 500 / 500 Balance -436.8 / -436.8 -568.6 / -568.6 -500 / -500 General: Awake, Alert, Oriented x 3 HEENT: PERRL, EOMI, Sclera Non Icteric Neck: Supple, Good ROM, No Lymph Node Enlargement Lungs: Diminished Left Base, Rales - Tung Bases Cardiovascular: Regular Rhythm, Normal S1, Normal S2, No Murmurs, No Rubs, No Gallops Vascular: No Carotid Bruits, Normal Femoral Pulses, Normal Radial Pulses, Normal Dorsalis Pedal Pulse, Normal Posterior Tibial Pulses Abdomen: Bowel Sounds Present, Soft, Non Tender, No HSM, No Organomegaly Extremities: No Cyanosis, No Clubbing, No edema Neurological: No Focal Motor or Sensory Deficit 09/23/17 04:05: WBC 11.9 H, RBC 4.25 L, Hgb 13.2, Hct 40.8, MCV 96.0 H, MCH 31.1 , MCHC 32.4, RDW 16.7 H, RDW Differential 56.3 H, Plt Count 162, MPV 10.2 09/23/17 04:05: Sodium 145, Potassium 4.2, Chloride 110 H, Carbon Dioxide 27.0, Anion Gap 8, BUN 24 H, Creatinine 1.41 H, Est GFR (MDRD) Af Amer 64, Est GFR ( MDRD) Non-Af 53 L, BUN/Creatinine Ratio 17.0, Glucose 130 H, Calcium 8.6 09/23/17 04:05: Magnesium 2.2 Rhythm: EKG: ECHO: Stress Test: Cardiac Cath: PCI: CT Surgery: Holter monitor: EPS: PPM: CXR: Chest CT Scan: Medical Necessity - Tobacco Use Smoking Status: Current every day smoker Tobacco Use: Cigarettes Assessment/Plan #1. Non-STEMI: Patient presents with what appears to be left lower lobe pneumonia, confusion, delusional, and mental status changes consistent with an infection. In addition he was found to have a mildly elevated troponin in the face of a triple a which may require open resection in the near future. Patient is asymptomatic from a cardiac standpoint and denies any chest pain or angina. His echocardiogram today shows intact LV function without evidence of wall motion abnormalities. Patient has a history of coronary artery disease status post angioplasty and stenting to the right coronary artery per the patient and their family. Patient underwent a nuclear non-walking stress test at the [facility] in [place] in [place] about 1 week ago but has not received the results. This was in anticipation of aortic stent graft in the next 1-2 months. Given the patient's presentation, known coronary disease, onset going smoking, abdominal aortic aneurysm which may require open resection, and abnormal troponins, I recommended that he undergo a repeat catheterization to assess his coronary anatomy to further risk stratify him for upcoming abdominal aortic aneurysm repair either percutaneously or openly. Patient was given 300 mg of Plavix and 75 mg of Plavix daily. He is currently on baby aspirin. Patient underwent successful left heart catheterization with discovery of 2 lesions in his proximal mid LAD requiring intervention. Patient had flow wire evaluation of his LAD which was found to be abnormal. He underwent successful angioplasty and drug-eluting stenting to his mid and proximal LAD with an excellent result. His right coronary artery stent was occluded with adequate left to right collaterals. In addition his abdominal aortogram demonstrated a AAA with an adequate proximal and distal neck for percutaneous stent grafting. Patient did well overnight, and recommend continuing his aspirin, Plavix, atenolol, and Cozaar. I have given the patient his catheterization films to take to the [facility] in [place] for his AAA repair in several weeks time. Recommend Lasix 20 mg IV x1 now for his decreased O2 sats and increasing O2 requirements in light of his left lower lobe egophony. Repeat chest x-ray is pending. The meantime I recommend he continue his baby aspirin, and atenolol. Recommend starting him on Cozaar for his peripheral vascular disease 25 mg p.o. daily. 2. Hyperlipidemia: The patient requires aggressive LDL reduction given his peripheral vascular disease and known coronary disease. He apparently was on simvastatin at home. Recommend repeat lipid profile and an LDL less than 70. 3. Tobacco cessation: I had a long and thorough discussion with the patient regarding tobacco abuse, and strongly recommended he discontinue all tobacco products. 4. Thank you very much for the opportunity to participate in the cardiac care of your patient. Discussed with Dr. Soni. Patient may be downgraded to PCU if clinically able to do so. Code Visit Inpatient E&M: 15905 Subs Hosp L2
[2017-09-23 08:53] LABS: BNP,B-Type NATRIURETIC PEPTIDE 343.2 pg/mL (0-100)
[2017-09-23] MEDS: Acetaminophen 325 MG Tablet 650 MG PO ×2 (09:20→16:20)
[2017-09-23] MEDS: Gabapentin 600 MG Tablet PO ×3 (09:21→18:18)
[2017-09-23] MEDS: Amox/Clavulanate 875 MG Tablet PO ×2 (09:21→20:36)
[2017-09-23] MEDS: Clopidogrel Bisulfate 75 MG Tablet PO (09:21)
[2017-09-23] MEDS: Losartan Potassium 25 MG Tablet PO (09:21)
[2017-09-23] MEDS: oxyCODONE 5 MG Tablet PO ×2 (09:21→16:21)
[2017-09-23] MEDS: Atenolol 25 MG Tablet PO (09:21)
[2017-09-23] MEDS: Aspirin E.C. 81 MG Tablet PO (09:21)
[2017-09-23] MEDS: guaiFENesin 1,200 MG Tablet 1200 MG PO ×2 (09:21→20:35)
[2017-09-23] MEDS: Multivitamins,Ther W-Minerals Tablet 1 TABLET PO (09:22)
--- NOTE | 2017-09-23 13:22 | CASEMGMT ---
SW participated in ICU rounds this morning. SW spoke w/pt this afternoon, pt's son and daughter present. Pt is not moving well w/PT, SW asked pt about going somewhere for rehab when pt is ready to leave the hospital. Pt declined any referrals at this time, pt states is going home, wants to go home now. Pt states he can walk fine, just chose not to get up with therapy today. Pt states is not on O2 at home. Pt states when here last was sent home on O2 and after about one week did not need it. Pt sent the O2 back. Pt has had home health in the past, not agreeable to home health referral at this time. Pt's children live w/pt and state they can assist pt as needed. SW encouraged pt to stay in hospital until he is ready for discharge, and this will hopefully help to prevent future admissions. Pt states understanding, but states he is stubborn. SW explained if he is still here Tuesday, SW or CM may speak w/him again regarding discharge options. SW/CM remains available for any discharge needs. ZULMA Morales, CONTACT OFFICER
[2017-09-23] MEDS: Insulin Lispro 100 UNIT/ML INSULN.PEN SC ×3 (13:53→21:04)
[2017-09-23] MEDS: Morphine 2 MG/ML Syringe IV ×2 (14:03→20:35)
[2017-09-23 14:26] LABS: Bedside Glucose 171 mg/dL (70-110)
--- NOTE | 2017-09-23 18:08 | PN_ITS ---
Patient Problems: Active and Suspected Problems (Last Updated 09/20/17 @ 15:31 by Laci Chambers DO ) Tobacco abuse (Acute) Severe sepsis (Acute) Pneumonia (Acute) Elevated troponin (Acute) Subjective: Patient seen and examined today, he is in the ICU, pulmonary medicine saw the patient this morning and he has a positive sputum culture for strep pneumoniae. Patient is currently on high flow oxygen at 9 L. - Physical Exam General: Alert, Oriented x3, Cooperative, No apparent distress, Well developed, Well nourished HEENT: Atraumatic, PERRLA, EOMI, Normocephalic Oral: Moist Mucosa Neck: Supple, No JVD, No Nuchal Rigidity, Trachea Midline, Thyroid Normal Size and Texture Lungs: Diminished, Rhonchi - Expiratory rhonchi bilaterally Cardiovascular: Regular rate, Regular Rhythm, Normal S1, Normal S2, No murmurs, No Ectopic Activity Abdomen: Bowel Sounds Present, Soft, Non Tender, Non-Distended, No hernias noted Extremities: No clubbing, No cyanosis, No edema, Capillary Refill Less than 3 Seconds Skin: No rashes, No breakdown Musculoskeletal: No Tenderness to Palpation of Joints or Extremities Neurological: Cranial nerves II-XII grossly intact, Sensory exam intact to light touch and pain, Coordination normal Psych/Mental Status: Normal Affect, Appropriate, Alert and oriented to time, place, person, mood and affect Vital Signs Temp Pulse Resp BP Pulse Ox 98.0 F 81 18 100/63 94 09/23/17 12:00 09/23/17 15:20 09/23/17 15:20 09/23/17 12:00 09/23/17 12:00 Oxygen Flow Rate (L/min) 9 Oxygen Delivery Method Nasal Cannula Weight: 96.615 kg Body Mass Index (BMI) 27.4 Intake and Output for Last 24 Hours 09/21/17 09/22/17 09/23/17 23:59 23:59 23:59 Intake Total 813.2 / 813.2 1381.4 / 1381.4 250 / 250 Output Total 1250 / 1250 1950 / 1950 2250 / 2250 Balance -436.8 / -436.8 -568.6 / -568.6 -1999 / Microbiology Past 72 Hours 09/21/17 02:25 Gram Stain - Final Sputum, Expectorated/Coughed Respiratory Culture - Preliminary Staphylococcus aureus 09/20/17 19:40 Urine Culture - Final Urine, Clean Catch Culture exhibits no growth. 09/20/17 19:40 Legionella Antigen - Final Interface Orders Streptococcus pneumoniae Antigen (M - Final Laboratory Tests Past 24 Hrs 09/23/17 09/23/17 09/23/17 04:05 04:05 04:05 WBC 11.9 H RBC 4.25 L Hgb 13.2 Hct 40.8 MCV 96.0 H MCH 31.1 MCHC 32.4 RDW 16.7 H RDW Differential 56.3 H Plt Count 162 MPV 10.2 Sodium 145 Potassium 4.2 Chloride 110 H Carbon Dioxide 27.0 Anion Gap 8 BUN 24 H Creatinine 1.41 H Estim Creat Clear Calc 59.11 Est GFR (MDRD) Af Amer 64 Est GFR (MDRD) Non-Af 53 L BUN/Creatinine Ratio 17.0 Glucose 130 H Calcium 8.6 Magnesium B-Natriuretic Peptide 343.2 H 09/23/17 04:05 WBC RBC Hgb Hct MCV MCH MCHC RDW RDW Differential Plt Count MPV Sodium Potassium Chloride Carbon Dioxide Anion Gap BUN Creatinine Estim Creat Clear Calc Est GFR (MDRD) Af Amer Est GFR (MDRD) Non-Af BUN/Creatinine Ratio Glucose Calcium Magnesium 2.2 B-Natriuretic Peptide POC Glucose 09/23/17 09/23/17 09/22/17 13:52 06:47 21:32 POC Glucose 171 H 138 H 239 H Medical Necessity - Tobacco Use Smoking Status: Current every day smoker Tobacco Use: Cigarettes Assessment/Plan All Active Problems (Last Updated 09/20/17 @ 15:31 by Laci Chambers DO) Tobacco abuse (Acute) Mental status change (Acute) Healthcare-associated pneumonia (Ruled-out) Severe sepsis (Acute) Pneumonia (Acute) Elevated troponin (Acute) #1 Severe sepsis-secondary to streptococcal pneumoniae pneumonia-pulmonary medicine is participating in his care, his antibiotics were changed to Augmentin today #2 right and left lower lobe pneumonia-urinary to streptococcal pneumoniae- continue Augmentin #3 [id number] day 1 drug-eluting stent ?2 to LAD-cardiology is participating in his care #4 oropharyngeal dysphagia-moderate, speech therapy is following the patient, he currently is on a mechanical soft nectar thickened diet #5 chronic obstructive pulmonary disease #6 type 2 diabetes-continue to cover blood sugars with sliding scale insulin #7 noncompliance with medical advice-during the patient's last hospitalization, he was instructed to stop smoking, he was also sent home on supplemental oxygen. Code Visit Inpatient E&M: 74379 Subs Hosp L2
[2017-09-23 18:26] LABS: Bedside Glucose 275 mg/dL (70-110)
[2017-09-23] MEDS: Atorvastatin Calcium 10 MG Tablet 5 MG PO (20:35)
[2017-09-23 20:51] LABS: Bedside Glucose 284 mg/dL (70-110)
[2017-09-24] VITALS (28 sets, daily range): BP systolic 96–126; BP diastolic 44–79; PULSE 55–98; RESP 14–18; TEMP 36.6–37.1; O2SAT 88–95
[2017-09-24] MEDS: oxyCODONE 5 MG Tablet PO ×4 (04:16→22:26)
[2017-09-24] MEDS: Acetaminophen 325 MG Tablet 650 MG PO ×4 (04:16→22:27)
[2017-09-24] MEDS: 0.9% NaCl Peripheral Flush Adult/Peds IV ×5 (04:17→13:27)
[2017-09-24 04:32] LABS: Anion Gap 7 (5-15); BUN 33 mg/dL (7-18); BUN/Creat Ratio 23.2 RATIO (10-20); Chloride 107 mmol/L (98-107); Creatinine, Serum 1.42 mg/dL (0.70-1.30); EST Glomerular Filtration Rate 53 mL/min (>60); Est Glom Filt Rate - Afr Amer 64 mL/min (>60); Estimated Creatinine Clearance 58.69 ml/min; Glucose 160 mg/dL (74-106); Potassium 4.5 mmol/L (3.5-5.1); Sodium Level 145 mmol/L (136-145)
--- NOTE | 2017-09-24 06:36 | PCM.PN.INT ---
Subjective: Patient did well overnight. No acute issues were reported. Patient has had lower blood pressures, but no intervention has been required. No fevers have been reported. Patient has been able to be weaned to 6 L nasal cannula. Patient reports subjective improvement in overall condition. General: Alert, Oriented x3, Cooperative, No apparent distress, - - Appears older than stated age. Speaking in full sentences. HEENT: Atraumatic, PERRLA, EOMI, Normocephalic, - - No scleral icterus or injection noted. Oral: Moist Mucosa, No Gingival or Mucosal Lesions/ Ulcerations, - - Fair dentition. Neck: Supple, No JVD, No Nodes, Trachea Midline Lungs: No rhonchi, No rales, Diminished, Wheezes - Sporadic, - - Symmetric expansion. No dullness to percussion. Cardiovascular: Regular rate, Regular Rhythm, Normal S1, Normal S2, No murmurs, No rub noted, No Gallop Abdomen: Bowel Sounds Present, Soft, Non Tender, Non-Distended Extremities: No cyanosis, No edema, Clubbing, - - Tobacco stained fingers. Skin: No rashes, No breakdown Musculoskeletal: No Tenderness to Palpation of Joints or Extremities Lymphatic: No Cervical, Supraclavicular, or Inguinal Adenopathy Neurological: Cranial nerves II-XII grossly intact, Neuro grossly intact, Motor Exam 5/5 strength throughout Psych/Mental Status: Alert and oriented to time, place, person, mood and affect Vital Signs Temp Pulse Resp BP Pulse Ox 37.1 C 84 15 122/71 H 95 09/24/17 04:00 09/24/17 06:00 09/24/17 06:00 09/24/17 06:00 09/24/17 06:00 Oxygen Flow Rate (L/min) 6 Oxygen Delivery Method Nasal Cannula Weight: 92.6 kg Body Mass Index (BMI) 27.4 Intake and Output for Last 24 Hours 09/22/17 09/23/17 09/24/17 23:59 23:59 23:59 Intake Total 1381.4 / 1381.4 860 / 860 120 / 120 Output Total 1950 / 1950 2925 / 2925 300 / 300 Balance -568.6 / -568.6 -2065 / -2065 -180 / -180 Labs (Last 48 Hours) 09/22/17 09/22/17 09/22/17 09:58 11:52 12:03 WBC RBC Hgb Hct MCV MCH MCHC RDW RDW Differential Plt Count MPV Activated Clotting Time 197 H 142 H Sodium Potassium Chloride Carbon Dioxide Anion Gap BUN Creatinine Estim Creat Clear Calc Est GFR (MDRD) Af Amer Est GFR (MDRD) Non-Af BUN/Creatinine Ratio Glucose Calcium Magnesium B-Natriuretic Peptide POC Glucose 163 H 09/22/17 09/22/17 09/23/17 16:34 21:32 04:05 WBC 11.9 H RBC 4.25 L Hgb 13.2 Hct 40.8 MCV 96.0 H MCH 31.1 MCHC 32.4 RDW 16.7 H RDW Differential 56.3 H Plt Count 162 MPV 10.2 Activated Clotting Time Sodium Potassium Chloride Carbon Dioxide Anion Gap BUN Creatinine Estim Creat Clear Calc Est GFR (MDRD) Af Amer Est GFR (MDRD) Non-Af BUN/Creatinine Ratio Glucose Calcium Magnesium B-Natriuretic Peptide POC Glucose 133 H 239 H 09/23/17 09/23/17 09/23/17 04:05 04:05 04:05 WBC RBC Hgb Hct MCV MCH MCHC RDW RDW Differential Plt Count MPV Activated Clotting Time Sodium 145 Potassium 4.2 Chloride 110 H Carbon Dioxide 27.0 Anion Gap 8 BUN 24 H Creatinine 1.41 H Estim Creat Clear Calc 59.11 Est GFR (MDRD) Af Amer 64 Est GFR (MDRD) Non-Af 53 L BUN/Creatinine Ratio 17.0 Glucose 130 H Calcium 8.6 Magnesium 2.2 B-Natriuretic Peptide 343.2 H POC Glucose 09/23/17 09/23/17 09/23/17 06:47 13:52 18:14 WBC RBC Hgb Hct MCV MCH MCHC RDW RDW Differential Plt Count MPV Activated Clotting Time Sodium Potassium Chloride Carbon Dioxide Anion Gap BUN Creatinine Estim Creat Clear Calc Est GFR (MDRD) Af Amer Est GFR (MDRD) Non-Af BUN/Creatinine Ratio Glucose Calcium Magnesium B-Natriuretic Peptide POC Glucose 138 H 171 H 275 H 09/23/17 09/24/17 20:33 04:10 WBC RBC Hgb Hct MCV MCH MCHC RDW RDW Differential Plt Count MPV Activated Clotting Time Sodium 145 Potassium 4.5 Chloride 107 Carbon Dioxide 31.0 Anion Gap 7 BUN 33 H Creatinine 1.42 H Estim Creat Clear Calc 58.69 Est GFR (MDRD) Af Amer 64 Est GFR (MDRD) Non-Af 53 L BUN/Creatinine Ratio 23.2 H Glucose 160 H Calcium 9.0 Magnesium B-Natriuretic Peptide POC Glucose 284 H Microbiology 09/21/17 02:25 Sputum, Expectorated/Coughed Gram Stain - Final 09/21/17 02:25 Sputum, Expectorated/Coughed Respiratory Culture - Preliminary Staphylococcus aureus 09/20/17 19:40 Urine, Clean Catch Urine Culture - Final Culture exhibits no growth. Clinical Impression(s) from Imaging Studies Chest X-Ray 09/23/17 06:28 IMPRESSION: New left hilar heterogeneous opacity, may represent infiltrate due to pneumonia or atelectasis. Clinical correlation recommended. Recommend follow-up chest exam performed for 2 view study with full inspiratory effort as clinically indicated for complete clearing. Heterogeneous right lung base opacity appears more diffuse and less dense but mildly increased in size. Mildly enlarged pulmonary arteries suggested, may represent increased congestive changes and/or arterial hypertension. Clinical correlation recommended. Suboptimal inspiration is described. Electronically Signed: Michael Kody, at 9:50 EDT Tel , Service support , Medical Necessity - Tobacco Use Smoking Status: Current every day smoker Tobacco Use: Cigarettes Assessment/Plan All Active Problems (Last Updated 09/20/17 @ 15:31 by Laci Chambers DO) Tobacco abuse (Acute) Mental status change (Acute) Healthcare-associated pneumonia (Ruled-out) Severe sepsis (Acute) Pneumonia (Acute) Elevated troponin (Acute) RECOMMENDATIONS: 1. Continue antibiotics, bronchodilators, steroids and mucolytic's 2. Give additional dose of Lasix therapy 3. Continue Acapella for pulmonary toileting 4. Clarify CODE STATUS 5. Wean oxygen as tolerated with walking oximetry prior to discharge 6. Outpatient pulmonary function test 7. Possibly okay to leave the intensive care unit later today IMPRESSIONS: 1. Acute hypoxic respiratory failure secondary to staphylococcal pneumonia This is likely multifactorial. Patient does have emphysematous changes noted on CT scan of the chest and staph aureus growing from his sputum. Patient has been placed on Augmentin therapy and appears to be improving subjectively. Patient did respond to diuretic therapy yesterday. Will give an additional dose today. Would keep steroids at current levels until oxygenation improves. Continue with mucolytics and bronchodilators. 2. Non-ST elevation [place] status post stents/acute on chronic diastolic CHF Patient with stents placed. Patient is on appropriate medical care at this time. Cardiology is currently following. Unclear if patient is developing an acute on chronic diastolic dysfunction adding to current situation. Patient did respond to diuretic therapy yesterday. This is indicative of probable acute on chronic diastolic congestive heart failure. 3. Probable COPD Patient does have a long smoking history with emphysematous changes noted on CT scan of the chest. Unfortunately, there are no pulmonary function test for quantification and clarification of lung function. Treatment with steroids and bronchodilators is appropriate. Will continue Acapella for pulmonary toileting. Patient should have PFTs as an outpatient. Wean oxygen as tolerated. Walking oximetry prior to discharge. 4. Tobacco abuse/type 2 diabetes mellitus/poor historian/chronic pain syndrome Complicates care, management, recovery and prognosis. Baseline metformin has been discontinued secondary to recent dye load. Pain medications have been ordered. 5. CODE STATUS Attempted to address CODE STATUS with patient. Patient is feeling that he would not want to be intubated, but wants to discuss with his before making any formal changes. No update on CODE STATUS at this time. Code Visit Inpatient E&M: [id number] [facility] Hosp L3
[2017-09-24] MEDS: Furosemide 40 MG/4 ML Vial IV (06:49)
[2017-09-24] MEDS: Ipratropium/Albuterol Sulfate 3 ML AMPUL.NEB INHALATION ×5 (06:56→23:02)
[2017-09-24 07:00] LABS: Bedside Glucose 169 mg/dL (70-110)
[2017-09-24] MEDS: Gabapentin 600 MG Tablet PO ×3 (07:36→16:39)
[2017-09-24] MEDS: Multivitamins,Ther W-Minerals Tablet 1 TABLET PO (07:37)
[2017-09-24] MEDS: Insulin Lispro 100 UNIT/ML INSULN.PEN SC ×4 (07:37→22:13)
[2017-09-24] MEDS: Aspirin E.C. 81 MG Tablet PO (07:37)
[2017-09-24] MEDS: Morphine 2 MG/ML Syringe IV (08:32)
--- NOTE | 2017-09-24 08:43 | PN.CARD_ITS ---
Subjectve: No complaints. Sitting up in a chair. Objective: Vital Signs Temp Pulse Resp BP Pulse Ox 98.2 F 95 15 109/44 L 91 09/24/17 07:39 09/24/17 08:00 09/24/17 07:00 09/24/17 08:00 09/24/17 08:00 Oxygen Flow Rate (L/min) 6 Oxygen Delivery Method Nasal Cannula Weight: 92.6 kg Body Mass Index (BMI) 27.4 Intake and Output for Last 24 Hours 09/22/17 09/23/17 09/24/17 23:59 23:59 23:59 Intake Total 1381.4 / 1381.4 860 / 860 120 / 120 Output Total 1950 / 1950 2925 / 2925 300 / 300 Balance -568.6 / -568.6 -2065 / -2065 -180 / -180 General: Awake, Alert, Oriented x 3, No Acute Distress HEENT: Atraumatic, Normocephalic Oral: Moist Mucosa Neck: Supple Lungs: Diminished Tung Bases Cardiovascular: Regular Rhythm, Normal S1, Normal S2 Abdomen: Bowel Sounds Present, Soft Extremities: No edema Neurological: No Focal Motor or Sensory Deficit Psych/Mental Status: Appropriate 09/23/17 04:05: B-Natriuretic Peptide 343.2 H 09/24/17 04:10: Sodium 145, Potassium 4.5, Chloride 107, Carbon Dioxide 31.0, Anion Gap 7, BUN 33 H, Creatinine 1.42 H, Est GFR (MDRD) Af Amer 64, Est GFR ( MDRD) Non-Af 53 L, BUN/Creatinine Ratio 23.2 H, Glucose 160 H, Calcium 9.0 Rhythm: Normal sinus rhythm. Occasional PVC EKG: Normal sinus rhythm. Occasional PVC ECHO: Stress Test: Cardiac Cath: PCI: CT Surgery: Holter monitor: EPS: PPM: CXR: Chest CT Scan: Medical Necessity - Tobacco Use Smoking Status: Current every day smoker Tobacco Use: Cigarettes Assessment/Plan 1. Non-ST elevation myocardial infarction. Status post drug-eluting stent to the mid and proximal left anterior descending artery. Stable. Asymptomatic. Continue aspirin lifelong. Clopidogrel treatment for at least one year 2. Pneumonia. Pulmonary following 3. Mildly elevated creatinine. Monitor. Repeat in the morning 4. Dyslipidemia 5. Nicotine dependence next We will continue to see prn. Please call if needed
[2017-09-24] MEDS: Atenolol 25 MG Tablet PO (09:53)
[2017-09-24] MEDS: Losartan Potassium 25 MG Tablet PO (09:53)
[2017-09-24] MEDS: Amox/Clavulanate 875 MG Tablet PO ×2 (09:53→22:12)
[2017-09-24] MEDS: Clopidogrel Bisulfate 75 MG Tablet PO (09:54)
[2017-09-24] MEDS: guaiFENesin 1,200 MG Tablet 1200 MG PO ×2 (09:54→22:12)
[2017-09-24 11:51] LABS: Bedside Glucose 208 mg/dL (70-110)
[2017-09-24] MEDS: Heparin Injection (Vial) 5,000 UNIT/ML VIAL 5000 UNIT SC ×2 (13:26→22:13)
--- NOTE | 2017-09-24 15:53 | PN_ITS ---
Patient Problems: Active and Suspected Problems (Last Updated 09/20/17 @ 15:31 by Laci Chambers DO ) Tobacco abuse (Acute) Severe sepsis (Acute) Pneumonia (Acute) Elevated troponin (Acute) Subjective: Patient was seen and examined today, he is currently on 4 L nasal cannula, he appears stable for transfer from the ICU to PCU. Talked briefly with cardiology about his care also. - Physical Exam General: Alert, Oriented x3, Cooperative, No apparent distress, Well developed, Well nourished HEENT: Atraumatic, PERRLA, EOMI, Normocephalic Oral: Moist Mucosa Neck: Supple, No JVD, No Nuchal Rigidity, Trachea Midline, Thyroid Normal Size and Texture Lungs: Clear to auscultation, No rhonchi, No wheeze, No rales, Diminished Cardiovascular: Regular rate, Regular Rhythm, Normal S1, Normal S2, No murmurs, No Ectopic Activity Abdomen: Bowel Sounds Present, Soft, Non Tender, Non-Distended, No hernias noted Extremities: No clubbing, No cyanosis, No edema, Capillary Refill Less than 3 Seconds Skin: No rashes, No breakdown Musculoskeletal: No Tenderness to Palpation of Joints or Extremities Neurological: Cranial nerves II-XII grossly intact, Neuro grossly intact, Sensory exam intact to light touch and pain, Coordination normal Psych/Mental Status: Normal Affect, Appropriate, Alert and oriented to time, place, person, mood and affect Vital Signs Temp Pulse Resp BP Pulse Ox 97.9 F 64 18 114/53 L 93 09/24/17 11:44 09/24/17 15:25 09/24/17 15:25 09/24/17 11:44 09/24/17 11:44 Oxygen Flow Rate (L/min) 4 Oxygen Delivery Method Nasal Cannula Weight: 92.6 kg Body Mass Index (BMI) 27.4 Intake and Output for Last 24 Hours 09/22/17 09/23/17 09/24/17 23:59 23:59 23:59 Intake Total 1381.4 / 1381.4 860 / 860 510 / 510 Output Total 1949 / 1949 2925 / 2925 1750 / 1750 Balance -568.6 / -568.6 -2065 / -2065 -1240 / -1240 Microbiology Past 72 Hours 09/21/17 02:25 Gram Stain - Final Sputum, Expectorated/Coughed Respiratory Culture - Final Staphylococcus aureus 09/20/17 19:40 Urine Culture - Final Urine, Clean Catch Culture exhibits no growth. Laboratory Tests Past 24 Hrs 09/24/17 04:10 Sodium 145 Potassium 4.5 Chloride 107 Carbon Dioxide 31.0 Anion Gap 7 BUN 33 H Creatinine 1.42 H Estim Creat Clear Calc 58.69 Est GFR (MDRD) Af Amer 64 Est GFR (MDRD) Non-Af 53 L BUN/Creatinine Ratio 23.2 H Glucose 160 H Calcium 9.0 POC Glucose 09/24/17 09/24/17 09/23/17 11:41 06:48 20:33 POC Glucose 208 H 169 H 284 H 09/23/17 18:14 POC Glucose 275 H Medical Necessity - Tobacco Use Smoking Status: Current every day smoker Tobacco Use: Cigarettes Assessment/Plan All Active Problems (Last Updated 09/20/17 @ 15:31 by Laci Chambers DO) Tobacco abuse (Acute) Mental status change (Acute) Healthcare-associated pneumonia (Ruled-out) Severe sepsis (Acute) Pneumonia (Acute) Elevated troponin (Acute) #1 Severe sepsis-secondary to streptococcal pneumoniae pneumonia-pulmonary medicine is participating in his care, his antibiotics were changed to Augmentin yesterday, patient will be transferred to the PCU for further care #2 right and left lower lobe pneumonia-urinary to streptococcal pneumoniae- continue Augmentin #3 [id number] day 2 drug-eluting stent ?2 to LAD-cardiology is participating in his care #4 oropharyngeal dysphagia-moderate, speech therapy is following the patient, he currently is on a mechanical soft nectar thickened diet #5 chronic obstructive pulmonary disease #6 type 2 diabetes-continue to cover blood sugars with sliding scale insulin #7 noncompliance with medical advice-during the patient's last hospitalization, he was instructed to stop smoking, he was also sent home on supplemental oxygen. Code Visit Inpatient E&M: [id number] Subs Hosp L2
[2017-09-24 16:40] LABS: Bedside Glucose 168 mg/dL (70-110)
[2017-09-24] MEDS: Atorvastatin Calcium 10 MG Tablet 5 MG PO (22:12)
[2017-09-24 22:36] LABS: Bedside Glucose 182 mg/dL (70-110)
[2017-09-25] VITALS (20 sets, daily range): BP systolic 104–128; BP diastolic 48–67; PULSE 73–91; RESP 14–20; TEMP 36.6–37; O2SAT 91–95
[2017-09-25] MEDS: Ipratropium/Albuterol Sulfate 3 ML AMPUL.NEB INHALATION ×5 (05:54→23:16)
[2017-09-25] MEDS: Heparin Injection (Vial) 5,000 UNIT/ML VIAL 5000 UNIT SC ×3 (06:29→21:12)
[2017-09-25] MEDS: 0.9% NaCl Peripheral Flush Adult/Peds IV ×2 (06:29→09:05)
[2017-09-25] MEDS: oxyCODONE 5 MG Tablet PO ×3 (06:34→22:22)
[2017-09-25] MEDS: Acetaminophen 325 MG Tablet 650 MG PO ×2 (06:35→15:36)
[2017-09-25 06:49] LABS: Anion Gap 10 (5-15); BUN 38 mg/dL (7-18); BUN/Creat Ratio 26.8 RATIO (10-20); Calcium,Total 8.9 mg/dL (8.5-10.1); Chloride 105 mmol/L (98-107); Creatinine, Serum 1.42 mg/dL (0.70-1.30); EST Glomerular Filtration Rate 53 mL/min (>60); Est Glom Filt Rate - Afr Amer 64 mL/min (>60); Estimated Creatinine Clearance 58.69 ml/min; Glucose 162 mg/dL (74-106); Potassium 4.8 mmol/L (3.5-5.1); Sodium Level 145 mmol/L (136-145)
--- NOTE | 2017-09-25 08:17 | PN_ITS ---
Patient Problems: Active and Suspected Problems (Last Updated 09/20/17 @ 15:31 by Laci Chambers DO ) Tobacco abuse (Acute) Severe sepsis (Acute) Pneumonia (Acute) Elevated troponin (Acute) Subjective: Patient transferred out of the intensive care unit. Patient reports compliance with Acapella therapy and states that production is improving. Sputum is described as white without blood. Patient still requiring 7 L nasal cannula to maintain appropriate saturations while at rest. - Physical Exam General: Alert, Oriented x3, Cooperative, No apparent distress, - - Speaking in full sentences. HEENT: Atraumatic, PERRLA, EOMI, - - No scleral icterus or injection noted. Oral: Moist Mucosa, No Gingival or Mucosal Lesions/ Ulcerations Neck: Supple, No JVD, No Nodes, Trachea Midline Lungs: No rhonchi, No rales, Diminished, Wheezes - Sporadic, - - Symmetric expansion. No dullness to percussion. Cardiovascular: Regular rate, Regular Rhythm, Normal S1, Normal S2, No murmurs, No rub noted, No Gallop Abdomen: Bowel Sounds Present, Soft, Non Tender, Non-Distended Extremities: No cyanosis, No edema, Clubbing Skin: No rashes, No breakdown, - - Tobacco stained fingers Musculoskeletal: No Tenderness to Palpation of Joints or Extremities Lymphatic: No Cervical, Supraclavicular, or Inguinal Adenopathy Neurological: Cranial nerves II-XII grossly intact, Neuro grossly intact, Motor Exam 5/5 strength throughout Psych/Mental Status: Alert and oriented to time, place, person, mood and affect Vital Signs Temp Pulse Resp BP Pulse Ox 37.0 C 83 18 128/67 H 93 09/25/17 04:15 09/25/17 07:00 09/25/17 05:54 09/25/17 04:15 09/25/17 05:59 Oxygen Flow Rate (L/min) 7 Oxygen Delivery Method Nasal Cannula Weight: 92.6 kg Body Mass Index (BMI) 27.4 Intake and Output for Last 24 Hours 09/23/17 09/24/17 09/25/17 23:59 23:59 23:59 Intake Total 860 / 860 750 / 750 420 / 420 Output Total 2925 / 2925 2049 / 0 675 / 675 Balance -2065 / -206 -1300 / -1300 -255 / -255 Microbiology Past 72 Hours 08/08/18 02:25 Gram Stain - Final Sputum, Expectorated/Coughed Respiratory Culture - Final Staphylococcus aureus 09/20/17 19:40 Urine Culture - Final Urine, Clean Catch Culture exhibits no growth. Laboratory Tests Past 24 Hrs 09/25/17 06:13 Sodium 145 Potassium 4.8 Chloride 105 Carbon Dioxide 30.0 Anion Gap 10 BUN 38 H Creatinine 1.42 H Estim Creat Clear Calc 58.69 Est GFR (MDRD) Af Amer 64 Est GFR (MDRD) Non-Af 53 L BUN/Creatinine Ratio 26.8 H Glucose 162 H Calcium 8.9 POC Glucose 09/24/17 09/24/17 09/24/17 22:07 16:32 11:41 POC Glucose 182 H 168 H 208 H Medical Necessity - Tobacco Use Smoking Status: Current every day smoker Tobacco Use: Cigarettes Assessment/Plan All Active Problems (Last Updated 09/20/17 @ 15:31 by Laci Chambers DO) Tobacco abuse (Acute) Mental status change (Acute) Healthcare-associated pneumonia (Ruled-out) Severe sepsis (Acute) Pneumonia (Acute) Elevated troponin (Acute) RECOMMENDATIONS: 1. Continue antibiotics, bronchodilators, steroids and mucolytic's 2. Continue to give Lasix on a as needed basis 3. Continue Acapella for pulmonary toileting 4. Clarify CODE STATUS 5. Wean oxygen as tolerated with walking oximetry prior to discharge 6. Outpatient pulmonary function test 7. Possibly okay to leave the intensive care unit later today IMPRESSIONS: 1. Acute hypoxic respiratory failure secondary to staphylococcal pneumonia This is likely multifactorial. Patient does have emphysematous changes noted on CT scan of the chest and staph aureus growing from his sputum. Patient has been placed on Augmentin therapy and appears to be improving subjectively. Patient did respond to diuretic therapy yesterday, so will continue intermittently. Will give an additional dose today. Wean steroids. Continue with mucolytics and bronchodilators. 2. Non-ST elevation [place] status post stents/acute on chronic diastolic CHF Patient with stents placed. Patient is on appropriate medical care at this time. Cardiology is currently following. Unclear if patient is developing an acute on chronic diastolic dysfunction adding to current situation. Patient did respond to diuretic therapy yesterday. This is indicative of probable acute on chronic diastolic congestive heart failure. 3. Probable COPD Patient does have a long smoking history with emphysematous changes noted on CT scan of the chest. Unfortunately, there are no pulmonary function test for quantification and clarification of lung function. Treatment with steroids and bronchodilators is appropriate. Will continue Acapella for pulmonary toileting. Patient should have PFTs as an outpatient. Wean oxygen as tolerated. Walking oximetry prior to discharge. 4. Tobacco abuse/type 2 diabetes mellitus/poor historian/chronic pain syndrome Complicates care, management, recovery and prognosis. Baseline metformin has been discontinued secondary to recent dye load. Pain medications have been ordered. 5. CODE STATUS Attempted to address CODE STATUS with patient. Patient is feeling that he would not want to be intubated, but wants to discuss with his before making any formal changes. No update on CODE STATUS at this time. Code Visit Inpatient E&M: [id number] [facility] Hosp L3
[2017-09-25] MEDS: Gabapentin 600 MG Tablet PO ×3 (08:58→16:25)
[2017-09-25] MEDS: Multivitamins,Ther W-Minerals Tablet 1 TABLET PO (08:58)
[2017-09-25] MEDS: Furosemide 40 MG/4 ML Vial IV (08:58)
[2017-09-25] MEDS: Aspirin E.C. 81 MG Tablet PO (08:58)
[2017-09-25] MEDS: Atenolol 25 MG Tablet PO (08:59)
[2017-09-25] MEDS: guaiFENesin 1,200 MG Tablet 1200 MG PO ×2 (08:59→21:12)
[2017-09-25] MEDS: Clopidogrel Bisulfate 75 MG Tablet PO (08:59)
[2017-09-25] MEDS: Losartan Potassium 25 MG Tablet PO (08:59)
[2017-09-25] MEDS: Amox/Clavulanate 875 MG Tablet PO ×2 (08:59→21:11)
[2017-09-25] MEDS: Insulin Lispro 100 UNIT/ML INSULN.PEN SC ×4 (09:08→21:13)
[2017-09-25 10:50] LABS: Bedside Glucose 164 mg/dL (70-110)
[2017-09-25 11:50] LABS: Bedside Glucose 339 mg/dL (70-110)
--- NOTE | 2017-09-25 13:40 | PN_ITS ---
Patient Problems: Active and Suspected Problems (Last Updated 09/20/17 @ 15:31 by Laci Chambers DO ) Tobacco abuse (Acute) Severe sepsis (Acute) Pneumonia (Acute) Elevated troponin (Acute) Subjective: Pt reports minimal improvement. he has had no fevers chills or sweats overnight. He has an occasionally productive cough with clear sputum. No blood. He is SOB with exertion. He remains on 7lpm high flow NC. He previously was wearing no o2 at home. He smoked heavily up to admission - 2.5ppd. - Physical Exam General: Alert, Oriented x3, Cooperative HEENT: Atraumatic, PERRLA, EOMI, Normocephalic Neck: Supple, No JVD, Negative Carotid Bruits Lungs: Diminished, Wheezes Cardiovascular: Regular rate, No murmurs Abdomen: Bowel Sounds Present, Soft, Non Tender Extremities: No edema, Capillary Refill Less than 3 Seconds Skin: No rashes, No breakdown Musculoskeletal: No Tenderness to Palpation of Joints or Extremities Neurological: Cranial nerves II-XII grossly intact Psych/Mental Status: Normal Affect, Appropriate, Alert and oriented to time, place, person, mood and affect Vital Signs Temp Pulse Resp BP Pulse Ox 97.8 F 91 16 120/64 95 09/25/17 09:11 09/25/17 11:00 09/25/17 10:45 09/25/17 09:11 09/25/17 10:45 Oxygen Flow Rate (L/min) 7 Oxygen Delivery Method Nasal Cannula Weight: 204 lb 2.369 oz Body Mass Index (BMI) 27.4 Intake and Output for Last 24 Hours 09/23/17 09/24/17 09/25/17 23:59 23:59 23:59 Intake Total 860 / 860 750 / 750 780 / 780 Output Total 2925 / 2925 2049 / 0 1225 / 1225 Balance -2065 / -2065 -1300 / -1300 -445 / -445 Microbiology Past 72 Hours 09/21/17 02:25 Gram Stain - Final Sputum, Expectorated/Coughed Respiratory Culture - Final Staphylococcus aureus 09/20/17 19:40 Urine Culture - Final Urine, Clean Catch Culture exhibits no growth. Laboratory Tests Past 24 Hrs 09/25/17 06:13 Sodium 145 Potassium 4.8 Chloride 105 Carbon Dioxide 30.0 Anion Gap 10 BUN 38 H Creatinine 1.42 H Estim Creat Clear Calc 58.69 Est GFR (MDRD) Af Amer 64 Est GFR (MDRD) Non-Af 53 L BUN/Creatinine Ratio 26.8 H Glucose 162 H Calcium 8.9 POC Glucose 09/25/17 09/25/17 09/24/17 11:41 06:36 22:07 POC Glucose 339 H 164 H 182 H 09/24/17 16:32 POC Glucose 168 H Medical Necessity - Tobacco Use Smoking Status: Current every day smoker Tobacco Use: Cigarettes Assessment/Plan All Active Problems (Last Updated 09/20/17 @ 15:31 by Laci Chambers DO) Tobacco abuse (Acute) Mental status change (Acute) Healthcare-associated pneumonia (Ruled-out) Severe sepsis (Acute) Pneumonia (Acute) Elevated troponin (Acute) 1. Severe sepsis 2/2 staph pna with acute hypoxic respiratory failure - pulmonary following. Continue augmentin, mucinex, IS, PEP 2. Suspected COPD with acute exacerbation - no formal dx. Solumedrol to prednisone taper. Duonebs/Albuterol. Only has albuterol inhaler at home, likely needs anticholinergic. Mild leukocytosis suspect 2/2 steroids. 3. NSTEMI - postop day 3, 2 stents placed. Cardiology following. No CP. Continue arb, bb, asa, plavix, statin 4. oropharyngeal dysphagia - continue speech therapy and modified diet. mechanical soft nectar thickened 5. DMt2 - SSI 6. Nicotine abuse. Heavy smoker. 7. Suspect CKDIII - stable DVT ppx: DC planning: attempt to further wean o2 to facilitate discharge planning This patient was seen by Salvador Patel PA-C under the supervision of Dr. Prado.
[2017-09-25 16:31] LABS: Bedside Glucose 157 mg/dL (70-110)
[2017-09-25] MEDS: Atorvastatin Calcium 10 MG Tablet 5 MG PO (21:12)
[2017-09-25 23:11] LABS: Bedside Glucose 168 mg/dL (70-110)
[2017-09-26] VITALS (9 sets, daily range): BP systolic 98–122; BP diastolic 61–76; PULSE 70–85; RESP 16–20; TEMP 36.2–36.6; O2SAT 88–94
[2017-09-26] MEDS: Heparin Injection (Vial) 5,000 UNIT/ML VIAL 5000 UNIT SC (06:17)
[2017-09-26] MEDS: oxyCODONE 5 MG Tablet PO (06:22)
[2017-09-26] MEDS: Ipratropium/Albuterol Sulfate 3 ML AMPUL.NEB INHALATION ×2 (06:37→10:42)
[2017-09-26 07:11] LABS: Bedside Glucose 103 mg/dL (70-110)
--- NOTE | 2017-09-26 08:40 | PCM.PROGNOTE ---
Patient Problems: Active and Suspected Problems (Last Updated 09/20/17 @ 15:31 by Laci Chambers DO) Tobacco abuse (Acute) Severe sepsis (Acute) Pneumonia (Acute) Elevated troponin (Acute) Subjective: The patient was seen and examined at the bedside this morning. Events from the last 24 hours have been reviewed. The patient is currently afebrile, hemodynamically stable and maintaining appropriate oxygen saturations on 3 L/min. He reports interval improvement in his breathing quality. He is anxious for discharge home. Objective: The patient's most recent lab work, culture data and imaging studies have all been personally reviewed. - Physical Exam General: Alert, Oriented x3, Cooperative, No apparent distress, - - Sitting in bedside recliner. Working with physical therapy. HEENT: Atraumatic, PERRLA, Normocephalic Oral: No Gingival or Mucosal Lesions/ Ulcerations Neck: Supple, No Nodes, Trachea Midline Lungs: No rhonchi, No wheeze, No rales, Diminished Cardiovascular: Regular rate, Regular Rhythm, Normal S1, Normal S2, No murmurs Abdomen: Bowel Sounds Present, Soft, Non Tender Extremities: No cyanosis, No edema, Clubbing Skin: No breakdown Musculoskeletal: No Tenderness to Palpation of Joints or Extremities Lymphatic: No Cervical, Supraclavicular, or Inguinal Adenopathy Neurological: Neuro grossly intact Psych/Mental Status: Alert and oriented to time, place, person, mood and affect Vital Signs Temp Pulse Resp BP Pulse Ox 97.9 F 78 16 122/72 H 93 09/26/17 03:08 09/26/17 06:37 09/26/17 06:37 09/26/17 03:08 09/26/17 06:37 Oxygen Flow Rate (L/min) 5 Oxygen Delivery Method Nasal Cannula Weight: 204 lb 2.369 oz Body Mass Index (BMI) 27.4 Intake and Output for Last 24 Hours 09/24/17 09/25/17 09/26/17 23:59 23:59 23:59 Intake Total 750 / 750 1020 / 1020 0 / 0 Output Total 2049 / 2049 2275 / 2275 250 / 250 Balance -1300 / -1300 -1255 / -1255 -250 / -250 Microbiology Past 72 Hours 09/21/17 02:25 Gram Stain - Final Sputum, Expectorated/Coughed Respiratory Culture - Final Staphylococcus aureus 09/20/17 19:40 Urine Culture - Final Urine, Clean Catch Culture exhibits no growth. POC Glucose 09/26/17 09/25/17 09/25/17 06:33 21:07 16:24 POC Glucose 103 168 H 157 H 09/25/17 09/25/17 11:41 06:36 POC Glucose 339 H 164 H Labs (Last 48 Hours) 09/24/17 09/24/17 09/24/17 11:41 16:32 22:07 Sodium Potassium Chloride Carbon Dioxide Anion Gap BUN Creatinine Estim Creat Clear Calc Est GFR (MDRD) Af Amer Est GFR (MDRD) Non-Af BUN/Creatinine Ratio Glucose Calcium POC Glucose 208 H 168 H 182 H 09/25/17 09/25/17 09/25/17 06:13 06:36 11:41 Sodium 145 Potassium 4.8 Chloride 105 Carbon Dioxide 30.0 Anion Gap 10 BUN 38 H Creatinine 1.42 H Estim Creat Clear Calc 58.69 Est GFR (MDRD) Af Amer 64 Est GFR (MDRD) Non-Af 53 L BUN/Creatinine Ratio 26.8 H Glucose 162 H Calcium 8.9 POC Glucose 164 H 339 H 09/25/17 09/25/17 09/26/17 16:24 21:07 06:33 Sodium Potassium Chloride Carbon Dioxide Anion Gap BUN Creatinine Estim Creat Clear Calc Est GFR (MDRD) Af Amer Est GFR (MDRD) Non-Af BUN/Creatinine Ratio Glucose Calcium POC Glucose 157 H 168 H 103 Microbiology 09/21/17 02:25 Sputum, Expectorated/Coughed Gram Stain - Final 09/21/17 02:25 Sputum, Expectorated/Coughed Respiratory Culture - Final Staphylococcus aureus Clinical Impression(s) from Imaging Studies Chest X-Ray 09/20/17 12:15 IMPRESSION: Increased left lung base fairly homogeneous opacity, may represent elevated diaphragm but cannot exclude underlying consolidative pneumonia, atelectasis, pleural fluid, mass or combination. If clinically indicated, recommend CT chest without IV contrast for further evaluation. Increased diffuse density obscuring upper thoracic spine with lateral view, cannot exclude mass versus artifact. If clinically indicated, also recommend CT chest with IV contrast for further evaluation. No overt cardiac failure identified. Heart obscured by left lung base opacity as described. Clinical correlation recommended. Electronically Signed: Michael Gates, at 13:01 EDT Tel , Service support , Chest CTA 09/20/17 13:45 IMPRESSION: Limited by motion. No evidence for PE. Moderate airspace disease in the posterior lower left lung. Electronically Signed: Maicol Espinal MD at 14:25 EDT , Service support , Soft Tissue Neck X-Ray 09/21/17 02:47 IMPRESSION: Normal x-ray soft tissue neck. No evidence for epiglottitis. Electronically Signed: Tigre Kilgore MD at 3:43 EDT , Service support , Chest X-Ray 09/21/17 09:11 IMPRESSION: Bilateral lower lobe airspace disease, more prominent on the left. This is very similar to yesterday's examination. Electronically Signed: Guilherme Rogers DO at 9:58 EDT Tel , Service support , Videofluoroscopic Swallow 09/21/17 13:50 IMPRESSION: No finding of increased risk for aspiration below the vocal cords. The swallow study findings were discussed with the patient by the speech pathologist at the conclusion of the examination. Please see speech pathology report for more information and recommendations. The procedure was performed by Laci Chambers under the direct supervision of Dr. Gates. Electronically Signed: Michael Gates, at 15:49 EDT Tel , Service support , Chest X-Ray 09/23/17 06:28 IMPRESSION: New left hilar heterogeneous opacity, may represent infiltrate due to pneumonia or atelectasis. Clinical correlation recommended. Recommend follow-up chest exam performed for 2 view study with full inspiratory effort as clinically indicated for complete clearing. Heterogeneous right lung base opacity appears more diffuse and less dense but mildly increased in size. Mildly enlarged pulmonary arteries suggested, may represent increased congestive changes and/or arterial hypertension. Clinical correlation recommended. Suboptimal inspiration is described. Electronically Signed: Michael Gates, at 9:50 EDT Tel , Service support , Medical Necessity - Tobacco Use Smoking Status: Current every day smoker Tobacco Use: Cigarettes Assessment/Plan All Active Problems (Last Updated 09/20/17 @ 15:31 by Laci Chambers DO) Tobacco abuse (Acute) Mental status change (Acute) Healthcare-associated pneumonia (Ruled-out) Severe sepsis (Acute) Pneumonia (Acute) Elevated troponin (Acute) RECOMMENDATIONS: 1. Wean supplemental oxygen to maintain saturations at or above 88%. 2. Continue scheduled bronchodilators, steroids and antibiotics. 3. Perform walking oximetry study prior to consideration for discharge from the hospital. Anticipate home-going supplemental oxygen requirement. 4. Encourage incentive spirometer use and mobilize patient as tolerated. 5. If the patient wishes, he can be scheduled a follow-up office visit in the pulmonary medicine clinic within 2 weeks of his discharge from the hospital. 6. Recommend formal outpatient pulmonary function testing. IMPRESSIONS: 1. Acute hypoxemic respiratory failure secondary to staphylococcal pneumonia The patient continues to improve symptomatically. Continue scheduled bronchodilators, antibiotics and steroids. Wean supplemental oxygen to maintain saturations at or above 88%. Encourage incentive spirometer use and mobilize patient as tolerated. Anticipate home-going supplemental oxygen requirement. Perform walking oximetry study prior to consideration for discharge from the hospital. Although the patient follows through the [facility] system, if he wishes to follow-up in the pulmonary medicine clinic, a hospital follow-up can be scheduled for him. 2. Non-ST elevation AK/acute on chronic heart failure with preserved ejection fraction Cardiology is following. Continue current medical management. 3. Questionable COPD Recommend definitive pulmonary function testing as an outpatient to quantify severity of lung disease. For now, continue scheduled bronchodilators and steroids and treatment for presumptive exacerbation. 4. Tobacco dependence/diabetes mellitus/chronic pain syndrome Complicates care, management, recovery and prognosis. Continue insulin regimen and antihypertensives as ordered. Continue work with physical therapy. This note was generated with [employer] dictation software. It may contain incorrect words, spelling, and punctuation that were not noted in checking the note before signing. Code Visit Inpatient E&M: 75816 Subs Hosp L2
[2017-09-26] MEDS: Gabapentin 600 MG Tablet PO ×2 (08:54→11:31)
[2017-09-26] MEDS: Aspirin E.C. 81 MG Tablet PO (08:55)
[2017-09-26] MEDS: Multivitamins,Ther W-Minerals Tablet 1 TABLET PO (08:55)
[2017-09-26] MEDS: predniSONE 20 MG Tablet 40 MG PO (08:59)
[2017-09-26] MEDS: guaiFENesin 1,200 MG Tablet 1200 MG PO (09:00)
[2017-09-26] MEDS: Amox/Clavulanate 875 MG Tablet PO (09:00)
[2017-09-26] MEDS: Losartan Potassium 25 MG Tablet PO (09:00)
[2017-09-26] MEDS: Atenolol 25 MG Tablet PO (09:01)
[2017-09-26] MEDS: Clopidogrel Bisulfate 75 MG Tablet PO (09:01)
--- NOTE | 2017-09-26 11:06 | PCM.DC ---
- Discharge Diagnoses Current Active Problems: Current Active and Chronic Problems (Last Updated 09/20/17 @ 15:31 by Laci Chambers DO) Tobacco abuse (Acute) Severe sepsis (Acute) Pneumonia (Acute) Elevated troponin (Acute) You will use the following diet at home:: Cardiac - 2g sodium daily Your food should be the consistency of: Mechanical soft (ground) Your liquids should be the consistency of: Gause Thick Discharge Activity: Return to Normal Activity Allergies/Adverse Reactions: Allergies No Known Allergies Allergy (Verified 09/20/17 11:33) Medications to take at Discharge Atenolol [Tenormin] 25 mg PO DAILY 07/03/17 Gabapentin [Neurontin] 600 mg PO TIDCM 07/03/17 Metformin HCl 1,000 mg PO BID 07/03/17 Multivitamin with Minerals/Lut [Pub Multivitamin 50 Plus Tab] 1 tab PO BID 07/03/17 Oxycodone HCl/Acetaminophen [Oxycodon-Acetaminophen 7.5-325] 1 each PO Q6H PRN 07/03/17 Simvastatin [Zocor] 10 mg PO QHS 07/03/17 Aspirin E.C. [Ecotrin] 81 mg PO DAILY 09/20/17 Cyclobenzaprine [Flexeril] 10 mg PO BID 09/20/17 Mcclure-3/Dha/Epa/Fish Oil [Mcclure 3 500 Softgel] 500 mg PO BID 09/20/17 Urea [Urevaz] 1 applicatio TP PRN PRN 09/20/17 Zolpidem Tartrate [Ambien] 10 mg PO QHS 09/20/17 Amox/Clavulanate Tablet [Augmentin Tablet] 875 mg PO BID #5 tab 09/26/17 Clopidogrel Bisulfate [Plavix] 75 mg PO DAILY #30 tab 09/26/17 Losartan Potassium [Cozaar] 25 mg PO DAILY #30 tab 09/26/17 Prednisone 10 mg PO UD #26 tab 09/26/17 Tiotropium [place] [Spiriva] 18 mcg IH DAILY #1 inhaler 09/26/17 The following prescriptions were given: Amox/Clavulanate Tablet [Augmentin Tablet] 875 mg PO BID #5 tab Clopidogrel Bisulfate [Plavix] 75 mg PO DAILY #30 tab Losartan Potassium [Cozaar] 25 mg PO DAILY #30 tab Prednisone 10 mg PO UD #26 tab Tiotropium [place] [Spiriva] 18 mcg IH DAILY #1 inhaler Primary Care Physician: [facility] [Primary Care Provider] - Please follow up with your Primary Care Physician in: 09/29/2017 Test Results: Test results from this visit will be discussed in further detail at your follow-up appointment, if applicable. Please Follow Up With: Kimo Ruff MD When: 2 weeks Please Follow Up With: Eric Soni MD When: 2 weeks Proposed Discharge Date: 09/26/17
[2017-09-26] MEDS: Insulin Lispro 100 UNIT/ML INSULN.PEN SC (11:30)
[2017-09-26 11:51] LABS: Bedside Glucose 221 mg/dL (70-110)
--- NOTE | 2017-09-26 14:27 | PCM.DC.SUM ---
<Salvador Patel - Last Filed: 09/26/17 14:31> Discharge Date and Diagnosis Date of Admission: 09/20/17 Date of Discharge: 09/26/17 - Primary Discharge Diagnosis Active and Suspected Problems (Last Updated 09/20/17 @ 15:31 by Laci Chambers DO) Acute severe sepsis 2/2 HCAP, aspiration, MSSA Acute metabolic encephalopathy Suspected Acute Exacerbation of underlying COPD Acute NSTEMI Acute hypoxic respiratory failure 2/2 above Heavy tobacco abuse oropharyngeal dysphagia DMt2 Suspect CKDIII Hospital Course and Treatment Imaging Results: RAD/Chest PA and Lateral IMPRESSION: Increased left lung base fairly homogeneous opacity, may represent elevated diaphragm but cannot exclude underlying consolidative pneumonia, atelectasis, pleural fluid, mass or combination. If clinically indicated, recommend CT chest without IV contrast for further evaluation. Increased diffuse density obscuring upper thoracic spine with lateral view, cannot exclude mass versus artifact. If clinically indicated, also recommend CT chest with IV contrast for further evaluation. No overt cardiac failure identified. Heart obscured by left lung base opacity as described. Clinical correlation recommended. CT/CTA Chest W/WO Contrast IMPRESSION: Limited by motion. No evidence for PE. Moderate airspace disease in the posterior lower left lung. Echo: Interpretation Summary The estimated ejection fraction is 65 %. Stage 1 diastolic dysfunction. Unable to estimate RV systolic pressure due to inadequate jet, pulmonary artery pressure probably normal. There is no comparison study available. Barium Swallow: INTERPRETATION OF RESULTS: Patient presents with moderate oropharyngeal dysphagia (R13.12) likely exacerbated from baseline due to current respiratory complications. Oral phase primarily marked by mild to moderate mastication inefficiency with suboptimal lingual control with noted intermittent lingual fasciculations; all impacted by current oxygenation demands (6L/min with very low SpO2 between 88-84). Pharyngeal phase marked by impaired and inconsistent pharyngeal swallow onset timing and reduced closure of the airway during deglutition, again complicated by oxygenation demands. Pharyngeal motility inconsistent throughout the study, with the Patient demonstrating very poor epiglottic deflection and subsequent significant retention within the valleculae, and later clearing with little dysmotility. Noted insufficient laryngeal vestibule pressure generated to expel penetrated material consistently throughout the study. No aspiration appreciated throughout trials, unable to definitively rule out silent aspiration. RECOMMENDATIONS: Patient requires continued skilled speech-language intervention targeting continued diet texture management and training / implementation of recommended compensatory strategies; with Patient and caregiver training targeting meal preparation / thickened liquid preparation if unable to advance to baseline diet textures prior to discharge. Anticipate improvement in swallow function to correlate with improvement in respiratory functioning. RAD/Neck for Soft Tissue IMPRESSION: Normal x-ray soft tissue neck. No evidence for epiglottitis. RAD/Chest 1 View (Portable) IMPRESSION: Bilateral lower lobe airspace disease, more prominent on the left. This is very similar to yesterday's examination. RAD/Swallowing Function w/Video IMPRESSION: No finding of increased risk for aspiration below the vocal cords. The swallow study findings were discussed with the patient by the speech pathologist at the conclusion of the examination. Please see speech pathology report for more information and recommendations. The procedure was performed by Laci Chambers under the direct supervision of Dr. Gates. Cardiac Cath report: CONCLUSIONS Double vessel CAD of the occluded RCA, probably significant lesions in LAD. Segmented LV systolic dysfunction- Moderate LVEF: by LV gram 40-45 % Successful PTCA/ALFREDITO of the of mid LAD after FFR eval (0.75) utilizing a 3.5 x 16 Promus Synergy; 75%-->0%, no dissection. Successful PTCA/ALFREDITO of the Proximal LAD after FFR evaluation (0.74) utilizing a 4.0 x 24 Promus Synergy; 75%-->0%, no dissection. Successful PCI with PTCA to the ostial DIAG#3 with a 2.0 x 12 balloon; 85%-->40%, no dissection. RAD/Chest 1 View (Portable) IMPRESSION: New left hilar heterogeneous opacity, may represent infiltrate due to pneumonia or atelectasis. Clinical correlation recommended. Recommend follow-up chest exam performed for 2 view study with full inspiratory effort as clinically indicated for complete clearing. Heterogeneous right lung base opacity appears more diffuse and less dense but mildly increased in size. Mildly enlarged pulmonary arteries suggested, may represent increased congestive changes and/or arterial hypertension. Clinical correlation recommended. Suboptimal inspiration is described. Consults: Zachariah/Francisco Javier - pulmonary Ruff - cardiology Operations: None Procedures: 2-D Echocardiogram, Cardiac catheterization Summary of Care Provided: Physical exam on day of discharge: General: Resting comfortably NAD Psych: A/Ox3 normal affect HEENT: PEARRLA AT NC Neck: Supple NT CV: RRR no m/t/r/g/h Resp: faint wheezing BL bases Abd: [id number] Soft NT no guarding or rigidity Ext: DP2+= no edema Skin: W/D normal turgor Lymph/Heme: No active bleeding or adenopathy Neuro: CN2-12 intact Hospital course: The patient is a 67 year old M with a hx of CAD, DMt2, PAD, HTN, HLD, known aortic aneurysm, heavy nicotine abuse (2.5ppd), who presented to the ER with increased SOB. He appeared to have severe sepsis with pna, lactic acidosis, fever, tachycardia, and leukocytosis. He required a nonrebreather to maintain good sats. He also had elevated troponins which peaked at 0.458. He was admitted to the PCU placed on Vanc and zosyn for HCAP since he was hospitalized in June, and his mental status was poor on arrival (likely encephalopathic from sepsis), so aspiration was also a concern. pulmonary and cardiology were consulted. CTA was negative for PE. Echo was obtained, as above. Cardiology felt that he would benefit from a heart cath, as this appeared to have an NSTEMI. This was done and 2 stents were placed to the LAD. Aspirin, plavix, beta armando, statin, and arb were recommended. He was suspected of having COPD (no formal testing in past) as he continued to be wheezy, with high O2 requirements, and with his heavy smoking hx. He was given duonebs and solumedrol transitioned to a PO prednisone taper. He continued to require O2 at rest and with exertion throughout his stay and will need to go home with O2. Sputum culture ultimately showed MSSA, and he was transitioned to PO augmentin. He will complete 5 more doses for a total of ten full days of abx therapy. He had swallow evals which showed oropharyngeal dysphagia, and he was given dietary modifications for this including soft mechanical and nectar thickened liquids. He expressed no willingness to continue these after discharge despite our encouragement. He was discharged home in stable condition with home O2 and medications prescribed as above, and I also added spiriva with his suspected COPD. [facility] has [facility] 3 days. I also advised him to follow up with the cardiologists and guard range that treated him while here. He was also strongly advised not to continue smoking. This patient was seen by Salvador Patel PA-C under the supervision of Doctor Kris. [] Discharge Diet: Low fat/ Low Cholesterol, 1800 Calorie Control Diet, 2000 mg Sodium Diet Discharge Activity: Return to Normal Activity Home Medications: Medications to take at Discharge Atenolol [Tenormin] 25 mg PO DAILY 07/03/17 Gabapentin [Neurontin] 600 mg PO TIDCM 07/03/17 Metformin HCl 1,000 mg PO BID 07/03/17 Multivitamin with Minerals/Lut [Pub Multivitamin 50 Plus Tab] 1 tab PO BID 07/03/17 Oxycodone HCl/Acetaminophen [Oxycodon-Acetaminophen 7.5-325] 1 each PO Q6H PRN 07/03/17 Simvastatin [Zocor] 10 mg PO QHS 07/03/17 Aspirin E.C. [Ecotrin] 81 mg PO DAILY 09/20/17 Cyclobenzaprine [Flexeril] 10 mg PO BID 09/20/17 [place]ham-3/Dha/Epa/Fish Oil [[place] 3 500 Softgel] 500 mg PO BID 09/20/17 Urea [Urevaz] 1 applicatio TP PRN PRN 09/20/17 Zolpidem Tartrate [Ambien] 10 mg PO QHS 09/20/17 Amox/Clavulanate Tablet [Augmentin Tablet] 875 mg PO BID #5 tab 09/26/17 Clopidogrel Bisulfate [Plavix] 75 mg PO DAILY #30 tab 09/26/17 Losartan Potassium [Cozaar] 25 mg PO DAILY #30 tab 09/26/17 Prednisone 10 mg PO UD #26 tab 09/26/17 Tiotropium [place] [Spiriva] 18 mcg IH DAILY #1 inhaler 09/26/17 Following Prescrptions Were Given to Patient: Amox/Clavulanate Tablet [Augmentin Tablet] 875 mg PO BID #5 tab Clopidogrel Bisulfate [Plavix] 75 mg PO DAILY #30 tab Losartan Potassium [Cozaar] 25 mg PO DAILY #30 tab Prednisone 10 mg PO UD #26 tab Tiotropium [place] [Spiriva] 18 mcg IH DAILY #1 inhaler Primary Care Physician: [facility],[place] [Primary Care Provider] - Please follow up with your Primary Care Physician in: 09/29/2017 Please Follow Up With: Kimo Ruff MD When: 2 weeks Please Follow Up With: Eric Soni MD When: 2 weeks Disposition: Home Minutes spent on discharge:: 40 Patient Condition:: Stable Medical Necessity - Tobacco Use Smoking Status: Current every day smoker Tobacco Use: Cigarettes Meaningful Use Info Meaningful Use Diagnoses (Choose all that apply): AMI - AMI Aspirin given w/in 24hrs of arrival?: Yes ASA at discharge?: Yes Statins at discharge?: Yes Benji/ARB at discharge?: Yes Beta Armando at discharge?: Yes Done w/ Acute HI measure.: Yes <Jeffrey Ponce - Last Filed: 09/26/17 15:11> Hospital Course and Treatment Summary of Care Provided: The patient is a 67 year old M multiple comorbidities admitted with progressive shortness of breath. An assessment of acute hypoxic respiratory failure secondary to healthcare associated pneumonia versus aspiration pneumonia with MSSA made. Patient had a protracted stay in hospital dose of which elicited above by Salvador Patel. Patient was discharged home 6 days after his initial admission. He was assessed for home oxygen he did qualify Patient seen and examined with Salvador Patel on the day of patient's discharge he is detailed discharge summary, discharge instructions and medications reviewed to conquer Time spent on discharge process 35 minutes. Code Visit Inpatient E&M: [id number] Disch Hosp
--- NOTE | 2017-09-28 15:47 | CASEMGMT ---
Addendum entered by Liana Wells 09/29/17 16:12: This RN ISREAL received a call back from pt and he states that he has been doing great since discharge. Pt states that he has been wearing his oxygen and has been checking pulse ox periodically. Pt states no questions regarding discharge instructions or medications. Pt states that his diet has been fine and states no concerns at this time. Pt states plans to keep all f/u appointments. When asked about suggestions for [facility], pt states 'You guys are all fantastic! You got yourself a new customer!' Pt states had previously gone to other hospitals but will solely be coming here now. Pt states no further questions/concerns/needs at this time. Argelia GALLAGHER CM Original Note: AILEEN BACH Discharge F/U Phone Call LACE: 13 Strata: 4 Discharge date: 09/26/17 Call date: 09/28/17 Call time: [id number] Attempted with reach pt without success at this time, message left with pt to call this AILEEN BACH back. Argelia GALLAGHER CM Admission dx: Sepsis, pneumonia
== END 2017-09-26 14:41 | disposition home or self-care (01) | DRG 853 ==
LOC: ED 14:36 → PCU 15:31 → ICU 09-22 09:45 → PCU 09-24 13:55 → ICU 09-26 10:12 → PCU 09-26 10:12
PROVIDERS: Hospitalist; Internal Medicine; Internal Medicine Cardiovascular Disease; Internal Medicine Critical Care Medicine; Emergency Provider Emergency Medicine; Visit Provider Internal Medicine
DX: A41.9 Sepsis, unspecified organism (principal); G93.41 Metabolic encephalopathy; I21.A1 Myocardial infarction type 2; J96.01 Acute respiratory failure with hypoxia; J15.211 Pneumonia due to Methicillin susceptible Staphylococcus aureus; J69.0 Pneumonitis due to inhalation of food and vomit; J44.1 Chronic obstructive pulmonary disease with (acute) exacerbation; R65.20 Severe sepsis without septic shock; Y95 Nosocomial condition; I25.10 Atherosclerotic heart disease of native coronary artery without angina pectoris; E78.5 Hyperlipidemia, unspecified; I71.9 Aortic aneurysm of unspecified site, without rupture; F17.210 Nicotine dependence, cigarettes, uncomplicated; R13.12 Dysphagia, oropharyngeal phase; Z79.84 Long term (current) use of oral hypoglycemic drugs; Z95.5 Presence of coronary angioplasty implant and graft; I73.9 Peripheral vascular disease, unspecified; E11.51 Type 2 diabetes mellitus with diabetic peripheral angiopathy without gangrene; N18.3 Chronic kidney disease, stage 3 (moderate); I12.9 Hypertensive chronic kidney disease with stage 1 through stage 4 chronic kidney disease, or unspecified chronic kidney disease; E11.22 Type 2 diabetes mellitus with diabetic chronic kidney disease
CPT/HCPCS: 36415; 70360; 71045; 71046; 71275; 74230; 75625; 80048; 80061; 81001; 82962; 83605; 83735; 83880; 84484; 85025; 85027; 85347; 85610; 85730; 87040; 87070; 87077; 87086; 87186; 87205; 87449; 92526; 92611; 92921; 92928; 93005; 93306; 93458; 93571; 94640; 94667; 94668; 97110; 97116; 97162; 97166; 97530; 99285; 99406; J0153; J7030; J7040; Q9967; A4216; C1725; C1769; C1874; C1887; C1894; C9600; J1940

== ENCOUNTER 2018-05-26 18:45 | Emergency (ER) | payer MEDICARE, SELFPAY ==
[2017-09-22 13:36] VITALS: BMI 27.3
[2018-05-26 18:47] VITALS: BP 168/66; PULSE 112; RESP 18; TEMP 36.4; O2SAT 96; BMI 28.0
--- NOTE | 2018-05-26 19:06 | EKG12_ITS ---
Test Reason : DIZZINESS Blood Pressure : / mmHG Vent. Rate : 106 BPM Atrial Rate : 106 BPM P-R Int : 148 ms QRS Dur : 098 ms QT Int : 366 ms P-R-T Axes : 067 034 006 degrees QTc Int : 486 ms Sinus tachycardia with frequent Premature ventricular complexes Nonspecific ST fluttering Abnormal ECG Confirmed by DAYRON LESLIE ([id number]), graphic editor JESS LEHMAN ([id number]) on 05/29/2018 4:42:16 PM Referred By: LILIANA Confirmed By:DAYRON LESLIE
[2018-05-26 19:24] VITALS: BP 126/76; BP 128/62; BP 136/65; PULSE 102; PULSE 105; PULSE 108
--- NOTE | 2018-05-26 19:25 | RAD_ITS ---
STUDY: X-RAY CHEST REASON FOR EXAM: Male, 68 years old. Dizziness, nausea. TECHNIQUE: PA and lateral COMPARISON: 09/23/2017. FINDINGS: The lungs are clear and expanded. There is no demonstrated pleural abnormality. Normal size heart. Normal mediastinum and pearl. Normal visualized pulmonary arteries. Normal visualized aortic arch and descending thoracic aorta. Normal visualized thoracic spine. Normal visualized ribs, clavicles, and shoulders. There is no demonstrated abnormality of the visualized soft tissue structures of the upper abdomen. RAD/Chest PA and Lateral IMPRESSION: Normal x-ray examination of the chest. Electronically Signed: iMrtha Weir MD at 20:28 EDT Tel , Service support ,
[2018-05-26 19:35] LABS: Absolute Lymphocyte Count 1.93 X10^3/ul (0.83-4.51); Absolute Neutrophil Count 5.7 X10^3/uL (2.0-7.7); Basophil# 0.09 X10^3/uL; Eosinophil# 0.63 X10^3/uL; Eosinophils% 6.9 % (0-5); Hematocrit 35.9 % (40-54); Hemoglobin 10.6 g/dl (13.0-16.5); Lymphocyte # 1.93 X10^3/ul (4.0); Mean Corp Hgb Conc 29.5 g/gl (32-36); Mean Corpuscular Hgb 24.4 pg (27.0-32.0); Mean Corpuscular Volume 82.5 fL (80-94); Mean Platelet Vol. 10.2 fl (6.2-12.0); Monocyte# 0.74 X10^3/uL; Monocyte% 8.1 % (0-10); Neutrophil # 5.72 X10^3/uL (2.7-7.7); Neutrophil % 62.3 % (47-70); Platelet Count 145 K/mm3 (150-450); RBC Distribution Width CV 18.8 % (11.6-14.6); Red Blood Count 4.35 M/mm3 (4.6-6.2); White Blood Count 9.2 K/mm3 (4.4-11.0)
[2018-05-26 19:47] LABS: ALB/GLOB Ratio 0.6 RATIO (0.9-2.4); AST(SGOT) 65 U/L (15-37); Alanine Aminotransfer ALT/SGPT 33 U/L (16-61); Alkaline Phosphatase 173 U/L (45-117); Anion Gap 7 (5-15); BUN 13 mg/dL (7-18); BUN/Creat Ratio 8.6 RATIO (10-20); Calcium,Total 8.8 mg/dL (8.5-10.1); Chloride 104 mmol/L (98-107); Creatinine, Serum 1.52 mg/dL (0.70-1.30); EST Glomerular Filtration Rate 49 mL/min (>60); Est Glom Filt Rate - Afr Amer 59 mL/min (>60); Estimated Creatinine Clearance 54.08 ml/min; Globulin 5.1 g/dL (2.2-4.2); Glucose 125 mg/dL (74-106); Potassium 4.1 mmol/L (3.5-5.1); Protein, Total 8.1 g/dL (6.4-8.2); Sodium Level 139 mmol/L (136-145)
[2018-05-26 19:59] LABS: POSITIVE COUNT NO; POSITIVE DIFFERENTIAL NO; POSITIVE MORPHOLOGY NO
--- NOTE | 2018-05-26 19:59 | ED.VISSUMM ---
- ER Visit Summary Date of Service: 05/26/18 Chief Complaint: Dizziness History of Present Illness: The patient is a 68 M who presents with dizziness for the past few days. Patient describes as a lightheadedness. Patient states it feels like it is in his head and chest. Patient states nothing makes it better or worse. Patient states it waxes and wanes. Patient denies any chest pain. Patient admits to some intermittent shortness of breath. Patient admits to some mild nausea and vomiting. Patient denies any fevers or chills. Physical Examination: Vital signs are stable except for mild tachycardia of 112. Patient is afebrile. Patient is in no acute distress. Oral mucosa is pink and moist. Neck is supple. Trachea is midline. There is no JVD noted. Heart was regular and tachycardic. Lungs are clear and equal bilateral. Abdomen is soft. Bowel sounds are normal. There is no tenderness. There is no guarding noted. Skin is warm dry. Cranial nerves II through XII are intact. There are no focal motor or sensory deficits noted. The remaining physical exam is within normal limits. Test Results: EKG showed normal sinus rhythm with a rate of 106. There are occasional PVCs noted. There are no acute ST or T wave changes. This was unchanged compared to previous EKG dated 09/25/2017. Chest x-ray does not show any acute cardiopulmonary process. CBC shows a mild anemia with a hemoglobin of 10.6. Basic metabolic profile showed a slightly elevated creatinine 1.52 which was unchanged compared to previous results. Troponin was normal. Emergency Department Course and Treatment: Orthostatic vital signs were obtained and were negative. Patient felt better on reevaluation. Patient was instructed to drink plenty of fluids. Patient was instructed to follow-up with his primary care physician in 3-5 days for further evaluation. Patient and family understood and were agreeable with the plan. All questions were answered. Disposition: Discharge home Impression: Dizziness This note was generated with [employer] dictation software. It may contain incorrect words, spelling, and punctuation that were not noted in review of the chart prior to signing ED Disposition - Plan for ED Patient: Disposition: Home or Assisted Living Diagnosis: Dizziness Instructions: ED Dizziness [facility] [place] [facility] [place]errals: [facility] [Primary Care Provider] - 3-5 Days
[2018-05-26 21:08] VITALS: BP 143/74; PULSE 93; RESP 12; O2SAT 85
[2018-05-26 22:16] VITALS: BP 143/85; RESP 16; O2SAT 95
== END 2018-05-26 22:20 | disposition home or self-care (01) ==
PROVIDERS: Emergency Provider Emergency Medicine
DX: R42 Dizziness and giddiness (principal); I25.10 Atherosclerotic heart disease of native coronary artery without angina pectoris; Z72.0 Tobacco use; Z79.82 Long term (current) use of aspirin
CPT/HCPCS: 71046; 80053; 84484; 85025; 93005; 99285; A4216

== ENCOUNTER 2018-05-27 15:01 | Emergency (ER) | payer MEDICARE, SELFPAY ==
[2017-09-22 13:36] VITALS: BMI 27.3
[2018-05-26 18:47] VITALS: BMI 28.0
[2018-05-27 15:02] VITALS: BP 126/67; PULSE 108; RESP 16; TEMP 36.7; O2SAT 92; BMI 27.6
[2018-05-27 15:33] VITALS: TEMP 36.7
[2018-05-27] MEDS: Ondansetron 4 MG/2 ML Vial IV (15:46)
--- NOTE | 2018-05-27 16:16 | ED.DCSUM_ITS ---
History of Present Illness Chief Complaint: Dizziness Informant: Patient, Family Onset: Days - Intermittent lasting up to 1 minute for the past several days Context: Sudden Onset Timing: Intermittent, Lasts - 1 2 minutes at most Quality: Spinning sensation Location: Not applicable Current Severity: Not present Maximum Severity: Moderate - Change in position Worsened by: Change in position Relieved by: Time Associated Symptoms: Nausea Narrative: Patient is an elderly male who was seen yesterday for reported lightheadedness. He states he had vertigo. He denies double vision, blurred vision loss of vision. He denies fever, chills night sweats. He denies headache. Denies neck pain. He denies cardiac respiratory symptoms. Prior similar symptoms: Yes Recent Illness/Hospitalization: Yes - Past Medical History (1) NSTEMI (non-ST elevated myocardial infarction) Status: Chronic (2) Pneumonia Status: Chronic (3) Tobacco abuse Status: Chronic Past Medical History - Allergies and Home Meds Allergies/Adverse Reactions: Allergies No Known Allergies Allergy (Verified 05/27/18 15:05) Primary Care Physician: [facility],[place] [Primary Care Provider] - Prior records reviewed: Yes Surgical History: noncontributory, total knee arthroplasty, - - Multiple coronary artery stents lumbar spine surgery due to degenerative disc disease of the lumbar spine Lives: With Family Smoking Status: Former smoker Alcohol: None - Family History Maternal Family History: Reports: No pertinent history, - - no CAD Paternal Family History: Reports: No pertinent history Review of Systems General: Denies: Chills, Fever, Sweats Eyes: Denies: Visual changes - bilaterally, Blurred Vision - bilaterally, Diplopia ENT: Denies: Rhinorrhea, Sore throat Cardiovascular: Denies: Chest pain, Palpitations Respiratory: Denies: Dyspnea, Cough, Dyspnea on exertion Gastrointestinal: Reports: Nausea Genitourinary: Denies: Dysuria, Hematuria, Frequency Musculoskeletal: Denies: Back pain, Extremity Pain Skin: Denies: Rash, Wounds Neurological: Denies: Headache, Weakness, Numbness Hematologic: Reports: Easy bruising, Easy bleeding Allergy: Denies: Uticaria, Swelling of the mouth Physical Exam Vital Signs/Narrative: Vital Signs Temp Pulse Resp BP Pulse Ox 05/27/18 15:33 98.1 F 05/27/18 15:02 98.1 F 108 H 16 126/67 H 92 Inital Vital Signs reviewed: Yes General: Well nourished, Well developed, No Acute Distress Head: Normocephalic, Atraumatic Eyes: Perrl, EOMI ENT: Moist mucous membranes, No rhinorrhea Neck: Supple, Nontender Cardiovascular: Regular rate, Regular rhythm, No murmurs Respiratory: No distress, CTA bilaterally, Chest nontender Abdomen: Soft, Nontender, Nondistended, Normal bowel sounds Back: Nontender, Normal Inspection Extremities: Nontender, No edema Skin: Normal color, No rash Neurological: Alert, Oriented x3, Cranial nerves II-XII grossly intact, Normal Strength, Normal Sensation, Normal DTR, - - Saturnino-Hallpike maneuver was positive. The eye askew test was negative. The hint test was negative. Cerebellar testing with finger-nose to finger was performed adequately.. Negative for: Normal Gait - Patient has foot drop secondary to L3-4 L4-5 and L5-S1 disc disease requiring surgery with quadricep weakness and foot drop. Psychological: Normal affect, Normal Mood Diagnostic/Tx/Re-eval - Medical Decision Making Since patient reports paroxysmal symptoms with change in position and a positive [place]-Hallpike maneuver and Colin maneuver was performed. Patient reported result resolution of symptoms. He was reassessed 15 minutes later. Symptoms have not returned. Will discharge to home ED Disposition - Plan for ED Patient: Disposition: Home or Assisted Living Diagnosis: Benign paroxysmal positional vertigo, bilateral Instructions: ED BPV Vertigo [facility] - As Needed
[2018-05-27 16:51] VITALS: PULSE 98; RESP 17; O2SAT 95
== END 2018-05-27 16:52 | disposition home or self-care (01) ==
PROVIDERS: Emergency Provider Emergency Medicine
DX: H81.13 Benign paroxysmal vertigo, bilateral (principal); I25.2 Old myocardial infarction; Z87.891 Personal history of nicotine dependence
CPT/HCPCS: 96374; 99284; A4216; J2405

== ENCOUNTER 2018-06-24 23:47 | Inpatient (IN) | payer MEDICARE, OTHER, SELFPAY ==
[2017-09-22 13:36] VITALS: BMI 27.3
[2018-06-24 23:48] VITALS: BP 120/66; PULSE 52; RESP 16; TEMP 36.6; O2SAT 97; BMI 27.2
[2018-06-25] VITALS (17 sets, daily range): BP systolic 100–139; BP diastolic 56–76; PULSE 74–100; RESP 14–21; TEMP 36.4–37.1; O2SAT 86–95; BMI 25.6
--- NOTE | 2018-06-25 00:21 | ED.RN ---
pt reports intermittent chest pain. denies pain at this time but reports he had it on arrival. reports pain feels like sharp sternal pain. at its worst he would rate it 8/10. this rn placed pt on monitor, and called for ekg.
[2018-06-25 00:31] LABS: Bedside Glucose 117 mg/dL (70-110)
--- NOTE | 2018-06-25 00:52 | RAD_ITS ---
HISTORY: cough, confusion previous pneumonia EXAM:XR Chest 1 View portable COMPARISON: Serial chest x-ray exams dating back to June 2017 with 5 previous exams for comparison. Most recent comparison exam 05/26/2018 FINDINGS: EKG leads in place. Left lower lobe recurrent patchy infiltrate accompanied by peribronchial thickening. Left basilar chronic volume loss. The right lung shows no acute infiltrates. Normal heart size. No vascular congestion or significant pleural effusion. Chronic widening of the right AC joint which may reflect previous acromioplasty. RAD/Chest 1 View (Portable) IMPRESSION: 1. Left lower lobe recurrent patchy infiltrate compatible with pneumonia. Left basilar chronic volume loss. at 0124 Reported and signed by: Delmar Abdi MD Electronically Signed: Delmar Abdi, at 1:23 EDT Tel , Service support ,
--- NOTE | 2018-06-25 00:53 | EKG12_ITS ---
Test Reason : CONFUSION Blood Pressure : / mmHG Vent. Rate : 101 BPM Atrial Rate : 100 BPM P-R Int : 148 ms QRS Dur : 106 ms QT Int : 368 ms P-R-T Axes : 060 023 -03 degrees QTc Int : 477 ms Normal sinus rhythm with PVC's Cannot rule out Inferior infarct (cited on or before 25-JUN-2018) Abnormal ECG Confirmed by DAYRON LESLIE ([id number]), editorial assistant ROBINA MURDOCK ([id number]) on 06/26/2018 1:21:03 PM Referred By: DIEGO Confirmed By:DAYRON LESLIE
[2018-06-25 01:16] LABS: Anion Gap 9 (5-15); BUN 24 mg/dL (7-18); BUN/Creat Ratio 15.1 RATIO (10-20); Calcium,Total 10.1 mg/dL (8.5-10.1); Chloride 99 mmol/L (98-107); Creatinine, Serum 1.59 mg/dL (0.70-1.30); EST Glomerular Filtration Rate 46 mL/min (>60); Est Glom Filt Rate - Afr Amer 56 mL/min (>60); Glucose 114 mg/dL (74-106); Potassium 3.5 mmol/L (3.5-5.1); Sodium Level 135 mmol/L (136-145)
[2018-06-25 01:18] LABS: Hemoglobin 11.3 g/dl (13.0-16.5); Mean Corp Hgb Conc 31.4 g/gl (32-36); Mean Corpuscular Hgb 25.2 pg (27.0-32.0); Mean Corpuscular Volume 80.4 fL (80-94); Mean Platelet Vol. 10.1 fl (6.2-12.0); Platelet Count 131 K/mm3 (150-450); RBC Distribution Width CV 20.5 % (11.6-14.6); RBC Distribution Width SD 58.3 fl (35.1-43.9); Red Blood Count 4.48 M/mm3 (4.6-6.2)
[2018-06-25 01:21] LABS: Absolute Nucleated RBC Count 0.28 10^3/uL (0-5); Differential Indicated MANUAL DIFF; POSITIVE COUNT YES; POSITIVE DIFFERENTIAL NO; POSITIVE MORPHOLOGY YES
[2018-06-25 01:22] LABS: Corrected WBC 9.3 K/mm3 (4.4-11.0)
[2018-06-25] MEDS: Ipratropium/Albuterol Sulfate 3 ML AMPUL.NEB INHALATION ×5 (01:26→19:16)
[2018-06-25] MEDS: Albuterol 2.5 MG/3 ML VIAL.NEB. INHALATION (01:26)
--- NOTE | 2018-06-25 01:37 | CT_ITS ---
STUDY: CT BRAIN WITHOUT CONTRAST REASON FOR EXAM: Male, 68 years old. Confusion. Bladder cancer. RADIATION DOSAGE (If Supplied By Facility): CTDIvol = ( 44.99 ) mGy, DLP = ( 846.73 ) mGycm TECHNIQUE: Transaxial CT imaging of the brain was performed without administration of intravenous contrast material. Individualized dose optimization techniques were used for this CT. COMPARISON: No relevant priors. FINDINGS: Normal soft tissue structures. Normal calvarium. Normal size ventricles and extra-axial spaces for the patient's age. Normal white matter tracts of the cerebral hemispheres. Normal basal ganglia and thalami. Normal brainstem. Normal cerebellum. There is no intracranial hemorrhage. There are no findings of an acute ischemic infarction. Normal visualized paranasal sinuses. CT/Brain/Head without Contrast IMPRESSION: Normal unenhanced CT scan of the brain. No acute findings in the brain. No indication of any metastatic disease. Electronically Signed: Martin Lewis MD at 2:14 EDT Tel , Service support ,
[2018-06-25 01:40] LABS: Allen Test POS; Base Excess 2 mmol/L (-2 to +2); Bicarbonate 26.7 mmol/L (22-26); Blood Gas Specimen Type ART; O2 Delivery Device Nasal Can; PO2 74 mmHG (75-100); SITE L Radial; SO2 95 % (95-99); Time Given 125; Total Carbon Dioxide 28 mmol/L; pCO2 40.3 mmHg (35-45); pH 7.43 (7.35-7.45)
[2018-06-25 01:46] LABS: Basophil 1 % (0-1); Lymphocyte 12 % (19-41); Metamyelocyte 2 % (0-1); Monocyte 3 % (0-10); Neutrophil-Band 4 % (0-5); Neutrophil-Segmented 78 % (47-70); Total Cells Counted 100 (MANUAL DIFF)
[2018-06-25 01:47] LABS: Anisocytosis 1+; Hypochromasia 1+; Microcytosis 1+; Platelet Estimate SLT DEC (ADEQ); Platelet Morphology GIANT; Polychromasia 1+
[2018-06-25 01:48] LABS: Absolute Lymphocyte Count 1.12 X10^3/ul (0.83-4.51); Absolute Neutrophil Count 7.6 X10^3/uL (2.0-7.7)
--- NOTE | 2018-06-25 02:54 | HP.PCM_ITS ---
Problem List (1) Acute encephalopathy Status: Acute (2) Pneumonia Status: Acute Qualifiers: Pneumonia type: due to unspecified organism Laterality: left Lung location: lower lobe of lung Qualified Code(s): J18.1 - Lobar pneumonia, unspecified organism (3) HTN (hypertension) Status: Chronic Qualifiers: Hypertension type: essential hypertension Qualified Code(s): I10 - Essential (primary) hypertension (4) HLD (hyperlipidemia) Status: Chronic Qualifiers: Hyperlipidemia type: unspecified Qualified Code(s): E78.5 - Hyperlipidemia, unspecified (5) PAD (peripheral artery disease) Status: Chronic (6) CKD (chronic kidney disease) stage 3, GFR 30-59 ml/min Status: Chronic (7) Stented coronary artery Status: Chronic Comment: 3.5 X 16 Promus Synergy to mid LAD; 4.0 X 24 Promus Synergy to proximal LAD; POBA to Diagonal [address] Ruff @ [facility] (8) NSTEMI (non-ST elevated myocardial infarction) Status: Chronic (9) Tobacco abuse Status: Chronic History of Present Illness Date of Admission: 06/25/18 Chief Complaint: Fatigue, weakness, poor intake The patient is a 68 y/o M w/ PMHx: CAD, HTN, HLD, CKD stage III (Cr4 1.4-1.5), Diabetes mellitus type II, PAD who presents to the [facility] ED on 06/25/18 with history of dizziness, lightheadedness x 2 days with concurrent productive cough x 3-4 days, chest discomfort worse with coughing, generalized malaise, weakness. Family notes he has been increasingly confused x 2-3 days, including not knowing date, recent events. Work-up in the ED included T 97.8, HR 52, BP 120/66, RR 16, 97% on RA, CBC w/ WBC 9.3, Hgb 11.3, Plts 131 with mild L shift, ABG w/ pO2 74 otherwise not marked, BMP w/ Na 135, BUN/Cr 24/1.59, glucose 114, CXR w/ LL recurrent patchy infiltrate consistent with PNA and left basilar chronic volume loss, CT head w/ normal unenhanced CT scan of the brain. In the ED patient administered rocephin, azithromycin, duoneb, albuterol. Past Medical History Past Medical History (Chronic Problems): Chronic Problems (Last Updated 10/03/17 @ 17:24 by Elle Sharma) HTN (hypertension) (Chronic) HLD (hyperlipidemia) (Chronic) PAD (peripheral artery disease) (Chronic) CKD (chronic kidney disease) stage 3, GFR 30-59 ml/min (Chronic) Stented coronary artery (Chronic 09/22/17) 3.5 X 16 Promus Synergy to mid LAD; 4.0 X 24 Promus Synergy to proximal LAD; POBA to Diagonal [address] Ruff @ [facility] NSTEMI (non-ST elevated myocardial infarction) (Chronic 09/22/17) Tobacco abuse (Chronic) Medical History: Medical History (Last Updated 10/03/17 @ 17:24 by Elle Sharma) NSTEMI (non-ST elevated myocardial infarction) (Chronic) Onset Date: 09/22/17 I21.4 CAD (coronary artery disease) I25.10 DM2 (diabetes mellitus, type 2) E11.9 Hyperlipidemia E78.5 Non-healing wound of right heel S91.301A PAD (peripheral artery disease) I73.9 HTN (hypertension) I10 Allergies No Known Allergies Allergy (Verified 06/24/18 23:51) Home Medications: Ambulatory Orders Medication Instructions Recorded Atenolol [Tenormin] 25 mg PO DAILY 07/03/17 Gabapentin [Neurontin] 600 mg PO TIDCM 07/03/17 Metformin HCl 1,000 mg PO BID 07/03/17 Oxycodone HCl/Acetaminophen 1 each PO Q6H PRN 07/03/17 [Oxycodon-Acetaminophen 7.5-325] Simvastatin [Zocor] 10 mg PO QHS 07/03/17 Aspirin E.C. [Ecotrin] 81 mg PO DAILY 09/20/17 Cyclobenzaprine [Flexeril] 10 mg PO BID 09/20/17 Zolpidem Tartrate [Ambien] 10 mg PO QHS 09/20/17 Clopidogrel Bisulfate [Plavix] 75 mg PO DAILY #30 tab 09/26/17 Potassium Chloride [K-Dur] 10 meq PO DAILY 05/26/18 Surgical History: Surgical History (Last Updated 10/03/17 @ 17:33 by Elle Sharma) Stented coronary artery (Chronic) Onset Date: 09/22/17 Z95.5 3.5 X 16 Promus Synergy to mid LAD; 4.0 X 24 Promus Synergy to proximal LAD; POBA to Diagonal [address] Ruff @ [facility] Surgical History: total knee arthroplasty, - - Multiple coronary artery stents, lumbar spine surgery x 3, R TKR, Hx AAA repair w/ stent, BL elbow ? nerve surgery. Psychiatric History: No pertinent psych hx Lives: Alone Smoking Status: Current every day smoker - 1-2 ppd cigarette tobacco use. Tobacco Use: Cigarettes Alcohol: None Drugs: None - *Family History Maternal History Items: Hypertension Paternal History Items: Hypertension Review of Systems Constitutional: Reports: Anorexia, Malaise, Weakness, Fatigue. Denies: Chills, Fever, Weight Change HEENT: Denies: Head Aches, Sinus Congestion, Sinus Drainage Cardiovascular: Denies: Chest Pain, Palpitations Respiratory: Reports: Cough, Pleuritic Pain, Shortness of Breath, Shortness of breath at rest, Shortness of breath upon exertion, Sputum production Gastrointestinal: Denies: Abdominal Pain, Nausea, Vomiting Genitourinary: Denies: Dysuria Musculoskeletal: Reports: Back Pain, Joint Pain. Denies: Joint Tenderness Skin: Denies: Rash, Wounds Neurological: Reports: Confusion. Denies: Focal weakness, Numbness, Tingling Psychiatric: Denies: Anxiety, Depression, Homicidal Ideations, Suicidal Ideations Hematologic/ Lymphatic: Reports: Easy Bruising, Easy Bleeding VTE Information - Inpt Only VTE Present on Admission: No VTE Mechan Device Prophylaxis: SCD's VTE Pharm Prophylaxis ordered?: Yes Patient Problems: Active and Suspected Problems (Last Updated 10/03/17 @ 17:24 by Elle Sharma) Acute encephalopathy (Acute) Subjective: Seated upright in ED bed, fatigued, awakens to examination but falling back asleep quickly, ill-appearing. Objective: Physical Examination: General: awakens to stimuli, not markedly alert, oriented to self only, gives wrong month, year, president, remains cooperative, seated upright in the ED bed in no apparent distress, ill and fatigued appearing. Skin: normal color, turgor, no icterus, cyanosis. HEENT: AT/NC, EOMI, PERRLA, dry MM, no carotid bruits or JVD noted. Lungs: Diminished breath sounds bilateral bases, L greater, moderate effort, mild decrease BL bases, mildly rhonchorous, course L base, no rales, or wheezing. Heart: Mildly tachycardic with regular rhythm; no gallop, rub audible. Abdomen: soft, NTTP, ND, normal BS, no HSM. Extremities: no cyanosis, clubbing, or edema. Neurological: awakens to stimuli, not markedly alert, oriented to self only, gives wrong month, year, president, remains cooperative; cognitive function intact; pupils equally reactive to light and accomodation; cranial nerves II-XII grossly normal, moving all 4 extremities, no focal deficits, strength severely globally decreased. Psychiatric: affect appears fatigued, ill appearing, no acute evidence of depressive or anxiety feelings. - Physical Exam Vital Signs Temp Pulse Resp BP Pulse Ox 98.6 F 96 17 135/75 H 95 06/25/18 02:17 06/25/18 02:17 06/25/18 02:17 06/25/18 02:17 06/25/18 02:17 Oxygen Flow Rate (L/min) 2 Oxygen Delivery Method Nasal Cannula Weight: 212 lb Body Mass Index (BMI) 27.2 Finger Stick Blood Glucose 117 Laboratory Tests Past 24 Hrs 06/25/18 06/25/18 06/25/18 00:27 00:27 01:34 WBC Not Reportable Corrected WBC 9.3 RBC 4.48 L Hgb 11.3 L Hct 36.0 L MCV 80.4 MCH 25.2 L MCHC 31.4 L RDW 20.5 H RDW Differential 58.3 H Plt Count 131 L MPV 10.1 Neut % (Auto) Not Reportable Absolute Neuts (auto) 7.6 Absolute Lymphs (auto) 1.12 Total Counted 100 Neutrophils % (Manual) 78 H Band Neutrophils % 4 Lymphocytes % (Manual) 12 L Monocytes % (Manual) 3 Basophils % (Manual) 1 Metamyelocytes % 2 H Nucleated RBC % 3.0 Diff Path Review May foll Platelet Estimate SLT DEC Plt Morphology Comment GIANT Polychromasia 1+ Hypochromasia 1+ Anisocytosis 1+ Microcytosis 1+ Absolute Retic 0.28 Specimen Type ART Sample Site L Radial pH 7.43 Bicarbonate Actual 26.7 H POC Total CO2 28 Base Excess 2 O2 Saturation 95 ABG pCO2 40.3 ABG pO2 74 L Arias Test POS O2 Delivery Device Nasal Can Liter Flow 2.0 Blood Gas Notified Whom ED Blood Gas Notified Time 125 Sodium 135 L Potassium 3.5 Chloride 99 Carbon Dioxide 27.0 Anion Gap 9 BUN 24 H Creatinine 1.59 H Estim Creat Clear Calc 51.70 Est GFR (MDRD) Af Amer 56 L Est GFR (MDRD) Non-Af 46 L BUN/Creatinine Ratio 15.1 Glucose 114 H Calcium 10.1 POC Glucose 06/25/18 00:23 POC Glucose 117 H Assessment/Plan All Active Problems (Last Updated 10/03/17 @ 17:24 by Elle Sharma) Acute encephalopathy (Acute) Mental status change (Acute) Healthcare-associated pneumonia (Ruled-out) Severe sepsis (Acute) Pneumonia (Acute) Elevated troponin (Acute) The patient is a 68 y/o M w/ PMHx: CAD, HTN, HLD, CKD stage III (Cr 1.4-1.5), Diabetes mellitus type II, PAD who presents to the [facility] ED on 06/25/18 with history of dizziness, lightheadedness x 2 days with concurrent productive cough x 3-4 days, chest discomfort worse with coughing, generalized malaise, weakness. (1) Acute Encephalopathy secondary to Community Acquired Pneumonia: Work-up in the ED included T 97.8, HR 52, BP 120/66, RR 16, 97% on RA, CBC w/ WBC 9.3, Hgb 11.3, Plts 131 with mild L shift, ABG w/ pO2 74 otherwise not marked, BMP w/ Na 135, BUN/Cr 24/1.59, glucose 114, CXR w/ LL recurrent patchy infiltrate consistent with PNA and left basilar chronic volume loss, CT head w/ normal unenhanced CT scan of the brain. Will admit to [facility], maintain on oxygen with wean as tolerated to room air, continue ATC duonebs, PRN albuterol, maintained on IV Rocephin and Azithromycin, HOB, IS parameters w/ pending sputum cultures and urine antigens. Bld cx x 2 obtained in the ED. Will hold scheduled flexeril as well as narcotics in addition to high dose ambien given encephalopathy. (2) CAD: s/p PCI history, maintain on asa, plavix, BB, statin therapies. (3) Hx AAA, PAD: s/p AAA repair, unclear type, will maintain on asa, plavix, BB, statin therapies. (4) Chronic Kidney Disease Stage III: Admission BUN/Cr 24/1.59, baseline renal function 1.4-1.5, stable, repeat BMP in AM. (5) Diabetes mellitus type II: Hold oral home regimen, ADA diet, accu checks w/ ISS. (6) Hypertension: Continue home regimen including atenolol, PRN hydralazine. (7) Hyperlipidemia: Continue home statin regimen. (8) Tobacco Abuse: Encouraged cessation, inpatient consultation per RT, NR if desired. (9) DVT prophylaxis: SCDs, renally dose Lovenox. Code Visit Inpatient E&M: 86687 Init Hosp L3
[2018-06-25] MEDS: Ceftriaxone 1 GM/50 ML BAG IV ×2 (02:58→22:20)
--- NOTE | 2018-06-25 03:54 | ED.VISSUMM ---
- ER Visit Summary Date of Service: 06/25/18 Chief Complaint: Dizzy lightheaded History of Present Illness: The patient is a 68 M who presents with dizziness. He complains of feeling dizzy and lightheaded for the last 2 days. History is somewhat limited as the patient is confused. He also reports a cough for the past 3 to 4 days. This is productive. He complains of generalized weakness and generalized malaise. Family reports that he has been increasingly confused over the last 2 to 3 days and has been sleeping much more than usual. Physical Examination: Afebrile vitals unremarkable Patient is drowsy but arousable to voice he is oriented to person and place but not to day month or year he has no focal or lateralizing neurological deficits Moist mucous membranes Heart regular bradycardia Lungs are clear Abdomen soft Test Results: EKG shows sinus rhythm at a rate of 101 with PVCs. Labs notable for creatinine of 1.59, hemoglobin 11.3. ABG was obtained which shows pH 7.43, PCO2 of 40.3, PO2 74. CT head is normal and chest x-ray does show a left lower lobe infiltrate. Emergency Department Course and Treatment: Work-up as above is notable for pneumonia. Patient was treated with IV Rocephin and azithromycin. His confusion is likely related to his pneumonia. Patient was discussed with the hospitalist and admitted. Treatment Plan: [] Disposition: Admit Impression: Community-acquired pneumonia Encephalopathy This note was generated with [employer] dictation software. It may contain incorrect words, spelling, and punctuation that were not noted in review of the chart prior to signing ED Disposition - Plan for ED Patient: Disposition: Acute Care Hospital [facility]
[2018-06-25] MEDS: 0.9% Normal Saline 1,000 ML 125 ML IV ×3 (06:34→22:30)
[2018-06-25 06:35] LABS: Absolute Lymphocyte Count 1.57 X10^3/ul (0.83-4.51); Absolute Neutrophil Count 5.3 X10^3/uL (2.0-7.7); Basophil# 0.07 X10^3/uL; Basophil% 0.9 % (0-1); Eosinophil# 0.18 X10^3/uL; Eosinophils% 2.3 % (0-5); Hematocrit 32.6 % (40-54); Hemoglobin 10.1 g/dl (13.0-16.5); Lymphocyte # 1.57 X10^3/ul (4.0); Lymphocyte % 19.9 % (19-41); Mean Corpuscular Volume 80.7 fL (80-94); Mean Platelet Vol. 9.7 fl (6.2-12.0); Monocyte# 0.59 X10^3/uL; Monocyte% 7.5 % (0-10); Neutrophil # 5.25 X10^3/uL (2.7-7.7); Neutrophil % 66.5 % (47-70); Platelet Count 112 K/mm3 (150-450); RBC Distribution Width CV 20.4 % (11.6-14.6); RBC Distribution Width SD 59.2 fl (35.1-43.9); Red Blood Count 4.04 M/mm3 (4.6-6.2); White Blood Count 7.9 K/mm3 (4.4-11.0)
[2018-06-25 06:37] LABS: Differential Indicated SCAN CRITERIA MET; POSITIVE COUNT YES; POSITIVE DIFFERENTIAL NO; POSITIVE MORPHOLOGY YES
[2018-06-25 06:38] LABS: Absolute Nucleated RBC Count 0.19 10^3/uL (0-5); NRBC Flagged by Analyzer 2.4 % (0-5)
[2018-06-25 06:40] LABS: Bedside Glucose 120 mg/dL (70-110)
[2018-06-25 06:49] LABS: Anion Gap 7 (5-15); BUN 23 mg/dL (7-18); BUN/Creat Ratio 16.9 RATIO (10-20); Calcium,Total 9.2 mg/dL (8.5-10.1); Chloride 102 mmol/L (98-107); Creatinine, Serum 1.36 mg/dL (0.70-1.30); EST Glomerular Filtration Rate 55 mL/min (>60); Est Glom Filt Rate - Afr Amer 67 mL/min (>60); Estimated Creatinine Clearance 60.44 ml/min; Glucose 115 mg/dL (74-106); Potassium 3.2 mmol/L (3.5-5.1); Sodium Level 136 mmol/L (136-145)
[2018-06-25 07:10] LABS: Differential Comment SCAN
[2018-06-25 07:11] LABS: Platelet Estimate SLT DEC (ADEQ)
[2018-06-25 07:12] LABS: Anisocytosis 1+
[2018-06-25 07:13] LABS: Hypochromasia 1+; Microcytosis 1+; Polychromasia 1+
[2018-06-25 07:35] LABS: Mucous, Urine 0 SEEN /hpf (<or=2+)
[2018-06-25 07:39] LABS: Color, Urine Yellow (Yellow); Glucose, Dipstick 250 mg/dl (Normal); Ketone-Dipstick 5 mg/dl (Negative); Leukocyte Esterase-Dipstick 25 /ul (Negative); Nitrite-Dipstick Negative (Negative); Occult Blood-Urine 250 /ul (Negative); Protein-Dipstick 30 mg/dl (Negative); Specific Gravity, Urine 1.025 (1.002-1.030); Urine Clarity Sl. Cloudy (Clear); Urine Urobilinogen 1 mg/dl (Normal)
[2018-06-25 07:42] LABS: Urine Bilirubin Dipstick 1 mg/dL (Negative)
[2018-06-25 07:54] LABS: White Blood Cells 0-5 SEEN /hpf (0-5)
[2018-06-25 07:55] LABS: Bacteria RARE /hpf (None Seen); Red Blood Cells-Urine 10-25 SEEN /hpf (0-5); Squamous Epithelial Cells - UA 0-5 SEEN /hpf (0-5)
[2018-06-25] MEDS: Aspirin E.C. 81 MG Tablet PO (09:10)
[2018-06-25] MEDS: guaiFENesin 1,200 MG Tablet 1200 MG PO ×2 (09:10→22:32)
[2018-06-25] MEDS: Menthol/Lanolin/Calamine/Znox 113 GM Tube 1 APPLIC TOPICAL ×4 (09:10→22:35)
[2018-06-25] MEDS: Clopidogrel Bisulfate 75 MG Tablet PO (09:11)
[2018-06-25] MEDS: Enoxaparin 30 MG/0.3 ML Syringe SC (09:12)
--- NOTE | 2018-06-25 10:52 | PCM.PN.HOSP ---
Patient Problems: Active and Suspected Problems (Last Updated 10/03/17 @ 17:24 by Elle Sharma) Acute encephalopathy (Acute) Subjective: Denies shortness of breath, while on oxygen. Vitals/I&O's: Vital Signs Temp Pulse Resp BP Pulse Ox 36.8 C 100 20 H 128/56 H 92 06/25/18 06:39 06/25/18 07:32 06/25/18 07:32 06/25/18 06:39 06/25/18 07:32 Oxygen Flow Rate (L/min) 4 Oxygen Delivery Method Nasal Cannula Weight: 90.6 kg Body Mass Index (BMI) 25.6 Finger Stick Blood Glucose 117 Intake and Output for Last 24 Hours 06/23/18 06/24/18 06/25/18 23:59 23:59 23:59 Intake Total 454 / 454 Output Total 0 / 0 Balance 454 / 454 General: Alert, - - oriented to self and place. When asked about what date it is, he said he was in [facility]. HEENT: Atraumatic, Normocephalic Oral: Moist Mucosa, No Gingival or Mucosal Lesions/ Ulcerations Neck: No Nodes, Thyroid Normal Size and Texture Lungs: Diminished, Wheezes - faint Cardiovascular: Regular rate, Regular Rhythm, Normal S1, Normal S2, No murmurs Abdomen: Bowel Sounds Present, Soft, Non Tender, Non-Distended, No Hepato-splenomegaly Extremities: No edema, No Calf Tenderness Skin: No rashes, No breakdown Psych/Mental Status: Normal Affect, Appropriate Microbiology Past 72 Hours 06/25/18 07:25 Urine, Clean Catch Legionella Antigen - Final 06/25/18 07:25 Urine, Clean Catch Streptococcus pneumoniae Antigen (M - Final Laboratory Results 06/25/18 00:23: POC Glucose 117 H 06/25/18 00:27: WBC Not Reportable, Corrected WBC 9.3, RBC 4.48 L, Hgb 11.3 L, Hct 36.0 L, MCV 80.4, MCH 25.2 L, MCHC 31.4 L, RDW 20.5 H, RDW Differential 58.3 H, Plt Count 131 L, MPV 10.1, Neut % (Auto) Not Reportable, Absolute Neuts (auto) 7.6, Absolute Lymphs (auto) 1.12, Total Counted 100, Neutrophils % (Manual) 78 H, Band Neutrophils % 4, Lymphocytes % (Manual) 12 L, Monocytes % (Manual) 3, Basophils % (Manual) 1, Metamyelocytes % 2 H, Nucleated RBC % 3.0, Diff Path Review May foll, Platelet Estimate SLT DEC, Plt Morphology Comment GIANT, Polychromasia 1+, Hypochromasia 1+, Anisocytosis 1+, Microcytosis 1+, Absolute Retic 0.28 06/25/18 00:27: Sodium 135 L, Potassium 3.5, Chloride 99, Carbon Dioxide 27.0, Anion Gap 9, BUN 24 H, Creatinine 1.59 H, Estim Creat Clear Calc 51.70, Est GFR (MDRD) Af Amer 56 L, Est GFR (MDRD) Non-Af 46 L, BUN/Creatinine Ratio 15.1, Glucose 114 H, Calcium 10.1 06/25/18 01:34: Specimen Type ART, Sample Site L Radial, pH 7.43, Bicarbonate Actual 26.7 H, POC Total CO2 28, Base Excess 2, O2 Saturation 95, ABG pCO2 40.3, ABG pO2 74 L, Arias Test POS, O2 Delivery Device Nasal Can, Liter Flow 2.0, Blood Gas Notified Whom ED MD, Blood Gas Notified Time 125 06/25/18 06:16: Sodium 136, Potassium 3.2 L, Chloride 102, Carbon Dioxide 27.0, Anion Gap 7, BUN 23 H, Creatinine 1.36 H, Estim Creat Clear Calc 60.44, Est GFR (MDRD) Af Amer 67, Est GFR (MDRD) Non-Af 55 L, BUN/Creatinine Ratio 16.9, Glucose 115 H, Calcium 9.2 06/25/18 06:16: WBC 7.9, RBC 4.04 L, Hgb 10.1 L, Hct 32.6 L, MCV 80.7, MCH 25.0 L, MCHC 31.0 L, RDW 20.4 H, RDW Differential 59.2 H, Plt Count 112 L, MPV 9.7, Immature Gran % (Auto) 2.900 H, Neut % (Auto) 66.5, Lymph % (Auto) 19.9, Powell % (Auto) 7.5, Eos % (Auto) 2.3, Baso % (Auto) 0.9, Absolute Neuts (auto) 5.3, Absolute Lymphs (auto) 1.57, Total Counted Not Reportable, Nucleated RBC % 2.4, Differential Comment SCAN, Diff Path Review May foll, Platelet Estimate SLT DEC, Polychromasia 1+, Hypochromasia 1+, Anisocytosis 1+, Microcytosis 1+, Absolute Retic 0.19 06/25/18 06:31: POC Glucose 120 H 06/25/18 07:25: Urine Color Yellow, Urine Clarity Sl. Cloudy, Urine pH 5.0, Ur Specific [place] 1.025, Urine Protein 30 H, Urine Glucose (UA) 250 H, Urine Ketones 5 H, Urine Occult Blood 250 H, Urine Nitrite Negative, Urine Bilirubin 1 H, Urine Urobilinogen 1 H, Ur Leukocyte Esterase 25 H, Urine RBC 10-25 SEEN, Urine WBC 0-5 SEEN, Ur Squamous Epith Cells 0-5 SEEN, Urine Bacteria RARE, Urine Mucus 0 SEEN Current Medications Acetaminophen (Tylenol) 650 mg PO Q6H PRN PRN PRN Reason: Non-cardiac pain (mod-severe) Al Hydroxide/Mg Hydroxide (Mylanta Ii) 15 - 30 ml PO Q4H PRN PRN PRN Reason: INDIGESTION Albuterol Sulfate (Ventolin Aerosols) 2.5 mg INHALATION Q2H PRN PRN PRN Reason: dyspnea, wheezing Albuterol/Ipratropium (Duoneb) 3 ml INHALATION Q4HWA.RT [facility] Last Admin: 06/25/18 07:32 Dose: 3 ml Aspirin (Ecotrin) 81 mg PO DAILY [facility] Last Admin: 06/25/18 09:10 Dose: 81 mg Atenolol (Tenormin (Beta Armando)) 25 mg PO DAILY [facility] Atorvastatin Calcium (Lipitor) 5 mg PO QHS [facility] Calamine/Phenol (Calmoseptine Ointment) 1 applic TOPICAL 4X/DAY [facility]; Protocol Last Admin: 06/25/18 09:10 Dose: 1 applicatio Clopidogrel Bisulfate (Plavix) 75 mg PO DAILY [facility] Last Admin: 06/25/18 09:11 Dose: 75 mg Dextrose (D50w Syringe) 0 gm IV X1 PRN; Protocol PRN Reason: Hypoglycemia Enoxaparin Sodium (Lovenox) 30 mg SC DAILY@1000 [facility] Last Admin: 06/25/18 09:12 Dose: 30 mg Glucagon () 1 mg IM .X1 PRN PRN Reason: Hypoglycemia Guaifenesin (Mucinex) 1,200 mg PO BID [facility] Last Admin: 06/25/18 09:10 Dose: 1,200 mg Hydralazine HCl (Apresoline Iv) 10 mg IV Q4H PRN PRN PRN Reason: SBP > 160 Sodium Chloride () 1,000 mls @ 125 mls/hr IV .Q8H [facility] Last Admin: 06/25/18 06:34 Dose: 125 mls/hr Azithromycin 500 mg/ Dextrose 255 mls @ 250 mls/hr IV Q24H [facility] Stop: 06/27/18 23:02 Ceftriaxone Sodium (Rocephin) 1 gm in 50 mls @ 100 mls/hr IV Q24H [facility] Insulin Human Lispro (Humalog Kwikpen (Bkc)) 0 unit SQ ACHS [facility]; Protocol Last Admin: 06/25/18 06:34 Dose: Not Given Nicotine (Nicoderm Cq (Pbkc)) 21 mg TRANSDERM. DAILY [facility] Last Admin: 06/25/18 09:11 Dose: 21 mg Nutritional Formula (Lactose Free) (Glucerna Shake) 120 ml PO 4X/DAY [facility] Last Admin: 06/25/18 09:10 Dose: Not Given Ondansetron HCl (Zofran) 4 mg IV Q8H PRN PRN PRN Reason: NAUSEA/VOMITING Potassium Chloride (K-Dur) 10 meq PO DAILY [facility] Last Admin: 06/25/18 09:11 Dose: 10 meq Medical Necessity - Tobacco Use Smoking Status: Current every day smoker Tobacco Use: Cigarettes Assessment/Plan All Active Problems (Last Updated 10/03/17 @ 17:24 by Elle Sharma) Acute encephalopathy (Acute) Mental status change (Acute) Healthcare-associated pneumonia (Ruled-out) Severe sepsis (Acute) Pneumonia (Acute) Elevated troponin (Acute) 1. Acute exacerbation of COPD personally reviewed CXR and I do not appreciate definitive infiltrate will start steroids and BDs 2. Metabolic encephalopathy patient currently confused, but unclear how far off baseline, or if he is at baseline maybe due to COPD exacerbation. stop complicating medications: gabapentin, flexeril, narcotics 3. Possible pneumonia as mentioned above, CXR w/o infiltrate continue empiric abx for now. Strep and legionella antigens negative. 4. CKD 3 stable 5. VTE proph: LMWH
--- NOTE | 2018-06-25 11:01 | PN_ITS ---
Patient Problems: Active and Suspected Problems (Last Updated 10/03/17 @ 17:24 by Elle Sharma) Acute encephalopathy (Acute) Subjective: Denies shortness of breath, while on oxygen. Vitals/I&O's: Vital Signs Temp Pulse Resp BP Pulse Ox 36.8 C 100 20 H 128/56 H 92 06/25/18 06:39 06/25/18 07:32 06/25/18 07:32 06/25/18 06:39 06/25/18 07:32 Oxygen Flow Rate (L/min) 4 Oxygen Delivery Method Nasal Cannula Weight: 90.6 kg Body Mass Index (BMI) 25.6 Finger Stick Blood Glucose 117 Intake and Output for Last 24 Hours 06/23/18 06/24/18 06/25/18 23:59 23:59 23:59 Intake Total 454 / 454 Output Total 0 / 0 Balance 454 / 454 General: Alert, - - oriented to self and place. When asked about what date it is, he said he was in [facility]. HEENT: Atraumatic, Normocephalic Oral: Moist Mucosa, No Gingival or Mucosal Lesions/ Ulcerations Neck: No Nodes, Thyroid Normal Size and Texture Lungs: Diminished, Wheezes - faint Cardiovascular: Regular rate, Regular Rhythm, Normal S1, Normal S2, No murmurs Abdomen: Bowel Sounds Present, Soft, Non Tender, Non-Distended, No Hepato- splenomegaly Extremities: No edema, No Calf Tenderness Skin: No rashes, No breakdown Psych/Mental Status: Normal Affect, Appropriate Microbiology Past 72 Hours 06/25/18 07:25 Urine, Clean Catch Legionella Antigen - Final 06/25/18 07:25 Urine, Clean Catch Streptococcus pneumoniae Antigen (M - Final Laboratory Results 06/25/18 00:23: POC Glucose 117 H 06/25/18 00:27: WBC Not Reportable, Corrected WBC 9.3, RBC 4.48 L, Hgb 11.3 L, Hct 36.0 L, MCV 80.4, MCH 25.2 L, MCHC 31.4 L, RDW 20.5 H, RDW Differential 58.3 H, Plt Count 131 L, MPV 10.1, Neut % (Auto) Not Reportable, Absolute Neuts (auto) 7.6, Absolute Lymphs (auto) 1.12, Total Counted 100, Neutrophils % (Manual) 78 H, Band Neutrophils % 4, Lymphocytes % (Manual) 12 L, Monocytes % (Manual) 3, Basophils % (Manual) 1, Metamyelocytes % 2 H, Nucleated RBC % 3.0, Diff Path Review May foll, Platelet Estimate SLT DEC, Plt Morphology Comment GIANT, Polychromasia 1+, Hypochromasia 1+, Anisocytosis 1+, Microcytosis 1+, Absolute Retic 0.28 06/25/18 00:27: Sodium 135 L, Potassium 3.5, Chloride 99, Carbon Dioxide 27.0, Anion Gap 9, BUN 24 H, Creatinine 1.59 H, Estim Creat Clear Calc 51.70, Est GFR (MDRD) Af Amer 56 L, Est GFR (MDRD) Non-Af 46 L, BUN/Creatinine Ratio 15.1, Glucose 114 H, Calcium 10.1 06/25/18 01:34: Specimen Type ART, Sample Site L Radial, pH 7.43, Bicarbonate Actual 26.7 H, POC Total CO2 28, Base Excess 2, O2 Saturation 95, ABG pCO2 40.3, ABG pO2 74 L, Arias Test POS, O2 Delivery Device Nasal Can, Liter Flow 2.0, Blood Gas Notified Whom ED MD, Blood Gas Notified Time 125 06/25/18 06:16: Sodium 136, Potassium 3.2 L, Chloride 102, Carbon Dioxide 27.0, Anion Gap 7, BUN 23 H, Creatinine 1.36 H, Estim Creat Clear Calc 60.44, Est GFR (MDRD) Af Amer 67, Est GFR (MDRD) Non-Af 55 L, BUN/Creatinine Ratio 16.9, Gluc ose 115 H, Calcium 9.2 06/25/18 06:16: WBC 7.9, RBC 4.04 L, Hgb 10.1 L, Hct 32.6 L, MCV 80.7, MCH 25.0 L, MCHC 31.0 L, RDW 20.4 H, RDW Differential 59.2 H, Plt Count 112 L, MPV 9.7, Immature Gran % (Auto) 2.900 H, Neut % (Auto) 66.5, Lymph % (Auto) 19.9, [place] % (Auto) 7.5, Eos % (Auto) 2.3, Baso % (Auto) 0.9, Absolute Neuts (auto) 5.3, Absolute Lymphs (auto) 1.57, Total Counted Not Reportable, Nucleated RBC % 2.4, Differential Comment SCAN, Diff Path Review May foll, Platelet Estimate SLT DEC, Polychromasia 1+, Hypochromasia 1+, Anisocytosis 1+, Microcytosis 1+, Absolute Retic 0.19 06/25/18 06:31: POC Glucose 120 H 06/25/18 07:25: Urine Color Yellow, Urine Clarity Sl. Cloudy, Urine pH 5.0, Ur Specific [place] 1.025, Urine Protein 30 H, Urine Glucose (UA) 250 H, Urine Ketones 5 H, Urine Occult Blood 250 H, Urine Nitrite Negative, Urine Bilirubin 1 H, Urine Urobilinogen 1 H, Ur Leukocyte Esterase 25 H, Urine RBC 10-25 SEEN, Ur ine WBC 0-5 SEEN, Ur Squamous Epith Cells 0-5 SEEN, Urine Bacteria RARE, Urine Mucus 0 SEEN Current Medications Acetaminophen (Tylenol) 650 mg PO Q6H PRN PRN PRN Reason: Non-cardiac pain (mod-severe) Al Hydroxide/Mg Hydroxide (Mylanta Ii) 15 - 30 ml PO Q4H PRN PRN PRN Reason: INDIGESTION Albuterol Sulfate (Ventolin Aerosols) 2.5 mg INHALATION Q2H PRN PRN PRN Reason: dyspnea, wheezing Albuterol/Ipratropium (Duoneb) 3 ml INHALATION Q4HWA.RT COUNTS [facility]CLUDE 234 BEDS AT [facility] Last Admin: 06/25/18 07:32 Dose: 3 ml Aspirin (Ecotrin) 81 mg PO DAILY COUNTS INCLUDE 234 BEDS AT THE [facility] Last Admin: 06/25/18 09:10 Dose: 81 mg Atenolol (Tenormin (Beta Armando)) 25 mg PO DAILY COUNTS INCLUDE 234 BEDS AT THE [facility] Atorvastatin Calcium (Lipitor) 5 mg PO QHS COUNTS INCLUDE 234 BEDS AT THE [facility] Calamine/Phenol (Calmoseptine Ointment) 1 applic TOPICAL 4X/DAY [facility]S [facility]CLUDE 234 BEDS AT THE [facility]; Protocol Last Admin: 06/25/18 09:10 Dose: 1 applicatio Clopidogrel Bisulfate (Plavix) 75 mg PO DAILY COUNTS INCLUDE 234 BEDS AT THE [facility] Last Admin: 06/25/18 09:11 Dose: 75 mg Dextrose (D50w Syringe) 0 gm IV X1 PRN; Protocol PRN Reason: Hypoglycemia Enoxaparin Sodium (Lovenox) 30 mg SC DAILY@1000 [facility] Last Admin: 06/25/18 09:12 Dose: 30 mg Glucagon () 1 mg IM .X1 PRN PRN Reason: Hypoglycemia Guaifenesin (Mucinex) 1,200 mg PO BID [facility]S INCLUDE 234 BEDS AT THE [facility] Last Admin: 06/25/18 09:10 Dose: 1,200 mg Hydralazine HCl (Apresoline Iv) 10 mg IV Q4H PRN PRN PRN Reason: SBP > 160 Sodium Chloride () 1,000 mls @ 125 mls/hr IV .Q8H COUNTS INCLUDE 234 BEDS AT THE [facility] Last Admin: 06/25/18 06:34 Dose: 125 mls/hr Azithromycin 500 mg/ Dextrose 255 mls @ 250 mls/hr IV Q24H COUNTS INCLUDE 234 BEDS AT THE [facility] Stop: 06/27/18 23:02 Ceftriaxone Sodium (Rocephin) 1 gm in 50 mls @ 100 mls/hr IV Q24H COUNTS INCLUDE 234 BEDS AT THE [facility] Insulin Human Lispro (Humalog Kwikpen (Bkc)) 0 unit SQ ACHS COUNTS INCLUDE 234 BEDS AT THE [facility]; Protocol Last Admin: 06/25/18 06:34 Dose: Not Given Nicotine (Nicoderm Cq (Pbkc)) 21 mg TRANSDERM. DAILY COUNTS INCLUDE 234 BEDS AT THE [facility] Last Admin: 06/25/18 09:11 Dose: 21 mg Nutritional Formula (Lactose Free) (Glucerna Shake) 120 ml PO 4X/DAY COUNTS INCLUDE 234 BEDS AT THE [facility] Last Admin: 06/25/18 09:10 Dose: Not Given Ondansetron HCl (Zofran) 4 mg IV Q8H PRN PRN PRN Reason: NAUSEA/VOMITING Potassium Chloride (K-Dur) 10 meq PO DAILY COUNTS INCLUDE 234 BEDS AT THE [facility] Last Admin: 06/25/18 09:11 Dose: 10 meq Medical Necessity - Tobacco Use Smoking Status: Current every day smoker Tobacco Use: Cigarettes Assessment/Plan All Active Problems (Last Updated 10/03/17 @ 17:24 by Elle Sharma) Acute encephalopathy (Acute) Mental status change (Acute) Healthcare-associated pneumonia (Ruled-out) Severe sepsis (Acute) Pneumonia (Acute) Elevated troponin (Acute) 1. Acute exacerbation of COPD * personally reviewed CXR and I do not appreciate definitive infiltrate * will start steroids and BDs 2. Metabolic encephalopathy * patient currently confused, but unclear how far off baseline, or if he is at baseline * maybe due to COPD exacerbation. * stop complicating medications: gabapentin, flexeril, narcotics 3. Possible pneumonia * as mentioned above, CXR w/o infiltrate * continue empiric abx for now. * Strep and legionella antigens negative. 4. CKD 3 * stable 5. VTE proph: LMWH
[2018-06-25] MEDS: Atenolol 25 MG Tablet PO (11:24)
[2018-06-25 12:00] LABS: Bedside Glucose 120 mg/dL (70-110)
[2018-06-25 16:55] LABS: Bedside Glucose 130 mg/dL (70-110)
--- NOTE | 2018-06-25 20:33 | CPS ---
Pt. switched to Ventri mask due to mouth breathing and shallow breathing. SpO2 unchanged with NC with increased FiO2. Due to this reason, decided to switch patient over to a mask interface as tolerated.
[2018-06-25] MEDS: Atorvastatin Calcium 10 MG Tablet 5 MG PO (22:31)
[2018-06-25] MEDS: Insulin Lispro 100 UNIT/ML INSULN.PEN SQ (22:39)
[2018-06-25 23:00] LABS: Bedside Glucose 153 mg/dL (70-110)
[2018-06-26] VITALS (14 sets, daily range): BP systolic 109–141; BP diastolic 55–74; PULSE 72–88; RESP 18–24; TEMP 36.1–36.8; O2SAT 88–95
[2018-06-26 06:35] LABS: Anion Gap 10 (5-15); BUN 21 mg/dL (7-18); BUN/Creat Ratio 18.3 RATIO (10-20); Calcium,Total 9.1 mg/dL (8.5-10.1); Chloride 103 mmol/L (98-107); Creatinine, Serum 1.15 mg/dL (0.70-1.30); EST Glomerular Filtration Rate 67 mL/min (>60); Est Glom Filt Rate - Afr Amer 81 mL/min (>60); Estimated Creatinine Clearance 71.48 ml/min; Glucose 145 mg/dL (74-106); Sodium Level 138 mmol/L (136-145)
[2018-06-26 06:51] LABS: Bedside Glucose 141 mg/dL (70-110)
[2018-06-26] MEDS: Ipratropium/Albuterol Sulfate 3 ML AMPUL.NEB INHALATION ×3 (07:25→18:31)
[2018-06-26] MEDS: Enoxaparin 30 MG/0.3 ML Syringe SC (09:14)
[2018-06-26] MEDS: Menthol/Lanolin/Calamine/Znox 113 GM Tube 1 APPLIC TOPICAL ×4 (09:14→21:40)
[2018-06-26] MEDS: Aspirin E.C. 81 MG Tablet PO (09:14)
[2018-06-26] MEDS: 0.9% Normal Saline 1,000 ML 125 ML IV (09:14)
[2018-06-26] MEDS: guaiFENesin 1,200 MG Tablet 1200 MG PO ×2 (09:15→21:16)
[2018-06-26] MEDS: Atenolol 25 MG Tablet PO (09:15)
[2018-06-26] MEDS: Clopidogrel Bisulfate 75 MG Tablet PO (09:15)
[2018-06-26] MEDS: Albuterol 2.5 MG/3 ML VIAL.NEB. INHALATION (09:38)
--- NOTE | 2018-06-26 11:09 | CASEMGMT ---
RN CM Assessment Presentation: Pneumonia, encephalopathy Intro role of CM and purpose of RN CM assessment to patient in room. Pt is sleepy, able to participate some in assessment questions, but falling asleep. RN CM requested to contact and pt is agreeable. Demographics, PCP and Pharmacy verified. Pt has [place] benefits, but does not wish to transfer to [place] at this time. Declination to transfer form signed by pt and form/clinicals faxed to [facility] @ . -Call to Sridevi who was able to answer assessment questions. PCP: [facility] in [place] Preferred Pharmacy: [facility]; [facility] for short term prescriptions Insurance: VA benefits, [facility] Prescription Benefit: Pt prefers [facility], but for short term prescriptions- uses [facility] LNOK: Sridevi Living Arrangements: one story home with Sridevi and daughter. Per , daughter assists pt with care needs such as donning socks, shoes. Pt is independent in bathing, showers, dressing. Transportation: pt able to drive, daughter goes with pt to physician appts. DME: cane, walker. No home oxygen HHC: none. Recommended on discharge. Patient DC goals: Home DC PLAN: anticipate home, Home oxygen testing may be needed prior to dc. PT recommending home health on dc, will continue to follow and can arrange if needed. Abel AMBROSION RN ACM
[2018-06-26] MEDS: Insulin Lispro 100 UNIT/ML INSULN.PEN SQ ×3 (12:01→21:31)
[2018-06-26] MEDS: Acetaminophen 325 MG Tablet 650 MG PO (12:06)
[2018-06-26 12:11] LABS: Bedside Glucose 209 mg/dL (70-110)
--- NOTE | 2018-06-26 12:22 | PCM.PN.HOSP ---
Patient Problems: Active and Suspected Problems (Last Updated 10/03/17 @ 17:24 by Elle Sharma) Acute encephalopathy (Acute) Subjective: Breathing better. Vitals/I&O's: Vital Signs Temp Pulse Resp BP Pulse Ox 36.5 C L 86 18 135/64 H 92 06/26/18 07:26 06/26/18 11:47 06/26/18 11:47 06/26/18 07:26 06/26/18 10:35 Oxygen Flow Rate (L/min) 5 Oxygen Delivery Method Nasal Cannula Weight: 90.6 kg Body Mass Index (BMI) 25.6 Finger Stick Blood Glucose 117 Intake and Output for Last 24 Hours 06/24/18 06/25/18 06/26/18 23:59 23:59 23:59 Intake Total 2170 / 2170 2877 / 2877 Output Total 700 / 700 675 / 675 Balance 1470 / 1470 2202 / 2202 General: Alert, No apparent distress HEENT: Atraumatic, Normocephalic Oral: Moist Mucosa, No Gingival or Mucosal Lesions/ Ulcerations Neck: No Nodes, Thyroid Normal Size and Texture Lungs: Diminished, Wheezes Cardiovascular: Regular rate, Regular Rhythm, Normal S1, Normal S2, No murmurs Abdomen: Bowel Sounds Present, Soft, Non Tender, Non-Distended, No Hepato-splenomegaly Extremities: No edema, No Calf Tenderness Skin: No rashes, No breakdown Psych/Mental Status: Normal Affect, Appropriate Microbiology Past 72 Hours 06/25/18 07:25 Urine, Clean Catch Legionella Antigen - Final 06/25/18 07:25 Urine, Clean Catch Streptococcus pneumoniae Antigen (M - Final Laboratory Results 06/25/18 16:49: POC Glucose 130 H 06/25/18 22:37: POC Glucose 153 H 06/26/18 05:44: Sodium 138, Potassium 4.0, Chloride 103, Carbon Dioxide 25.0, Anion Gap 10, BUN 21 H, Creatinine 1.15, Estim Creat Clear Calc 71.48, Est GFR (MDRD) Af Amer 81, Est GFR (MDRD) Non-Af 67, BUN/Creatinine Ratio 18.3, Glucose 145 H, Calcium 9.1, Magnesium 2.0 06/26/18 06:30: POC Glucose 141 H 06/26/18 11:59: POC Glucose 209 H Current Medications Acetaminophen (Tylenol) 650 mg PO Q6H PRN PRN PRN Reason: Non-cardiac pain (mod-severe) Last Admin: 06/26/18 12:06 Dose: 650 mg Al Hydroxide/Mg Hydroxide (Mylanta Ii) 15 - 30 ml PO Q4H PRN PRN PRN Reason: INDIGESTION Albuterol Sulfate (Ventolin Aerosols) 2.5 mg INHALATION Q2H PRN PRN PRN Reason: dyspnea, wheezing Last Admin: 06/26/18 09:38 Dose: 2.5 mg Albuterol/Ipratropium (Duoneb) 3 ml INHALATION Q4HWA.RT [facility] Last Admin: 06/26/18 11:47 Dose: 3 ml Aspirin (Ecotrin) 81 mg PO DAILY [facility] Last Admin: 06/26/18 09:14 Dose: 81 mg Atenolol (Tenormin (Beta Armando)) 25 mg PO DAILY [facility] Last Admin: 06/26/18 09:15 Dose: 25 mg Atorvastatin Calcium (Lipitor) 5 mg PO QHS [facility] Last Admin: 06/25/18 22:31 Dose: 5 mg Calamine/Phenol (Calmoseptine Ointment) 1 applic TOPICAL 4X/DAY [facility]; Protocol Last Admin: 06/26/18 09:14 Dose: 1 applicatio Clopidogrel Bisulfate (Plavix) 75 mg PO DAILY [facility] Last Admin: 06/26/18 09:15 Dose: 75 mg Dextrose (D50w Syringe) 0 gm IV X1 PRN; Protocol PRN Reason: Hypoglycemia Enoxaparin Sodium (Lovenox) 30 mg SC DAILY@1000 [facility] Last Admin: 06/26/18 09:14 Dose: 30 mg Glucagon () 1 mg IM .X1 PRN PRN Reason: Hypoglycemia Guaifenesin (Mucinex) 1,200 mg PO BID [facility] Last Admin: 06/26/18 09:15 Dose: 1,200 mg Hydralazine HCl (Apresoline Iv) 10 mg IV Q4H PRN PRN PRN Reason: SBP > 160 Sodium Chloride () 1,000 mls @ 125 mls/hr IV .Q8H [facility] Last Admin: 06/26/18 09:14 Dose: 125 mls/hr Azithromycin 500 mg/ Dextrose 255 mls @ 250 mls/hr IV Q24H [facility] Stop: 06/27/18 23:02 Last Admin: 06/25/18 23:30 Dose: 250 mls/hr Ceftriaxone Sodium (Rocephin) 1 gm in 50 mls @ 100 mls/hr IV Q24H [facility] Last Admin: 06/25/18 22:20 Dose: 100 mls/hr Insulin Human Lispro (Humalog Kwikpen (Bkc)) 0 unit SQ ACHS [facility]; Protocol Last Admin: 06/26/18 12:01 Dose: 2 u Methylprednisolone (Solu-Medrol) 40 mg IV Q8 [facility] Last Admin: 06/26/18 05:34 Dose: 40 mg Nicotine (Nicoderm Cq (Pbkc)) 21 mg TRANSDERM. DAILY [facility] Last Admin: 06/26/18 09:15 Dose: 21 mg Ondansetron HCl (Zofran) 4 mg IV Q8H PRN PRN PRN Reason: NAUSEA/VOMITING Potassium Chloride (K-Dur) 10 meq PO DAILY [facility] Last Admin: 06/26/18 09:14 Dose: 10 meq Medical Necessity - Tobacco Use Smoking Status: Current every day smoker Tobacco Use: Cigarettes Assessment/Plan All Active Problems (Last Updated 10/03/17 @ 17:24 by Elle Sharma) Acute encephalopathy (Acute) Mental status change (Acute) Healthcare-associated pneumonia (Ruled-out) Severe sepsis (Acute) Pneumonia (Acute) Elevated troponin (Acute) 1. Acute exacerbation of COPD personally reviewed CXR and I do not appreciate definitive infiltrate will start steroids and BDs 2. Metabolic encephalopathy patient currently confused, but unclear how far off baseline, or if he is at baseline maybe due to COPD exacerbation. stop complicating medications: gabapentin, flexeril, narcotics 3. Possible pneumonia as mentioned above, CXR w/o infiltrate continue empiric abx for now. Strep and legionella antigens negative. 4. CKD 3 stable 5. VTE proph: LMWH Code Visit Inpatient E&M: 29377 Subs Hosp L2
[2018-06-26 14:55] LABS: Pathologist Review Reviewed
[2018-06-26 14:55] LABS: Pathologist Review Reviewed
[2018-06-26] MEDS: Acetaminophen 500 MG Tablet 1000 MG PO ×2 (16:10→22:44)
[2018-06-26 16:20] LABS: Bedside Glucose 161 mg/dL (70-110)
[2018-06-26] MEDS: Ceftriaxone 1 GM/50 ML BAG IV (21:12)
[2018-06-26] MEDS: 0.9% NaCl Peripheral Flush Adult/Peds IV (21:13)
[2018-06-26] MEDS: Atorvastatin Calcium 10 MG Tablet 5 MG PO (21:16)
[2018-06-26 22:01] LABS: Bedside Glucose 198 mg/dL (70-110)
[2018-06-27] VITALS (13 sets, daily range): BP systolic 132–147; BP diastolic 65–80; PULSE 72–81; RESP 18–22; TEMP 36.4–36.6; O2SAT 87–96
[2018-06-27] MEDS: 0.9% NaCl Peripheral Flush Adult/Peds IV ×5 (02:43→22:40)
[2018-06-27] MEDS: Insulin Lispro 100 UNIT/ML INSULN.PEN SQ ×4 (06:49→22:48)
[2018-06-27 06:56] LABS: Bedside Glucose 160 mg/dL (70-110)
[2018-06-27] MEDS: Ipratropium/Albuterol Sulfate 3 ML AMPUL.NEB INHALATION ×4 (07:14→19:30)
--- NOTE | 2018-06-27 08:15 | RAD_ITS ---
STUDY: X-RAY CHEST REASON FOR EXAM: Male, 68 years old. Shortness of breath and dyspnea TECHNIQUE: PA and lateral views of the chest. COMPARISON: 06/25/2018 FINDINGS: The lungs are clear and expanded. Lungs are clear. Mildly elevated left hemidiaphragm. There is no demonstrated pleural abnormality. There is borderline cardiomegaly. Normal mediastinum and pearl. Normal visualized pulmonary arteries. Normal visualized aortic arch and descending thoracic aorta. There are diffuse degenerative changes of the visualized thoracic spine. Normal visualized ribs, clavicles, and shoulders. There is no demonstrated abnormality of the visualized soft tissue structures of the upper abdomen. RAD/Chest PA and Lateral IMPRESSION: No acute findings Electronically Signed: Gary Mckinnon DO at 14:53 EDT Tel , Service support ,
[2018-06-27] MEDS: Albuterol 2.5 MG/3 ML VIAL.NEB. INHALATION (09:38)
[2018-06-27] MEDS: guaiFENesin 1,200 MG Tablet 1200 MG PO ×2 (09:44→22:47)
[2018-06-27] MEDS: Atenolol 25 MG Tablet PO (09:44)
[2018-06-27] MEDS: Aspirin E.C. 81 MG Tablet PO (09:45)
[2018-06-27] MEDS: Clopidogrel Bisulfate 75 MG Tablet PO (09:45)
[2018-06-27] MEDS: Enoxaparin 30 MG/0.3 ML Syringe SC (09:45)
--- NOTE | 2018-06-27 10:02 | CPS ---
ASSESSED PT FOR INCREASED S.O.B. PER CALL TO CO WORKER WH0 WAS AT A [employer]. UPON ENTERING ROOM PT WAS SITTING UP IN CHAIR ON 50% VENTI MASK WITH A SATURATION OF 93%. BS DIMINISHED BILATERALLY. PRN VENTOLIN AEROSOL RX STARTED AND NURSE WILL STAY WITH PT AND REMOVE RX WHEN FINISHED SO THIS THERAPIST CAN ATTEND TO ANOTHER EMERGENCY.
[2018-06-27] MEDS: Menthol/Lanolin/Calamine/Znox 113 GM Tube 1 APPLIC TOPICAL ×2 (14:27→22:46)
--- NOTE | 2018-06-27 14:33 | PCM.PN.HOSP ---
Patient Problems: Active and Suspected Problems (Last Updated 10/03/17 @ 17:24 by Elle Sharma) Acute encephalopathy (Acute) Subjective: increased oxygen requirements. still short of breath, but no subjective change. Vitals/I&O's: Vital Signs Temp Pulse Resp BP Pulse Ox 36.4 C L 74 18 132/65 H 96 06/27/18 09:22 06/27/18 10:52 06/27/18 13:04 06/27/18 09:22 06/27/18 13:04 Oxygen Flow Rate (L/min) 5 Oxygen Delivery Method Nasal Cannula Weight: 90.6 kg Body Mass Index (BMI) 25.6 Finger Stick Blood Glucose 117 Intake and Output for Last 24 Hours 06/25/18 06/26/18 06/27/18 23:59 23:59 23:59 Intake Total 2170 / 2170 3295 / 3295 852 / 852 Output Total 700 / 700 800 / 800 975 / 975 Balance 1470 / 1470 2495 / 2495 -123 / -123 General: Alert, No apparent distress, - - on VM, no respiratory distress, no conversational dyspnea. HEENT: Atraumatic, Normocephalic Oral: Moist Mucosa, No Gingival or Mucosal Lesions/ Ulcerations Neck: No Nodes, Thyroid Normal Size and Texture Lungs: No rhonchi, Diminished, Wheezes Cardiovascular: Regular rate, Regular Rhythm, Normal S1, Normal S2, No murmurs Abdomen: Bowel Sounds Present, Soft, Non Tender, Non-Distended, No Hepato-splenomegaly Extremities: No edema, No Calf Tenderness Skin: No rashes, No breakdown Musculoskeletal: No Tenderness to Palpation of Joints or Extremities, No Muscle Wasting Psych/Mental Status: Appropriate, Flat Affect Microbiology Past 72 Hours 06/25/18 07:25 Urine, Clean Catch Legionella Antigen - Final 06/25/18 07:25 Urine, Clean Catch Streptococcus pneumoniae Antigen (M - Final Laboratory Results 06/25/18 00:27: Diff Path Review Reviewed 06/25/18 06:16: Diff Path Review Reviewed 06/26/18 16:07: POC Glucose 161 H 06/26/18 21:31: POC Glucose 198 H 06/27/18 06:49: POC Glucose 160 H Current Medications Acetaminophen (Tylenol) 1,000 mg PO Q6H PRN PRN PRN Reason: Non-cardiac pain (mod-severe) Last Admin: 06/26/18 22:44 Dose: 1,000 mg Al Hydroxide/Mg Hydroxide (Mylanta Ii) 15 - 30 ml PO Q4H PRN PRN PRN Reason: INDIGESTION Albuterol Sulfate (Ventolin Aerosols) 2.5 mg INHALATION Q2H PRN PRN PRN Reason: dyspnea, wheezing Last Admin: 06/27/18 09:38 Dose: 2.5 mg Albuterol/Ipratropium (Duoneb) 3 ml INHALATION Q4HWA.RT [facility] Last Admin: 06/27/18 10:52 Dose: 3 ml Aspirin (Ecotrin) 81 mg PO DAILY [facility] Last Admin: 06/27/18 09:45 Dose: 81 mg Atenolol (Tenormin (Beta Armando)) 25 mg PO DAILY [facility] Last Admin: 06/27/18 09:44 Dose: 25 mg Atorvastatin Calcium (Lipitor) 5 mg PO QHS [facility] Last Admin: 06/26/18 21:16 Dose: 5 mg Calamine/Phenol (Calmoseptine Ointment) 1 applic TOPICAL 4X/DAY [facility]; Protocol Last Admin: 06/27/18 14:27 Dose: 1 applicatio Clopidogrel Bisulfate (Plavix) 75 mg PO DAILY [facility] Last Admin: 06/27/18 09:45 Dose: 75 mg Dextrose (D50w Syringe) 0 gm IV X1 PRN; Protocol PRN Reason: Hypoglycemia Enoxaparin Sodium (Lovenox) 30 mg SC DAILY@1000 [facility] Last Admin: 06/27/18 09:45 Dose: 30 mg Glucagon () 1 mg IM .X1 PRN PRN Reason: Hypoglycemia Guaifenesin (Mucinex) 1,200 mg PO BID [facility] Last Admin: 06/27/18 09:44 Dose: 1,200 mg Hydralazine HCl (Apresoline Iv) 10 mg IV Q4H PRN PRN PRN Reason: SBP > 160 Azithromycin 500 mg/ Dextrose 255 mls @ 250 mls/hr IV Q24H [facility] Stop: 06/27/18 23:02 Last Admin: 06/26/18 21:53 Dose: 250 mls/hr Ceftriaxone Sodium (Rocephin) 1 gm in 50 mls @ 100 mls/hr IV Q24H [facility] Last Admin: 06/26/18 21:12 Dose: 100 mls/hr Sodium Chloride () 250 mls @ 15 mls/hr IV .[id number] PRN PRN Reason: SALINE FLUSH Insulin Human Lispro (Humalog Kwikpen (Bkc)) 0 unit SQ ACHS [facility]; Protocol Last Admin: 06/27/18 12:23 Dose: 1 u Methylprednisolone (Solu-Medrol) 40 mg IV Q8 [facility] Last Admin: 06/27/18 14:26 Dose: 40 mg Nicotine (Nicoderm Cq (Pbkc)) 21 mg TRANSDERM. DAILY [facility] Last Admin: 06/27/18 09:44 Dose: 21 mg Ondansetron HCl (Zofran) 4 mg IV Q8H PRN PRN PRN Reason: NAUSEA/VOMITING Potassium Chloride (K-Dur) 10 meq PO DAILY [facility] Last Admin: 06/27/18 09:44 Dose: 10 meq Sodium Chloride () 5 - 15 ml IV UD PRN PRN Reason: SALINE FLUSH Last Admin: 06/27/18 14:26 Dose: 10 ml Medical Necessity - Tobacco Use Smoking Status: Current every day smoker Tobacco Use: Cigarettes Assessment/Plan All Active Problems (Last Updated 10/03/17 @ 17:24 by Elle Sharma) Acute encephalopathy (Acute) Mental status change (Acute) Healthcare-associated pneumonia (Ruled-out) Severe sepsis (Acute) Pneumonia (Acute) Elevated troponin (Acute) 1. Acute exacerbation of COPD CXR today shows possible RLL infiltrate (final report pending) will start steroids and BDs encouraged IS and acapella valve Q1 hr x [address]/CTA chest if increasing O2 requirements 2. Metabolic encephalopathy patient currently confused, but unclear how far off baseline, or if he is at baseline maybe due to COPD exacerbation. stop complicating medications: gabapentin, flexeril, narcotics 3. Possible pneumonia continue empiric abx for now. Strep and legionella antigens negative. 4. CKD 3 stable 5. VTE proph: LMWH Code Visit Inpatient E&M: 68769 Subs Hosp L2
--- NOTE | 2018-06-27 14:39 | PN_ITS ---
Patient Problems: Active and Suspected Problems (Last Updated 10/03/17 @ 17:24 by Elle Sharma) Acute encephalopathy (Acute) Subjective: increased oxygen requirements. still short of breath, but no subjective change. Vitals/I&O's: Vital Signs Temp Pulse Resp BP Pulse Ox 36.4 C L 74 18 132/65 H 96 06/27/18 09:22 06/27/18 10:52 06/27/18 13:04 06/27/18 09:22 06/27/18 13:04 Oxygen Flow Rate (L/min) 5 Oxygen Delivery Method Nasal Cannula Weight: 90.6 kg Body Mass Index (BMI) 25.6 Finger Stick Blood Glucose 117 Intake and Output for Last 24 Hours 06/25/18 06/26/18 06/27/18 23:59 23:59 23:59 Intake Total 2170 / 2170 3295 / 3295 852 / 852 Output Total 700 / 700 800 / 800 975 / 975 Balance 1470 / 1470 2495 / 2495 -123 / -123 General: Alert, No apparent distress, - - on VM, no respiratory distress, no conversational dyspnea. HEENT: Atraumatic, Normocephalic Oral: Moist Mucosa, No Gingival or Mucosal Lesions/ Ulcerations Neck: No Nodes, Thyroid Normal Size and Texture Lungs: No rhonchi, Diminished, Wheezes Cardiovascular: Regular rate, Regular Rhythm, Normal S1, Normal S2, No murmurs Abdomen: Bowel Sounds Present, Soft, Non Tender, Non-Distended, No Hepato- splenomegaly Extremities: No edema, No Calf Tenderness Skin: No rashes, No breakdown Musculoskeletal: No Tenderness to Palpation of Joints or Extremities, No Muscle Wasting Psych/Mental Status: Appropriate, Flat Affect Microbiology Past 72 Hours 06/25/18 07:25 Urine, Clean Catch Legionella Antigen - Final 06/25/18 07:25 Urine, Clean Catch Streptococcus pneumoniae Antigen (M - Final Laboratory Results 06/25/18 00:27: Diff Path Review Reviewed 06/25/18 06:16: Diff Path Review Reviewed 06/26/18 16:07: POC Glucose 161 H 06/26/18 21:31: POC Glucose 198 H 06/27/18 06:49: POC Glucose 160 H Current Medications Acetaminophen (Tylenol) 1,000 mg PO Q6H PRN PRN PRN Reason: Non-cardiac pain (mod-severe) Last Admin: 06/26/18 22:44 Dose: 1,000 mg Al Hydroxide/Mg Hydroxide (Mylanta Ii) 15 - 30 ml PO Q4H PRN PRN PRN Reason: INDIGESTION Albuterol Sulfate (Ventolin Aerosols) 2.5 mg INHALATION Q2H PRN PRN PRN Reason: dyspnea, wheezing Last Admin: 06/27/18 09:38 Dose: 2.5 mg Albuterol/Ipratropium (Duoneb) 3 ml INHALATION Q4HWA.RT [facility] Last Admin: 06/27/18 10:52 Dose: 3 ml Aspirin (Ecotrin) 81 mg PO DAILY [facility] Last Admin: 06/27/18 09:45 Dose: 81 mg Atenolol (Tenormin (Beta Armando)) 25 mg PO DAILY [facility] Last Admin: 06/27/18 09:44 Dose: 25 mg Atorvastatin Calcium (Lipitor) 5 mg PO QHS [facility] Last Admin: 06/26/18 21:16 Dose: 5 mg Calamine/Phenol (Calmoseptine Ointment) 1 applic TOPICAL 4X/DAY [facility]; Protocol Last Admin: 06/27/18 14:27 Dose: 1 applicatio Clopidogrel Bisulfate (Plavix) 75 mg PO DAILY [facility] Last Admin: 06/27/18 09:45 Dose: 75 mg Dextrose (D50w Syringe) 0 gm IV X1 PRN; Protocol PRN Reason: Hypoglycemia Enoxaparin Sodium (Lovenox) 30 mg SC DAILY@1000 [facility] Last Admin: 06/27/18 09:45 Dose: 30 mg Glucagon () 1 mg IM .X1 PRN PRN Reason: Hypoglycemia Guaifenesin (Mucinex) 1,200 mg PO BID [facility] Last Admin: 06/27/18 09:44 Dose: 1,200 mg Hydralazine HCl (Apresoline Iv) 10 mg IV Q4H PRN PRN PRN Reason: SBP > 160 Azithromycin 500 mg/ Dextrose 255 mls @ 250 mls/hr IV Q24H [facility] Stop: 06/27/18 23:02 Last Admin: 06/26/18 21:53 Dose: 250 mls/hr Ceftriaxone Sodium (Rocephin) 1 gm in 50 mls @ 100 mls/hr IV Q24H [facility] Last Admin: 06/26/18 21:12 Dose: 100 mls/hr Sodium Chloride () 250 mls @ 15 mls/hr IV .[id number] PRN PRN Reason: SALINE FLUSH Insulin Human Lispro (Humalog Kwikpen (Bkc)) 0 unit SQ ACHS [facility]; Protocol Last Admin: 06/27/18 12:23 Dose: 1 u Methylprednisolone (Solu-Medrol) 40 mg IV Q8 [facility] Last Admin: 06/27/18 14:26 Dose: 40 mg Nicotine (Nicoderm Cq (Pbkc)) 21 mg TRANSDERM. DAILY [facility] Last Admin: 06/27/18 09:44 Dose: 21 mg Ondansetron HCl (Zofran) 4 mg IV Q8H PRN PRN PRN Reason: NAUSEA/VOMITING Potassium Chloride (K-Dur) 10 meq PO DAILY [facility] Last Admin: 06/27/18 09:44 Dose: 10 meq Sodium Chloride () 5 - 15 ml IV UD PRN PRN Reason: SALINE FLUSH Last Admin: 06/27/18 14:26 Dose: 10 ml Medical Necessity - Tobacco Use Smoking Status: Current every day smoker Tobacco Use: Cigarettes Assessment/Plan All Active Problems (Last Updated 10/03/17 @ 17:24 by Elle Sharma) Acute encephalopathy (Acute) Mental status change (Acute) Healthcare-associated pneumonia (Ruled-out) Severe sepsis (Acute) Pneumonia (Acute) Elevated troponin (Acute) 1. Acute exacerbation of COPD * CXR today shows possible RLL infiltrate (final report pending) * will start steroids and BDs * encouraged IS and acapella valve Q1 hr x 10 * consider CT/CTA chest if increasing O2 requirements 2. Metabolic encephalopathy * patient currently confused, but unclear how far off baseline, or if he is at baseline * maybe due to COPD exacerbation. * stop complicating medications: gabapentin, flexeril, narcotics 3. Possible pneumonia * continue empiric abx for now. * Strep and legionella antigens negative. 4. CKD 3 * stable 5. VTE proph: LMWH Code Visit Inpatient E&M: 52153 Subs Hosp L2
[2018-06-27 17:16] LABS: Bedside Glucose 186 mg/dL (70-110)
[2018-06-27 17:16] LABS: Bedside Glucose 151 mg/dL (70-110)
[2018-06-27] MEDS: Ceftriaxone 1 GM/50 ML BAG IV (21:08)
[2018-06-27] MEDS: Atorvastatin Calcium 10 MG Tablet 5 MG PO (22:47)
[2018-06-27 22:55] LABS: Bedside Glucose 181 mg/dL (70-110)
[2018-06-28] VITALS (9 sets, daily range): BP systolic 140–153; BP diastolic 77–80; PULSE 70–80; RESP 18–21; TEMP 36.4; O2SAT 88–97
[2018-06-28 06:26] LABS: Hematocrit 35.9 % (40-54); Hemoglobin 10.9 g/dl (13.0-16.5); Mean Corp Hgb Conc 30.4 g/gl (32-36); Mean Corpuscular Hgb 24.9 pg (27.0-32.0); Mean Platelet Vol. 9.2 fl (6.2-12.0); Platelet Count 95 K/mm3 (150-450); RBC Distribution Width CV 20.8 % (11.6-14.6); RBC Distribution Width SD 60.3 fl (35.1-43.9); Red Blood Count 4.38 M/mm3 (4.6-6.2); White Blood Count 11.7 K/mm3 (4.4-11.0)
[2018-06-28 06:29] LABS: Differential Indicated MANUAL DIFF; POSITIVE COUNT YES; POSITIVE DIFFERENTIAL NO; POSITIVE MORPHOLOGY YES
[2018-06-28] MEDS: 0.9% NaCl Peripheral Flush Adult/Peds IV (06:34)
[2018-06-28] MEDS: Insulin Lispro 100 UNIT/ML INSULN.PEN SQ ×2 (06:35→11:19)
[2018-06-28 06:36] LABS: Anion Gap 5 (5-15); BUN 30 mg/dL (7-18); Calcium,Total 8.8 mg/dL (8.5-10.1); Chloride 105 mmol/L (98-107); Creatinine, Serum 1.07 mg/dL (0.70-1.30); EST Glomerular Filtration Rate 73 mL/min (>60); Est Glom Filt Rate - Afr Amer 88 mL/min (>60); Estimated Creatinine Clearance 76.82 ml/min; Glucose 172 mg/dL (74-106); Sodium Level 136 mmol/L (136-145)
[2018-06-28 06:41] LABS: Lymphocyte 10 % (19-41); Monocyte 4 % (0-10); Neutrophil-Band 1 % (0-5); Neutrophil-Segmented 85 % (47-70); Platelet Estimate ADEQUATE (ADEQ); Red Cell Morphology NORM C+C NORMAL (NORM C&C); Total Cells Counted 100 (MANUAL DIFF)
[2018-06-28 06:42] LABS: Absolute Lymphocyte Count 1.17 X10^3/ul (0.83-4.51); Absolute Neutrophil Count 10.1 X10^3/uL (2.0-7.7); Lymphocyte # 1.17 X10^3/ul (4.0); Neutrophil # 10.06 X10^3/uL (2.7-7.7)
[2018-06-28 06:45] LABS: Bedside Glucose 167 mg/dL (70-110)
[2018-06-28] MEDS: Ipratropium/Albuterol Sulfate 3 ML AMPUL.NEB INHALATION ×2 (07:07→10:59)
[2018-06-28] MEDS: guaiFENesin 1,200 MG Tablet 1200 MG PO (09:22)
[2018-06-28] MEDS: Atenolol 25 MG Tablet PO (09:22)
[2018-06-28] MEDS: Clopidogrel Bisulfate 75 MG Tablet PO (09:23)
[2018-06-28] MEDS: Menthol/Lanolin/Calamine/Znox 113 GM Tube 1 APPLIC TOPICAL (09:23)
[2018-06-28] MEDS: Aspirin E.C. 81 MG Tablet PO (09:23)
[2018-06-28] MEDS: Enoxaparin 30 MG/0.3 ML Syringe SC (09:23)
--- NOTE | 2018-06-28 09:37 | PCM.DC ---
- Discharge Diagnoses Current Active Problems: Current Active and Chronic Problems (Last Updated 10/03/17 @ 17:24 by Elle Sharma) Acute encephalopathy (Acute) HTN (hypertension) (Chronic) HLD (hyperlipidemia) (Chronic) PAD (peripheral artery disease) (Chronic) CKD (chronic kidney disease) stage 3, GFR 30-59 ml/min (Chronic) You will use the following diet at home:: Calorie/Carbohydrate Controlled (specify 1200, 1400, etc) - 1800 Your food should be the consistency of: Regular Your liquids should be the consistency of: Regular/Thin Discharge Activity: Return to Normal Activity Call your doctor if you observe: Fever of 101 or Higher, Shortness of breath Instructions: TIPS (Transjugular Intrahepatic Portosystemic Shunt) Additional Instructions: oxygen 4liters/m continuous. Allergies/Adverse Reactions: Allergies No Known Allergies Allergy (Verified 06/24/18 23:51) Medications to take at Discharge Atenolol [Tenormin] 25 mg PO DAILY 07/03/17 Metformin HCl 1,000 mg PO BID 07/03/17 Simvastatin [Zocor] 10 mg PO QHS 07/03/17 Aspirin E.C. [Ecotrin] 81 mg PO DAILY 09/20/17 Clopidogrel Bisulfate [Plavix] 75 mg PO DAILY #30 tab 09/26/17 Potassium Chloride [K-Dur] 10 meq PO DAILY 05/26/18 Acetaminophen [Tylenol] 1,000 mg PO Q6H PRN PRN tablet 06/28/18 Albuterol Inhaler [Ventolin Hfa] 1 - 2 puff INHALATION Q4H PRN PRN #1 inhaler 06/28/18 Budesonide/Formoterol Fumarate [Symbicort 160-4.5 Mcg Inhaler] 2 puff IH BID #1 hfa.aer.ad 06/28/18 Prednisone 2 tab PO DAILY #10 tablet 06/28/18 levoFLOXacin tablet [Levaquin tablet] 750 mg PO DAILY #4 tablet 06/28/18 The following prescriptions were given: Albuterol Inhaler [Ventolin Hfa] 1 - 2 puff INHALATION Q4H PRN PRN #1 inhaler PRN Reason: Shortness Of Breath levoFLOXacin tablet [Levaquin tablet] 750 mg PO DAILY #4 tablet Prednisone 2 tab PO DAILY #10 tablet Budesonide/Formoterol Fumarate [Symbicort 160-4.5 Mcg Inhaler] 2 puff IH BID #1 hfa.aer.ad Primary Care Physician: [facility],[place] [Primary Care Provider] - Test Results: Test results from this visit will be discussed in further detail at your follow-up appointment, if applicable. Please Follow Up With: DR. HENRIQUEZ ([facility]) When: 5-7 DAYS Please Follow Up With: Eric Soni MD - Pulmonology When: 4-6 weeks Proposed Discharge Date: 06/28/18
--- NOTE | 2018-06-28 09:40 | DCINST_ITS ---
- Discharge Diagnoses Current Active Problems: Current Active and Chronic Problems (Last Updated 10/03/17 @ 17:24 by Elle Sharma) Acute encephalopathy (Acute) HTN (hypertension) (Chronic) HLD (hyperlipidemia) (Chronic) PAD (peripheral artery disease) (Chronic) CKD (chronic kidney disease) stage 3, GFR 30-59 ml/min (Chronic) You will use the following diet at home:: Calorie/Carbohydrate Controlled (specify 1200, 1400, etc) - 1800 Your food should be the consistency of: Regular Your liquids should be the consistency of: Regular/Thin Discharge Activity: Return to Normal Activity Call your doctor if you observe: Fever of 101 or Higher, Shortness of breath Instructions: TIPS (Transjugular Intrahepatic Portosystemic Shunt) Additional Instructions: oxygen 4liters/m continuous. Allergies/Adverse Reactions: Allergies No Known Allergies Allergy (Verified 06/24/18 23:51) Medications to take at Discharge Atenolol [Tenormin] 25 mg PO DAILY 07/03/17 Metformin HCl 1,000 mg PO BID 07/03/17 Simvastatin [Zocor] 10 mg PO QHS 07/03/17 Aspirin E.C. [Ecotrin] 81 mg PO DAILY 09/20/17 Clopidogrel Bisulfate [Plavix] 75 mg PO DAILY #30 tab 09/26/17 Potassium Chloride [K-Dur] 10 meq PO DAILY 05/26/18 Acetaminophen [Tylenol] 1,000 mg PO Q6H PRN PRN tablet 06/28/18 Albuterol Inhaler [Ventolin Hfa] 1 - 2 puff INHALATION Q4H PRN PRN #1 inhaler 06/28/18 Budesonide/Formoterol Fumarate [Symbicort 160-4.5 Mcg Inhaler] 2 puff IH BID #1 hfa.aer.ad 06/28/18 Prednisone 2 tab PO DAILY #10 tablet 06/28/18 levoFLOXacin tablet [Levaquin tablet] 750 mg PO DAILY #4 tablet 06/28/18 The following prescriptions were given: Albuterol Inhaler [Ventolin Hfa] 1 - 2 puff INHALATION Q4H PRN PRN #1 inhaler PRN Reason: Shortness Of Breath levoFLOXacin tablet [Levaquin tablet] 750 mg PO DAILY #4 tablet Prednisone 2 tab PO DAILY #10 tablet Budesonide/Formoterol Fumarate [Symbicort 160-4.5 Mcg Inhaler] 2 puff IH BID #1 hfa.aer.ad Primary Care Physician: [facility],[place] [Primary Care Provider] - Test Results: Test results from this visit will be discussed in further detail at your follow- up appointment, if applicable. Please Follow Up With: DR. HENRIQUEZ ([facility]) When: 5-7 DAYS Please Follow Up With: Eric Soni MD - Pulmonology When: 4-6 weeks Proposed Discharge Date: 06/28/18
--- NOTE | 2018-06-28 09:40 | PCM.DC.SUM ---
Discharge Date and Diagnosis - Problem List Patient Problems: Active and Suspected Problems (Last Updated 10/03/17 @ 17:24 by Elle Sharma) Acute encephalopathy (Acute) Date of Admission: 06/25/18 Date of Discharge: 06/28/18 - Primary Discharge Diagnosis Active and Suspected Problems (Last Updated 10/03/17 @ 17:24 by Elle Sharma) Acute encephalopathy (Acute) 1. Acute exacerbation of COPD improving, decreased oxygen requirements. DC with prednisone, PRN albuterol MDI, Symbicort still with hypoxia, therefore, will require oxygen continuously at 4 liters/min for now follow up with pulmonology as outpatient 2. Metabolic encephalopathy patient currently confused, but unclear how far off baseline, or if he is at baseline maybe due to COPD exacerbation. stop complicating medications: gabapentin, flexeril, narcotics 3. Possible pneumonia continue empiric abx for now. Strep and legionella antigens negative. continue levofloxacin for 4 more days (total 7 days of antibiotics) - Secondary Discharge Diagnosis Chronic Problems (Last Updated 10/03/17 @ 17:24 by Elle Sharma) HTN (hypertension) (Chronic) HLD (hyperlipidemia) (Chronic) PAD (peripheral artery disease) (Chronic) CKD (chronic kidney disease) stage 3, GFR 30-59 ml/min (Chronic) Stented coronary artery (Chronic 09/22/17) 3.5 X 16 Promus Synergy to mid LAD; 4.0 X 24 Promus Synergy to proximal LAD; POBA to Diagonal [address] Ruff @ [facility] NSTEMI (non-ST elevated myocardial infarction) (Chronic 09/22/17) Tobacco abuse (Chronic) Hospital Course and Treatment Imaging Results: Clinical Impression(s) from Imaging Studies Chest X-Ray 06/25/18 00:52 IMPRESSION: 1. Left lower lobe recurrent patchy infiltrate compatible with pneumonia. Left basilar chronic volume loss. at 0124 Reported and signed by: Delmar Abdi MD Electronically Signed: Delmar Abdi, at 1:23 EDT Tel , Service support , Brain CT 06/25/18 01:37 IMPRESSION: Normal unenhanced CT scan of the brain. No acute findings in the brain. No indication of any metastatic disease. Electronically Signed: Martin Lewis MD at 2:14 EDT Tel , Service support , Chest X-Ray 06/27/18 08:15 IMPRESSION: No acute findings Electronically Signed: Gary Mckinnon DO at 14:53 EDT Tel , Service support , None Operations: None Procedures: None Summary of Care Provided: The patient is a 68 year old M presents with fatigue, weakness and poor oral intake. Presented to the emergency room and was concern for left lower lobe patchy infiltrate and patient was started on Rocephin and azithromycin. I saw the patient later in the day on the and felt that the symptoms more treatable to acute exacerbation of COPD and started him on Solu-Medrol as well as bronchodilators. Patient did transiently get worse and, yesterday was actually on Ventimask. Repeat chest x-ray showed no significant changes. Today, the patient's oxygenation has improved on 4 L and is stable. Patient lung sounds are much improved with resolved wheezing. I feel the patient had an acute exacerbation of COPD comp gated by possible pneumonia versus a viral bronchitis. Recommend just continue with antibiotics for total 7 days. Recommend patient follow-up with pulmonology for further COPD evaluation. Patient will be on albuterol metered-dose inhaler plus Symbicort. Patient to complete a 5-day course of prednisone. Patient also did have confusion and was on several medication that likely enhance that, that being Flexeril, Ambien and narcotics. There is been discontinued and patient has done well since stopping those. I do not recommend continuing those at this time. [] Patient Problems: Active and Suspected Problems (Last Updated 10/03/17 @ 17:24 by Elle Sharma) Acute encephalopathy (Acute) - Physical Exam General: Alert, No apparent distress HEENT: Atraumatic, Normocephalic Oral: Moist Mucosa, No Gingival or Mucosal Lesions/ Ulcerations Lungs: Clear to auscultation, No rhonchi, No wheeze, Diminished Cardiovascular: Regular rate, Regular Rhythm, Normal S1, Normal S2, No murmurs Abdomen: Bowel Sounds Present, Soft, Non Tender, Non-Distended, No Hepato-splenomegaly Vital Signs Temp Pulse Resp BP Pulse Ox 36.4 C L 70 18 146/77 H 94 06/28/18 07:26 06/28/18 07:27 06/28/18 07:26 06/28/18 07:26 06/28/18 07:26 Oxygen Flow Rate (L/min) 4 Oxygen Delivery Method Nasal Cannula Weight: 90.6 kg Body Mass Index (BMI) 25.6 Finger Stick Blood Glucose 117 Intake and Output for Last 24 Hours 06/26/18 06/27/18 06/28/18 23:59 23:59 23:59 Intake Total 3295 / 3295 852 / 852 836 / 836 Output Total 800 / 800 1225 / 1225 1175 / 1175 Balance 2495 / 2495 -373 / -373 -339 / -339 Microbiology Past 72 Hours 06/25/18 07:25 Legionella Antigen - Final Urine, Clean Catch 06/25/18 07:25 Streptococcus pneumoniae Antigen (M - Final Urine, Clean Catch Laboratory Tests Past 24 Hrs 06/28/18 06/28/18 05:45 05:45 WBC 11.7 H RBC 4.38 L Hgb 10.9 L Hct 35.9 L MCV 82.0 MCH 24.9 L MCHC 30.4 L RDW 20.8 H RDW Differential 60.3 H Plt Count 95 L MPV 9.2 Neut % (Auto) Not Reportable Absolute Neuts (auto) 10.1 H Absolute Lymphs (auto) 1.17 Total Counted 100 Neutrophils % (Manual) 85 H Band Neutrophils % 1 Lymphocytes % (Manual) 10 L Monocytes % (Manual) 4 Diff Path Review May foll Platelet Estimate ADEQUATE RBC Morphology NORM C+C Sodium 136 Potassium 4.0 Chloride 105 Carbon Dioxide 26.0 Anion Gap 5 BUN 30 H Creatinine 1.07 Estim Creat Clear Calc 76.82 Est GFR (MDRD) Af Amer 88 Est GFR (MDRD) Non-Af 73 BUN/Creatinine Ratio 28.0 H Glucose 172 H Calcium 8.8 POC Glucose 06/28/18 06/27/18 06/27/18 06:33 22:43 17:08 POC Glucose 167 H 181 H 186 H 06/27/18 12:21 POC Glucose 151 H Discharge Diet: 1800 Calorie Control Diet Discharge Activity: Return to Normal Activity Call your doctor if you observe: Fever of 101 or Higher, Shortness of breath Home Medications: Medications to take at Discharge Atenolol [Tenormin] 25 mg PO DAILY 07/03/17 Metformin HCl 1,000 mg PO BID 07/03/17 Simvastatin [Zocor] 10 mg PO QHS 07/03/17 Aspirin E.C. [Ecotrin] 81 mg PO DAILY 09/20/17 Clopidogrel Bisulfate [Plavix] 75 mg PO DAILY #30 tab 09/26/17 Potassium Chloride [K-Dur] 10 meq PO DAILY 05/26/18 Acetaminophen [Tylenol] 1,000 mg PO Q6H PRN PRN tablet 06/28/18 Albuterol Inhaler [Ventolin Hfa] 1 - 2 puff INHALATION Q4H PRN PRN #1 inhaler 06/28/18 Budesonide/Formoterol Fumarate [Symbicort 160-4.5 Mcg Inhaler] 2 puff IH BID #1 hfa.aer.ad 06/28/18 Prednisone 2 tab PO DAILY #10 tablet 06/28/18 levoFLOXacin tablet [Levaquin tablet] 750 mg PO DAILY #4 tablet 06/28/18 Following Prescrptions Were Given to Patient: Albuterol Inhaler [Ventolin Hfa] 1 - 2 puff INHALATION Q4H PRN PRN #1 inhaler PRN Reason: Shortness Of Breath levoFLOXacin tablet [Levaquin tablet] 750 mg PO DAILY #4 tablet Prednisone 2 tab PO DAILY #10 tablet Budesonide/Formoterol Fumarate [Symbicort 160-4.5 Mcg Inhaler] 2 puff IH BID #1 hfa.aer.ad Primary Care Physician: [facility],[place] [Primary Care Provider] - Please Follow Up With: DR. HENRIQUEZ ([facility]) When: 5-7 DAYS Please Follow Up With: Eric Soni MD - Pulmonology When: 4-6 weeks Patient Instructions: TIPS (Transjugular Intrahepatic Portosystemic Shunt) Disposition: Home with Home Health Minutes spent on discharge:: 32 Patient Condition:: Fair Medical Necessity - Tobacco Use Smoking Status: Current every day smoker Tobacco Use: Cigarettes Meaningful Use Info Meaningful Use Diagnoses (Choose all that apply): None applicable Code Visit Inpatient E&M: 08532 Disch Hosp
--- NOTE | 2018-06-28 09:46 | DS.PCM_ITS ---
Discharge Date and Diagnosis - Problem List Patient Problems: Active and Suspected Problems (Last Updated 10/03/17 @ 17:24 by Elle Sharma) Acute encephalopathy (Acute) Date of Admission: 06/25/18 Date of Discharge: 06/28/18 - Primary Discharge Diagnosis Active and Suspected Problems (Last Updated 10/03/17 @ 17:24 by Elle Sharma) Acute encephalopathy (Acute) 1. Acute exacerbation of COPD * improving, decreased oxygen requirements. * DC with prednisone, PRN albuterol MDI, Symbicort * still with hypoxia, therefore, will require oxygen continuously at 4 liters/min for now * follow up with pulmonology as outpatient 2. Metabolic encephalopathy * patient currently confused, but unclear how far off baseline, or if he is at baseline * maybe due to COPD exacerbation. * stop complicating medications: gabapentin, flexeril, narcotics 3. Possible pneumonia * continue empiric abx for now. * Strep and legionella antigens negative. * continue levofloxacin for 4 more days (total 7 days of antibiotics) - Secondary Discharge Diagnosis Chronic Problems (Last Updated 10/03/17 @ 17:24 by Elle Sharma) HTN (hypertension) (Chronic) HLD (hyperlipidemia) (Chronic) PAD (peripheral artery disease) (Chronic) CKD (chronic kidney disease) stage 3, GFR 30-59 ml/min (Chronic) Stented coronary artery (Chronic 09/22/17) 3.5 X 16 Promus Synergy to mid LAD; 4.0 X 24 Promus Synergy to proximal LAD; POBA to Diagonal [address] Ruff @ [facility] NSTEMI (non-ST elevated myocardial infarction) (Chronic 09/22/17) Tobacco abuse (Chronic) Hospital Course and Treatment Imaging Results: Clinical Impression(s) from Imaging Studies Chest X-Ray 06/25/18 00:52 IMPRESSION: 1. Left lower lobe recurrent patchy infiltrate compatible with pneumonia. Left basilar chronic volume loss. at 0124 Reported and signed by: Delmar Abdi MD Electronically Signed: Delmar Abdi, at 1:23 EDT Tel , Service support , Brain CT 06/25/18 01:37 IMPRESSION: Normal unenhanced CT scan of the brain. No acute findings in the brain. No indication of any metastatic disease. Electronically Signed: Martin Lewis MD at 2:14 EDT Tel , Service support , Chest X-Ray 06/27/18 08:15 IMPRESSION: No acute findings Electronically Signed: Gary Mckinnon DO at 14:53 EDT Tel , Service support , None Operations: None Procedures: None Summary of Care Provided: The patient is a 68 year old M presents with fatigue, weakness and poor oral intake. Presented to the emergency room and was concern for left lower lobe patchy infiltrate and patient was started on Rocephin and azithromycin. I saw the patient later in the day on the and felt that the symptoms more treatable to acute exacerbation of COPD and started him on Solu-Medrol as well as bronchodilators. Patient did transiently get worse and, yesterday was actually on Ventimask. Repeat chest x-ray showed no significant changes. Today, the patient's oxygenation has improved on 4 L and is stable. Patient lung sounds are much improved with resolved wheezing. I feel the patient had an acute exacerbation of COPD comp gated by possible pneumonia versus a viral bronchitis. Recommend just continue with antibiotics for total 7 days. Recommend patient follow-up with pulmonology for further COPD evaluation. Patient will be on albuterol metered-dose inhaler plus Symbicort. Patient to complete a 5-day course of prednisone. Patient also did have confusion and was on several medication that likely enhance that, that being Flexeril, Ambien and narcotics. There is been discontinued and patient has done well since stopping those. I do not recommend continuing those at this time. [] Patient Problems: Active and Suspected Problems (Last Updated 10/03/17 @ 17:24 by Elle Sharma) Acute encephalopathy (Acute) - Physical Exam General: Alert, No apparent distress HEENT: Atraumatic, Normocephalic Oral: Moist Mucosa, No Gingival or Mucosal Lesions/ Ulcerations Lungs: Clear to auscultation, No rhonchi, No wheeze, Diminished Cardiovascular: Regular rate, Regular Rhythm, Normal S1, Normal S2, No murmurs Abdomen: Bowel Sounds Present, Soft, Non Tender, Non-Distended, No Hepato- splenomegaly Vital Signs Temp Pulse Resp BP Pulse Ox 36.4 C L 70 18 146/77 H 94 06/28/18 07:26 06/28/18 07:27 06/28/18 07:26 06/28/18 07:26 06/28/18 07:26 Oxygen Flow Rate (L/min) 4 Oxygen Delivery Method Nasal Cannula Weight: 90.6 kg Body Mass Index (BMI) 25.6 Finger Stick Blood Glucose 117 Intake and Output for Last 24 Hours 06/26/18 06/27/18 06/28/18 23:59 23:59 23:59 Intake Total 3295 / 3295 852 / 852 836 / 836 Output Total 800 / 800 1225 / 1225 1175 / 1175 Balance 2495 / 2495 -373 / -373 -339 / -339 Microbiology Past 72 Hours 06/25/18 07:25 Legionella Antigen - Final Urine, Clean Catch 06/25/18 07:25 Streptococcus pneumoniae Antigen (M - Final Urine, Clean Catch Laboratory Tests Past 24 Hrs 06/28/18 06/28/18 05:45 05:45 WBC 11.7 H RBC 4.38 L Hgb 10.9 L Hct 35.9 L MCV 82.0 MCH 24.9 L MCHC 30.4 L RDW 20.8 H RDW Differential 60.3 H Plt Count 95 L MPV 9.2 Neut % (Auto) Not Reportable Absolute Neuts (auto) 10.1 H Absolute Lymphs (auto) 1.17 Total Counted 100 Neutrophils % (Manual) 85 H Band Neutrophils % 1 Lymphocytes % (Manual) 10 L Monocytes % (Manual) 4 Diff Path Review May foll Platelet Estimate ADEQUATE RBC Morphology NORM C+C Sodium 136 Potassium 4.0 Chloride 105 Carbon Dioxide 26.0 Anion Gap 5 BUN 30 H Creatinine 1.07 Estim Creat Clear Calc 76.82 Est GFR (MDRD) Af Amer 88 Est GFR (MDRD) Non-Af 73 BUN/Creatinine Ratio 28.0 H Glucose 172 H Calcium 8.8 POC Glucose 06/28/18 06/27/18 06/27/18 06:33 22:43 17:08 POC Glucose 167 H 181 H 186 H 06/27/18 12:21 POC Glucose 151 H Discharge Diet: 1800 Calorie Control Diet Discharge Activity: Return to Normal Activity Call your doctor if you observe: Fever of 101 or Higher, Shortness of breath Home Medications: Medications to take at Discharge Atenolol [Tenormin] 25 mg PO DAILY 07/03/17 Metformin HCl 1,000 mg PO BID 07/03/17 Simvastatin [Zocor] 10 mg PO QHS 07/03/17 Aspirin E.C. [Ecotrin] 81 mg PO DAILY 09/20/17 Clopidogrel Bisulfate [Plavix] 75 mg PO DAILY #30 tab 09/26/17 Potassium Chloride [K-Dur] 10 meq PO DAILY 05/26/18 Acetaminophen [Tylenol] 1,000 mg PO Q6H PRN PRN tablet 06/28/18 Albuterol Inhaler [Ventolin Hfa] 1 - 2 puff INHALATION Q4H PRN PRN #1 inhaler 06/28/18 Budesonide/Formoterol Fumarate [Symbicort 160-4.5 Mcg Inhaler] 2 puff IH BID #1 hfa.aer.ad 06/28/18 Prednisone 2 tab PO DAILY #10 tablet 06/28/18 levoFLOXacin tablet [Levaquin tablet] 750 mg PO DAILY #4 tablet 06/28/18 Following Prescrptions Were Given to Patient: Albuterol Inhaler [Ventolin Hfa] 1 - 2 puff INHALATION Q4H PRN PRN #1 inhaler PRN Reason: Shortness Of Breath levoFLOXacin tablet [Levaquin tablet] 750 mg PO DAILY #4 tablet Prednisone 2 tab PO DAILY #10 tablet Budesonide/Formoterol Fumarate [Symbicort 160-4.5 Mcg Inhaler] 2 puff IH BID #1 hfa.aer.ad Primary Care Physician: [facility] [Primary Care Provider] - Please Follow Up With: DR. HENRIQUEZ ([facility]) When: 5-7 DAYS Please Follow Up With: Eric Soni MD - Pulmonology When: 4-6 weeks Patient Instructions: TIPS (Transjugular Intrahepatic Portosystemic Shunt) Disposition: Home with Home Health Minutes spent on discharge:: 32 Patient Condition:: Fair Medical Necessity - Tobacco Use Smoking Status: Current every day smoker Tobacco Use: Cigarettes Meaningful Use Info Meaningful Use Diagnoses (Choose all that apply): None applicable Code Visit Inpatient E&M: 69347 Disch Hosp
--- NOTE | 2018-06-28 10:33 | CASEMGMT ---
RN ISREAL received update that patient will require oxygen at discharge. AILEEN BACH in to speak with patient regarding DME company and patient would like [employer]. [place] [facility] [place]EN [place]ACH inquired with patient if he would like HHC at discharge and patient denied. AILEEN BACH instructed that if patient would like [facility] in the future to [facility] with [facility]. Patient voiced understanding and gave permission for AILEEN BACH to call and updated . AILEEN BACH called , no answer, message left requesting call back. CM will continue to follow this patient and plan for a safe discharge.
[2018-06-28 13:02] LABS: Bedside Glucose 274 mg/dL (70-110)
[2018-06-28 13:22] LABS: Pathologist Review Reviewed
--- NOTE | 2018-06-29 14:57 | CASEMGMT ---
RN ISREAL DC PHONE CALL DC DATE: 06/28/18 DC Disposition: Home LACE/STRATA: 13/ Intro role of CM to patient's . States no questions re: prescriptions, instructions or f/u. No care improvement instructions given. Abel AMBROSION RN ACM
== END 2018-06-28 12:58 | disposition home or self-care (01) | DRG 190 ==
LOC: ED 06-25 00:36 → MS3 06-25 03:08
PROVIDERS: Admitting Provider Family Medicine; Emergency Provider Emergency Medicine
DX: J44.1 Chronic obstructive pulmonary disease with (acute) exacerbation (principal); G93.41 Metabolic encephalopathy; J18.9 Pneumonia, unspecified organism; I25.10 Atherosclerotic heart disease of native coronary artery without angina pectoris; E78.5 Hyperlipidemia, unspecified; I12.9 Hypertensive chronic kidney disease with stage 1 through stage 4 chronic kidney disease, or unspecified chronic kidney disease; N18.3 Chronic kidney disease, stage 3 (moderate); J44.0 Chronic obstructive pulmonary disease with (acute) lower respiratory infection; I73.9 Peripheral vascular disease, unspecified; E11.22 Type 2 diabetes mellitus with diabetic chronic kidney disease; F17.210 Nicotine dependence, cigarettes, uncomplicated; R09.02 Hypoxemia; Z86.79 Personal history of other diseases of the circulatory system; Z95.5 Presence of coronary angioplasty implant and graft; Z79.84 Long term (current) use of oral hypoglycemic drugs; I25.2 Old myocardial infarction
CPT/HCPCS: 36415; 36600; 70450; 71045; 71046; 80048; 81001; 82803; 82962; 83735; 85025; 87449; 93005; 94640; 94667; 94668; 97162; 97166; 97530; 99285; 99406; J7030; J7050; A4216

== ENCOUNTER 2018-06-29 22:48 | Inpatient (IN) | payer MEDICARE, OTHER, SELFPAY ==
[2017-09-22 13:36] VITALS: BMI 27.3
[2018-06-25 03:58] VITALS: BMI 25.6
[2018-06-29 22:49] VITALS: BP 99/51; PULSE 90; RESP 19; TEMP 36.8; O2SAT 88; BMI 26.2
[2018-06-29 22:54] VITALS: TEMP 37.2; O2SAT 90
--- NOTE | 2018-06-29 23:31 | RAD_ITS ---
HISTORY: Cough EXAM:XR Chest 1 View COMPARISON: 06/25/2018 and 05/26/2018 FINDINGS: EKG leads in place. Chronic mild elevation of the left hemidiaphragm with secondary hypoventilation of the left lung base. No acute infiltrate. The right lung appears clear. Normal heart size. Left coronary artery atherosclerotic calcifications or stent. No vascular congestion or pleural effusion. No pneumothorax. RAD/Chest 1 View (Portable) IMPRESSION: 1. No acute cardiopulmonary disease. No significant interval change. 2. Chronic mild elevation of the left hemidiaphragm. at 0011 Reported and signed by: Delmar Abdi MD Electronically Signed: Delmar Abdi, at 0:10 EDT Tel , Service support ,
--- NOTE | 2018-06-29 23:31 | EKG12_ITS ---
Test Reason : SOB Blood Pressure : / mmHG Vent. Rate : 084 BPM Atrial Rate : 084 BPM P-R Int : 136 ms QRS Dur : 100 ms QT Int : 400 ms P-R-T Axes : 060 008 -34 degrees QTc Int : 472 ms Sinus rhythm with frequent Premature ventricular complexes Inferior infarct , age undetermined Abnormal ECG Confirmed by SHANA CARROLL, ANUSHKA ([id number]), image editor JESS LEHMAN ([id number]) on 07/03/2018 4:23:57 PM Referred By: MARLYN Confirmed By:ANUSHKA SALDANA MD
--- NOTE | 2018-06-29 23:32 | ED.VISSUMM ---
- ER Visit Summary Date of Service: 06/29/18 Chief Complaint: Shortness of breath, low blood pressure, low oxygen History of Present Illness: The patient is a 68 M who was recently admitted. He was diagnosed with COPD exacerbation, possible pneumonia, metabolic encephalopathy. He was discharged yesterday. He was discharged on oxygen. Family was checking his vitals and noted that his oxygen saturation and blood pressure were low. He complains of chest pain and feeling short of breath. He reports fevers. He reports cough. No vomiting or diarrhea. History is limited as he is confused and currently does not have any visitors. Physical Examination: Blood pressure 99/51, pulse ox 88% on 4 L heart rate 90, respiratory 19 Moist mucous membranes Heart regular rate and rhythm Lungs clear Abdomen soft nontender nondistended Patient is drowsy but he is oriented to age and person, place. He has unable to accurately tell me the month and states that it is April. He does not appear to have any focal or lateralizing neurological deficits Test Results: EKG shows sinus rhythm at a rate of 84 with PVCs. ABG shows pH 7.37, PCO2 36, PO2 64. Chest x-ray shows no acute disease is, no significant changes. Labs notable for white count 12.8, 11.8, BUN of 53 with creatinine 1.79 which is increased from recent labs. Lactic acid mildly elevated at 2.2. Emergency Department Course and Treatment: Patient was treated with IV fluids. On reevaluation both blood pressure and heart rate are improved. However he is confused. I am concerned about his ability to be cared for care for himself at home in his current state. Patient may need additional resources at home are higher level of care. Patient will be discussed with hospitalist for admission. Treatment Plan: [] Disposition: Admit Impression: Confusion Acute kidney injury This note was generated with Zodio dictation software. It may contain incorrect words, spelling, and punctuation that were not noted in review of the chart prior to signing ED Disposition - Plan for ED Patient: [facility] -
[2018-06-29] MEDS: 0.9% Normal Saline 1,000 ML 1000 ML IV (23:40)
[2018-06-29 23:49] VITALS: BP 127/62; PULSE 79; RESP 18; O2SAT 94
[2018-06-29 23:54] VITALS: TEMP 36.9
[2018-06-29 23:56] LABS: Allen Test POS; Base Excess -4 mmol/L (-2 to +2); Bicarbonate 21.1 mmol/L (22-26); Blood Gas Specimen Type ART; O2 Delivery Device Nasal Can; PO2 64 mmHG (75-100); SITE L Radial; SO2 92 % (95-99); Time Given 2345; Total Carbon Dioxide 22 mmol/L; pCO2 36.2 mmHg (35-45); pH 7.37 (7.35-7.45)
[2018-06-30] VITALS (12 sets, daily range): BP systolic 102–144; BP diastolic 56–70; PULSE 72–84; RESP 16–22; TEMP 36.2–37.2; O2SAT 92–99; BMI 25.8; BMI 25.9
[2018-06-30 00:09] LABS: Anion Gap 9 (5-15); BUN 53 mg/dL (7-18); BUN/Creat Ratio 29.6 RATIO (10-20); Calcium,Total 8.9 mg/dL (8.5-10.1); Chloride 103 mmol/L (98-107); Creatinine, Serum 1.79 mg/dL (0.70-1.30); EST Glomerular Filtration Rate 40 mL/min (>60); Est Glom Filt Rate - Afr Amer 49 mL/min (>60); Estimated Creatinine Clearance 47.21 ml/min; Glucose 140 mg/dL (74-106); Potassium 4.3 mmol/L (3.5-5.1); Sodium Level 135 mmol/L (136-145)
[2018-06-30 00:10] LABS: Hemoglobin 11.8 g/dl (13.0-16.5)
[2018-06-30 00:18] LABS: Lactic Acid 2.2 mmol/L (0.4-2.0)
[2018-06-30 00:19] LABS: Hematocrit 37.9 % (40-54); Mean Corpuscular Hgb 25.3 pg (27.0-32.0); Mean Corpuscular Volume 81.3 fL (80-94); Red Blood Count 4.66 M/mm3 (4.6-6.2); White Blood Count 12.8 K/mm3 (4.4-11.0)
[2018-06-30 00:20] LABS: Differential Indicated MANUAL DIFF; Mean Corp Hgb Conc 31.1 g/gl (32-36); Mean Platelet Vol. 10.3 fl (6.2-12.0); NRBC Flagged by Analyzer 4.9 % (0-5); POSITIVE COUNT YES; POSITIVE DIFFERENTIAL NO; POSITIVE MORPHOLOGY YES; Platelet Count 103 K/mm3 (150-450); RBC Distribution Width CV 21.4 % (11.6-14.6); RBC Distribution Width SD 61.1 fl (35.1-43.9)
[2018-06-30 00:21] LABS: Absolute Nucleated RBC Count 0.63 10^3/uL (0-5)
[2018-06-30 00:50] LABS: Neutrophil-Band 2 % (0-5); Neutrophil-Segmented 73 % (47-70); Total Cells Counted 100 (MANUAL DIFF)
--- NOTE | 2018-06-30 00:50 | NURSING ---
CALLED [facility] JUST SAID THEY HAVE NO BEDS
[2018-06-30 00:51] LABS: Anisocytosis 1+; Hypochromasia 1+; Lymphocyte 19 % (19-41); Metamyelocyte 2 % (0-1); Microcytosis 1+; Monocyte 4 % (0-10); Platelet Estimate SLT DEC (ADEQ); Platelet Morphology LARGE; Polychromasia 1+
[2018-06-30 00:52] LABS: Absolute Lymphocyte Count 2.43 X10^3/ul (0.83-4.51); Absolute Neutrophil Count 9.6 X10^3/uL (2.0-7.7)
--- NOTE | 2018-06-30 00:52 | HP.PCM_ITS ---
Problem List (1) HTN (hypertension) Status: Chronic Qualifiers: Hypertension type: essential hypertension Qualified Code(s): I10 - Essential (primary) hypertension (2) HLD (hyperlipidemia) Status: Chronic Qualifiers: Hyperlipidemia type: unspecified Qualified Code(s): E78.5 - Hyperlipidemia, unspecified (3) PAD (peripheral artery disease) Status: Chronic (4) CKD (chronic kidney disease) stage 3, GFR 30-59 ml/min Status: Chronic History of Present Illness Date of Admission: 06/30/18 Chief Complaint: hypoxia and low blood pressure The patient is a 68 year old M with a significant history of tobacco abuse; hypertension; hyperlipidemia; CKD stage III; and tobacco abuse who was admitted on 06/25/2018 and discharged 06/28/2018 for acute encephalopathy; acute exacerbation of COPD and possible pneumonia presenting next day of discharge because of hypoxia and low blood pressure. Patient was discharged home on oxygen. On presentation emergency department doctor reported the patient initially was satting 88% on 4 L but later on same oxygen settings he improved into the 90s. History was taken for emergency department doctor because patient was not able to provide history. At the Emergency department doctor patient was found to have low blood pressure at home. And on presentation his blood pressure was 99/51 and after receiving IV fluids his systolic blood pressure improved into the 120s. Patient was noted to have severely elevated creatinine above his baseline. Past Medical History Past Medical History (Chronic Problems): Chronic Problems (Last Reviewed 06/30/18 @ 05:33 by Felix Ambriz MD) HTN (hypertension) (Chronic) HLD (hyperlipidemia) (Chronic) PAD (peripheral artery disease) (Chronic) CKD (chronic kidney disease) stage 3, GFR 30-59 ml/min (Chronic) Stented coronary artery (Chronic 09/22/17) 3.5 X 16 Promus Synergy to mid LAD; 4.0 X 24 Promus Synergy to proximal LAD; POBA to Diagonal [address] Ruff @ [facility] NSTEMI (non-ST elevated myocardial infarction) (Chronic 09/22/17) Tobacco abuse (Chronic) Medical History: Medical History (Last Reviewed 06/30/18 @ 05:33 by Felix Ambriz MD) NSTEMI (non-ST elevated myocardial infarction) (Chronic) Onset Date: 09/22/17 I21.4 CAD (coronary artery disease) I25.10 DM2 (diabetes mellitus, type 2) E11.9 Hyperlipidemia E78.5 Non-healing wound of right heel S91.301A PAD (peripheral artery disease) I73.9 HTN (hypertension) I10 Allergies No Known Allergies Allergy (Verified 06/24/18 23:51) Home Medications: Ambulatory Orders Medication Instructions Recorded Atenolol [Tenormin] 25 mg PO DAILY 07/03/17 Metformin HCl 1,000 mg PO BID 07/03/17 Simvastatin [Zocor] 10 mg PO QHS 07/03/17 Aspirin E.C. [Ecotrin] 81 mg PO DAILY 09/20/17 Clopidogrel Bisulfate [Plavix] 75 mg PO DAILY #30 tab 09/26/17 Potassium Chloride [K-Dur] 10 meq PO DAILY 05/26/18 Albuterol Inhaler [Ventolin Hfa] 1 - 2 puff INHALATION Q4H PRN PRN 06/28/18 #1 inhaler Budesonide/Formoterol Fumarate 2 puff IH BID #1 hfa.aer.ad 06/28/18 [Symbicort 160-4.5 Mcg Inhaler] Prednisone 2 tab PO DAILY #10 tablet 06/28/18 levoFLOXacin tablet [Levaquin 750 mg PO DAILY #4 tablet 06/28/18 tablet] Cyclobenzaprine [Flexeril] 10 mg PO BID 06/30/18 Gabapentin 600 mg PO TID 06/30/18 Oxycodone HCl/Acetaminophen 1 each PO Q6H PRN PRN 06/30/18 [Oxycodon-Acetaminophen 7.5-325] Surgical History: Surgical History (Last Reviewed 06/30/18 @ 05:33 by Felix Ambriz MD) Stented coronary artery (Chronic) Onset Date: 09/22/17 Z95.5 3.5 X 16 Promus Synergy to mid LAD; 4.0 X 24 Promus Synergy to proximal LAD; POBA to Diagonal [address] Ruff @ [facility] Surgical History: total knee arthroplasty, - - Multiple coronary artery stents, lumbar spine surgery x 3, R TKR, Hx AAA repair w/ stent, BL elbow ? nerve surgery. Psychiatric History: No pertinent psych hx Lives: Spouse/ Significant Other Smoking Status: Current every day smoker - *Family History Maternal History Items: Hypertension Paternal History Items: Hypertension Review of Systems Unable to obtain accurate/complete ROS d/t: encephalopathy VTE Information - Inpt Only VTE Present on Admission: No VTE Mechan Device Prophylaxis: None VTE Pharm Prophylaxis ordered?: Yes - Physical Exam General: Lethargic, - - Oriented to self and place. Not oriented to month or year. HEENT: Atraumatic, PERRLA, EOMI, Normocephalic Neck: Supple, No JVD, Negative Carotid Bruits Lungs: Clear to auscultation, Normal air movement, Using Accessory Muscles Cardiovascular: Regular rate, No murmurs Abdomen: Bowel Sounds Present, Soft, Non Tender Extremities: No edema, Capillary Refill Less than 3 Seconds Skin: No rashes, No breakdown Musculoskeletal: No Tenderness to Palpation of Joints or Extremities Neurological: Cranial nerves II-XII grossly intact, - - Lethargic Psych/Mental Status: Normal Affect, Appropriate Vital Signs Temp Pulse Resp BP Pulse Ox 98.6 F 80 17 117/63 92 06/30/18 00:00 06/30/18 00:00 06/30/18 00:00 06/30/18 00:00 06/30/18 00:00 Oxygen Flow Rate (L/min) 4 Oxygen Delivery Method Nasal Cannula Weight: 95.1 kg Body Mass Index (BMI) 26.2 Finger Stick Blood Glucose 117 Laboratory Tests Past 24 Hrs 06/29/18 06/29/18 06/29/18 23:42 23:42 23:42 WBC 12.8 H RBC 4.66 Hgb 11.8 L Hct 37.9 L MCV 81.3 MCH 25.3 L MCHC 31.1 L RDW 21.4 H RDW Differential 61.1 H Plt Count 103 L MPV 10.3 Neut % (Auto) Not Reportable Absolute Neuts (auto) Not Reportable Total Counted Pending Nucleated RBC % 4.9 Absolute Retic 0.63 Specimen Type Sample Site pH Bicarbonate Actual POC Total CO2 Base Excess O2 Saturation ABG pCO2 ABG pO2 Arias Test O2 Delivery Device Liter Flow Blood Gas Notified Whom Blood Gas Notified Time Sodium 135 L Potassium 4.3 Chloride 103 Carbon Dioxide 23.0 Anion Gap 9 BUN 53 H Creatinine 1.79 H Estim Creat Clear Calc 47.21 Est GFR (MDRD) Af Amer 49 L Est GFR (MDRD) Non-Af 40 L BUN/Creatinine Ratio 29.6 H Glucose 140 H Lactic Acid 2.2 H Calcium 8.9 06/29/18 23:53 WBC RBC Hgb Hct MCV MCH MCHC RDW RDW Differential Plt Count MPV Neut % (Auto) Absolute Neuts (auto) Total Counted Nucleated RBC % Absolute Retic Specimen Type ART Sample Site L Radial pH 7.37 Bicarbonate Actual 21.1 L POC Total CO2 22 Base Excess -4 L O2 Saturation 92 L ABG pCO2 36.2 ABG pO2 64 L Arias Test POS O2 Delivery Device Nasal Can Liter Flow 4.0 Blood Gas Notified Whom ED MD Blood Gas Notified Time 2345 Sodium Potassium Chloride Carbon Dioxide Anion Gap BUN Creatinine Estim Creat Clear Calc Est GFR (MDRD) Af Amer Est GFR (MDRD) Non-Af BUN/Creatinine Ratio Glucose Lactic Acid Calcium Assessment/Plan All Active Problems (Last Reviewed 06/30/18 @ 05:33 by Felix Ambriz MD) Acute encephalopathy (Acute) Mental status change (Acute) Healthcare-associated pneumonia (Ruled-out) Severe sepsis (Acute) Pneumonia (Acute) Elevated troponin (Acute) The patient is a 68 year old M with a significant history of tobacco abuse; hypertension; hyperlipidemia; CKD stage III; and tobacco abuse who was admitted on 06/25/2018 and discharged 06/28/2018 for acute encephalopathy; acute exacerbation of COPD and possible pneumonia presenting with hypoxia and low blood pressure and found to have severely elevated creatinine consistent with JUDY. JUDY on CKD stage III Creatinine on admission was 1.79 Review of old records show that his creatinine a day before was 1.07. Received IV fluids at the emergency department Gentle IV fluids of normal saline Avoid nephrotoxins Trend BMP COPD Patient appears short of breath. Was recently admitted for COPD We will put patient on scheduled DuoNeb And as needed albuterol. Prednisone continued ABG on presentation showed hypoxia Possible pneumonia On previous admission noted in HPI patient was placed on Levaquin for probable pneumonia. We will continue patient on Levaquin adjusted for creatinine clearance. Encephalopathy Is unclear whether patient has acute encephalopathy or this is his baseline. Diabetes mellitus On presentation his blood glucose was within goal. Hold home metformin. Accu-Chek QA CHS without correction scale at this time. Adult failure to thrive. It appears that it may be difficult for patient spouse to take patient home. Recommend senior care placement for medication administration and for medical oversight until patient is stable. cad Aspirin, plavix and Statin continued Tobacco Abuse Counselled Nicotine patch prescribed. DVT prophylaxis Subcutaneous Lovenox. Code Visit Inpatient E&M: 83526 Init Hosp L3
[2018-06-30 02:41] LABS: Bedside Glucose 134 mg/dL (70-110)
[2018-06-30 03:49] LABS: Reflex Lactate? Y
[2018-06-30] MEDS: 0.9% NaCl Peripheral Flush Adult/Peds IV (04:02)
[2018-06-30] MEDS: 0.9% Normal Saline 1,000 ML 100 ML IV (04:03)
[2018-06-30 04:38] LABS: Anion Gap 6 (5-15); BUN 48 mg/dL (7-18); BUN/Creat Ratio 32.7 RATIO (10-20); Calcium,Total 8.9 mg/dL (8.5-10.1); Chloride 106 mmol/L (98-107); Creatinine, Serum 1.47 mg/dL (0.70-1.30); EST Glomerular Filtration Rate 51 mL/min (>60); Est Glom Filt Rate - Afr Amer 61 mL/min (>60); Estimated Creatinine Clearance 55.92 ml/min; Glucose 130 mg/dL (74-106); Potassium 4.3 mmol/L (3.5-5.1); Sodium Level 138 mmol/L (136-145)
[2018-06-30 04:46] LABS: Lactic Acid 1.7 mmol/L (0.4-2.0)
[2018-06-30] MEDS: Acetaminophen 500 MG Tablet 1000 MG PO ×2 (06:25→19:53)
[2018-06-30 06:46] LABS: Bedside Glucose 126 mg/dL (70-110)
[2018-06-30] MEDS: Ipratropium/Albuterol Sulfate 3 ML AMPUL.NEB INHALATION ×2 (07:01→18:57)
--- NOTE | 2018-06-30 09:18 | CASEMGMT ---
Patient has a Healthcare POA and Healthcare LW. Patient and family aware they are not on file per nursing admission questions. Charley SALMERON MSW
[2018-06-30] MEDS: Aspirin 81 MG TAB.CHEW PO (09:23)
[2018-06-30] MEDS: predniSONE 20 MG Tablet 40 MG PO (09:23)
[2018-06-30] MEDS: Enoxaparin 40 MG/0.4 ML Syringe SC (09:23)
[2018-06-30] MEDS: Clopidogrel Bisulfate 75 MG Tablet PO (09:24)
[2018-06-30] MEDS: Glucerna Shake 120 ML LIQUID PO ×2 (09:27→14:04)
--- NOTE | 2018-06-30 09:51 | CASEMGMT ---
Readmission chart review: Pt initially admitted 06/25-06/28/18 on [facility] for Pneumonia, encephalopathy. See assessment completed by Abel GALLAGHER CM on 06/26/18. Pt was sent home on 06/28/18 with home oxygen set up thru [employer] and returned to ED late on 06/29/18 for increased SOB, low BP and oxygen saturation. Abel GALLAGHER CM had completed a f/u call to pt's on 06/29/18 at 1457, see note. Pt readmitted early 06/30/18 for JUDY, confusion and per ED physician/hospitalist, pt may need placement. This RN CM to room to discuss with pt at this time and is not currently at bedside. Pt does state some concern with going home at discharge and states that he is willing to go to a facility for rehab at discharge but is unsure of what facility. Call to pt's to discuss the same and she seems frustrated with pt at this time and his stubbornness. She states that she is not sure that he will agree to do it. She states that pt could not even get out of the chair at home and that his daughter had to help. updated on qualifications for MCR pt to go to SNF, voices understanding. This RN CM then lost the call and attempted to reach without success but message left with this RN CM's direct number or told that this RN CM could speak to her when she arrives at the hospital. Lyly SHAH aware, voices understanding. Argelia GALLAGHER CM
--- NOTE | 2018-06-30 11:18 | PCM.PROGNOTE ---
<Salvador Patel - Last Filed: 06/30/18 11:37> Subjective: Pt states that he started to feel worse after he left the hospital, noting increased malaise, worsening SOB, and chills overnight. No LE edema. No CP. Cough is nonproductive. He has no N/V/D. He was sent on O2, on presentation to the ER was hypoxic at his home O2 level. - Physical Exam General: Alert, Oriented x3, Cooperative HEENT: Atraumatic, PERRLA, EOMI, Normocephalic Neck: Supple, No JVD, Negative Carotid Bruits Lungs: Clear to auscultation, Normal air movement Cardiovascular: Regular rate, No murmurs Abdomen: Bowel Sounds Present, Soft, Non Tender Extremities: No edema, Capillary Refill Less than 3 Seconds Skin: No rashes, No breakdown Musculoskeletal: No Tenderness to Palpation of Joints or Extremities Neurological: Cranial nerves II-XII grossly intact Psych/Mental Status: Normal Affect, Appropriate, Alert and oriented to time, place, person, mood and affect Vital Signs Temp Pulse Resp BP Pulse Ox 97.2 F L 72 18 102/56 L 93 06/30/18 09:20 06/30/18 09:20 06/30/18 09:20 06/30/18 09:20 06/30/18 09:20 Oxygen Flow Rate (L/min) 4 Oxygen Delivery Method Nasal Cannula Weight: 201 lb 8.04 oz Body Mass Index (BMI) 25.8 Finger Stick Blood Glucose 117 Intake and Output for Last 24 Hours 06/28/18 06/29/18 06/30/18 23:59 23:59 23:59 Intake Total 50 / 50 Output Total 250 / 250 Balance -200 / -200 Laboratory Tests Past 24 Hrs 06/29/18 06/29/18 06/29/18 23:42 23:42 23:42 WBC 12.8 H RBC 4.66 Hgb 11.8 L Hct 37.9 L MCV 81.3 MCH 25.3 L MCHC 31.1 L RDW 21.4 H RDW Differential 61.1 H Plt Count 103 L MPV 10.3 Neut % (Auto) Not Reportable Absolute Neuts (auto) 9.6 H Absolute Lymphs (auto) 2.43 Total Counted 100 Neutrophils % (Manual) 73 H Band Neutrophils % 2 Lymphocytes % (Manual) 19 Monocytes % (Manual) 4 Metamyelocytes % 2 H Nucleated RBC % 4.9 Diff Path Review May foll Platelet Estimate SLT DEC Plt Morphology Comment LARGE Polychromasia 1+ Hypochromasia 1+ Anisocytosis 1+ Microcytosis 1+ Absolute Retic 0.63 Specimen Type Sample Site pH Bicarbonate Actual POC Total CO2 Base Excess O2 Saturation ABG pCO2 ABG pO2 Arias Test O2 Delivery Device Liter Flow Blood Gas Notified Whom Blood Gas Notified Time Sodium 135 L Potassium 4.3 Chloride 103 Carbon Dioxide 23.0 Anion Gap 9 BUN 53 H Creatinine 1.79 H Estim Creat Clear Calc 47.21 Est GFR (MDRD) Af Amer 49 L Est GFR (MDRD) Non-Af 40 L BUN/Creatinine Ratio 29.6 H Glucose 140 H Lactic Acid 2.2 H Calcium 8.9 06/29/18 06/30/18 06/30/18 23:53 04:05 04:05 WBC RBC Hgb Hct MCV MCH MCHC RDW RDW Differential Plt Count MPV Neut % (Auto) Absolute Neuts (auto) Absolute Lymphs (auto) Total Counted Neutrophils % (Manual) Band Neutrophils % Lymphocytes % (Manual) Monocytes % (Manual) Metamyelocytes % Nucleated RBC % Diff Path Review Platelet Estimate Plt Morphology Comment Polychromasia Hypochromasia Anisocytosis Microcytosis Absolute Retic Specimen Type ART Sample Site L Radial pH 7.37 Bicarbonate Actual 21.1 L POC Total CO2 22 Base Excess -4 L O2 Saturation 92 L ABG pCO2 36.2 ABG pO2 64 L Arias Test POS O2 Delivery Device Nasal Can Liter Flow 4.0 Blood Gas Notified Whom ED Blood Gas Notified Time 2345 Sodium 138 Potassium 4.3 Chloride 106 Carbon Dioxide 26.0 Anion Gap 6 BUN 48 H Creatinine 1.47 H Estim Creat Clear Calc 55.92 Est GFR (MDRD) Af Amer 61 Est GFR (MDRD) Non-Af 51 L BUN/Creatinine Ratio 32.7 H Glucose 130 H Lactic Acid 1.7 Calcium 8.9 POC Glucose 06/30/18 06/30/18 06:43 02:20 POC Glucose 126 H 134 H Medical Necessity - Tobacco Use Smoking Status: Current every day smoker Assessment/Plan All Active Problems (Last Reviewed 06/30/18 @ 05:33 by Felix Ambriz MD) Acute encephalopathy (Acute) Mental status change (Acute) Healthcare-associated pneumonia (Ruled-out) Severe sepsis (Acute) Pneumonia (Acute) Elevated troponin (Acute) 1. Acute transient hypoxia, chronic hypoxic respiratory failure, 2/2 possible HCAP vs partially treated pna - rales LLL, leukocytosis however has been on prednisone recently, no fever. Did have elevated lactate on arrival, possibly 2/2 infectious cause or hypoxia alone. Reports subjective chills and cough. Ongoing SOB. No wheezing. Continue levaquin, he has been on this since last admission. Continue IS, PEP, mucinex. CXR is nonspecific. If no improvement consider CT chest. 2. JUDY on CKD III - unclear etiology. Borderline low pressure on presentation, possible pna. Improving on maintenance fluids. Metformin held. 3. Acute metabolic encephalopathy possibly 2/2 1&2, however he has some baseline confusion so it is unclear how much of this is acute. DC gabapentin 4. COPD - recent acute exacerbation - continue aerosols. I do not feel this is an acute exacerbation. 5. Hx CAD, HTN, HLD stents - continue atenolol, asa, plavix, statin 6. Hx tobacco abuse - was smoking up to last admission, states he did not go home and smoke 7. DMt2 - add SSI. 8. Hx PAD DVT ppx: lovenox DC planning: PTOT This patient was seen by Salvador Patel PA-C under the supervision of Dr. Chambers <Laci Chambers - Last Filed: 06/30/18 14:04> - Physical Exam General: Alert, Cooperative HEENT: Atraumatic, Normocephalic Lungs: Clear to auscultation, Normal air movement, No rhonchi, No wheeze Cardiovascular: Regular rate, No murmurs Abdomen: Bowel Sounds Present, Soft, Non Tender, Non-Distended Extremities: No edema, No Calf Tenderness Skin: No rashes, No breakdown Psych/Mental Status: Normal Affect, Appropriate Vital Signs Temp Pulse Resp BP Pulse Ox 36.8 C 72 18 132/58 H 99 06/30/18 11:27 06/30/18 11:27 06/30/18 11:27 06/30/18 11:27 06/30/18 11:27 Oxygen Flow Rate (L/min) 4 Oxygen Delivery Method Nasal Cannula Weight: 91.4 kg Body Mass Index (BMI) 25.8 Finger Stick Blood Glucose 117 Intake and Output for Last 24 Hours 06/28/18 06/29/18 06/30/18 23:59 23:59 23:59 Intake Total 790 / 790 Output Total 750 / 750 Balance 40 / 40 Microbiology Past 72 Hours 06/30/18 12:00 Streptococcus pneumoniae Antigen (M - Final Urine, Clean Catch 06/30/18 12:00 Legionella Antigen - Final Urine, Clean Catch Laboratory Tests Past 24 Hrs 06/29/18 06/29/18 06/29/18 23:42 23:42 23:42 WBC 12.8 H RBC 4.66 Hgb 11.8 L Hct 37.9 L MCV 81.3 MCH 25.3 L MCHC 31.1 L RDW 21.4 H RDW Differential 61.1 H Plt Count 103 L MPV 10.3 Neut % (Auto) Not Reportable Absolute Neuts (auto) 9.6 H Absolute Lymphs (auto) 2.43 Total Counted 100 Neutrophils % (Manual) 73 H Band Neutrophils % 2 Lymphocytes % (Manual) 19 Monocytes % (Manual) 4 Metamyelocytes % 2 H Nucleated RBC % 4.9 Diff Path Review May foll Platelet Estimate SLT DEC Plt Morphology Comment LARGE Polychromasia 1+ Hypochromasia 1+ Anisocytosis 1+ Microcytosis 1+ Absolute Retic 0.63 Specimen Type Sample Site pH Bicarbonate Actual POC Total CO2 Base Excess O2 Saturation ABG pCO2 ABG pO2 Arias Test O2 Delivery Device Liter Flow Blood Gas Notified Whom Blood Gas Notified Time Sodium 135 L Potassium 4.3 Chloride 103 Carbon Dioxide 23.0 Anion Gap 9 BUN 53 H Creatinine 1.79 H Estim Creat Clear Calc 47.21 Est GFR (MDRD) Af Amer 49 L Est GFR (MDRD) Non-Af 40 L BUN/Creatinine Ratio 29.6 H Glucose 140 H Lactic Acid 2.2 H Calcium 8.9 06/29/18 06/30/18 06/30/18 23:53 04:05 04:05 WBC RBC Hgb Hct MCV MCH MCHC RDW RDW Differential Plt Count MPV Neut % (Auto) Absolute Neuts (auto) Absolute Lymphs (auto) Total Counted Neutrophils % (Manual) Band Neutrophils % Lymphocytes % (Manual) Monocytes % (Manual) Metamyelocytes % Nucleated RBC % Diff Path Review Platelet Estimate Plt Morphology Comment Polychromasia Hypochromasia Anisocytosis Microcytosis Absolute Retic Specimen Type ART Sample Site L Radial pH 7.37 Bicarbonate Actual 21.1 L POC Total CO2 22 Base Excess -4 L O2 Saturation 92 L ABG pCO2 36.2 ABG pO2 64 L Arias Test POS O2 Delivery Device Nasal Can Liter Flow 4.0 Blood Gas Notified Whom ED MD Blood Gas Notified Time 2340 Sodium 138 Potassium 4.3 Chloride 106 Carbon Dioxide 26.0 Anion Gap 6 BUN 48 H Creatinine 1.47 H Estim Creat Clear Calc 55.92 Est GFR (MDRD) Af Amer 61 Est GFR (MDRD) Non-Af 51 L BUN/Creatinine Ratio 32.7 H Glucose 130 H Lactic Acid 1.7 Calcium 8.9 POC Glucose 06/30/18 06/30/18 06/30/18 11:53 06:43 02:20 POC Glucose 146 H 126 H 134 H Assessment/Plan Patient seen and examined independently. Data reviewed. I agree with the above note by the physician assistant center director. 1. Acute hypoxic respiratory insufficiency: Transient and resolved. Chest x-ray shows no infiltrate my evaluation. Given the transient nature and the fact that he was hypoxic on his 4 L, possibility could include mucous plugging the patient may have coughed up. Clinically the patient is stable at this time and has been continued on the Levaquin and prednisone that he was discharged with. Continue with pulmonary toilet. 2. JUDY improving monitor 3. Acute exacerbation of COPD stable follow up with pulmonology as outpatient 2. Metabolic encephalopathy Appears to be resolved. Discontinue the gabapentin from his discharge but it appears that that was resumed at home. I do not know if that was inciting agent for his confusion but once again that has been discontinued and once again I would recommend discontinuing it moving forward upon discharge. 3. Possible pneumococcal pneumonia continue empiric abx for now. Strep and legionella antigens negative. continue levofloxacin through the (total 7 days of antibiotics) 4. VTE prophylaxis: LMWH. Code Visit Inpatient E&M: 60479 Subs Hosp L2
--- NOTE | 2018-06-30 11:22 | PN_ITS ---
<Salvador Patel - Last Filed: 06/30/18 11:37> Subjective: Pt states that he started to feel worse after he left the hospital, noting increased malaise, worsening SOB, and chills overnight. No LE edema. No CP. Cough is nonproductive. He has no N/V/D. He was sent on O2, on presentation to the ER was hypoxic at his home O2 level. - Physical Exam General: Alert, Oriented x3, Cooperative HEENT: Atraumatic, PERRLA, EOMI, Normocephalic Neck: Supple, No JVD, Negative Carotid Bruits Lungs: Clear to auscultation, Normal air movement Cardiovascular: Regular rate, No murmurs Abdomen: Bowel Sounds Present, Soft, Non Tender Extremities: No edema, Capillary Refill Less than 3 Seconds Skin: No rashes, No breakdown Musculoskeletal: No Tenderness to Palpation of Joints or Extremities Neurological: Cranial nerves II-XII grossly intact Psych/Mental Status: Normal Affect, Appropriate, Alert and oriented to time, place, person, mood and affect Vital Signs Temp Pulse Resp BP Pulse Ox 97.2 F L 72 18 102/56 L 93 06/30/18 09:20 06/30/18 09:20 06/30/18 09:20 06/30/18 09:20 06/30/18 09:20 Oxygen Flow Rate (L/min) 4 Oxygen Delivery Method Nasal Cannula Weight: 201 lb 8.04 oz Body Mass Index (BMI) 25.8 Finger Stick Blood Glucose 117 Intake and Output for Last 24 Hours 06/28/18 06/29/18 06/30/18 23:59 23:59 23:59 Intake Total 50 / 50 Output Total 250 / 250 Balance -200 / -200 Laboratory Tests Past 24 Hrs 06/29/18 06/29/18 06/29/18 23:42 23:42 23:42 WBC 12.8 H RBC 4.66 Hgb 11.8 L Hct 37.9 L MCV 81.3 MCH 25.3 L MCHC 31.1 L RDW 21.4 H RDW Differential 61.1 H Plt Count 103 L MPV 10.3 Neut % (Auto) Not Reportable Absolute Neuts (auto) 9.6 H Absolute Lymphs (auto) 2.43 Total Counted 100 Neutrophils % (Manual) 73 H Band Neutrophils % 2 Lymphocytes % (Manual) 19 Monocytes % (Manual) 4 Metamyelocytes % 2 H Nucleated RBC % 4.9 Diff Path Review May foll Platelet Estimate SLT DEC Plt Morphology Comment LARGE Polychromasia 1+ Hypochromasia 1+ Anisocytosis 1+ Microcytosis 1+ Absolute Retic 0.63 Specimen Type Sample Site pH Bicarbonate Actual POC Total CO2 Base Excess O2 Saturation ABG pCO2 ABG pO2 Arias Test O2 Delivery Device Liter Flow Blood Gas Notified Whom Blood Gas Notified Time Sodium 135 L Potassium 4.3 Chloride 103 Carbon Dioxide 23.0 Anion Gap 9 BUN 53 H Creatinine 1.79 H Estim Creat Clear Calc 47.21 Est GFR (MDRD) Af Amer 49 L Est GFR (MDRD) Non-Af 40 L BUN/Creatinine Ratio 29.6 H Glucose 140 H Lactic Acid 2.2 H Calcium 8.9 06/29/18 06/30/18 06/30/18 23:53 04:05 04:05 WBC RBC Hgb Hct MCV MCH MCHC RDW RDW Differential Plt Count MPV Neut % (Auto) Absolute Neuts (auto) Absolute Lymphs (auto) Total Counted Neutrophils % (Manual) Band Neutrophils % Lymphocytes % (Manual) Monocytes % (Manual) Metamyelocytes % Nucleated RBC % Diff Path Review Platelet Estimate Plt Morphology Comment Polychromasia Hypochromasia Anisocytosis Microcytosis Absolute Retic Specimen Type ART Sample Site L Radial pH 7.37 Bicarbonate Actual 21.1 L POC Total CO2 22 Base Excess -4 L O2 Saturation 92 L ABG pCO2 36.2 ABG pO2 64 L Arias Test POS O2 Delivery Device Nasal Can Liter Flow 4.0 Blood Gas Notified Whom ED Blood Gas Notified Time 2345 Sodium 138 Potassium 4.3 Chloride 106 Carbon Dioxide 26.0 Anion Gap 6 BUN 48 H Creatinine 1.47 H Estim Creat Clear Calc 55.92 Est GFR (MDRD) Af Amer 61 Est GFR (MDRD) Non-Af 51 L BUN/Creatinine Ratio 32.7 H Glucose 130 H Lactic Acid 1.7 Calcium 8.9 POC Glucose 06/30/18 06/30/18 06:43 02:20 POC Glucose 126 H 134 H Medical Necessity - Tobacco Use Smoking Status: Current every day smoker Assessment/Plan All Active Problems (Last Reviewed 06/30/18 @ 05:33 by Felix Ambriz MD) Acute encephalopathy (Acute) Mental status change (Acute) Healthcare-associated pneumonia (Ruled-out) Severe sepsis (Acute) Pneumonia (Acute) Elevated troponin (Acute) 1. Acute transient hypoxia, chronic hypoxic respiratory failure, 2/2 possible HCAP vs partially treated pna - rales LLL, leukocytosis however has been on prednisone recently, no fever. Did have elevated lactate on arrival, possibly 2/2 infectious cause or hypoxia alone. Reports subjective chills and cough. Ongoing SOB. No wheezing. Continue levaquin, he has been on this since last admission. Continue IS, PEP, mucinex. CXR is nonspecific. If no improvement consider CT chest. 2. JUDY on CKD III - unclear etiology. Borderline low pressure on presentation, possible pna. Improving on maintenance fluids. Metformin held. 3. Acute metabolic encephalopathy possibly 2/2 1&2, however he has some baseline confusion so it is unclear how much of this is acute. DC gabapentin 4. COPD - recent acute exacerbation - continue aerosols. I do not feel this is an acute exacerbation. 5. Hx CAD, HTN, HLD stents - continue atenolol, asa, plavix, statin 6. Hx tobacco abuse - was smoking up to last admission, states he did not go home and smoke 7. DMt2 - add SSI. 8. Hx PAD DVT ppx: lovenox DC planning: PTOT This patient was seen by Salvador Patel PA-C under the supervision of Dr. Chambers <Laci Chambers - Last Filed: 06/30/18 14:04> - Physical Exam General: Alert, Cooperative HEENT: Atraumatic, Normocephalic Lungs: Clear to auscultation, Normal air movement, No rhonchi, No wheeze Cardiovascular: Regular rate, No murmurs Abdomen: Bowel Sounds Present, Soft, Non Tender, Non-Distended Extremities: No edema, No Calf Tenderness Skin: No rashes, No breakdown Psych/Mental Status: Normal Affect, Appropriate Vital Signs Temp Pulse Resp BP Pulse Ox 36.8 C 72 18 132/58 H 99 06/30/18 11:27 06/30/18 11:27 06/30/18 11:27 06/30/18 11:27 06/30/18 11:27 Oxygen Flow Rate (L/min) 4 Oxygen Delivery Method Nasal Cannula Weight: 91.4 kg Body Mass Index (BMI) 25.8 Finger Stick Blood Glucose 117 Intake and Output for Last 24 Hours 06/28/18 06/29/18 06/30/18 23:59 23:59 23:59 Intake Total 790 / 790 Output Total 750 / 750 Balance 40 / 40 Microbiology Past 72 Hours 06/30/18 12:00 Streptococcus pneumoniae Antigen (M - Final Urine, Clean Catch 06/30/18 12:00 Legionella Antigen - Final Urine, Clean Catch Laboratory Tests Past 24 Hrs 06/29/18 06/29/18 06/29/18 23:42 23:42 23:42 WBC 12.8 H RBC 4.66 Hgb 11.8 L Hct 37.9 L MCV 81.3 MCH 25.3 L MCHC 31.1 L RDW 21.4 H RDW Differential 61.1 H Plt Count 103 L MPV 10.3 Neut % (Auto) Not Reportable Absolute Neuts (auto) 9.6 H Absolute Lymphs (auto) 2.43 Total Counted 100 Neutrophils % (Manual) 73 H Band Neutrophils % 2 Lymphocytes % (Manual) 19 Monocytes % (Manual) 4 Metamyelocytes % 2 H Nucleated RBC % 4.9 Diff Path Review May foll Platelet Estimate SLT DEC Plt Morphology Comment LARGE Polychromasia 1+ Hypochromasia 1+ Anisocytosis 1+ Microcytosis 1+ Absolute Retic 0.63 Specimen Type Sample Site pH Bicarbonate Actual POC Total CO2 Base Excess O2 Saturation ABG pCO2 ABG pO2 Arias Test O2 Delivery Device Liter Flow Blood Gas Notified Whom Blood Gas Notified Time Sodium 135 L Potassium 4.3 Chloride 103 Carbon Dioxide 23.0 Anion Gap 9 BUN 53 H Creatinine 1.79 H Estim Creat Clear Calc 47.21 Est GFR (MDRD) Af Amer 49 L Est GFR (MDRD) Non-Af 40 L BUN/Creatinine Ratio 29.6 H Glucose 140 H Lactic Acid 2.2 H Calcium 8.9 06/29/18 06/30/18 06/30/18 23:53 04:05 04:05 WBC RBC Hgb Hct MCV MCH MCHC RDW RDW Differential Plt Count MPV Neut % (Auto) Absolute Neuts (auto) Absolute Lymphs (auto) Total Counted Neutrophils % (Manual) Band Neutrophils % Lymphocytes % (Manual) Monocytes % (Manual) Metamyelocytes % Nucleated RBC % Diff Path Review Platelet Estimate Plt Morphology Comment Polychromasia Hypochromasia Anisocytosis Microcytosis Absolute Retic Specimen Type ART Sample Site L Radial pH 7.37 Bicarbonate Actual 21.1 L POC Total CO2 22 Base Excess -4 L O2 Saturation 92 L ABG pCO2 36.2 ABG pO2 64 L Arias Test POS O2 Delivery Device Nasal Can Liter Flow 4.0 Blood Gas Notified Whom ED MD Blood Gas Notified Time 2345 Sodium 138 Potassium 4.3 Chloride 106 Carbon Dioxide 26.0 Anion Gap 6 BUN 48 H Creatinine 1.47 H Estim Creat Clear Calc 55.92 Est GFR (MDRD) Af Amer 61 Est GFR (MDRD) Non-Af 51 L BUN/Creatinine Ratio 32.7 H Glucose 130 H Lactic Acid 1.7 Calcium 8.9 POC Glucose 06/30/18 06/30/18 06/30/18 11:53 06:43 02:20 POC Glucose 146 H 126 H 134 H Assessment/Plan Patient seen and examined independently. Data reviewed. I agree with the above note by the physician assistant program director. 1. Acute hypoxic respiratory insufficiency: * Transient and resolved. Chest x-ray shows no infiltrate my evaluation. Given the transient nature and the fact that he was hypoxic on his 4 L, possibility could include mucous plugging the patient may have coughed up. Clinically the patient is stable at this time and has been continued on the Levaquin and prednisone that he was discharged with. Continue with pulmonary toilet. 2. JUDY * improving * monitor 3. Acute exacerbation of COPD * stable * follow up with pulmonology as outpatient 2. Metabolic encephalopathy * Appears to be resolved. * Discontinue the gabapentin from his discharge but it appears that that was resumed at home. I do not know if that was inciting agent for his confusion but once again that has been discontinued and once again I would recommend discontinuing it moving forward upon discharge. 3. Possible pneumococcal pneumonia * continue empiric abx for now. * Strep and legionella antigens negative. * continue levofloxacin through the (total 7 days of antibiotics) 4. VTE prophylaxis: LMWH. Code Visit Inpatient E&M: 05694 Subs Hosp L2
--- NOTE | 2018-06-30 11:29 | NURSING ---
wound photo: right lateral malleolus
--- NOTE | 2018-06-30 11:31 | NURSING ---
wound photo: right heel
[2018-06-30 12:06] LABS: Bedside Glucose 146 mg/dL (70-110)
[2018-06-30 14:58] LABS: Pathologist Review Reviewed
--- NOTE | 2018-06-30 15:05 | CASEMGMT ---
SW spoke with patient and his . Patient did not do well with therapy today. They agreed to [facility] for patient at discharge. SW called Ayana and she would have a bed for patient. SW let patient and his family know this information. Green sheet on chart. Plan: [facility] under skilled level of care. Charley NAVARRETE
[2018-06-30] MEDS: Insulin Lispro 100 UNIT/ML INSULN.PEN SC ×2 (16:22→21:29)
[2018-06-30 16:35] LABS: Bedside Glucose 208 mg/dL (70-110)
[2018-06-30] MEDS: Atorvastatin Calcium 10 MG Tablet 5 MG PO (21:29)
[2018-06-30 22:26] LABS: Bedside Glucose 164 mg/dL (70-110)
[2018-07-01] VITALS (7 sets, daily range): BP systolic 99–131; BP diastolic 46–67; PULSE 76–85; RESP 16–22; TEMP 36.2–36.4; O2SAT 93–97
[2018-07-01] MEDS: Acetaminophen 500 MG Tablet 1000 MG PO ×2 (03:36→09:15)
[2018-07-01 06:27] LABS: Hematocrit 33.2 % (40-54); Hemoglobin 10.2 g/dl (13.0-16.5); Mean Corp Hgb Conc 30.7 g/gl (32-36); Mean Corpuscular Hgb 24.5 pg (27.0-32.0); Mean Corpuscular Volume 79.8 fL (80-94); Mean Platelet Vol. 10.8 fl (6.2-12.0); Platelet Count 86 K/mm3 (150-450); RBC Distribution Width CV 21.4 % (11.6-14.6); RBC Distribution Width SD 58.2 fl (35.1-43.9); Red Blood Count 4.16 M/mm3 (4.6-6.2); White Blood Count 8.7 K/mm3 (4.4-11.0)
[2018-07-01 06:28] LABS: Differential Indicated MANUAL DIFF; POSITIVE COUNT YES; POSITIVE DIFFERENTIAL NO; POSITIVE MORPHOLOGY YES
[2018-07-01 06:36] LABS: Bedside Glucose 131 mg/dL (70-110)
[2018-07-01 06:38] LABS: Anion Gap 6 (5-15); BUN 27 mg/dL (7-18); BUN/Creat Ratio 27.3 RATIO (10-20); Calcium,Total 8.4 mg/dL (8.5-10.1); Chloride 103 mmol/L (98-107); Creatinine, Serum 0.99 mg/dL (0.70-1.30); EST Glomerular Filtration Rate 80 mL/min (>60); Est Glom Filt Rate - Afr Amer 97 mL/min (>60); Estimated Creatinine Clearance 83.03 ml/min; Glucose 118 mg/dL (74-106); Potassium 3.8 mmol/L (3.5-5.1); Sodium Level 134 mmol/L (136-145)
[2018-07-01 06:49] LABS: Eosinophil 3 % (0-5); Lymphocyte 12 % (19-41); Metamyelocyte 7 % (0-1); Monocyte 2 % (0-10); Myelocyte 2 (0-0); Neutrophil-Band 4 % (0-5); Neutrophil-Segmented 70 % (47-70); Total Cells Counted 100 (MANUAL DIFF)
[2018-07-01 06:51] LABS: Absolute Lymphocyte Count 1.04 X10^3/ul (0.83-4.51); Absolute Neutrophil Count 7.2 X10^3/uL (2.0-7.7); Anisocytosis 1+; Lymphocyte # 1.04 X10^3/ul (4.0); Neutrophil # 7.22 X10^3/uL (2.7-7.7); Platelet Estimate MOD DEC (ADEQ)
[2018-07-01] MEDS: Ipratropium/Albuterol Sulfate 3 ML AMPUL.NEB INHALATION ×2 (07:17→13:24)
[2018-07-01] MEDS: predniSONE 20 MG Tablet 40 MG PO (08:56)
[2018-07-01] MEDS: Aspirin 81 MG TAB.CHEW PO (08:56)
[2018-07-01] MEDS: levoFLOXacin 750 MG Tablet PO (10:44)
[2018-07-01] MEDS: Enoxaparin 40 MG/0.4 ML Syringe SC (10:44)
[2018-07-01] MEDS: Lidocaine 5% Patch 1 PATCH TOPICAL (10:44)
[2018-07-01] MEDS: guaiFENesin 1,200 MG Tablet 1200 MG PO (10:45)
[2018-07-01] MEDS: Clopidogrel Bisulfate 75 MG Tablet PO (10:45)
[2018-07-01] MEDS: Atenolol 25 MG Tablet PO (10:49)
--- NOTE | 2018-07-01 11:45 | PCM.EXTCARCO ---
- Diet 06/30/18 02:10 Diet: Diabetic, cardiac diet. Food consistency:: Regular Liquid Consistency:: Regular/Thin - Routine Orders/Code Status Suppository Type: Dulcolax 10mg Suppository Frequency: Daily PRN O2 Frequency: Continuous Keep PO Greater than or Equal to (%): 89 Routine Lab Work: CBC - 3 days, BMP - 3 days Code Status: Full Code - Wound(s) right heel Wound Type: Pressure Injury Dressing Change: applied Mepilex buttocks Wound Type: discoloration right lateral malleolus Wound Type: Abrasion - Therapies Physical Therapy: Eval and Treat Occupational Therapy: Eval and Treat - Problem/Diagnosis (1) JUDY (acute kidney injury) Status: Acute Current Visit: Yes (2) Mental status change Status: Acute Current Visit: No (3) Pneumonia Status: Acute Current Visit: No (4) Debility Status: Chronic Current Visit: Yes (5) Chronic respiratory failure with hypoxia Status: Chronic Current Visit: Yes (6) Chronic anemia Status: Chronic Current Visit: Yes (7) CKD (chronic kidney disease) stage 3, GFR 30-59 ml/min Status: Chronic Current Visit: No (8) HLD (hyperlipidemia) Status: Chronic Current Visit: No (9) HTN (hypertension) Status: Chronic Current Visit: No (10) PAD (peripheral artery disease) Status: Chronic Current Visit: No (11) Stented coronary artery Status: Chronic Comment: 3.5 X 16 Promus Synergy to mid LAD; 4.0 X 24 Promus Synergy to proximal LAD; POBA to Diagonal [address] Ruff @ [facility] Current Visit: No (12) Tobacco abuse Status: Chronic Current Visit: No (13) Healthcare-associated pneumonia Status: Ruled-out Current Visit: No (14) Chronic back pain Status: Chronic Current Visit: Yes - Allergies/Procedures Done in Hospital Allergies/Adverse Reactions: Allergies No Known Allergies Allergy (Verified 06/24/18 23:51) Procedures: None - Type of Care/Length of Stay Estimated LOS: Convalescent Care Less Than 30 days Type of Care Needed: Skilled Rehab Potential: Fair Prognosis: Fair - Additional Orders/Day of Discharge Day of Discharge: 07/01/18 - Dietary and Speech Recommendations Dietitian Recommendations/Changes: Suggest diet change to Cardiac/Carbohydrate-controlled as PO improves at meals. Continue glucerna shake on medpass. - Follow Up Care [facility] Care Physician: [facility] [Primary Care Provider] - Please follow up with your Primary Care Physician in: 2 weeks
[2018-07-01] MEDS: Insulin Lispro 100 UNIT/ML INSULN.PEN SC (11:52)
--- NOTE | 2018-07-01 11:54 | TREXTCA.CO_ITS ---
- Diet 06/30/18 02:10 Diet: Diabetic, cardiac diet. Food consistency:: Regular Liquid Consistency:: Regular/Thin - Routine Orders/Code Status Suppository Type: Dulcolax 10mg Suppository Frequency: Daily PRN O2 Frequency: Continuous Keep PO Greater than or Equal to (%): 89 Routine Lab Work: CBC - 3 days, BMP - 3 days Code Status: Full Code - Wound(s) right heel Wound Type: Pressure Injury Dressing Change: applied Mepilex buttocks Wound Type: discoloration right lateral malleolus Wound Type: Abrasion - Therapies Physical Therapy: Eval and Treat Occupational Therapy: Eval and Treat - Problem/Diagnosis (1) JUDY (acute kidney injury) Status: Acute Current Visit: Yes (2) Mental status change Status: Acute Current Visit: No (3) Pneumonia Status: Acute Current Visit: No (4) Debility Status: Chronic Current Visit: Yes (5) Chronic respiratory failure with hypoxia Status: Chronic Current Visit: Yes (6) Chronic anemia Status: Chronic Current Visit: Yes (7) CKD (chronic kidney disease) stage 3, GFR 30-59 ml/min Status: Chronic Current Visit: No (8) HLD (hyperlipidemia) Status: Chronic Current Visit: No (9) HTN (hypertension) Status: Chronic Current Visit: No (10) PAD (peripheral artery disease) Status: Chronic Current Visit: No (11) Stented coronary artery Status: Chronic Comment: 3.5 X 16 Promus Synergy to mid LAD; 4.0 X 24 Promus Synergy to proximal LAD; POBA to Diagonal [address] Ruff @ [facility] Current Visit: No (12) Tobacco abuse Status: Chronic Current Visit: No (13) Healthcare-associated pneumonia Status: Ruled-out Current Visit: No (14) Chronic back pain Status: Chronic Current Visit: Yes - Allergies/Procedures Done in Hospital Allergies/Adverse Reactions: Allergies No Known Allergies Allergy (Verified 06/24/18 23:51) Procedures: None - Type of Care/Length of Stay Estimated LOS: Convalescent Care Less Than 30 days Type of Care Needed: Skilled Rehab Potential: Fair Prognosis: Fair - Additional Orders/Day of Discharge Day of Discharge: 07/01/18 - Dietary and Speech Recommendations Dietitian Recommendations/Changes: Suggest diet change to Cardiac/Carbohydrate- controlled as PO improves at meals. Continue glucerna shake on medpass. - Follow Up Care Primary Care Physician: [facility] [Primary Care Provider] - Please follow up with your Primary Care Physician in: 2 weeks
[2018-07-01 11:55] LABS: Bedside Glucose 296 mg/dL (70-110)
--- NOTE | 2018-07-01 13:02 | NURSING ---
report called to TCU RN
--- NOTE | 2018-07-01 14:10 | CASEMGMT ---
Social Work PCU Notified by RN ISREAL that patient's family expressed some frustration with discharge destination. Per RN CM the family was given a list of SNF's to review. RN ISREAL indicated may be beneficial to have social work see family again to review options and planning. Met with patient, , and daughter. At time of social work presentation the decision had been made to stay with original plan for TCU. Patient and family talkative, asking questions, and accepting of recommendation for short term SNF care. voices that patient does not do a lot at home and that being somewhere where patient can get therapies daily will give patient a better chance to increase motivation to do the work needed for recovery. Supportive listening offered and answered questions the family had about discharge planning. Plan: TCU for short term SNF placement, patient and family in agreement with plan. Discharge to occur today. -ZULMA Modi, FINISHER OPERATOR
--- NOTE | 2018-07-01 14:33 | PCM.DC.SUM ---
<Salvador Patel - Last Filed: 07/01/18 14:33> Discharge Date and Diagnosis Date of Admission: 06/30/18 Date of Discharge: 07/01/18 - Primary Discharge Diagnosis Acute transient hypoxia with setting of chronic hypoxic respiratory failure, partially treated pneumonia, suspected streptococcal, recent COPD exacerbation Acute kidney injury on CKD stage III Acute metabolic encephalopathy secondary to hypoxia and JUDY COPD with recent exacerbation, not in acute exacerbation this time History of CAD, hypertension, hyperlipidemia, stents History of tobacco abuse Type 2 diabetes mellitus History of PAD Chronic back pain secondary to back surgery - Secondary Discharge Diagnosis Chronic Problems (Last Reviewed 06/30/18 @ 05:33 by Felix Ambriz MD) HTN (hypertension) (Chronic) HLD (hyperlipidemia) (Chronic) PAD (peripheral artery disease) (Chronic) CKD (chronic kidney disease) stage 3, GFR 30-59 ml/min (Chronic) Debility (Chronic) Chronic respiratory failure with hypoxia (Chronic) Chronic anemia (Chronic) Chronic back pain (Chronic) Stented coronary artery (Chronic 09/22/17) 3.5 X 16 Promus Synergy to mid LAD; 4.0 X 24 Promus Synergy to proximal LAD; POBA to Diagonal [address] Ruff @ [facility] NSTEMI (non-ST elevated myocardial infarction) (Chronic 09/22/17) Tobacco abuse (Chronic) Hospital Course and Treatment Imaging Results: IMAGING: RAD/Chest 1 View (Portable) IMPRESSION: 1. No acute cardiopulmonary disease. No significant interval change. 2. Chronic mild elevation of the left hemidiaphragm. Consultations 06/30/18 06:53 Consult: Onc/Wound/demonstrator sales Routine Comment: pt has pressure injury on right heel. Reason for Consult:: pressure injury Comments:: pt also has discoloration on buttocks and upper legs Operations: None Procedures: None Summary of Care Provided: Hospital course: The patient is a 68 year old M with past medical history as above, who was recently discharged from the hospital after being treated for pneumonia, presumed streptococcal, and COPD exacerbation. He had gone home become more confused, and worsening in breathing, and was brought back to the ER. Patient was confused in the ER was unable to provide significant history. The patient was hypoxic on 4 L of oxygen at 88%. This is what he was sent home on. Later he improved into the 90s on the same amount. Chest x-ray did not reveal acute process. His creatinine was elevated and he appeared to have acute kidney injury. His lactic acid was also elevated. He was admitted to the PCU with acute hypoxia, acute kidney injury, and acute metabolic encephalopathy. We continued his Levaquin for underlying pneumonia, prednisone for his recent COPD exacerbation, gave him aerosols, supplemental oxygen, and discontinued sedating medications including gabapentin and opiates. By the following day his breathing began to improve. He had a nonproductive cough. He remained stable down to 2 L of oxygen per minute by nasal cannula. He was smoking up to his prior admission. I reemphasized the need for complete nicotine cessation - he was provided with a patch. It is not clear if he went home and smoked. He was given IV fluids for his acute kidney injury, and nephrotoxic agents were held. He continued to have intermittent confusion in the mornings, however this was transient and he resolved to normal mental status. He remains significantly debilitated and with severe back pain. Nonsedating agents, topicals were provided. He worked with PT and OT, and [facility] was recommended. He was agreeable. He was accepted to TCU and discharged there in stable condition. Also of significant note, his metformin was discontinued due to JUDY and lactic acidosis-it should not be restarted. For now with ongoing prednisone therapy he should continue sliding scale insulin, and then begin an alternative oral regimen when appropriate. [facility], recommend he call to schedule an appointment. Lastly, he should continue to have wound care for his chronic foot wounds. This patient was seen by Salvador Patel PA-C under the supervision of Doctor Chambers. [] - Physical Exam General: Alert, Oriented x3, Cooperative HEENT: Atraumatic, PERRLA, EOMI, Normocephalic Neck: Supple, No JVD, Negative Carotid Bruits Lungs: Diminished Cardiovascular: Regular rate, No murmurs Abdomen: Bowel Sounds Present, Soft, Non Tender Extremities: No edema, Capillary Refill Less than 3 Seconds Skin: No rashes, No breakdown Musculoskeletal: No Tenderness to Palpation of Joints or Extremities Neurological: Cranial nerves II-XII grossly intact Psych/Mental Status: Normal Affect, Appropriate, Alert and oriented to time, place, person, mood and affect Vital Signs Temp Pulse Resp BP Pulse Ox 97.6 F L 76 20 H 99/49 L 97 07/01/18 14:11 07/01/18 14:11 07/01/18 14:11 07/01/18 14:11 07/01/18 14:11 Oxygen Flow Rate (L/min) 2 Oxygen Delivery Method Nasal Cannula Weight: 201 lb 8.04 oz Body Mass Index (BMI) 25.8 Finger Stick Blood Glucose 117 Intake and Output for Last 24 Hours 06/29/18 06/30/18 07/01/18 23:59 23:59 23:59 Intake Total 1010 / 1010 450 / 450 Output Total 1500 / 1500 875 / 875 Balance -490 / -490 -425 / -425 Microbiology Past 72 Hours 06/30/18 12:00 Streptococcus pneumoniae Antigen (M - Final Urine, Clean Catch 06/30/18 12:00 Legionella Antigen - Final Urine, Clean Catch Laboratory Tests Past 24 Hrs 06/29/18 07/01/18 07/01/18 23:42 06:01 06:01 WBC 8.7 RBC 4.16 L Hgb 10.2 L Hct 33.2 L MCV 79.8 L MCH 24.5 L MCHC 30.7 L RDW 21.4 H RDW Differential 58.2 H Plt Count 86 L MPV 10.8 Neut % (Auto) Not Reportable Absolute Neuts (auto) 7.2 Absolute Lymphs (auto) 1.04 Total Counted 100 Neutrophils % (Manual) 70 Band Neutrophils % 4 Lymphocytes % (Manual) 12 L Monocytes % (Manual) 2 Eosinophils % (Manual) 3 Metamyelocytes % 7 H Myelocytes % 2 H Diff Path Review Reviewed May foll Platelet Estimate MOD DEC Anisocytosis 1+ Sodium 134 L Potassium 3.8 Chloride 103 Carbon Dioxide 25.0 Anion Gap 6 BUN 27 H Creatinine 0.99 Estim Creat Clear Calc 83.03 Est GFR (MDRD) Af Amer 97 Est GFR (MDRD) Non-Af 80 BUN/Creatinine Ratio 27.3 H Glucose 118 H Calcium 8.4 L POC Glucose 07/01/18 07/01/18 06/30/18 11:45 06:32 21:27 POC Glucose 296 H 131 H 164 H 06/30/18 16:18 POC Glucose 208 H Discharge Diet: Low fat/ Low Cholesterol, 1800 Calorie Control Diet, 2000 mg Sodium Diet Discharge Activity: Return to Normal Activity Home Medications: Medications to take at Discharge Simvastatin [Zocor] 10 mg PO QHS 07/03/17 Clopidogrel Bisulfate [Plavix] 75 mg PO DAILY #30 tab 09/26/17 Potassium Chloride [K-Dur] 10 meq PO DAILY 05/26/18 Budesonide/Formoterol Fumarate [Symbicort 160-4.5 Mcg Inhaler] 2 puff IH BID #1 hfa.aer.ad 06/28/18 Acetaminophen [Tylenol] 500 mg PO Q6H PRN PRN tablet 07/01/18 Albuterol Aerosols [Ventolin Aerosols] 2.5 mg INHALATION Q2H PRN PRN vial.neb. 07/01/18 Aspirin [Aspirin, Baby] 81 mg PO DAILY@0800 tab.chew 07/01/18 Atenolol [Tenormin (beta monster)] 25 mg PO DAILY tablet 07/01/18 Glucerna Shake 120 ml PO 4X/DAY liquid 07/01/18 Guaifenesin [Mucinex] 1,200 mg PO BID tablet 07/01/18 Insulin Lispro [Humalog KwikPen] See Protocol SC ACHS insuln.pen 07/01/18 Ipratropium/Albuterol Sulfate [Duoneb] 3 ml INHALATION Q6HWA.RT ampul.neb 07/01/18 Lidocaine [Lidoderm Patch] 1 patch TOPICAL DAILY patch 07/01/18 Menthol [Bengay Vanishing Scent] 1 applic TOPICAL 4X/DAY PRN PRN tube 07/01/18 Nicotine [Nicoderm Cq] 21 mg TRANSDERM. DAILY patch 07/01/18 Prednisone 10 mg PO UD #18 tablet 07/01/18 levoFLOXacin tablet [Levaquin tablet] 750 mg PO DAILY #3 tablet 07/01/18 Following Prescrptions Were Given to Patient: Prednisone 10 mg PO UD #18 tablet [facility] - Please follow up with your Primary Care Physician in: 2 weeks Disposition: [facility] facility Minutes spent on discharge:: 40 Patient Condition:: Stable Medical Necessity - Tobacco Use Smoking Status: Current every day smoker Meaningful Use Info Meaningful Use Diagnoses (Choose all that apply): None applicable <Laci Chambers - Last Filed: 07/01/18 14:54> Discharge Date and Diagnosis - Secondary Discharge Diagnosis Chronic Problems (Last Reviewed 06/30/18 @ 05:33 by Felix Ambriz MD) HTN (hypertension) (Chronic) HLD (hyperlipidemia) (Chronic) PAD (peripheral artery disease) (Chronic) CKD (chronic kidney disease) stage 3, GFR 30-59 ml/min (Chronic) Debility (Chronic) Chronic respiratory failure with hypoxia (Chronic) Chronic anemia (Chronic) Chronic back pain (Chronic) Stented coronary artery (Chronic 09/22/17) 3.5 X 16 Promus Synergy to mid LAD; 4.0 X 24 Promus Synergy to proximal LAD; POBA to Diagonal [address] Ruff @ [facility] NSTEMI (non-ST elevated myocardial infarction) (Chronic 09/22/17) Tobacco abuse (Chronic) Hospital Course and Treatment Consultations 06/30/18 06:53 Consult: Onc/Wound/demonstrator sales Routine Comment: pt has pressure injury on right heel. Reason for Consult:: pressure injury Comments:: pt also has discoloration on buttocks and upper legs Operations: None Procedures: None Summary of Care Provided: Patient seen and examined independently. Data reviewed. I agree with the above note by the physician credit assistant. 1. Acute hypoxic respiratory insufficiency: Transient and resolved. Chest x-ray shows no infiltrate my evaluation. Given the transient nature and the fact that he was hypoxic on his 4 L, possibility could include mucous plugging the patient may have coughed up. Clinically the patient is stable at this time and has been continued on the Levaquin and prednisone that he was discharged with. Continue with pulmonary toilet. 2. JUDY improving monitor 3. Acute exacerbation of COPD stable follow up with pulmonology as outpatient 2. Metabolic encephalopathy Appears to be resolved. Discontinue the gabapentin from his discharge but it appears that that was resumed at home. I do not know if that was inciting agent for his confusion but once again that has been discontinued and once again I would recommend discontinuing it moving forward upon discharge. 3. Possible pneumococcal pneumonia continue empiric abx for now. Strep and legionella antigens negative. continue levofloxacin through the (total 7 days of antibiotics)[] - Physical Exam General: Alert, Cooperative HEENT: Atraumatic, Normocephalic Lungs: Clear to auscultation, Diminished Cardiovascular: Regular rate, Regular Rhythm, Normal S1, Normal S2, No murmurs Abdomen: Bowel Sounds Present, Soft, Non Tender Vital Signs Temp Pulse Resp BP Pulse Ox 36.4 C L 76 20 H 99/49 L 97 07/01/18 14:11 07/01/18 14:11 07/01/18 14:11 07/01/18 14:11 07/01/18 14:11 Oxygen Flow Rate (L/min) 2 Oxygen Delivery Method Nasal Cannula Weight: 91.4 kg Body Mass Index (BMI) 25.8 Finger Stick Blood Glucose 117 Intake and Output for Last 24 Hours 06/29/18 06/30/18 07/01/18 23:59 23:59 23:59 Intake Total 1010 / 1010 450 / 450 Output Total 1500 / 1500 875 / 875 Balance -490 / -490 -425 / -425 Microbiology Past 72 Hours 06/30/18 12:00 Streptococcus pneumoniae Antigen (M - Final Urine, Clean Catch 06/30/18 12:00 Legionella Antigen - Final Urine, Clean Catch Laboratory Tests Past 24 Hrs 06/29/18 07/01/18 07/01/18 23:42 06:01 06:01 WBC 8.7 RBC 4.16 L Hgb 10.2 L Hct 33.2 L MCV 79.8 L MCH 24.5 L MCHC 30.7 L RDW 21.4 H RDW Differential 58.2 H Plt Count 86 L MPV 10.8 Neut % (Auto) Not Reportable Absolute Neuts (auto) 7.2 Absolute Lymphs (auto) 1.04 Total Counted 100 Neutrophils % (Manual) 70 Band Neutrophils % 4 Lymphocytes % (Manual) 12 L Monocytes % (Manual) 2 Eosinophils % (Manual) 3 Metamyelocytes % 7 H Myelocytes % 2 H Diff Path Review Reviewed May foll Platelet Estimate MOD DEC Anisocytosis 1+ Sodium 134 L Potassium 3.8 Chloride 103 Carbon Dioxide 25.0 Anion Gap 6 BUN 27 H Creatinine 0.99 Estim Creat Clear Calc 83.03 Est GFR (MDRD) Af Amer 97 Est GFR (MDRD) Non-Af 80 BUN/Creatinine Ratio 27.3 H Glucose 118 H Calcium 8.4 L POC Glucose 07/01/18 07/01/18 06/30/18 11:45 06:32 21:27 POC Glucose 296 H 131 H 164 H 06/30/18 16:18 POC Glucose 208 H Discharge Diet: Low fat/ Low Cholesterol, 1800 Calorie Control Diet, 2000 mg Sodium Diet Discharge Activity: Return to Normal Activity Disposition: [facility] facility Minutes spent on discharge:: 40 Patient Condition:: Stable Medical Necessity - Tobacco Use Smoking Status: Current every day smoker Meaningful Use Info Meaningful Use Diagnoses (Choose all that apply): None applicable Code Visit Inpatient E&M: 60914 Disch Hosp
--- NOTE | 2018-07-01 14:41 | DS.PCM_ITS ---
<Salvador Patel - Last Filed: 07/01/18 14:33> Discharge Date and Diagnosis Date of Admission: 06/30/18 Date of Discharge: 07/01/18 - Primary Discharge Diagnosis Acute transient hypoxia with setting of chronic hypoxic respiratory failure, partially treated pneumonia, suspected streptococcal, recent COPD exacerbation Acute kidney injury on CKD stage III Acute metabolic encephalopathy secondary to hypoxia and JUDY COPD with recent exacerbation, not in acute exacerbation this time History of CAD, hypertension, hyperlipidemia, stents History of tobacco abuse Type 2 diabetes mellitus History of PAD Chronic back pain secondary to back surgery - Secondary Discharge Diagnosis Chronic Problems (Last Reviewed 06/30/18 @ 05:33 by Felix Ambriz MD) HTN (hypertension) (Chronic) HLD (hyperlipidemia) (Chronic) PAD (peripheral artery disease) (Chronic) CKD (chronic kidney disease) stage 3, GFR 30-59 ml/min (Chronic) Debility (Chronic) Chronic respiratory failure with hypoxia (Chronic) Chronic anemia (Chronic) Chronic back pain (Chronic) Stented coronary artery (Chronic 09/22/17) 3.5 X 16 Promus Synergy to mid LAD; 4.0 X 24 Promus Synergy to proximal LAD; POBA to Diagonal [address] Ruff @ [facility] NSTEMI (non-ST elevated myocardial infarction) (Chronic 09/22/17) Tobacco abuse (Chronic) Hospital Course and Treatment Imaging Results: IMAGING: RAD/Chest 1 View (Portable) IMPRESSION: 1. No acute cardiopulmonary disease. No significant interval change. 2. Chronic mild elevation of the left hemidiaphragm. Consultations 06/30/18 06:53 Consult: Onc/Wound/earth science technician Routine Comment: pt has pressure injury on right heel. Reason for Consult:: pressure injury Comments:: pt also has discoloration on buttocks and upper legs Operations: None Procedures: None Summary of Care Provided: Hospital course: The patient is a 68 year old M with past medical history as above, who was recently discharged from the hospital after being treated for pneumonia, presumed streptococcal, and COPD exacerbation. He had gone home become more confused, and worsening in breathing, and was brought back to the ER. Patient was confused in the ER was unable to provide significant history. The patient was hypoxic on 4 L of oxygen at 88%. This is what he was sent home on. Later he improved into the 90s on the same amount. Chest x-ray did not reveal acute process. His creatinine was elevated and he appeared to have acute kidney injury. His lactic acid was also elevated. He was admitted to the PCU with acute hypoxia, acute kidney injury, and acute metabolic encephalopathy. We continued his Levaquin for underlying pneumonia, prednisone for his recent COPD exacerbation, gave him aerosols, supplemental oxygen, and discontinued sedating medications including gabapentin and opiates. By the following day his breathing began to improve. He had a nonproductive cough. He remained stable down to 2 L of oxygen per minute by nasal cannula. He was smoking up to his prior admission. I reemphasized the need for complete nicotine cessation - he was provided with a patch. It is not clear if he went home and smoked. He was given IV fluids for his acute kidney injury, and nephrotoxic agents were held. He continued to have intermittent confusion in the mornings, however this was transient and he resolved to normal mental status. He remains significantly debilitated and with severe back pain. Nonsedating agents, topicals were provided. He worked with PT and OT, and fpc was recommended. He was agreeable. He was accepted to TCU and discharged there in stable condition. Also of significant note, his metformin was discontinued due to JUDY and lactic acidosis-it should not be restarted. For now with ongoing prednisone therapy he should continue sliding scale insulin, and then begin an alternative oral regimen when appropriate. [facility], recommend he call to schedule an appointment. Lastly, he should continue to have wound care for his chronic foot wounds. This patient was seen by Salvador Patel PA-C under the supervision of Doctor Chambers. [] - Physical Exam General: Alert, Oriented x3, Cooperative HEENT: Atraumatic, PERRLA, EOMI, Normocephalic Neck: Supple, No JVD, Negative Carotid Bruits Lungs: Diminished Cardiovascular: Regular rate, No murmurs Abdomen: Bowel Sounds Present, Soft, Non Tender Extremities: No edema, Capillary Refill Less than 3 Seconds Skin: No rashes, No breakdown Musculoskeletal: No Tenderness to Palpation of Joints or Extremities Neurological: Cranial nerves II-XII grossly intact Psych/Mental Status: Normal Affect, Appropriate, Alert and oriented to time, place, person, mood and affect Vital Signs Temp Pulse Resp BP Pulse Ox 97.6 F L 76 20 H 99/49 L 97 07/01/18 14:11 07/01/18 14:11 07/01/18 14:11 07/01/18 14:11 07/01/18 14:11 Oxygen Flow Rate (L/min) 2 Oxygen Delivery Method Nasal Cannula Weight: 201 lb 8.04 oz Body Mass Index (BMI) 25.8 Finger Stick Blood Glucose 117 Intake and Output for Last 24 Hours 06/29/18 06/30/18 07/01/18 23:59 23:59 23:59 Intake Total 1010 / 1010 450 / 450 Output Total 1500 / 1500 875 / 875 Balance -490 / -490 -425 / -425 Microbiology Past 72 Hours 06/30/18 12:00 Streptococcus pneumoniae Antigen (M - Final Urine, Clean Catch 06/30/18 12:00 Legionella Antigen - Final Urine, Clean Catch Laboratory Tests Past 24 Hrs 06/29/18 07/01/18 07/01/18 23:42 06:01 06:01 WBC 8.7 RBC 4.16 L Hgb 10.2 L Hct 33.2 L MCV 79.8 L MCH 24.5 L MCHC 30.7 L RDW 21.4 H RDW Differential 58.2 H Plt Count 86 L MPV 10.8 Neut % (Auto) Not Reportable Absolute Neuts (auto) 7.2 Absolute Lymphs (auto) 1.04 Total Counted 100 Neutrophils % (Manual) 70 Band Neutrophils % 4 Lymphocytes % (Manual) 12 L Monocytes % (Manual) 2 Eosinophils % (Manual) 3 Metamyelocytes % 7 H Myelocytes % 2 H Diff Path Review Reviewed May foll Platelet Estimate MOD DEC Anisocytosis 1+ Sodium 134 L Potassium 3.8 Chloride 103 Carbon Dioxide 25.0 Anion Gap 6 BUN 27 H Creatinine 0.99 Estim Creat Clear Calc 83.03 Est GFR (MDRD) Af Amer 97 Est GFR (MDRD) Non-Af 80 BUN/Creatinine Ratio 27.3 H Glucose 118 H Calcium 8.4 L POC Glucose 07/01/18 07/01/18 06/30/18 11:45 06:32 21:27 POC Glucose 296 H 131 H 164 H 06/30/18 16:18 POC Glucose 208 H Discharge Diet: Low fat/ Low Cholesterol, 1800 Calorie Control Diet, 2000 mg Sodium Diet Discharge Activity: Return to Normal Activity Home Medications: Medications to take at Discharge Simvastatin [Zocor] 10 mg PO QHS 07/03/17 Clopidogrel Bisulfate [Plavix] 75 mg PO DAILY #30 tab 09/26/17 Potassium Chloride [K-Dur] 10 meq PO DAILY 05/26/18 Budesonide/Formoterol Fumarate [Symbicort 160-4.5 Mcg Inhaler] 2 puff IH BID #1 hfa.aer.ad 06/28/18 Acetaminophen [Tylenol] 500 mg PO Q6H PRN PRN tablet 07/01/18 Albuterol Aerosols [Ventolin Aerosols] 2.5 mg INHALATION Q2H PRN PRN vial.neb. 07/01/18 Aspirin [Aspirin, Baby] 81 mg PO DAILY@0800 tab.chew 07/01/18 Atenolol [Tenormin (beta monster)] 25 mg PO DAILY tablet 07/01/18 Glucerna Shake 120 ml PO 4X/DAY liquid 07/01/18 Guaifenesin [Mucinex] 1,200 mg PO BID tablet 07/01/18 Insulin Lispro [Humalog KwikPen] See Protocol SC ACHS insuln.pen 07/01/18 Ipratropium/Albuterol Sulfate [Duoneb] 3 ml INHALATION Q6HWA.RT ampul.neb 07/01/18 Lidocaine [Lidoderm Patch] 1 patch TOPICAL DAILY patch 07/01/18 Menthol [Bengay Vanishing Scent] 1 applic TOPICAL 4X/DAY PRN PRN tube 07/01/18 Nicotine [Nicoderm Cq] 21 mg TRANSDERM. DAILY patch 07/01/18 Prednisone 10 mg PO UD #18 tablet 07/01/18 levoFLOXacin tablet [Levaquin tablet] 750 mg PO DAILY #3 tablet 07/01/18 Following Prescrptions Were Given to Patient: Prednisone 10 mg PO UD #18 tablet [facility] - Please follow up with your Primary Care Physician in: 2 weeks Disposition: [facility] facility Minutes spent on discharge:: 40 Patient Condition:: Stable Medical Necessity - Tobacco Use Smoking Status: Current every day smoker Meaningful Use Info Meaningful Use Diagnoses (Choose all that apply): None applicable <Laci Chambers - Last Filed: 07/01/18 14:54> Discharge Date and Diagnosis - Secondary Discharge Diagnosis Chronic Problems (Last Reviewed 06/30/18 @ 05:33 by Felix Ambriz MD) HTN (hypertension) (Chronic) HLD (hyperlipidemia) (Chronic) PAD (peripheral artery disease) (Chronic) CKD (chronic kidney disease) stage 3, GFR 30-59 ml/min (Chronic) Debility (Chronic) Chronic respiratory failure with hypoxia (Chronic) Chronic anemia (Chronic) Chronic back pain (Chronic) Stented coronary artery (Chronic 09/22/17) 3.5 X 16 Promus Synergy to mid LAD; 4.0 X 24 Promus Synergy to proximal LAD; POBA to Diagonal [address] Ruff @ [facility] NSTEMI (non-ST elevated myocardial infarction) (Chronic 09/22/17) Tobacco abuse (Chronic) Hospital Course and Treatment Consultations 06/30/18 06:53 Consult: Onc/Wound/earth science technician Routine Comment: pt has pressure injury on right heel. Reason for Consult:: pressure injury Comments:: pt also has discoloration on buttocks and upper legs Operations: None Procedures: None Summary of Care Provided: Patient seen and examined independently. Data reviewed. I agree with the above note by the physician public health training assistant. 1. Acute hypoxic respiratory insufficiency: * Transient and resolved. Chest x-ray shows no infiltrate my evaluation. Given the transient nature and the fact that he was hypoxic on his 4 L, possibility could include mucous plugging the patient may have coughed up. Clinically the patient is stable at this time and has been continued on the Levaquin and prednisone that he was discharged with. Continue with pulmonary toilet. 2. JUDY * improving * monitor 3. Acute exacerbation of COPD * stable * follow up with pulmonology as outpatient 2. Metabolic encephalopathy * Appears to be resolved. * Discontinue the gabapentin from his discharge but it appears that that was resumed at home. I do not know if that was inciting agent for his confusion but once again that has been discontinued and once again I would recommend discontinuing it moving forward upon discharge. 3. Possible pneumococcal pneumonia * continue empiric abx for now. * Strep and legionella antigens negative. * continue levofloxacin through the (total 7 days of antibiotics)[] - Physical Exam General: Alert, Cooperative HEENT: Atraumatic, Normocephalic Lungs: Clear to auscultation, Diminished Cardiovascular: Regular rate, Regular Rhythm, Normal S1, Normal S2, No murmurs Abdomen: Bowel Sounds Present, Soft, Non Tender Vital Signs Temp Pulse Resp BP Pulse Ox 36.4 C L 76 20 H 99/49 L 97 07/01/18 14:11 07/01/18 14:11 07/01/18 14:11 07/01/18 14:11 07/01/18 14:11 Oxygen Flow Rate (L/min) 2 Oxygen Delivery Method Nasal Cannula Weight: 91.4 kg Body Mass Index (BMI) 25.8 Finger Stick Blood Glucose 117 Intake and Output for Last 24 Hours 06/29/18 06/30/18 07/01/18 23:59 23:59 23:59 Intake Total 1010 / 1010 450 / 450 Output Total 1500 / 1500 875 / 875 Balance -490 / -490 -425 / -425 Microbiology Past 72 Hours 06/30/18 12:00 Streptococcus pneumoniae Antigen (M - Final Urine, Clean Catch 06/30/18 12:00 Legionella Antigen - Final Urine, Clean Catch Laboratory Tests Past 24 Hrs 06/29/18 07/01/18 07/01/18 23:42 06:01 06:01 WBC 8.7 RBC 4.16 L Hgb 10.2 L Hct 33.2 L MCV 79.8 L MCH 24.5 L MCHC 30.7 L RDW 21.4 H RDW Differential 58.2 H Plt Count 86 L MPV 10.8 Neut % (Auto) Not Reportable Absolute Neuts (auto) 7.2 Absolute Lymphs (auto) 1.04 Total Counted 100 Neutrophils % (Manual) 70 Band Neutrophils % 4 Lymphocytes % (Manual) 12 L Monocytes % (Manual) 2 Eosinophils % (Manual) 3 Metamyelocytes % 7 H Myelocytes % 2 H Diff Path Review Reviewed June foll Platelet Estimate MOD DEC Anisocytosis 1+ Sodium 134 L Potassium 3.8 Chloride 103 Carbon Dioxide 25.0 Anion Gap 6 BUN 27 H Creatinine 0.99 Estim Creat Clear Calc 83.03 Est GFR (MDRD) Af Amer 97 Est GFR (MDRD) Non-Af 80 BUN/Creatinine Ratio 27.3 H Glucose 118 H Calcium 8.4 L POC Glucose 07/01/18 07/01/18 06/30/18 11:45 06:32 21:27 POC Glucose 296 H 131 H 164 H 06/30/18 16:18 POC Glucose 208 H Discharge Diet: Low fat/ Low Cholesterol, 1800 Calorie Control Diet, 2000 mg Sodium Diet Discharge Activity: Return to Normal Activity Disposition: Penitentiary facility Minutes spent on discharge:: 40 Patient Condition:: Stable Medical Necessity - Tobacco Use Smoking Status: Current every day smoker Meaningful Use Info Meaningful Use Diagnoses (Choose all that apply): None applicable Code Visit Inpatient E&M: 83181 Disch Hosp
[2018-07-04 10:29] LABS: Pathologist Review Reviewed
== END 2018-07-01 14:24 | disposition skilled nursing facility (03) | DRG 682 ==
LOC: ED 23:45 → PCU 06-30 01:39
PROVIDERS: Physician Assistant; Admitting Provider Hospitalist; Emergency Provider Emergency Medicine
DX: N17.9 Acute kidney failure, unspecified (principal); G93.41 Metabolic encephalopathy; J15.4 Pneumonia due to other streptococci; J96.11 Chronic respiratory failure with hypoxia; J44.0 Chronic obstructive pulmonary disease with (acute) lower respiratory infection; J44.1 Chronic obstructive pulmonary disease with (acute) exacerbation; I25.10 Atherosclerotic heart disease of native coronary artery without angina pectoris; I12.9 Hypertensive chronic kidney disease with stage 1 through stage 4 chronic kidney disease, or unspecified chronic kidney disease; N18.3 Chronic kidney disease, stage 3 (moderate); G89.29 Other chronic pain; M54.9 Dorsalgia, unspecified; E78.5 Hyperlipidemia, unspecified; E11.22 Type 2 diabetes mellitus with diabetic chronic kidney disease; F17.200 Nicotine dependence, unspecified, uncomplicated; Z79.84 Long term (current) use of oral hypoglycemic drugs; I25.2 Old myocardial infarction; Z95.5 Presence of coronary angioplasty implant and graft; Z79.02 Long term (current) use of antithrombotics/antiplatelets; E11.51 Type 2 diabetes mellitus with diabetic peripheral angiopathy without gangrene; Z99.81 Dependence on supplemental oxygen
CPT/HCPCS: 36415; 36600; 71045; 80048; 82803; 82962; 83605; 85025; 87040; 87449; 92610; 93005; 94640; 94667; 94668; 97110; 97163; 97166; 97802; 99285; J7030; A4216

== ENCOUNTER 2018-07-01 14:35 | Inpatient (IN) | payer MEDICARE, OTHER, SELFPAY ==
[2017-09-22 13:36] VITALS: BMI 27.3
[2018-06-30 02:15] VITALS: BMI 25.8
[2018-07-01 15:15] VITALS: BP 101/51; PULSE 75; RESP 18; TEMP 36.4; O2SAT 94; BMI 25.8; BMI 25.9
--- NOTE | 2018-07-01 15:21 | NURSING ---
Patient admitted to room 10 from PCU via bed. Oriented to room and call light system explained.
--- NOTE | 2018-07-01 15:34 | NURSING ---
Pt arrived at 14:35 via wheelchair from [facility]. A[facility]Ox[facility], oriented to call light and room at this time.
[2018-07-01 16:46] LABS: Bedside Glucose 200 mg/dL (70-110)
[2018-07-01] MEDS: Insulin Lispro 100 UNIT/ML INSULN.PEN SC (17:27)
[2018-07-01] MEDS: guaiFENesin 1,200 MG Tablet 1200 MG PO (17:28)
--- NOTE | 2018-07-01 18:13 | PCM.HP.STD ---
Problem List (1) Encephalopathy Status: Acute (2) PAOD (peripheral arterial occlusive disease) Status: Chronic (3) Chronic kidney disease Status: Chronic (4) Coronary artery disease Status: Chronic (5) Diabetes mellitus Status: Chronic (6) Hypokalemia Status: Acute (7) COPD (chronic obstructive pulmonary disease) Status: Chronic (8) Muscle spasm Status: Chronic (9) Diabetic neuropathy Status: Chronic (10) HTN (hypertension) Status: Chronic Qualifiers: (11) HLD (hyperlipidemia) Status: Chronic Qualifiers: (12) JUDY (acute kidney injury) Status: Acute (13) Tobacco abuse Status: Chronic History of Present Illness Date of Admission: 07/01/18 Chief Complaint: Here for rehabilitation, strengthening, prior to discharge home with spouse. The patient is a 68 year old Male with below past medical history presented to [facility] Emergency Department 06/29/2018 with shortness of breath, hypotension, hypoxia. 06/25/2018 EKG normal sinus rhythm with PVC's, cannot rule out inferior infarct. 06/25/2018 CT head negative. 06/29/2018 Chest X-ray chronic mild elevation left hemidiaphragm. Recent admission for COPD, pneumonia, confusion. He has chest pain, shortness of breath. WBC 17.8, BUN 53, Cr 1.79, Lactic acid 2.2 IV fluids given, Patient confused. 06/30/2018 Admit to Hospital. IV fluids for acute kidney injury. Schedule Duoneb, Prednisone for COPD. Levaquin for community acquired pneumonia. Consider shelter placement. 06/30/2018 Stop Gabapentin for confusion. Presumed strep pneumonia. Opioids stopped for confusion. Nicotine patch for smoking cessation. IV fluids improved acute kidney injury. Mental status improved to baseline. Metformin stopped due to acute kidney injury, DO NOT RESTART. Sliding Scale Insulin for elevated blood sugars secondary to prednisone. Spinal stimulator for low back pain at [facility]. Wound care for chronic foot wounds. 07/01/2018 Admit to TCU with debility, here for rehabilitation, strengthening, prior to discharge home with spouse. Past Medical History Past Medical History (Chronic Problems): Chronic Problems (Last Reviewed 06/30/18 @ 05:33 by Felix Ambriz MD) HTN (hypertension) (Chronic) HLD (hyperlipidemia) (Chronic) PAD (peripheral artery disease) (Chronic) CKD (chronic kidney disease) stage 3, GFR 30-59 ml/min (Chronic) Debility (Chronic) Chronic respiratory failure with hypoxia (Chronic) Chronic anemia (Chronic) Chronic back pain (Chronic) PAOD (peripheral arterial occlusive disease) (Chronic) Chronic kidney disease (Chronic) Coronary artery disease (Chronic) Diabetes mellitus (Chronic) COPD (chronic obstructive pulmonary disease) (Chronic) Muscle spasm (Chronic) Diabetic neuropathy (Chronic) Stented coronary artery (Chronic 09/22/17) 3.5 X 16 Promus Synergy to mid LAD; 4.0 X 24 Promus Synergy to proximal LAD; POBA to Diagonal [address] Ruff @ [facility] NSTEMI (non-ST elevated myocardial infarction) (Chronic 09/22/17) Tobacco abuse (Chronic) Medical History: Medical History (Last Reviewed 06/30/18 @ 05:33 by Felix Ambriz MD) NSTEMI (non-ST elevated myocardial infarction) (Chronic) Onset Date: 09/22/17 I21.4 CAD (coronary artery disease) I25.10 DM2 (diabetes mellitus, type 2) E11.9 Hyperlipidemia E78.5 Non-healing wound of right heel S91.301A PAD (peripheral artery disease) I73.9 HTN (hypertension) I10 Allergies No Known Allergies Allergy (Verified 06/24/18 23:51) Home Medications: Ambulatory Orders Medication Instructions Recorded Simvastatin [Zocor] 10 mg PO QHS 07/03/17 Potassium Chloride [K-Dur] 10 meq PO DAILY 05/26/18 Acetaminophen [Tylenol] 500 mg PO Q6H PRN PRN tablet 07/01/18 Albuterol Aerosols [Ventolin 2.5 mg INHALATION Q2H PRN PRN 07/01/18 Aerosols] vial.neb. Aspirin [Aspirin, Baby] 81 mg PO DAILY@0800 07/01/18 Atenolol [Tenormin (beta monster)] 25 mg PO DAILY 07/01/18 Budesonide/Formoterol Fumarate 2 puff IH BID 07/01/18 [Symbicort 160-4.5 Mcg Inhaler] Clopidogrel Bisulfate [Plavix] 75 mg PO DAILY 07/01/18 Glucerna Shake 120 ml PO 4X/DAY 07/01/18 Guaifenesin [Mucinex] 1,200 mg PO BID 07/01/18 Insulin Lispro [Humalog KwikPen] See Protocol SC ACHS 07/01/18 Ipratropium/Albuterol Sulfate 3 ml INHALATION Q6HWA.RT 07/01/18 [Duoneb] Lidocaine [Lidoderm Patch] 1 patch TOPICAL DAILY 07/01/18 Menthol [Bengay Vanishing Scent] 1 applic TOPICAL 4X/DAY PRN PRN 07/01/18 tube Nicotine [Nicoderm Cq] 21 mg TRANSDERM. DAILY 07/01/18 Prednisone 10 mg PO UD 07/01/18 levoFLOXacin tablet [Levaquin 750 mg PO DAILY 07/01/18 tablet] Surgical History: Surgical History (Last Reviewed 06/30/18 @ 05:33 by Felix Ambriz MD) Stented coronary artery (Chronic) Onset Date: 09/22/17 Z95.5 3.5 X 16 Promus Synergy to mid LAD; 4.0 X 24 Promus Synergy to proximal LAD; POBA to Diagonal [address] Ruff @ [facility] Surgical History: angioplasty - with stent., total knee arthroplasty - Right., - - Multiple coronary artery stents, lumbar spine surgery x 3, Hx AAA repair w/ stent, BL elbow ? nerve surgery. Psychiatric History: No pertinent psych hx Lives: Spouse/ Significant Other Smoking Status: Current every day smoker Tobacco Use: Cigarettes Alcohol: None Drugs: None - *Family History Maternal History Items: Hypertension Paternal History Items: Hypertension Review of Systems Constitutional: Denies: Chills, Fever, Weight Change HEENT: Denies: Head Aches, Sinus Congestion, Sinus Drainage Cardiovascular: Denies: Chest Pain, Palpitations Respiratory: Denies: Cough, Shortness of breath at rest, Sputum production Gastrointestinal: Denies: Abdominal Pain, Nausea, Vomiting Genitourinary: Denies: Dysuria Musculoskeletal: Denies: Joint Pain, Joint Tenderness Skin: Denies: Rash, Wounds Neurological: Denies: Numbness, Tingling, Focal weakness Psychiatric: Denies: Anxiety, Depression, Homicidal Ideations, Suicidal Ideations Hematologic/ Lymphatic: Denies: Easy Bruising, Easy Bleeding VTE Information - Inpt Only VTE Present on Admission: No VTE Mechan Device Prophylaxis: Knee High FRANCESCA Hose VTE Pharm Prophylaxis ordered?: Yes Patient Problems: Active and Suspected Problems (Last Reviewed 06/30/18 @ 05:33 by Felix Ambriz MD) Encephalopathy (Acute) Hypokalemia (Acute) - Physical Exam General: Alert, Oriented x3, Cooperative HEENT: Atraumatic, PERRLA, EOMI, Normocephalic Neck: Supple, No JVD, Negative Carotid Bruits Lungs: Normal air movement, Rales - Mild left base. Cardiovascular: Regular rate, No murmurs Abdomen: Bowel Sounds Present, Soft, Non Tender Extremities: No edema, Capillary Refill Less than 3 Seconds Skin: No rashes, No breakdown Musculoskeletal: No Tenderness to Palpation of Joints or Extremities Neurological: Cranial nerves II-XII grossly intact Psych/Mental Status: Normal Affect, Appropriate Vital Signs Temp Pulse Resp BP Pulse Ox 97.5 F L 75 18 101/51 L 94 07/01/18 15:15 07/01/18 15:15 07/01/18 15:15 07/01/18 15:15 07/01/18 15:15 Oxygen Flow Rate (L/min) 2 Oxygen Delivery Method Nasal Cannula Weight: 91.371 kg Body Mass Index (BMI) 25.8 Finger Stick Blood Glucose 117 POC Glucose 07/01/18 16:40 POC Glucose 200 H Assessment/Plan All Active Problems (Last Reviewed 06/30/18 @ 05:33 by Felix Ambriz MD) Acute encephalopathy (Acute) JUDY (acute kidney injury) (Acute) Encephalopathy (Acute) Hypokalemia (Acute) Mental status change (Acute) Healthcare-associated pneumonia (Ruled-out) Severe sepsis (Acute) Pneumonia (Acute) Elevated troponin (Acute) 68 year old male with below past medical history hospitalized for encephalopathy secondary to community acquired pneumonia, adverse reaction to medication, acute kidney injury, COPD exacerbation, admitted to TCU with debility, here for rehabilitation, strengthening, prior to discharge home with spouse. Debility - PT/OT. Pain - Tylenol 1000MG Q6H PRN mild pain. Bowel - Miralax 17GM daily, Senokot 1 tablet BID, Dulcolax 10MG daily PRN. Pneumonia vaccination - Administer Prevnar 13 and/or Pneumovax 23 as necessary. DVT prophylaxis - Lovenox 30MG SC daily. COPD - Duoneb 3ML Q6H, Albuterol 2.5MG Q2H PRN, Prednisone taper, Mucinex 1200MG BID thru 07/06/2018. Coronary Artery Disease - Atenolol 25MG daily, Plavix 75MG daily, Aspirin 81MG daily. Hyperlipidemia - Atorvastatin 5MG QHS, consider high intensity statin Atorvastatin 40MG QHS if tolerable. Skin irritation - Eucerin 4x/day PRN, Calmoseptine TID. Nutrition - Glucerna 120ML 4x/day. Community Acquired Pneumonia - Levaquin 750MG daily thru 07/04/2018. Low back pain - Lidoderm patch 1 patch daily, Menthol 4x/day PRN. Tobacco Abuse - Nicotine patch 21MG TD daily. Hypokalemia - K-Dur 10MEQ daily. Diabetes Mellitus II - off Metformin due to renal insufficiency, monitor blood sugars, and add insulin as appropriate.
--- NOTE | 2018-07-01 18:19 | HP.PCM_ITS ---
Problem List (1) Encephalopathy Status: Acute (2) PAOD (peripheral arterial occlusive disease) Status: Chronic (3) Chronic kidney disease Status: Chronic (4) Coronary artery disease Status: Chronic (5) Diabetes mellitus Status: Chronic (6) Hypokalemia Status: Acute (7) COPD (chronic obstructive pulmonary disease) Status: Chronic (8) Muscle spasm Status: Chronic (9) Diabetic neuropathy Status: Chronic (10) HTN (hypertension) Status: Chronic Qualifiers: (11) HLD (hyperlipidemia) Status: Chronic Qualifiers: (12) JUDY (acute kidney injury) Status: Acute (13) Tobacco abuse Status: Chronic History of Present Illness Date of Admission: 07/01/18 Chief Complaint: Here for rehabilitation, strengthening, prior to discharge home with spouse. The patient is a 68 year old Male with below past medical history presented to [facility] Emergency Department 06/29/2018 with shortness of breath, hypotension, hypoxia. 06/25/2018 EKG normal sinus rhythm with PVC's, cannot rule out inferior infarct. 06/25/2018 CT head negative. 06/29/2018 Chest X-ray chronic mild elevation left hemidiaphragm. Recent admission for COPD, pneumonia, confusion. He has chest pain, shortness of breath. WBC 17.8, BUN 53, Cr 1.79, Lactic acid 2.2 IV fluids given, Patient confused. 06/30/2018 Admit to Hospital. IV fluids for acute kidney injury. Schedule Duoneb, Prednisone for COPD. Levaquin for community acquired pneumonia. Consider fpc placement. 06/30/2018 Stop Gabapentin for confusion. Presumed strep pneumonia. Opioids stopped for confusion. Nicotine patch for smoking cessation. IV fluids improved acute kidney injury. Mental status improved to baseline. Metformin stopped due to acute kidney injury, DO NOT RESTART. Sliding Scale Insulin for elevated blood sugars secondary to prednisone. Spinal stimulator for low back pain at [facility]. Wound care for chronic foot wounds. 07/01/2018 Admit to TCU with debility, here for rehabilitation, strengthening, prior to discharge home with spouse. Past Medical History Past Medical History (Chronic Problems): Chronic Problems (Last Reviewed 06/30/18 @ 05:33 by Felix Ambriz MD) HTN (hypertension) (Chronic) HLD (hyperlipidemia) (Chronic) PAD (peripheral artery disease) (Chronic) CKD (chronic kidney disease) stage 3, GFR 30-59 ml/min (Chronic) Debility (Chronic) Chronic respiratory failure with hypoxia (Chronic) Chronic anemia (Chronic) Chronic back pain (Chronic) PAOD (peripheral arterial occlusive disease) (Chronic) Chronic kidney disease (Chronic) Coronary artery disease (Chronic) Diabetes mellitus (Chronic) COPD (chronic obstructive pulmonary disease) (Chronic) Muscle spasm (Chronic) Diabetic neuropathy (Chronic) Stented coronary artery (Chronic 09/22/17) 3.5 X 16 Promus Synergy to mid LAD; 4.0 X 24 Promus Synergy to proximal LAD; POBA to Diagonal [address] Ruff @ [facility] NSTEMI (non-ST elevated myocardial infarction) (Chronic 09/22/17) Tobacco abuse (Chronic) Medical History: Medical History (Last Reviewed 06/30/18 @ 05:33 by Felix Ambriz MD) NSTEMI (non-ST elevated myocardial infarction) (Chronic) Onset Date: 09/22/17 I21.4 CAD (coronary artery disease) I25.10 DM2 (diabetes mellitus, type 2) E11.9 Hyperlipidemia E78.5 Non-healing wound of right heel S91.301A PAD (peripheral artery disease) I73.9 HTN (hypertension) I10 Allergies No Known Allergies Allergy (Verified 06/24/18 23:51) Home Medications: Ambulatory Orders Medication Instructions Recorded Simvastatin [Zocor] 10 mg PO QHS 07/03/17 Potassium Chloride [K-Dur] 10 meq PO DAILY 05/26/18 Acetaminophen [Tylenol] 500 mg PO Q6H PRN PRN tablet 07/01/18 Albuterol Aerosols [Ventolin 2.5 mg INHALATION Q2H PRN PRN 07/01/18 Aerosols] vial.neb. Aspirin [Aspirin, Baby] 81 mg PO DAILY@0800 07/01/18 Atenolol [Tenormin (beta monster)] 25 mg PO DAILY 07/01/18 Budesonide/Formoterol Fumarate 2 puff IH BID 07/01/18 [Symbicort 160-4.5 Mcg Inhaler] Clopidogrel Bisulfate [Plavix] 75 mg PO DAILY 07/01/18 Glucerna Shake 120 ml PO 4X/DAY 07/01/18 Guaifenesin [Mucinex] 1,200 mg PO BID 07/01/18 Insulin Lispro [Humalog KwikPen] See Protocol SC ACHS 07/01/18 Ipratropium/Albuterol Sulfate 3 ml INHALATION Q6HWA.RT 07/01/18 [Duoneb] Lidocaine [Lidoderm Patch] 1 patch TOPICAL DAILY 07/01/18 Menthol [Bengay Vanishing Scent] 1 applic TOPICAL 4X/DAY PRN PRN 07/01/18 tube Nicotine [Nicoderm Cq] 21 mg TRANSDERM. DAILY 07/01/18 Prednisone 10 mg PO UD 07/01/18 levoFLOXacin tablet [Levaquin 750 mg PO DAILY 07/01/18 tablet] Surgical History: Surgical History (Last Reviewed 06/30/18 @ 05:33 by Felix Ambriz MD) Stented coronary artery (Chronic) Onset Date: 09/22/17 Z95.5 3.5 X 16 Promus Synergy to mid LAD; 4.0 X 24 Promus Synergy to proximal LAD; POBA to Diagonal [address] Ruff @ [facility] Surgical History: angioplasty - with stent., total knee arthroplasty - Right., - - Multiple coronary artery stents, lumbar spine surgery x 3, Hx AAA repair w/ stent, BL elbow ? nerve surgery. Psychiatric History: No pertinent psych hx Lives: Spouse/ Significant Other Smoking Status: Current every day smoker Tobacco Use: Cigarettes Alcohol: None Drugs: None - *Family History Maternal History Items: Hypertension Paternal History Items: Hypertension Review of Systems Constitutional: Denies: Chills, Fever, Weight Change HEENT: Denies: Head Aches, Sinus Congestion, Sinus Drainage Cardiovascular: Denies: Chest Pain, Palpitations Respiratory: Denies: Cough, Shortness of breath at rest, Sputum production Gastrointestinal: Denies: Abdominal Pain, Nausea, Vomiting Genitourinary: Denies: Dysuria Musculoskeletal: Denies: Joint Pain, Joint Tenderness Skin: Denies: Rash, Wounds Neurological: Denies: Numbness, Tingling, Focal weakness Psychiatric: Denies: Anxiety, Depression, Homicidal Ideations, Suicidal Ideations Hematologic/ Lymphatic: Denies: Easy Bruising, Easy Bleeding VTE Information - Inpt Only VTE Present on Admission: No VTE Mechan Device Prophylaxis: Knee High FRANCESCA Hose VTE Pharm Prophylaxis ordered?: Yes Patient Problems: Active and Suspected Problems (Last Reviewed 06/30/18 @ 05:33 by Felix Ambriz MD) Encephalopathy (Acute) Hypokalemia (Acute) - Physical Exam General: Alert, Oriented x3, Cooperative HEENT: Atraumatic, PERRLA, EOMI, Normocephalic Neck: Supple, No JVD, Negative Carotid Bruits Lungs: Normal air movement, Rales - Mild left base. Cardiovascular: Regular rate, No murmurs Abdomen: Bowel Sounds Present, Soft, Non Tender Extremities: No edema, Capillary Refill Less than 3 Seconds Skin: No rashes, No breakdown Musculoskeletal: No Tenderness to Palpation of Joints or Extremities Neurological: Cranial nerves II-XII grossly intact Psych/Mental Status: Normal Affect, Appropriate Vital Signs Temp Pulse Resp BP Pulse Ox 97.5 F L 75 18 101/51 L 94 07/01/18 15:15 07/01/18 15:15 07/01/18 15:15 07/01/18 15:15 07/01/18 15:15 Oxygen Flow Rate (L/min) 2 Oxygen Delivery Method Nasal Cannula Weight: 91.371 kg Body Mass Index (BMI) 25.8 Finger Stick Blood Glucose 117 POC Glucose 07/01/18 16:40 POC Glucose 200 H Assessment/Plan All Active Problems (Last Reviewed 06/30/18 @ 05:33 by Felix Ambriz MD) Acute encephalopathy (Acute) JUDY (acute kidney injury) (Acute) Encephalopathy (Acute) Hypokalemia (Acute) Mental status change (Acute) Healthcare-associated pneumonia (Ruled-out) Severe sepsis (Acute) Pneumonia (Acute) Elevated troponin (Acute) 68 year old male with below past medical history hospitalized for encephalopathy secondary to community acquired pneumonia, adverse reaction to medication, acute kidney injury, COPD exacerbation, admitted to TCU with debility, here for rehabilitation, strengthening, prior to discharge home with spouse. * Debility - PT/OT. * Pain - Tylenol 1000MG Q6H PRN mild pain. * Bowel - Miralax 17GM daily, Senokot 1 tablet BID, Dulcolax 10MG daily PRN. * Pneumonia vaccination - Administer Prevnar 13 and/or Pneumovax 23 as necessary. * DVT prophylaxis - Lovenox 30MG SC daily. * COPD - Duoneb 3ML Q6H, Albuterol 2.5MG Q2H PRN, Prednisone taper, Mucinex 1200MG BID thru 07/06/2018. * Coronary Artery Disease - Atenolol 25MG daily, Plavix 75MG daily, Aspirin 81MG daily. * Hyperlipidemia - Atorvastatin 5MG QHS, consider high intensity statin Atorvastatin 40MG QHS if tolerable. * Skin irritation - Eucerin 4x/day PRN, Calmoseptine TID. * Nutrition - Glucerna 120ML 4x/day. * Community Acquired Pneumonia - Levaquin 750MG daily thru 07/04/2018. * Low back pain - Lidoderm patch 1 patch daily, Menthol 4x/day PRN. * Tobacco Abuse - Nicotine patch 21MG TD daily. * Hypokalemia - K-Dur 10MEQ daily. * Diabetes Mellitus II - off Metformin due to renal insufficiency, monitor blood sugars, and add insulin as appropriate.
[2018-07-01 20:10] VITALS: PULSE 83; RESP 18; O2SAT 93
[2018-07-01] MEDS: Ipratropium/Albuterol Sulfate 3 ML AMPUL.NEB INHALATION (20:10)
[2018-07-01] MEDS: Atorvastatin Calcium 10 MG Tablet 5 MG PO (20:19)
[2018-07-01] MEDS: Acetaminophen 500 MG Tablet 1000 MG PO (20:20)
[2018-07-01 20:50] LABS: Bedside Glucose 262 mg/dL (70-110)
[2018-07-02] MEDS: Acetaminophen 500 MG Tablet 1000 MG PO ×3 (04:22→17:49)
[2018-07-02] MEDS: guaiFENesin 1,200 MG Tablet 1200 MG PO ×2 (04:26→17:44)
[2018-07-02] MEDS: levoFLOXacin 750 MG Tablet PO (04:26)
[2018-07-02] MEDS: Lidocaine 5% Patch 1 PATCH TOPICAL (04:26)
[2018-07-02] MEDS: Atenolol 25 MG Tablet PO (04:26)
[2018-07-02] MEDS: Clopidogrel Bisulfate 75 MG Tablet PO (04:26)
[2018-07-02] MEDS: Enoxaparin 30 MG/0.3 ML Syringe SC (04:35)
[2018-07-02] MEDS: Menthol/Lanolin/Calamine/Znox 113 GM Tube 1 APPLIC TOPICAL ×3 (04:44→21:19)
[2018-07-02 06:36] LABS: Bedside Glucose 108 mg/dL (70-110)
[2018-07-02 06:58] VITALS: PULSE 69; RESP 20; O2SAT 90
[2018-07-02] MEDS: Ipratropium/Albuterol Sulfate 3 ML AMPUL.NEB INHALATION ×3 (06:58→19:48)
[2018-07-02 07:40] LABS: Anion Gap 9 (5-15); BUN 22 mg/dL (7-18); BUN/Creat Ratio 23.5 RATIO (10-20); Chloride 104 mmol/L (98-107); Creatinine, Serum 0.94 mg/dL (0.70-1.30); EST Glomerular Filtration Rate 85 mL/min (>60); Est Glom Filt Rate - Afr Amer 103 mL/min (>60); Estimated Creatinine Clearance 87.45 ml/min; Glucose 105 mg/dL (74-106); Potassium 3.9 mmol/L (3.5-5.1); Sodium Level 138 mmol/L (136-145)
[2018-07-02] MEDS: predniSONE 10 MG Tablet 30 MG PO (07:50)
[2018-07-02] MEDS: Aspirin 81 MG TAB.CHEW PO (07:50)
[2018-07-02 10:00] VITALS: PULSE 74; O2SAT 97
[2018-07-02] MEDS: Tuberculin,Purif.prot.deriv. 50 TU/ML Vial 5 ML ID (10:38)
[2018-07-02 11:10] LABS: Bedside Glucose 275 mg/dL (70-110)
--- NOTE | 2018-07-02 11:13 | NURSING ---
Pt last known BM was on 06/28/18. PRN Dulcolax offered by this nurse. Pt said he didn't want to take it and stated, I will go when I go. Prune juice also offered and pt refused. Rell GALLAGHER aware.
[2018-07-02 13:22] VITALS: PULSE 77; RESP 18
[2018-07-02 16:33] VITALS: BP 108/59; PULSE 83; RESP 18; TEMP 36.6; O2SAT 95
[2018-07-02 17:11] LABS: Bedside Glucose 263 mg/dL (70-110)
[2018-07-02 19:48] VITALS: PULSE 70; RESP 18; O2SAT 96
[2018-07-02 21:11] LABS: Bedside Glucose 157 mg/dL (70-110)
[2018-07-02] MEDS: Atorvastatin Calcium 10 MG Tablet 5 MG PO (21:14)
[2018-07-03] MEDS: Acetaminophen 500 MG Tablet 1000 MG PO ×4 (00:56→21:44)
[2018-07-03] MEDS: Enoxaparin 30 MG/0.3 ML Syringe SC (04:47)
[2018-07-03] MEDS: Lidocaine 5% Patch 1 PATCH TOPICAL (04:48)
[2018-07-03] MEDS: Atenolol 25 MG Tablet PO (04:48)
[2018-07-03] MEDS: guaiFENesin 1,200 MG Tablet 1200 MG PO ×2 (04:48→18:05)
[2018-07-03] MEDS: levoFLOXacin 750 MG Tablet PO (04:48)
[2018-07-03] MEDS: Clopidogrel Bisulfate 75 MG Tablet PO (04:48)
[2018-07-03] MEDS: Menthol/Lanolin/Calamine/Znox 113 GM Tube 1 APPLIC TOPICAL ×3 (04:48→20:19)
[2018-07-03 06:30] LABS: Bedside Glucose 102 mg/dL (70-110)
[2018-07-03 07:20] VITALS: PULSE 72; RESP 16; O2SAT 95
[2018-07-03] MEDS: Ipratropium/Albuterol Sulfate 3 ML AMPUL.NEB INHALATION ×2 (07:20→19:05)
[2018-07-03] MEDS: Aspirin 81 MG TAB.CHEW PO (07:56)
[2018-07-03] MEDS: predniSONE 10 MG Tablet 30 MG PO (07:56)
[2018-07-03 10:55] LABS: Bedside Glucose 147 mg/dL (70-110)
--- NOTE | 2018-07-03 11:20 | PHA.CONS_ITS ---
<Reinaldo Hinojosa D - Last Filed: 07/03/18 11:03> Progress Note - Pharmacy Subjective: TCU Admission Objective: Allergies No Known Allergies Allergy (Verified 06/24/18 23:51) Current Medications Generic Name Dose Route Start Last Admin Trade Name Freq PRN Reason Stop Dose Admin Acetaminophen 1,000 mg 07/01/18 18:39 07/03/18 07:55 Tylenol PO 1,000 mg Q6H PRN PRN Administration MILD PAIN (1-3/10) Albuterol Sulfate 2.5 mg 07/01/18 15:47 Ventolin Aerosols INHALATION Q2H PRN PRN Shortness of Breath/Wheezing Albuterol/Ipratropium 3 ml 07/01/18 16:00 07/03/18 07:20 Duoneb INHALATION 3 ml Q6HWA.RT MENA Administration Aspirin 81 mg 07/02/18 08:00 07/03/18 07:56 Aspirin, Baby PO 81 mg DAILY@0800 MENA Administration Atenolol 25 mg 07/02/18 06:00 07/03/18 04:48 Tenormin (Beta Armando) PO 25 mg DAILY MENA Administration Atorvastatin Calcium 5 mg 07/01/18 22:00 07/02/18 21:14 Lipitor PO 5 mg QHS MENA Administration Bisacodyl 10 mg 07/01/18 16:08 Dulcolax PO DAILY PRN Constipation Calamine/Phenol 1 applic 07/01/18 22:00 07/03/18 04:48 Calmoseptine Ointment TOPICAL 1 applicatio TID MENA Administration Protocol Clopidogrel Bisulfate 75 mg 07/02/18 06:00 07/03/18 04:48 Plavix PO 75 mg DAILY MENA Administration Emollient Ointment 1 applic 07/01/18 16:47 Eucerin Intensive Repair TOPICAL 4X/DAY PRN PRN DRY SKIN Protocol Enoxaparin Sodium 30 mg 07/02/18 06:00 07/03/18 04:47 Lovenox SC 30 mg DAILY@0600 MENA Administration Guaifenesin 1,200 mg 07/01/18 18:00 07/03/18 04:48 Mucinex PO 07/06/18 06:01 1,200 mg BID MENA Administration Levofloxacin 750 mg 07/02/18 06:00 07/03/18 04:48 Levaquin Tablet PO 07/04/18 06:01 750 mg DAILY MENA Administration Lidocaine 1 patch 07/02/18 06:00 07/03/18 04:48 Lidoderm Patch TOPICAL 1 patch DAILY MENA Administration Protocol Menthol 1 applic 07/01/18 15:47 07/03/18 00:56 Bengay Vanishing Scent TOPICAL 1 applic 4X/DAY PRN PRN Administration PAIN Nicotine 21 mg 07/02/18 06:00 07/03/18 04:48 Nicoderm Cq ([facility]) TRANSDERM. 21 mg DAILY MENA Administration Polyethylene Glycol 17 gm 07/02/18 06:00 07/03/18 04:47 Miralax PO Not Given DAILY MENA Potassium Chloride 10 meq 07/02/18 06:00 07/03/18 04:48 K-Dur PO 10 meq DAILY MENA Administration Prednisone 30 mg 07/02/18 08:00 07/03/18 07:56 PO 07/04/18 08:01 30 mg DAILYCM MENA Administration Prednisone 20 mg 07/05/18 08:00 PO 07/07/18 08:01 DAILYCM MENA Prednisone 10 mg 07/08/18 08:00 PO 07/10/18 08:01 DAILYCM MENA Senna 1 tablet 07/02/18 06:00 07/03/18 04:47 Senokot PO Not Given BID MENA Tuberculin PPD 5 tu 07/09/18 10:00 Tubersol, Aplisol, Ppd ID 07/09/18 10:01 X1 ONE Problem List (Last Reviewed 06/30/18 @ 05:33 by Felix Ambriz MD) Encephalopathy (Acute) PAOD (peripheral arterial occlusive disease) (Chronic) Chronic kidney disease (Chronic) Coronary artery disease (Chronic) Diabetes mellitus (Chronic) Hypokalemia (Acute) COPD (chronic obstructive pulmonary disease) (Chronic) Muscle spasm (Chronic) Diabetic neuropathy (Chronic) Vital Signs Temp Pulse Resp BP Pulse Ox 98 F 72 16 108/59 L 95 07/02/18 16:33 07/03/18 07:20 07/03/18 07:20 07/02/18 16:33 07/03/18 07:20 Oxygen Flow Rate (L/min) 1 Oxygen Delivery Method Room Air Weight: 91.371 kg Body Mass Index (BMI) 25.8 Finger Stick Blood Glucose 117 Sodium 138 mmol/L (136-145) 07/02/18 06:08 Potassium 3.9 mmol/L (3.5-5.1) 07/02/18 06:08 Chloride 104 mmol/L (98-107) 07/02/18 06:08 Carbon Dioxide 25.0 mmol/L (21.0-32.0) 07/02/18 06:08 Anion Gap 9 (5-15) 07/02/18 06:08 BUN 22 mg/dL (7-18) H 07/02/18 06:08 Creatinine 0.94 mg/dL (0.70-1.30) 07/02/18 06:08 Est GFR (MDRD) Af Amer 103 mL/min (>60) 07/02/18 06:08 Est GFR (MDRD) Non-Af 85 mL/min (>60) 07/02/18 06:08 BUN/Creatinine Ratio 23.5 RATIO (10-20) H 07/02/18 06:08 Glucose 105 mg/dL (74-106) 07/02/18 06:08 Assessment/Plan: 1) Pain APAP for mild pain, lidocaine patch. Continue to monitor prn medication use, daily pain scores. 2) COPD/CAP Albuterol as needed, guaifenesin, Duonebs, levofloxacin, prednisone taper. Continue to monitor prn medication use, for shortness of breath, s/s infection. 3) CAD/HLD ASA, atenolol, atorvastatin, clopidogrel. Continue to monitor BP/HR, lipids, s/s chest pain. 4) DVT PPx Enoxaparin. Continue to monitor s/s bleeding/clot. 5) Nicotine Nicotine patch. Continue to monitor for withdrawal symptoms. Psychotropic Medications: None Unnecessary Medications: None Bowel Regimen: 6) Senna, PEG, prn bisacodyl. Continue to monitor prn medication use, for constipation/diarrhea. Date of Note:: 07/03/18 - Provider Comments Provider responsibility: Provider responsible to enter orders to implement recommendations <Joey Hicks Chi - Last Filed: 07/03/18 17:01> Progress Note - Pharmacy Subjective: [] Objective: Allergies No Known Allergies Allergy (Verified 06/24/18 23:51) Current Medications Generic Name Dose Route Start Last Admin Trade Name Freq PRN Reason Stop Dose Admin Acetaminophen 1,000 mg 07/01/18 18:39 07/03/18 14:49 Tylenol PO 1,000 mg Q6H PRN PRN Administration MILD PAIN (1-3/10) Albuterol Sulfate 2.5 mg 07/01/18 15:47 Ventolin Aerosols INHALATION Q2H PRN PRN Shortness of Breath/Wheezing Albuterol/Ipratropium 3 ml 07/01/18 16:00 07/03/18 14:00 Duoneb INHALATION Not Given Q6HWA.RT MENA Aspirin 81 mg 07/02/18 08:00 07/03/18 07:56 Aspirin, Baby PO 81 mg DAILY@0800 MENA Administration Atenolol 25 mg 07/02/18 06:00 07/03/18 04:48 Tenormin (Beta Armando) PO 25 mg DAILY MENA Administration Atorvastatin Calcium 5 mg 07/01/18 22:00 07/02/18 21:14 Lipitor PO 5 mg QHS MENA Administration Bisacodyl 10 mg 07/01/18 16:08 Dulcolax PO DAILY PRN Constipation Calamine/Phenol 1 applic 07/01/18 22:00 07/03/18 13:13 Calmoseptine Ointment TOPICAL 1 applicatio TID [facility] Administration Protocol Clopidogrel Bisulfate 75 mg 07/02/18 06:00 07/03/18 04:48 Plavix PO 75 mg DAILY MENA Administration Emollient Ointment 1 applic 07/01/18 16:47 Eucerin Intensive Repair TOPICAL 4X/DAY PRN PRN DRY SKIN Protocol Enoxaparin Sodium 30 mg 07/02/18 06:00 07/03/18 04:47 Lovenox SC 30 mg DAILY@0600 MENA Administration Guaifenesin 1,200 mg 07/01/18 18:00 07/03/18 04:48 Mucinex PO 07/06/18 06:01 1,200 mg BID MENA Administration Levofloxacin 750 mg 07/02/18 06:00 07/03/18 04:48 Levaquin Tablet PO 07/04/18 06:01 750 mg DAILY MENA Administration Lidocaine 1 patch 07/02/18 06:00 07/03/18 04:48 Lidoderm Patch TOPICAL 1 patch DAILY [facility] Administration Protocol Menthol 1 applic 07/01/18 15:47 07/03/18 13:13 Bengay Vanishing Scent TOPICAL 1 applic 4X/DAY PRN PRN Administration PAIN Nicotine 21 mg 07/02/18 06:00 07/03/18 04:48 Nicoderm Cq (Pbkc) TRANSDERM. 21 mg DAILY MENA Administration Polyethylene Glycol 17 gm 07/02/18 06:00 07/03/18 04:47 Miralax PO Not Given DAILY MENA Potassium Chloride 10 meq 07/02/18 06:00 07/03/18 04:48 K-Dur PO 10 meq DAILY MENA Administration Prednisone 30 mg 07/02/18 08:00 07/03/18 07:56 PO 07/04/18 08:01 30 mg DAILYCM MENA Administration Prednisone 20 mg 07/05/18 08:00 PO 07/07/18 08:01 DAILYCM MENA Prednisone 10 mg 07/08/18 08:00 PO 07/10/18 08:01 DAILYCM MENA Senna 1 tablet 07/02/18 06:00 07/03/18 04:47 Senokot PO Not Given BID MENA Tuberculin PPD 5 tu 07/09/18 10:00 Tubersol, Aplisol, Ppd ID 07/09/18 10:01 X1 ONE Problem List (Last Reviewed 06/30/18 @ 05:33 by Felix Ambriz MD) Encephalopathy (Acute) PAOD (peripheral arterial occlusive disease) (Chronic) Chronic kidney disease (Chronic) Coronary artery disease (Chronic) Diabetes mellitus (Chronic) Hypokalemia (Acute) COPD (chronic obstructive pulmonary disease) (Chronic) Muscle spasm (Chronic) Diabetic neuropathy (Chronic) Vital Signs Temp Pulse Resp BP Pulse Ox 98.1 F 76 18 89/51 L 97 07/03/18 15:31 07/03/18 15:31 07/03/18 15:31 07/03/18 15:31 07/03/18 15:31 Oxygen Flow Rate (L/min) 1 Oxygen Delivery Method Room Air Weight: 91.371 kg Body Mass Index (BMI) 25.8 Finger Stick Blood Glucose 117 Sodium 138 mmol/L (136-145) 07/02/18 06:08 Potassium 3.9 mmol/L (3.5-5.1) 07/02/18 06:08 Chloride 104 mmol/L (98-107) 07/02/18 06:08 Carbon Dioxide 25.0 mmol/L (21.0-32.0) 07/02/18 06:08 Anion Gap 9 (5-15) 07/02/18 06:08 BUN 22 mg/dL (7-18) H 07/02/18 06:08 Creatinine 0.94 mg/dL (0.70-1.30) 07/02/18 06:08 Est GFR (MDRD) Af Amer 103 mL/min (>60) 07/02/18 06:08 Est GFR (MDRD) Non-Af 85 mL/min (>60) 07/02/18 06:08 BUN/Creatinine Ratio 23.5 RATIO (10-20) H 07/02/18 06:08 Glucose 105 mg/dL (74-106) 07/02/18 06:08 Assessment/Plan: Psychotropic Medications: Unnecessary Medications: Bowel Regimen: - Provider Comments Provider responsibility: Provider responsible to enter orders to implement recommendations Provider Comments to Recommendations by Pharmacy: Agree
--- NOTE | 2018-07-03 13:16 | NURSING ---
PT CALLED FOR THIS NURSE. PT COMPLAINED OF BOTTOM HURTING. THIS NURSE LOOKED AT BOTTOM AND SEEN LEFT SIDE REALLY RED AND A DIME SIZED AREA OF CONCERN. THIS NURSE APPLIED CALMOSEPTINE AND A CUSHION IN CHAIR. THIS NURSE ALSO NOTICED PT LIDOCAINE PATCH TO BACK FELL OFF IN CHAIR. REPORTED TO AILEEN REYES
[2018-07-03 15:31] VITALS: BP 89/51; PULSE 76; RESP 18; TEMP 36.7; O2SAT 97
[2018-07-03 17:20] LABS: Bedside Glucose 162 mg/dL (70-110)
[2018-07-03 19:05] VITALS: PULSE 73; RESP 16
[2018-07-03] MEDS: Atorvastatin Calcium 10 MG Tablet 5 MG PO (20:18)
[2018-07-03 21:01] LABS: Bedside Glucose 276 mg/dL (70-110)
[2018-07-04] MEDS: Acetaminophen 500 MG Tablet 1000 MG PO ×2 (05:58→16:48)
[2018-07-04] MEDS: levoFLOXacin 750 MG Tablet PO (05:59)
[2018-07-04] MEDS: guaiFENesin 1,200 MG Tablet 1200 MG PO ×2 (05:59→16:53)
[2018-07-04] MEDS: Enoxaparin 30 MG/0.3 ML Syringe SC (05:59)
[2018-07-04] MEDS: Clopidogrel Bisulfate 75 MG Tablet PO (06:00)
[2018-07-04] MEDS: Atenolol 25 MG Tablet PO (06:00)
[2018-07-04] MEDS: Menthol/Lanolin/Calamine/Znox 113 GM Tube 1 APPLIC TOPICAL ×3 (06:05→19:54)
[2018-07-04 06:46] LABS: Bedside Glucose 96 mg/dL (70-110)
[2018-07-04] MEDS: predniSONE 10 MG Tablet 30 MG PO (08:04)
[2018-07-04] MEDS: Aspirin 81 MG TAB.CHEW PO (08:04)
[2018-07-04] MEDS: Lidocaine 5% Patch 1 PATCH TOPICAL (08:04)
[2018-07-04 09:20] VITALS: PULSE 68; RESP 18
--- NOTE | 2018-07-04 09:26 | NURSING ---
PT STATED TO THIS NURSE THAT THE TYLENOL AND LIDODERM PATCH IS NOT HELPING HIS PAIN. REPORTED TO AILEEN HOPKINS
[2018-07-04 10:51] LABS: Bedside Glucose 188 mg/dL (70-110)
[2018-07-04 13:45] VITALS: PULSE 72; RESP 18; O2SAT 98
[2018-07-04] MEDS: Ipratropium/Albuterol Sulfate 3 ML AMPUL.NEB INHALATION (13:45)
[2018-07-04 15:33] VITALS: BP 116/53; PULSE 83; RESP 18; TEMP 36.5; O2SAT 96
[2018-07-04 17:00] LABS: Bedside Glucose 217 mg/dL (70-110)
[2018-07-04] MEDS: oxyCODONE 5 MG Tablet PO ×2 (19:02→23:25)
[2018-07-04] MEDS: Atorvastatin Calcium 10 MG Tablet 5 MG PO (19:50)
[2018-07-04 21:26] LABS: Bedside Glucose 224 mg/dL (70-110)
[2018-07-05] MEDS: Enoxaparin 30 MG/0.3 ML Syringe SC (06:27)
[2018-07-05] MEDS: Clopidogrel Bisulfate 75 MG Tablet PO (06:28)
[2018-07-05] MEDS: guaiFENesin 1,200 MG Tablet 1200 MG PO ×2 (06:28→16:52)
[2018-07-05] MEDS: Menthol/Lanolin/Calamine/Znox 113 GM Tube 1 APPLIC TOPICAL ×3 (06:29→19:31)
[2018-07-05] MEDS: Atenolol 25 MG Tablet PO (06:29)
[2018-07-05 06:31] VITALS: O2SAT 95
[2018-07-05 07:01] LABS: Bedside Glucose 96 mg/dL (70-110)
[2018-07-05] MEDS: predniSONE 10 MG Tablet 20 MG PO (08:16)
[2018-07-05] MEDS: Lidocaine 5% Patch 1 PATCH TOPICAL (08:16)
[2018-07-05] MEDS: Aspirin 81 MG TAB.CHEW PO (08:16)
[2018-07-05] MEDS: oxyCODONE 5 MG Tablet PO ×3 (11:50→22:06)
--- NOTE | 2018-07-05 14:40 | CASEMGMT ---
Social Work Plan of care meeting held with pt, and dgt present. Pt is receiving PT/OT and progressing well. Pt requesting to d/c. Per therapy pt is able to ambulate and complete ADLs at SBA level. Therapy recommending continued outpt PT but pt is refusing at this time and is agreeable to follow home exercise program. Pt has rollator and cane. No other DME needed. Pt and family state someone is with pt most of the time. D/C planned for tomorrow 07/06/18. Home with spouse, dgt and son. No continued services. XU Welch
[2018-07-05 15:05] VITALS: BP 117/62; PULSE 88; RESP 18; TEMP 36.8; O2SAT 89
--- NOTE | 2018-07-05 15:22 | CHAPLAIN ---
Type of Pastoral Visit _x__ Initial Visit ___ Follow-up Visit ___ On-call Visit ___ General Patient Visit ___ Spiritual Assessment ___ Family Conference ___ Bereavement ___ Rapid Response ___ Code Blue ___ Other (describe below) Pastoral Care Referral From _x__ Patient ___ Family ___ Nurse ___ Physician ___ C++ Quant Developer ___ Habilitation Training Specialist ___ Other (describe below) Sacrament/Intervention _x__ Active listening ___ Anointing ___ Sikhism ___ Bereavement ___ Communion ___ Kristy exploration ___ _x__ Life review _x__ Prayer ___ Reconciliation ___ Sacrament of Sick ___ Supportive presence ___ Wedding ___ Other (describe below) Pastoral Comments
--- NOTE | 2018-07-05 15:28 | CASEMGMT ---
PHQ9 and BIMS interviews for MDS assessment completed on this date. XU Welch
[2018-07-05 16:56] LABS: Bedside Glucose 227 mg/dL (70-110)
[2018-07-05] MEDS: Atorvastatin Calcium 10 MG Tablet 5 MG PO (19:31)
--- NOTE | 2018-07-05 20:26 | DCINST_ITS ---
- Discharge Diagnoses Current Active Problems: Current Active and Chronic Problems (Last Reviewed 06/30/18 @ 05:33 by Felix Ambriz MD) Encephalopathy (Acute) PAOD (peripheral arterial occlusive disease) (Chronic) Chronic kidney disease (Chronic) Coronary artery disease (Chronic) Diabetes mellitus (Chronic) Hypokalemia (Acute) COPD (chronic obstructive pulmonary disease) (Chronic) Muscle spasm (Chronic) Diabetic neuropathy (Chronic) You will use the following diet at home:: No restrictions, Regular Your food should be the consistency of: Regular Your liquids should be the consistency of: Regular/Thin Discharge Activity: Return to Normal Activity, May Shower, Use Walker May resume sexual activity in: No Restrictions Weight Bearing Status: Weight bearing as tolerated Call your doctor if you observe: Fever of 101 or Higher, Inability to urinate, Inability to have a bowel movement, Shortness of breath, Chest pain, Uncontrolled pain Allergies/Adverse Reactions: Allergies No Known Allergies Allergy (Verified 06/24/18 23:51) Medications to take at Discharge Simvastatin [Zocor] 10 mg PO QHS 07/03/17 Potassium Chloride [K-Dur] 10 meq PO DAILY 05/26/18 Acetaminophen [Tylenol] 500 mg PO Q6H PRN PRN tablet 07/01/18 Aspirin [Aspirin, Baby] 81 mg PO DAILY@0800 07/01/18 Atenolol [Tenormin (beta monster)] 25 mg PO DAILY 07/01/18 Budesonide/Formoterol Fumarate [Symbicort 160-4.5 Mcg Inhaler] 2 puff IH BID 07/01/18 Clopidogrel Bisulfate [Plavix] 75 mg PO DAILY 07/01/18 Guaifenesin [Mucinex] 1,200 mg PO BID 07/01/18 Menthol [Bengay Vanishing Scent] 1 applic TOPICAL 4X/DAY PRN PRN tube 07/01/18 Lidocaine [Lidoderm Patch] 1 patch TOPICAL DAILY #30 patch 07/05/18 Menthol/Lanolin/Calamine/Znox [Calmoseptine Ointment] 1 applic TOPICAL TID tube 07/05/18 Nicotine [Nicoderm Cq] 21 mg TRANSDERM. DAILY #30 patch 07/05/18 Oxycodone [Oxyir] 5 mg PO Q4H PRN PRN 7 Days #28 tab 07/05/18 Prednisone 10 mg PO DAILY #5 tablet 07/05/18 The following prescriptions were given: Oxycodone [Oxyir] 5 mg PO Q4H PRN PRN 7 Days #28 tab PRN Reason: Severe Pain (-11/23) Lidocaine [Lidoderm Patch] 1 patch TOPICAL DAILY #30 patch Nicotine [Nicoderm Cq] 21 mg TRANSDERM. DAILY #30 patch Prednisone 10 mg PO DAILY #5 tablet [facility] Physician[facility] [Primary [facility] Provider] - Please follow up with your Primary Care Physician in: 1 week. Test Results: Test results from this visit will be discussed in further detail at your follow- up appointment, if applicable. Proposed Discharge Date: 07/06/18
--- NOTE | 2018-07-05 20:27 | DS.PCM_ITS ---
Discharge Date and Diagnosis - Problem List Patient Problems: Active and Suspected Problems (Last Reviewed 06/30/18 @ 05:33 by Felix Ambriz MD) Encephalopathy (Acute) Hypokalemia (Acute) Date of Admission: 07/01/18 Date of Discharge: 07/06/18 - Primary Discharge Diagnosis Active and Suspected Problems (Last Reviewed 06/30/18 @ 05:33 by Felix Ambriz MD) Encephalopathy (Acute) Hypokalemia (Acute) - Secondary Discharge Diagnosis Chronic Problems (Last Reviewed 06/30/18 @ 05:33 by Felix Ambriz MD) HTN (hypertension) (Chronic) HLD (hyperlipidemia) (Chronic) PAD (peripheral artery disease) (Chronic) CKD (chronic kidney disease) stage 3, GFR 30-59 ml/min (Chronic) Debility (Chronic) Chronic respiratory failure with hypoxia (Chronic) Chronic anemia (Chronic) Chronic back pain (Chronic) PAOD (peripheral arterial occlusive disease) (Chronic) Chronic kidney disease (Chronic) Coronary artery disease (Chronic) Diabetes mellitus (Chronic) COPD (chronic obstructive pulmonary disease) (Chronic) Muscle spasm (Chronic) Diabetic neuropathy (Chronic) Stented coronary artery (Chronic 09/22/17) 3.5 X 16 Promus Synergy to mid LAD; 4.0 X 24 Promus Synergy to proximal LAD; POBA to Diagonal [address] Ruff @ [facility] NSTEMI (non-ST elevated myocardial infarction) (Chronic 09/22/17) Tobacco abuse (Chronic) Hospital Course and Treatment Imaging Results: 07/01/18 16:08 Diet: Cardiac: Carb-Controlled Is pt able to select menu?: Yes Labs (Last 48 Hours) 07/03/18 07/04/18 07/04/18 20:46 06:24 10:47 POC Glucose 276 H 96 188 H 07/04/18 07/04/18 07/05/18 16:42 20:48 06:54 POC Glucose 217 H 224 H 96 07/05/18 16:48 POC Glucose 227 H Operations: None Procedures: None Summary of Care Provided: The patient is a 68 year old Male with below past medical history hospitalized for encephalopathy secondary to community acquired pneumonia, adverse reaction to medication, acute kidney injury, COPD exacerbation, admitted to TCU with debility, here for rehabilitation, strengthening, prior to discharge home with spouse. Discharge home with spouse, daughter, and son. Patient Problems: Active and Suspected Problems (Last Reviewed 06/30/18 @ 05:33 by Felix Ambriz MD) Encephalopathy (Acute) Hypokalemia (Acute) - Physical Exam Vital Signs Temp Pulse Resp BP Pulse Ox 98.3 F 88 18 117/62 89 07/05/18 15:05 07/05/18 15:05 07/05/18 15:05 07/05/18 15:05 07/05/18 15:05 Oxygen Flow Rate (L/min) 1 Oxygen Delivery Method Nasal Cannula Weight: 89.896 kg Body Mass Index (BMI) 25.8 Finger Stick Blood Glucose 117 Intake and Output for Last 24 Hours 07/03/18 07/04/18 07/05/18 23:59 23:59 23:59 Intake Total 720 / 720 720 / 720 900 / 900 Output Total 280 / 280 225 / 225 Balance 440 / 440 495 / 495 900 / 900 POC Glucose 07/05/18 07/05/18 07/04/18 16:48 06:54 20:48 POC Glucose 227 H 96 224 H Discharge Diet: No Restrictions Discharge Activity: Return to Normal Activity, May Shower, Use Walker May resume sexual activity in: No Restrictions Weight Bearing Status: Weight bearing as tolerated Call your doctor if you observe: Fever of 101 or Higher, Inability to urinate, Inability to have a bowel movement, Shortness of breath, Chest pain, Uncontrolled pain Home Medications: Medications to take at Discharge Simvastatin [Zocor] 10 mg PO QHS 07/03/17 Potassium Chloride [K-Dur] 10 meq PO DAILY 05/26/18 Acetaminophen [Tylenol] 500 mg PO Q6H PRN PRN tablet 07/01/18 Aspirin [Aspirin, Baby] 81 mg PO DAILY@0800 07/01/18 Atenolol [Tenormin (beta monster)] 25 mg PO DAILY 07/01/18 Budesonide/Formoterol Fumarate [Symbicort 160-4.5 Mcg Inhaler] 2 puff IH BID 07/01/18 Clopidogrel Bisulfate [Plavix] 75 mg PO DAILY 07/01/18 Guaifenesin [Mucinex] 1,200 mg PO BID 07/01/18 Menthol [Bengay Vanishing Scent] 1 applic TOPICAL 4X/DAY PRN PRN tube 07/01/18 Lidocaine [Lidoderm Patch] 1 patch TOPICAL DAILY #30 patch 07/05/18 Menthol/Lanolin/Calamine/Znox [Calmoseptine Ointment] 1 applic TOPICAL TID tube 07/05/18 Nicotine [Nicoderm Cq] 21 mg TRANSDERM. DAILY #30 patch 07/05/18 Oxycodone [Oxyir] 5 mg PO Q4H PRN PRN 7 Days #28 tab 07/05/18 Prednisone 10 mg PO DAILY #5 tablet 07/05/18 Following Prescrptions Were Given to Patient: Oxycodone [Oxyir] 5 mg PO Q4H PRN PRN 7 Days #28 tab PRN Reason: Severe Pain (6-11/23) Lidocaine [Lidoderm Patch] 1 patch TOPICAL DAILY #30 patch Nicotine [Nicoderm Cq] 21 mg TRANSDERM. DAILY #30 patch Prednisone 10 mg PO DAILY #5 tablet [facility] Phys[facility] [Primary [facility]] - Please follow up with your Primary Care Physician in: 1 week. Disposition: Home Minutes spent on discharge:: 30 Patient Condition:: Stable Medical Necessity - Tobacco Use Smoking Status: Current every day smoker Tobacco Use: Cigarettes Meaningful Use Info Meaningful Use Diagnoses (Choose all that apply): None applicable
[2018-07-05 21:11] LABS: Bedside Glucose 186 mg/dL (70-110)
[2018-07-05] MEDS: Acetaminophen 500 MG Tablet 1000 MG PO (22:09)
[2018-07-06] MEDS: Atenolol 25 MG Tablet PO (06:16)
[2018-07-06] MEDS: Enoxaparin 30 MG/0.3 ML Syringe SC (06:16)
[2018-07-06] MEDS: guaiFENesin 1,200 MG Tablet 1200 MG PO (06:16)
[2018-07-06] MEDS: Clopidogrel Bisulfate 75 MG Tablet PO (06:16)
[2018-07-06] MEDS: Menthol/Lanolin/Calamine/Znox 113 GM Tube 1 APPLIC TOPICAL (06:18)
[2018-07-06 06:46] LABS: Bedside Glucose 88 mg/dL (70-110)
[2018-07-06 06:49] VITALS: O2SAT 92
[2018-07-06] MEDS: predniSONE 10 MG Tablet 20 MG PO (07:45)
[2018-07-06] MEDS: Lidocaine 5% Patch 1 PATCH TOPICAL (07:45)
[2018-07-06] MEDS: Aspirin 81 MG TAB.CHEW PO (07:45)
[2018-07-06 07:46] VITALS: O2SAT 96
[2018-07-06] MEDS: oxyCODONE 5 MG Tablet PO (09:42)
[2018-07-06] MEDS: Acetaminophen 500 MG Tablet 1000 MG PO (09:42)
--- NOTE | 2018-07-06 09:44 | NEWVISION ---
Pt c/o lower back pain 09/23. Pt stated Tylenol doesn't work alone and requesting to take Tylenol and Oxy IR together. Ok to give per Zechariah GALLAGHER.
[2018-07-06 11:11] LABS: Bedside Glucose 184 mg/dL (70-110)
[2018-07-06 12:58] VITALS: BP 113/68; PULSE 74; RESP 16; TEMP 36.3; O2SAT 94
--- NOTE | 2018-07-12 11:30 | MDS.RN ---
Information for the mds was obtained from review of the clinical record, interview of resident, staff, and direct observation of resident's care.
== END 2018-07-06 12:50 | disposition home or self-care (01) | DRG 948 ==
PROVIDERS: Admitting Provider Family Medicine Geriatric Medicine; Visit Provider Family Medicine Geriatric Medicine
DX: R53.81 Other malaise (principal); J96.11 Chronic respiratory failure with hypoxia; I25.10 Atherosclerotic heart disease of native coronary artery without angina pectoris; E78.5 Hyperlipidemia, unspecified; E11.22 Type 2 diabetes mellitus with diabetic chronic kidney disease; E11.65 Type 2 diabetes mellitus with hyperglycemia; I12.9 Hypertensive chronic kidney disease with stage 1 through stage 4 chronic kidney disease, or unspecified chronic kidney disease; N18.3 Chronic kidney disease, stage 3 (moderate); E11.51 Type 2 diabetes mellitus with diabetic peripheral angiopathy without gangrene; J44.9 Chronic obstructive pulmonary disease, unspecified; I25.2 Old myocardial infarction; G89.29 Other chronic pain; E11.40 Type 2 diabetes mellitus with diabetic neuropathy, unspecified; F17.210 Nicotine dependence, cigarettes, uncomplicated
CPT/HCPCS: 36415; 80048; 82962; 94640; 94668; 97110; 97116; 97162; 97165; 97530; 97535; 97802

== ENCOUNTER 2018-07-25 21:14 | Emergency (ER) | payer MEDICARE, OTHER, SELFPAY ==
[2017-09-22 13:36] VITALS: BMI 27.3
[2018-07-01 15:15] VITALS: BMI 25.8
[2018-07-25 21:15] VITALS: BP 125/66; PULSE 100; RESP 15; TEMP 36.5; BMI 27.6
--- NOTE | 2018-07-25 23:04 | US_ITS ---
STUDY: VENOUS DOPPLER ULTRASOUND - LEFT LOWER EXTREMITY REASON FOR EXAM: Male, 68 years old. Left foot swelling and pain x2 days, on blood thinner. TECHNIQUE: Ultrasound evaluation of the deep vein system to include anaya-scale imaging and compression was performed. Anaya-scale imaging and Doppler sonographic evaluation, including duplex spectral analysis and qualitative color flow sonography, was performed. COMPARISON: None. FINDINGS: Common Femoral Vein: Normal compression, spontaneity and augmentation. Normal color Doppler. Common Femoral Vein/Greater Saphenous Junction: Normal compression. Femoral Proximal: Normal compression. Femoral Middle: Normal compression, spontaneity and augmentation. Normal color Doppler. Femoral Distal: Normal compression. Popliteal Vein: Normal compression, spontaneity and augmentation. Normal color Doppler. Posterior Tibial Vein: Normal compression. Peroneal Vein: Normal compression. There is popliteal and more infrapopliteal edema. US/Venous Duplex Imag/Limited/Uni IMPRESSION: Normal venous Doppler ultrasound of the lower extremity on submitted images. Edema. Electronically Signed: Chelsea Epstein MD at 23:37 EDT , Service support ,
--- NOTE | 2018-07-25 23:39 | RAD_ITS ---
STUDY: X-RAY - LEFT FOOT CLINICAL: Male, 68 years old. Left foot pain, edema times couple of days. No injury. TECHNIQUE: 3 view(s) of the foot. COMPARISON: None. FINDINGS: There is a plantar calcaneal spur. Minimal arthropathy of the visualized subtalar, talonavicular, calcaneocuboid, tarsal and tarsometatarsal articulations. Normal metatarsi. Normal metatarsophalangeal joint of the great toe. Normal fibular sesamoid bones. Tibial sesamoid bone is trifid. Normal interphalangeal joint of the great toe. Normal phalanges of the great toe. Normal second through fifth metatarsophalangeal joints. Normal interphalangeal joints and phalanges of the lesser toes. Dorsal soft tissue prominence. There is no radiopaque foreign body.. RAD/Foot min 3 Views IMPRESSION: Minimal degenerative changes. There is soft tissue swelling. There is no radiopaque foreign body. Electronically Signed: Chelsea Epstein MD at 0:31 EDT , Service support ,
--- NOTE | 2018-07-25 23:39 | RAD_ITS ---
STUDY: X-RAY - LEFT TIBIA AND FIBULA REASON FOR EXAM: Male, 68 years old. Foot pain, edema, times couple of days. TECHNIQUE: 4 view(s) of the tibia and fibula were obtained. COMPARISON: None. FINDINGS: Normal visualized tibia. Normal visualized fibula. Remote injury of the medial malleolus rather than accessory ossification suspected. Superior patellar pole is bifid. Small suprapatellar effusion. Plantar calcaneal spur. Mild interstitial edema. There is no radiopaque foreign body.. RAD/Tibia & Fibula 2 Views IMPRESSION: Degenerative changes and edema. Small suprapatellar effusion. Electronically Signed: Chelsea Epstein MD at 0:33 EDT , Service support ,
--- NOTE | 2018-07-26 00:43 | ED.VISSUMM ---
- ER Visit Summary Date of Service: 07/26/18 Chief Complaint: Left leg pain and swelling History of Present Illness: The patient is a 68 M with a history of peripheral artery disease and neuropathy. Patient presents with pain and swelling to his left leg distal to the knee. He denies any known injury. He states edema has not significantly improved with elevation. Physical Examination: Vital signs unremarkable. Patient sitting upright in bed no acute distress. Heart is regular rate and rhythm. Lung sounds are clear. Abdomen is soft nontender. Lower extremity examination reveals 3+ edema to the left lower leg and foot. There is no edema or tenderness above the knee. No overlying skin changes are noted. He has mild diffuse tenderness. No focal wounds are noted. Test Results: Venous duplex reveals no evidence of DVT. Left tib-fib x-rays reveal degenerative changes and edema. Left foot x-ray shows mild degenerative changes and soft tissue swelling. Emergency Department Course and Treatment: I discussed with the patient that I do not have specific cause of his swelling, but in am able to rule out a blood clot. Benji wrap was applied to the area. He is intended to elevate and follow with his primary care physician. Treatment Plan: [] Disposition: Discharge Impression: Left lower extremity edema This note was generated with [employer] dictation software. It may contain incorrect words, spelling, and punctuation that were not noted in review of the chart prior to signing ED Disposition - Plan for ED Patient: Disposition: Home or Assisted Living Instructions: ED Leg Swelling Unilateral Referrals: [facility] [Primary Care Provider] - 1 Week if not improving
[2018-07-26 00:55] VITALS: BP 123/67; PULSE 70; RESP 22; O2SAT 96
== END 2018-07-26 00:56 | disposition home or self-care (01) ==
PROVIDERS: Emergency Provider Emergency Medicine
DX: R60.0 Localized edema (principal); I25.10 Atherosclerotic heart disease of native coronary artery without angina pectoris; I25.2 Old myocardial infarction; I12.9 Hypertensive chronic kidney disease with stage 1 through stage 4 chronic kidney disease, or unspecified chronic kidney disease; N18.9 Chronic kidney disease, unspecified; I73.9 Peripheral vascular disease, unspecified; G62.9 Polyneuropathy, unspecified; Z85.51 Personal history of malignant neoplasm of bladder; Z72.0 Tobacco use; Z79.02 Long term (current) use of antithrombotics/antiplatelets; Z79.82 Long term (current) use of aspirin
CPT/HCPCS: 73590; 73630; 93971; 99282

== ENCOUNTER 2018-07-26 17:35 | Emergency (ER) | payer MEDICARE, OTHER, SELFPAY ==
[2017-09-22 13:36] VITALS: BMI 27.3
[2018-07-25 21:15] VITALS: BMI 27.6
[2018-07-26 17:36] VITALS: BP 145/74; PULSE 95; RESP 16; TEMP 36.4; O2SAT 95; BMI 26.9
--- NOTE | 2018-07-26 19:04 | EKG12_ITS ---
Test Reason : GEN ILLNESS Blood Pressure : / mmHG Vent. Rate : 089 BPM Atrial Rate : 089 BPM P-R Int : 144 ms QRS Dur : 110 ms QT Int : 428 ms P-R-T Axes : 062 019 004 degrees QTc Int : 520 ms Sinus rhythm with occasional Premature ventricular complexes and Premature atrial complexes Cannot rule out Inferior infarct (cited on or before 25-JUN-2018) Prolonged QT Abnormal ECG Confirmed by SHANA CARROLL, ANUSHKA ([id number]), makeup editor MICHELINE BRO ([id number]) on 07/28/2018 9:30:32 AM Referred By: EDUARDO Confirmed By:ANUSHKA SALDANA MD
--- NOTE | 2018-07-26 19:05 | ED.VISSUMM ---
- ER Visit Summary Date of Service: 07/26/18 Chief Complaint: Malaise History of Present Illness: The patient is a 68 M history of coronary disease with prior MIs. 2 cardiac stents. History of noncemented diabetes, hypertension and bladder cancer. Also COPD. Patient states he has not felt well the last couple days. He denies any nausea, vomiting, diarrhea or fever. He denies any constipation. No dysuria. States he is urinating normally. No melena. He is on Percocet for chronic pain and Plavix for anticoagulation. He denies any black or bloody stools. States he just has not had much of an appetite. Physical Examination: Alert male no acute distress vital signs are stable and afebrile. He does not look septic or toxic. Family is at bedside. HEENT exam unremarkable. Neck nontender no lymphadenopathy. Lungs clear to auscultation bilaterally. Heart regular rhythm rate in the 90s no murmur. Chest nontender. Abdomen soft nontender. Normal bowel sounds no peritoneal signs. Patient moving all 4 extremities. Neurovascular intact. He has 1+ pitting edema both lower extremities. Calves are nontender without cords. Neurologically is awake alert with no focal motor deficits. He is answering questions and following commands. No facial droop. Normal speech. Test Results: CBC shows a white count of 7. Hemoglobin of 9 typically runs around 10-11. He is becoming anemic and it seems to be trending down. I did do a rectal exam he is grossly brown stool with no gross blood no melena. Chemistries unremarkable potassium 3.2. His creatinine is 1.35 he normally runs between 1 and 1.47. So he has some renal insufficiency. EKG is a sinus rhythm rate of 89 with PVCs. No significant change. Chest x-ray shows chronic changes but no acute process. Emergency Department Course and Treatment: Elderly male with malaise. He denies any diarrhea or dysuria. No fever. Screening labs to be obtained. Repeat exam patient is doing well at 2242. I went over all test results with he and his family. I explained to him with nonspecific to admitting 4. We did go over his labs and his hemoglobin trending down. I did do the rectal exam at that time which was grossly negative. They have a follow-up appointment with the [facility] next week. Treatment Plan: Discharge to home. [facility]. Disposition: Discharge Impression: Acute generalized malaise of uncertain etiology Acute on chronic anemia History of CAD and prior IA with cardiac stents. History of COPD. History of [id number] diabetes This note was generated with [employer] software. It may contain incorrect words, spelling, and punctuation that were not noted in review of the chart prior to signing ED Disposition - Plan for ED Patient: [facility]errals: [facility] [[facility]] -
--- NOTE | 2018-07-26 19:20 | RAD_ITS ---
STUDY: X-RAY CHEST REASON FOR EXAM: Male, 68 years old. Weakness TECHNIQUE: PA and lateral views of the chest COMPARISON: X-Ray Chest June 29, 2018 FINDINGS: Left base atelectasis is present. There is no consolidation. There are no pleural effusions. There is no pneumothorax. The heart is normal in size. The visualized osseous structures are within normal limits. RAD/Chest PA and Lateral IMPRESSION: Left base atelectasis. No consolidation. Electronically Signed: Junior Quarles, at 19:37 EDT Tel , Service support ,
[2018-07-26 19:35] LABS: Hematocrit 28.8 % (40-54); Mean Corp Hgb Conc 31.3 g/gl (32-36); Mean Corpuscular Hgb 25.9 pg (27.0-32.0); Platelet Count 52 K/mm3 (150-450); RBC Distribution Width CV 23.8 % (11.6-14.6); RBC Distribution Width SD 66.9 fl (35.1-43.9); Red Blood Count 3.47 M/mm3 (4.6-6.2); White Blood Count 7.4 K/mm3 (4.4-11.0)
[2018-07-26 19:36] LABS: Differential Indicated MANUAL DIFF; POSITIVE COUNT YES; POSITIVE DIFFERENTIAL NO; POSITIVE MORPHOLOGY YES
[2018-07-26 19:39] VITALS: BP 142/69; PULSE 86; RESP 18; O2SAT 95
[2018-07-26 19:54] LABS: Anion Gap 4 (5-15); BUN 14 mg/dL (7-18); BUN/Creat Ratio 10.4 RATIO (10-20); Calcium,Total 8.4 mg/dL (8.5-10.1); Chloride 102 mmol/L (98-107); Creatinine, Serum 1.35 mg/dL (0.70-1.30); EST Glomerular Filtration Rate 56 mL/min (>60); Est Glom Filt Rate - Afr Amer 68 mL/min (>60); Estimated Creatinine Clearance 62.59 ml/min; Glucose 118 mg/dL (74-106); Potassium 3.2 mmol/L (3.5-5.1); Sodium Level 135 mmol/L (136-145)
[2018-07-26 20:15] LABS: Blast 1 % (0-0); Eosinophil 2 % (0-5); Lymphocyte 25 % (19-41); Metamyelocyte 2 % (0-1); Monocyte 2 % (0-10); Myelocyte 1 (0-0); Neutrophil-Band 4 % (0-5); Neutrophil-Segmented 63 % (47-70); Total Cells Counted 100 (MANUAL DIFF)
[2018-07-26 20:20] LABS: Absolute Lymphocyte Count 1.85 X10^3/ul (0.83-4.51)
[2018-07-26 20:21] LABS: Absolute Nucleated RBC Count 0.41 10^3/uL (0-5); NRBC Flagged by Analyzer 5.5 % (0-5)
[2018-07-26 21:05] VITALS: BP 115/63; PULSE 90; RESP 13; O2SAT 95
--- NOTE | 2018-07-26 22:48 | ED.DEP ---
ED Disposition - Plan for ED Patient: Disposition: Home or Assisted Living Instructions: ED Anemia Type Not Specified [facility]errals[facility] [[facility] - Keep Alejandra appointment Additional Instructions: [facility]. Need to recheck your blood counts to make sure you are not becoming more anemic and your blood counts are getting lower.
[2018-07-26 23:13] VITALS: BP 122/62; PULSE 88; RESP 18; O2SAT 96
--- NOTE | 2018-07-27 00:08 | ED.RN ---
THE PATIENT FOUND A TIGHT TOURNIQUET AROUND HIS UPPER RIGHT ARM WHEN HE WAS REMOVING HIS GOWN TO BE DISCHARGED. THIS NURSE WAS CALLED TO THE ROOM PRIOR TO DISCHARGE TO ACCESS HIS IV WHICH WAS HURTING HIM. I REMOVED THE DRESSING, ASSESSED PATENCY AND BLOOD RETURN ALONG WITH PULLING THE CATHETER BACK AND FLUSHING IT. IV WAS PERFECT. I HOWEVER DID NOT SEE THE TOURNIQUET UP UNDER THE GOWN HIGH ON HIS UPPER ARM. THE PATIENT SAID THE IV WAS PUT IN BY THE MEDIC IN THE DEPARTMENT. I LET DR. CLARK AND CHARGE NURSE KAUSHAL KNOW WHAT HAPPENED. DR. CLARK SAID PATIENT SHOULD BE OK, BUT TO WATCH THE AREA. THERE IS AN INDENTATION FROM THE TOURNIQUET BUT PT STATES IT IS FEELING BETTER. THIS NURSE TOLD THE PATIENT TO WATCH THE AREA FOR SIGNS OF INCREASED BRUISING OR PAIN.
[2018-07-27 13:28] LABS: Pathologist Review Reviewed
== END 2018-07-26 23:48 | disposition home or self-care (01) ==
PROVIDERS: Emergency Provider Emergency Medicine
DX: R53.81 Other malaise (principal); D64.9 Anemia, unspecified; I25.2 Old myocardial infarction; I25.10 Atherosclerotic heart disease of native coronary artery without angina pectoris; J44.9 Chronic obstructive pulmonary disease, unspecified; G89.29 Other chronic pain; I12.9 Hypertensive chronic kidney disease with stage 1 through stage 4 chronic kidney disease, or unspecified chronic kidney disease; E11.22 Type 2 diabetes mellitus with diabetic chronic kidney disease; N18.9 Chronic kidney disease, unspecified; Z95.5 Presence of coronary angioplasty implant and graft; Z79.02 Long term (current) use of antithrombotics/antiplatelets; Z79.891 Long term (current) use of opiate analgesic; Z72.0 Tobacco use
CPT/HCPCS: 71046; 80048; 85025; 93005; 99283; A4216

== ENCOUNTER 2018-07-27 15:24 | Inpatient (IN) | payer MEDICARE, OTHER, SELFPAY ==
[2017-09-22 13:36] VITALS: BMI 27.3
[2018-07-26 17:36] VITALS: BMI 26.9
[2018-07-27] VITALS (7 sets, daily range): BP systolic 112–124; BP diastolic 59–83; PULSE 71–89; RESP 16–19; TEMP 36.6; O2SAT 92–99; BMI 27.3
--- NOTE | 2018-07-27 15:36 | CT_ITS ---
STUDY: CT ABDOMEN AND PELVIS WITH CONTRAST REASON FOR EXAM: Male, 68 years old. Pain RADIATION DOSAGE (If Supplied By Facility): DLP = ( 1941.60 ) mGycm TECHNIQUE: Transaxial images were obtained from the dome of the diaphragm to the symphysis pubis without oral contrast. 100CC ml of Isovue 300 contrast was administered. Sagittal and coronal images were reconstructed. Individualized dose optimization techniques were used for this CT. COMPARISON: None. FINDINGS: There is a right middle lobe 4 mm nodule. Bibasilar atelectasis is present. The visualized portions of the heart and pericardium are within normal limits. There are no calcified gallstones present. Hepatic cirrhosis is present. There are no suspicious hepatic lesions. The spleen is enlarged. The pancreas is within normal limits. The adrenal glands are within normal limits. Bilateral renal cysts and nonobstructing stones are present. The largest calculus is in the right renal midpole measuring 2.1 cm with staghorn appearance. Urinary bladder stones are present measuring up to 1 cm. Normal visualized stomach. There is no evidence of bowel obstruction. There is diffuse thickening of the ascending and transverse colonic wall. The appendix is not visualized, but there are no findings to suggest acute appendicitis. There is a 3.3 x 3.7 cm infrarenal aortic aneurysm traversed by an aortobiiliac stent. There is mild to moderate ascites. There is no free air. There is no lymphadenopathy. There are no destructive osseous lesions. CT/Abdomen/Pelvis W IV Cont ONLY IMPRESSION: Hepatic cirrhosis with sequelae. Diffuse thickening of the ascending and transverse colon wall, suggesting colitis. Nonobstructing bilateral renal stones, and urinary bladder stones. Electronically Signed: Junior Quarles, at 17:42 EDT Tel , Service support ,
--- NOTE | 2018-07-27 15:40 | ED.DCSUM_ITS ---
- ER Visit Summary Date of Service: 07/27/18 Chief Complaint: Abdominal pain History of Present Illness: The patient is a 68 M presenting with abdominal pain. He states this started today. He also noted black-colored stools today. He was seen in the ED yesterday for malaise. At that time he was found to have anemia and guaiac negative stools. He returns today due to black color of his stools and abdominal pain. He is on Plavix. Denies chest pain or shortness of breath. Denies other complaints. Physical Examination: Vitals are stable. Patient is afebrile. Alert no acute distress. HEENT exam is unremarkable. Neck is supple. Lungs are clear and equal bilaterally. Heart is regular rate and rhythm. Abdomen is soft bilateral lower quadrant tenderness with no guarding or rebound Extremities are unremarkable. Skin is warm and dry. No focal neurologic deficit. Remainder of exam is unremarkable. Emergency Department Course and Treatment: Patient was given morphine, Zofran, IV fluids. CBC shows hemoglobin 8.9, platelet 48. Chemistries show sodium 135, potassium 3.3, glucose 112. CT abdomen pelvis shows hepatic cirrhosis with sequelae. Diffuse thickening of the ascending and transverse colon wall, suggesting colitis. Nonobstructing bilateral renal stones, and urinary bladder stones. Stool is occult blood positive. Discussed with the hospitalist for admission. Disposition: Admission Impression: Colitis, GI bleed, anemia This note was generated with [employer] dictation software. It may contain incorrect words, spelling, and punctuation that were not noted in review of the chart prior to signing ED Disposition - Plan for ED Patient: [facility]errals[facility] [[facility]] -
[2018-07-27 16:22] LABS: Differential Indicated SCAN CRITERIA MET; Hemoglobin 8.9 g/dl (13.0-16.5); Mean Corp Hgb Conc 31.8 g/gl (32-36); Mean Corpuscular Hgb 26.6 pg (27.0-32.0); Mean Corpuscular Volume 83.6 fL (80-94); Mean Platelet Vol. 8.8 fl (6.2-12.0); POSITIVE COUNT YES; POSITIVE DIFFERENTIAL NO; POSITIVE MORPHOLOGY YES; RBC Distribution Width CV 23.9 % (11.6-14.6); RBC Distribution Width SD 68.8 fl (35.1-43.9); Red Blood Count 3.35 M/mm3 (4.6-6.2)
[2018-07-27] MEDS: Morphine 4 MG/ML Syringe IV (16:24)
[2018-07-27] MEDS: Ondansetron 4 MG/2 ML Vial IV (16:24)
[2018-07-27] MEDS: 0.9% Normal Saline 1,000 ML 999 ML IV (16:24)
[2018-07-27 16:28] LABS: Platelet Count 48 K/mm3 (150-450)
--- NOTE | 2018-07-27 16:29 | ED.RN ---
LAB CALLED CRITICAL LAB VALUE OF 48. DR MOORE AWARE
[2018-07-27 16:49] LABS: Anion Gap 4 (5-15); BUN 14 mg/dL (7-18); BUN/Creat Ratio 11.2 RATIO (10-20); Calcium,Total 8.5 mg/dL (8.5-10.1); Chloride 102 mmol/L (98-107); Creatinine, Serum 1.25 mg/dL (0.70-1.30); EST Glomerular Filtration Rate 61 mL/min (>60); Est Glom Filt Rate - Afr Amer 74 mL/min (>60); Estimated Creatinine Clearance 65.76 ml/min; Glucose 112 mg/dL (74-106); Potassium 3.3 mmol/L (3.5-5.1); Sodium Level 135 mmol/L (136-145)
[2018-07-27 17:03] LABS: Bacteria 0 SEEN /hpf (None Seen); Mucous, Urine 0 SEEN /hpf (<or=2+)
[2018-07-27 17:09] LABS: Eosinophil 1 % (0-5); Lymphocyte 16 % (19-41); Metamyelocyte 2 % (0-1); Monocyte 6 % (0-10); Myelocyte 1 (0-0); Neutrophil-Band 6 % (0-5); Neutrophil-Segmented 68 % (47-70); Nucleated Red Bld Cells,Manual 1 % (0-5); Scan Smear per Review Criteria MANUAL DIFF; Total Cells Counted 100 (MANUAL DIFF)
[2018-07-27 17:14] LABS: Absolute Lymphocyte Count 1.13 X10^3/ul (0.83-4.51); Absolute Neutrophil Count 5.2 X10^3/uL (2.0-7.7)
[2018-07-27 17:15] LABS: Anisocytosis RARE; Hypochromasia RARE; Platelet Estimate MKD DEC (ADEQ)
--- NOTE | 2018-07-27 18:42 | ED.RN ---
COULD GET A URINE SAMPLE, DR. MOORE MADE AWARE SAID WE DIDN'T NEED THE SAMPLE, NO FURTHER ORDERS AT THIS TIME WILL CONTINUE TO MONITOR THE PT.
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
[2018-07-27] MEDS: 0.9% Normal Saline 1,000 ML 75 ML IV (19:58)
[2018-07-27] MEDS: 0.9% NaCl Peripheral Flush Adult/Peds IV ×3 (20:07→22:30)
[2018-07-27 20:13] LABS: Hematocrit 26.7 % (40-54); Hemoglobin 8.3 g/dl (13.0-16.5)
[2018-07-27] MEDS: Atorvastatin Calcium 80 MG Tablet PO (22:00)
[2018-07-27] MEDS: oxyCODONE 5 MG Tablet PO (22:01)
[2018-07-27] MEDS: Furosemide 20 MG/2 ML VIAL IV (22:30)
[2018-07-27 22:50] LABS: Bedside Glucose 85 mg/dL (70-110)
[2018-07-27 23:01] LABS: AST(SGOT) 149 U/L (15-37); Alanine Aminotransfer ALT/SGPT 47 U/L (16-61); Alkaline Phosphatase 1336 U/L (45-117); Bilirubin, Direct 1.49 mg/dL (0.00-0.30); Globulin 4.5 g/dL (2.2-4.2); Protein, Total 6.5 g/dL (6.4-8.2)
[2018-07-27] MEDS: Zolpidem Tartrate 5 MG Tablet PO (23:37)
[2018-07-28] VITALS (19 sets, daily range): BP systolic 98–113; BP diastolic 47–62; PULSE 74–103; RESP 16–18; TEMP 36.5–37.1; O2SAT 86–96
[2018-07-28 00:19] LABS: Color, Urine Yellow (Yellow); Glucose, Dipstick 100 mg/dl (Normal); Ketone-Dipstick Negative (Negative); Leukocyte Esterase-Dipstick 100 /ul (Negative); Nitrite-Dipstick Negative (Negative); Occult Blood-Urine 250 /ul (Negative); Protein-Dipstick 15 mg/dl (Negative); Urine Bilirubin Dipstick Negative (Negative); Urine Clarity Sl. Cloudy (Clear); Urine Urobilinogen 4 mg/dl (Normal)
[2018-07-28 00:26] LABS: Red Blood Cells-Urine 25-50 SEEN /hpf (0-5); Squamous Epithelial Cells - UA 5-10 SEEN /hpf (0-5); White Blood Cells 0-5 SEEN /hpf (0-5)
[2018-07-28 01:02] LABS: Magnesium 1.7 mg/dL (1.6-2.6)
[2018-07-28 01:24] LABS: Hematocrit 25.4 % (40-54)
[2018-07-28 06:41] LABS: Bedside Glucose 80 mg/dL (70-110)
[2018-07-28] MEDS: Ipratropium/Albuterol Sulfate 3 ML AMPUL.NEB INHALATION ×3 (06:52→19:23)
[2018-07-28 07:46] LABS: Hematocrit 26.7 % (40-54); Hemoglobin 8.3 g/dl (13.0-16.5); Mean Corp Hgb Conc 31.1 g/gl (32-36); Mean Corpuscular Hgb 26.3 pg (27.0-32.0); Mean Corpuscular Volume 84.8 fL (80-94); Mean Platelet Vol. 9.3 fl (6.2-12.0); RBC Distribution Width CV 24.6 % (11.6-14.6); RBC Distribution Width SD 69.7 fl (35.1-43.9); Red Blood Count 3.15 M/mm3 (4.6-6.2); White Blood Count 5.5 K/mm3 (4.4-11.0)
[2018-07-28 07:49] LABS: Differential Indicated MANUAL DIFF; POSITIVE COUNT YES; POSITIVE DIFFERENTIAL NO; POSITIVE MORPHOLOGY YES; Platelet Count 42 K/mm3 (150-450)
[2018-07-28 07:50] LABS: NRBC Flagged by Analyzer 3.6 % (0-5)
[2018-07-28 08:03] LABS: ALB/GLOB Ratio 0.4 RATIO (0.9-2.4); AST(SGOT) 142 U/L (15-37); Alanine Aminotransfer ALT/SGPT 43 U/L (16-61); Albumin, Serum 1.8 g/dL (3.2-5.0); Alkaline Phosphatase 1238 U/L (45-117); Anion Gap 3 (5-15); BUN 12 mg/dL (7-18); BUN/Creat Ratio 10.5 RATIO (10-20); Calcium,Total 8.1 mg/dL (8.5-10.1); Chloride 106 mmol/L (98-107); Creatinine, Serum 1.14 mg/dL (0.70-1.30); EST Glomerular Filtration Rate 68 mL/min (>60); Est Glom Filt Rate - Afr Amer 82 mL/min (>60); Estimated Creatinine Clearance 72.11 ml/min; Globulin 4.3 g/dL (2.2-4.2); Glucose 94 mg/dL (74-106); Protein, Total 6.1 g/dL (6.4-8.2); Sodium Level 136 mmol/L (136-145)
--- NOTE | 2018-07-28 08:21 | NURSING ---
Texted Dr. Prado to inform of plt count of 42 today.
--- NOTE | 2018-07-28 08:28 | CON.PCM_ITS ---
Problem List (1) Colitis Status: Acute Reason for Consult Date of Consultation: 07/28/18 History of Present Illness: The patient is a 68 M presenting with abdominal pain. He states this started today. He also noted black-colored stools today. He was seen in the ED yesterday for malaise. At that time he was found to have anemia and guaiac negative stools. He returns today due to black color of his stools and abdominal pain. He is on Plavix. CT scan of the abdomen and pelvis revealed signs of colitis of the ascending and transverse colon. The appendix was not visualized. Patient was noted to have ascites as well. Patient is not complaining of any abdominal pain at this time. His labs do show that he is anemic slightly more than he has been in the past and he has significantly more thrombocytopenic. Past Medical History Past Medical History (Chronic Problems): Chronic Problems (Last Reviewed 07/28/18 @ 08:29 by Kimo Bonilla MD) HTN (hypertension) (Chronic) HLD (hyperlipidemia) (Chronic) PAD (peripheral artery disease) (Chronic) CKD (chronic kidney disease) stage 3, GFR 30-59 ml/min (Chronic) Debility (Chronic) Chronic respiratory failure with hypoxia (Chronic) Chronic anemia (Chronic) Chronic back pain (Chronic) PAOD (peripheral arterial occlusive disease) (Chronic) Chronic kidney disease (Chronic) Coronary artery disease (Chronic) Diabetes mellitus (Chronic) COPD (chronic obstructive pulmonary disease) (Chronic) Muscle spasm (Chronic) Diabetic neuropathy (Chronic) Stented coronary artery (Chronic 09/22/17) 3.5 X 16 Promus Synergy to mid LAD; 4.0 X 24 Promus Synergy to proximal LAD; POBA to Diagonal [address] Ruff @ [facility] NSTEMI (non-ST elevated myocardial infarction) (Chronic 09/22/17) Tobacco abuse (Chronic) Medical History: Medical History (Last Reviewed 07/28/18 @ 08:29 by Kimo Bonilla MD) NSTEMI (non-ST elevated myocardial infarction) (Chronic) Onset Date: 09/22/17 I21.4 CAD (coronary artery disease) I25.10 DM2 (diabetes mellitus, type 2) E11.9 Hyperlipidemia E78.5 Non-healing wound of right heel S91.301A PAD (peripheral artery disease) I73.9 HTN (hypertension) I10 Allergies No Known Allergies Allergy (Verified 07/25/18 21:17) Home Medications: Ambulatory Orders Medication Instructions Recorded Acetaminophen [Tylenol] 500 mg PO Q6H PRN PRN tablet 07/01/18 Aspirin [Aspirin, Baby] 81 mg PO DAILY@0800 07/01/18 Clopidogrel Bisulfate [Plavix] 75 mg PO DAILY 07/01/18 Atorvastatin Calcium 80 mg PO QHS 07/27/18 Empagliflozin [Jardiance] 10 mg PO DAILY 07/27/18 Metoprolol Succinate [Kapspargo 50 mg PO DAILY 07/27/18 Sprinkle] Oxycodone HCl/Acetaminophen 1 each PO Q6H PRN PRN 07/27/18 [Oxycodon-Acetaminophen 7.5-325] Zolpidem Tartrate [Ambien] 5 mg PO QHS 07/27/18 metFORMIN HCl [Glucophage] 1,000 mg PO BIDCM 07/27/18 Surgical History: Surgical History (Last Reviewed 07/28/18 @ 08:29 by Kimo Bonilla MD) Stented coronary artery (Chronic) Onset Date: 09/22/17 Z95.5 3.5 X 16 Promus Synergy to mid LAD; 4.0 X 24 Promus Synergy to proximal LAD; POBA to Diagonal [address] Ruff @ [facility] Surgical History: angioplasty - with stent., total knee arthroplasty - Right., - - Multiple coronary artery stents, lumbar spine surgery x 3, Hx AAA repair w/ stent, BL elbow ? nerve surgery. Psychiatric History: No pertinent psych hx Smoking Status: Current every day smoker Tobacco Use: Cigarettes - *Family History Maternal History Items: Hypertension Paternal History Items: Hypertension Review of Systems Constitutional: Denies: Chills, Fever, Weight Change Cardiovascular: Denies: Chest Pain, Chest Pressure, Chest Tightness, Palpitations Respiratory: Denies: Cough, Hemoptysis, Shortness of breath at rest, Shortness of breath upon exertion, Wheezing Gastrointestinal: Denies: Abdominal Pain, Constipation, Diarrhea, Hematemesis, Nausea, Melena, Vomiting Patient Problems: Active and Suspected Problems (Last Reviewed 07/28/18 @ 08:29 by Kimo Bonilla MD) GI bleed (Acute) Colitis (Acute) - Physical Exam General: No apparent distress, Lethargic Lungs: Clear to auscultation Cardiovascular: Regular rate, Regular Rhythm, No murmurs Abdomen: Soft, Non Tender, Distended, Obese, - - Patient has obvious ascites and is significantly obtunded. There are no rebound guarding or peritoneal signs identified. Extremities: - - Patient has bruising all over his extremities. As well as his abdominal wall. Vital Signs Temp Pulse Resp BP Pulse Ox 98.4 F 80 16 104/62 93 07/28/18 06:10 07/28/18 06:30 07/28/18 06:10 07/28/18 06:10 07/28/18 06:30 Oxygen Flow Rate (L/min) 4 Oxygen Delivery Method Nasal Cannula Weight: 219 lb 12.814 oz Body Mass Index (BMI) 27.3 Finger Stick Blood Glucose 117 Intake and Output for Last 24 Hours 07/26/18 07/27/18 07/28/18 23:59 23:59 23:59 Intake Total 966 / 966 Output Total 800 / 800 Balance 166 / 166 Microbiology Past 72 Hours 07/27/18 15:44 Stool Occult Blood (LAURENT) - Final Stool Occult Blood Positive Laboratory Tests Past 24 Hrs 07/27/18 07/27/18 07/27/18 16:10 16:10 16:10 WBC 7.0 RBC 3.35 L Hgb 8.9 L Hct 28.0 L MCV 83.6 MCH 26.6 L MCHC 31.8 L RDW 23.9 H RDW Differential 68.8 H Plt Count 48 L* MPV 8.8 Immature Gran % (Auto) APPLICATION INTEGRATION ARCHITECT Neut % (Auto) APPLICATION INTEGRATION ARCHITECT Lymph % (Auto) APPLICATION INTEGRATION ARCHITECT [place] % (Auto) APPLICATION INTEGRATION ARCHITECT Eos % (Auto) APPLICATION INTEGRATION ARCHITECT Baso % (Auto) APPLICATION INTEGRATION ARCHITECT Absolute Neuts (auto) 5.2 Absolute Lymphs (auto) 1.13 Total Counted 100 Neutrophils % (Manual) 68 Band Neutrophils % 6 H Lymphocytes % (Manual) 16 L Monocytes % (Manual) 6 Eosinophils % (Manual) 1 Metamyelocytes % 2 H Myelocytes % 1 H Nucleated RBC % Nucleated RBCs/100 WBC 1 Diff Path Review May foll Platelet Estimate MKD DEC Hypochromasia RARE Anisocytosis RARE Absolute Retic Sodium 135 L Potassium 3.3 L Chloride 102 Carbon Dioxide 29.0 Anion Gap 4 L BUN 14 Creatinine 1.25 Estim Creat Clear Calc 65.76 Est GFR (MDRD) Af Amer 74 Est GFR (MDRD) Non-Af 61 BUN/Creatinine Ratio 11.2 Glucose 112 H Calcium 8.5 Magnesium Total Bilirubin 2.30 H Direct Bilirubin 1.49 H AST 149 H ALT 47 Alkaline Phosphatase 1336 H Ammonia Total Protein 6.5 Albumin 2.0 L Globulin 4.5 H Albumin/Globulin Ratio Urine Color Urine Clarity Urine pH Ur Specific [place] Urine Protein Urine Glucose (UA) Urine Ketones Urine Occult Blood Urine Nitrite Urine Bilirubin Urine Urobilinogen Ur Leukocyte Esterase Urine RBC Urine WBC Ur Squamous Epith Cells Urine Bacteria Urine Mucus Blood Type Antibody Screen Crossmatch 07/27/18 07/27/18 07/27/18 16:10 19:52 19:52 WBC RBC Hgb 8.3 L Hct 26.7 L MCV MCH MCHC RDW RDW Differential Plt Count MPV Immature Gran % (Auto) Neut % (Auto) Lymph % (Auto) [place] % (Auto) Eos % (Auto) Baso % (Auto) Absolute Neuts (auto) Absolute Lymphs (auto) Total Counted Neutrophils % (Manual) Band Neutrophils % Lymphocytes % (Manual) Monocytes % (Manual) Eosinophils % (Manual) Metamyelocytes % Myelocytes % Nucleated RBC % Nucleated RBCs/100 WBC Diff Path Review Platelet Estimate Hypochromasia Anisocytosis Absolute Retic Sodium Potassium Chloride Carbon Dioxide Anion Gap BUN Creatinine Estim Creat Clear Calc Est GFR (MDRD) Af Amer Est GFR (MDRD) Non-Af BUN/Creatinine Ratio Glucose Calcium Magnesium 1.7 Total Bilirubin Direct Bilirubin AST ALT Alkaline Phosphatase Ammonia Total Protein Albumin Globulin Albumin/Globulin Ratio Urine Color Urine Clarity Urine pH Ur Specific [place] Urine Protein Urine Glucose (UA) Urine Ketones Urine Occult Blood Urine Nitrite Urine Bilirubin Urine Urobilinogen Ur Leukocyte Esterase Urine RBC Urine WBC Ur Squamous Epith Cells Urine Bacteria Urine Mucus Blood Type O NEGATIVE Antibody Screen NEGATIVE Crossmatch See Detail 07/27/18 07/28/18 07/28/18 22:23 00:05 01:12 WBC RBC Hgb 8.0 L Hct 25.4 L MCV MCH MCHC RDW RDW Differential Plt Count MPV Immature Gran % (Auto) Neut % (Auto) Lymph % (Auto) [place] % (Auto) Eos % (Auto) Baso % (Auto) Absolute Neuts (auto) Absolute Lymphs (auto) Total Counted Neutrophils % (Manual) Band Neutrophils % Lymphocytes % (Manual) Monocytes % (Manual) Eosinophils % (Manual) Metamyelocytes % Myelocytes % Nucleated RBC % Nucleated RBCs/100 WBC Diff Path Review Platelet Estimate Hypochromasia Anisocytosis Absolute Retic Sodium Potassium Chloride Carbon Dioxide Anion Gap BUN Creatinine Estim Creat Clear Calc Est GFR (MDRD) Af Amer Est GFR (MDRD) Non-Af BUN/Creatinine Ratio Glucose Calcium Magnesium Total Bilirubin Direct Bilirubin AST ALT Alkaline Phosphatase Ammonia 52.0 H Total Protein Albumin Globulin Albumin/Globulin Ratio Urine Color Yellow Urine Clarity Sl. Cloudy Urine pH 6.0 Ur Specific [place] 1.010 Urine Protein 15 H Urine Glucose (UA) 100 H Urine Ketones Negative Urine Occult Blood 250 H Urine Nitrite Negative Urine Bilirubin Negative Urine Urobilinogen 4 H Ur Leukocyte Esterase 100 H Urine RBC 25-50 SEEN Urine WBC 0-5 SEEN Ur Squamous Epith Cells 5-10 SEEN Urine Bacteria 0 SEEN Urine Mucus 0 SEEN Blood Type Antibody Screen Crossmatch 07/28/18 07/28/18 07:08 07:08 WBC 5.5 RBC 3.15 L Hgb 8.3 L Hct 26.7 L MCV 84.8 MCH 26.3 L MCHC 31.1 L RDW 24.6 H RDW Differential 69.7 H Plt Count 42 L* MPV 9.3 Immature Gran % (Auto) Neut % (Auto) Not Reportable Lymph % (Auto) [place] % (Auto) Eos % (Auto) Baso % (Auto) Absolute Neuts (auto) Not Reportable Absolute Lymphs (auto) Total Counted Pending Neutrophils % (Manual) Band Neutrophils % Lymphocytes % (Manual) Monocytes % (Manual) Eosinophils % (Manual) Metamyelocytes % Myelocytes % Nucleated RBC % 3.6 Nucleated RBCs/100 WBC Diff Path Review Platelet Estimate Hypochromasia Anisocytosis Absolute Retic 0.20 Sodium 136 Potassium 4.0 Chloride 106 Carbon Dioxide 27.0 Anion Gap 3 L BUN 12 Creatinine 1.14 Estim Creat Clear Calc 72.11 Est GFR (MDRD) Af Amer 82 Est GFR (MDRD) Non-Af 68 BUN/Creatinine Ratio 10.5 Glucose 94 Calcium 8.1 L Magnesium Total Bilirubin 2.20 H Direct Bilirubin AST 142 H ALT 43 Alkaline Phosphatase 1238 H Ammonia Total Protein 6.1 L Albumin 1.8 L Globulin 4.3 H Albumin/Globulin Ratio 0.4 L Urine Color Urine Clarity Urine pH Ur Specific [place] Urine Protein Urine Glucose (UA) Urine Ketones Urine Occult Blood Urine Nitrite Urine Bilirubin Urine Urobilinogen Ur Leukocyte Esterase Urine RBC Urine WBC Ur Squamous Epith Cells Urine Bacteria Urine Mucus Blood Type Antibody Screen Crossmatch POC Glucose 07/28/18 07/27/18 06:33 22:42 POC Glucose 80 85 Assessment/Plan All Active Problems (Last Reviewed 07/28/18 @ 08:29 by Kimo Bonilla MD) Acute encephalopathy (Acute) JUDY (acute kidney injury) (Acute) Encephalopathy (Acute) Hypokalemia (Acute) GI bleed (Acute) Colitis (Acute) Mental status change (Acute) Healthcare-associated pneumonia (Ruled-out) Severe sepsis (Acute) Pneumonia (Acute) Elevated troponin (Acute) With his colitis I do not think there is any endoscopies I would do on him at this point. I think obtaining stool cultures would be appropriate to see if he has any signs of infectious colitis. I believe even though he does have significant liver disease replacing his platelets at this time is appropriate since they have continued to drop and he is obviously having anemia secondary to his colitis. At this point I do not think an endoscopy is warranted. In addition this patient is obviously a child C cirrhotic there is absolutely no surgical intervention that he could undergo [facility]. We would probably benefit from being on a liver failure floor at a tertiary referral center.
[2018-07-28 08:33] LABS: Basophil 2 % (0-1); Eosinophil 6 % (0-5); Lymphocyte 19 % (19-41); Metamyelocyte 1 % (0-1); Monocyte 5 % (0-10); Myelocyte 3 (0-0); Neutrophil-Segmented 64 % (47-70); Platelet Estimate MKD DEC (ADEQ); Total Cells Counted 100 (MANUAL DIFF)
[2018-07-28 08:34] LABS: Absolute Neutrophil Count 3.5 X10^3/uL (2.0-7.7); Anisocytosis 1+; Red Cell Morphology N CHROM NORMAL (NORM C&C)
[2018-07-28 08:35] LABS: Absolute Lymphocyte Count 1.05 X10^3/ul (0.83-4.51); Lymphocyte # 1.05 X10^3/ul (4.0)
--- NOTE | 2018-07-28 08:45 | CASEMGMT ---
Social Work Note Per rn forensic questions, pt has completed LW and HCPOA but is unable to bring in copy. Liana Centeno STAFF ELECTRICAL ENGINEER, [employer] PROFESSOR
[2018-07-28 09:16] LABS: Bedside Glucose 90 mg/dL (70-110)
[2018-07-28] MEDS: Metoprolol(XL)Succ 50 MG Tablet PO (09:21)
[2018-07-28] MEDS: 0.9% NaCl Peripheral Flush Adult/Peds IV ×2 (10:34→11:31)
--- NOTE | 2018-07-28 11:04 | CASEMGMT ---
Addendum entered by Guilherme George 07/28/18 11:50: Call to G[facility]nesis @ [employer]. Pt had oxygen order, but brought all equipment back on 07/07/18 against medical advice. No oxygen in home now. Abel ZHAO Original Note: RN ISREAL Readmission Note Previous admission: 06/30-07/01/18 DX: JUDY, confusion. DC Disposition: TCU from 07/01-07/06/18. Home after TCU Current Admission:07/27/18 Presentation: GIB, liver cirrhosis, chronic thrombocytopenia. PLT 48, H/H 8.11/11 Attempted to speak with pt, however he is somulent at this time per nursing. Call to who seems very frustated that pt does not do things for himself at home. states pt sits in chair and is very inactive @ home. RN ISREAL let know PT/OT would see pt here and recommendations will be reviewed for dc needs. states pt takes more pain medications than ordered at home, then runs out and she is concerned re: this. PCP: [facility] [place] Specialists: Dr. Gonzalez, Preferred [facility]acy[facility], is not sure if pt would like to use [facility] [employer] on dc or not. 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 LNOK: , Sridevi Munguia Living Arrangements: Pt lives in one story home with Sridevi. states pt is sitting in chair and not being active at home. assists with showering, meals. Transportation: Pt drives to appointments. Daughter goes to appointments with patient. DME: cane, walker, no home oxygen HHC: no Patient DC goals: undetermined DC PLAN: anticipate home on dc. PT/OT evaluations pending. If Home Health is recommended, states we would need to speak with pt to see if he would be agreeable. Abel ZHAO
[2018-07-28 11:16] LABS: Bedside Glucose 97 mg/dL (70-110)
[2018-07-28 11:56] LABS: Pathologist Review Reviewed
--- NOTE | 2018-07-28 12:17 | PCM.CONS.GEN ---
Problem List (1) Ulcer of right foot with fat layer exposed Status: Acute Reason for Consult Date of Consultation: 07/28/18 Reason for Consultation: chronic right heel ulcer History of Present Illness: The patient is a 68 year old M with past medical history of hypertension, type II DM, PAD is complicated by peripheral neuropathy, liver cirrhosis, COPD, recently admitted and discharged for hepatic encephalopathy/pneumonia who was admitted yesterday for complaints of abdominal pain and bloody stools. He was consulted to podiatry for ongoing chronic right heel ulcer. Patient normally sees [facility]ry for weekly wound care visits and he says he has been having application of skin substitutes to the area. He is not sure which one. He currently is very lethargic and is responding to my questions, but keeping his eyes closed for the most part. He denies any significant pain to the heel. [] Past Medical History Past Medical History (Chronic Problems): Chronic Problems (Last Reviewed 07/28/18 @ 08:29 by Kimo Bonilla MD) HTN (hypertension) (Chronic) HLD (hyperlipidemia) (Chronic) PAD (peripheral artery disease) (Chronic) CKD (chronic kidney disease) stage 3, GFR 30-59 ml/min (Chronic) Debility (Chronic) Chronic respiratory failure with hypoxia (Chronic) Chronic anemia (Chronic) Chronic back pain (Chronic) PAOD (peripheral arterial occlusive disease) (Chronic) Chronic kidney disease (Chronic) Coronary artery disease (Chronic) Diabetes mellitus (Chronic) COPD (chronic obstructive pulmonary disease) (Chronic) Muscle spasm (Chronic) Diabetic neuropathy (Chronic) Stented coronary artery (Chronic 09/22/17) 3.5 X 16 Promus Synergy to mid LAD; 4.0 X 24 Promus Synergy to proximal LAD; POBA to Diagonal [address] Ruff @ [facility] NSTEMI (non-ST elevated myocardial infarction) (Chronic 09/22/17) Tobacco abuse (Chronic) Medical History: Medical History (Last Reviewed 07/28/18 @ 08:29 by Kimo Bonilla MD) NSTEMI (non-ST elevated myocardial infarction) (Chronic) Onset Date: 09/22/17 I21.4 CAD (coronary artery disease) I25.10 DM2 (diabetes mellitus, type 2) E11.9 Hyperlipidemia E78.5 Non-healing wound of right heel S91.301A PAD (peripheral artery disease) I73.9 HTN (hypertension) I10 Allergies No Known Allergies Allergy (Verified 07/25/18 21:17) Home Medications: Ambulatory Orders Medication Instructions Recorded Acetaminophen [Tylenol] 500 mg PO Q6H PRN PRN tablet 07/01/18 Aspirin [Aspirin, Baby] 81 mg PO DAILY@0800 07/01/18 Clopidogrel Bisulfate [Plavix] 75 mg PO DAILY 07/01/18 Atorvastatin Calcium 80 mg PO QHS 07/27/18 Empagliflozin [Jardiance] 10 mg PO DAILY 07/27/18 Metoprolol Succinate [Kapspargo 50 mg PO DAILY 07/27/18 Sprinkle] Oxycodone HCl/Acetaminophen 1 each PO Q6H PRN PRN 07/27/18 [Oxycodon-Acetaminophen 7.5-325] Zolpidem Tartrate [Ambien] 5 mg PO QHS 07/27/18 metFORMIN HCl [Glucophage] 1,000 mg PO BIDCM 07/27/18 Surgical History: Surgical History (Last Reviewed 07/28/18 @ 08:29 by Kimo Bonilla MD) Stented coronary artery (Chronic) Onset Date: 09/22/17 Z95.5 3.5 X 16 Promus Synergy to mid LAD; 4.0 X 24 Promus Synergy to proximal LAD; POBA to Diagonal [address] Ruff @ [facility] Surgical History: angioplasty - with stent., total knee arthroplasty - Right., - - Multiple coronary artery stents, lumbar spine surgery x 3, Hx AAA repair w/ stent, BL elbow ? nerve surgery. Psychiatric History: No pertinent psych hx Smoking Status: Current every day smoker Tobacco Use: Cigarettes - *Family History Maternal History Items: Hypertension Paternal History Items: Hypertension Review of Systems Constitutional: Denies: Chills, Fever Cardiovascular: Denies: Chest Pain, Palpitations Respiratory: Denies: Cough, Shortness of breath at rest, Sputum production Gastrointestinal: Denies: Abdominal Pain, Nausea, Vomiting Skin: Reports: - - ulcer right heel Patient Problems: Active and Suspected Problems (Last Reviewed 07/28/18 @ 08:29 by Kimo Bonilla MD) GI bleed (Acute) Colitis (Acute) Pain in right foot (Acute) Ulcer of right foot with fat layer exposed (Acute) - Physical Exam General: Alert, Oriented x3, Cooperative Extremities: Capillary Refill Less than 3 Seconds - to distal digits of right foot, No Calf Tenderness, Diminished Peripheral Pulses, Edema - very mild Skin: Ulcer/ Wound - Ulcer to right heel. Stable in appearance. No probing to bone noted. There was no purulence, surrounding or extending cellulitis or significant pain on palpation. There was no fluctuance appreciated on exam. Scant amount of serous drainage noted. No other signs of local infection currently noted on physical exam. Musculoskeletal: No Tenderness to Palpation of Joints or Extremities Neurological: - - Epicritic sensation absent to lower extremity Psych/Mental Status: Normal Affect, Appropriate Vital Signs Temp Pulse Resp BP Pulse Ox 98.7 F 90 16 103/55 L 94 07/28/18 08:57 07/28/18 10:00 07/28/18 08:57 07/28/18 08:57 07/28/18 08:57 Oxygen Flow Rate (L/min) 4 Oxygen Delivery Method Nasal Cannula Weight: 99.7 kg Body Mass Index (BMI) 27.3 Finger Stick Blood Glucose 117 Intake and Output for Last 24 Hours 07/26/18 07/27/18 07/28/18 23:59 23:59 23:59 Intake Total 1478 / 1478 Output Total 1100 / 1100 Balance 378 / 378 Microbiology Past 72 Hours 07/27/18 15:44 Stool Occult Blood (LAURENT) - Final Stool Occult Blood Positive Laboratory Tests Past 24 Hrs 07/27/18 07/27/18 07/27/18 16:10 16:10 16:10 WBC 7.0 RBC 3.35 L Hgb 8.9 L Hct 28.0 L MCV 83.6 MCH 26.6 L MCHC 31.8 L RDW 23.9 H RDW Differential 68.8 H Plt Count 48 L* MPV 8.8 Immature Gran % (Auto) [employer] Neut % (Auto) [employer] Lymph % (Auto) [employer] [place] % (Auto) [employer] Eos % (Auto) [employer] Baso % (Auto) [employer] Absolute Neuts (auto) 5.2 Absolute Lymphs (auto) 1.13 Total Counted 100 Neutrophils % (Manual) 68 Band Neutrophils % 6 H Lymphocytes % (Manual) 16 L Monocytes % (Manual) 6 Eosinophils % (Manual) 1 Basophils % (Manual) Metamyelocytes % 2 H Myelocytes % 1 H Nucleated RBC % Nucleated RBCs/100 WBC 1 Diff Path Review May foll Platelet Estimate MKD DEC RBC Morphology Hypochromasia RARE Anisocytosis RARE Absolute Retic Sodium 135 L Potassium 3.3 L Chloride 102 Carbon Dioxide 29.0 Anion Gap 4 L BUN 14 Creatinine 1.25 Estim Creat Clear Calc 65.76 Est GFR (MDRD) Af Amer 74 Est GFR (MDRD) Non-Af 61 BUN/Creatinine Ratio 11.2 Glucose 112 H Calcium 8.5 Magnesium Total Bilirubin 2.30 H Direct Bilirubin 1.49 H AST 149 H ALT 47 Alkaline Phosphatase 1336 H Ammonia Total Protein 6.5 Albumin 2.0 L Globulin 4.5 H Albumin/Globulin Ratio Urine Color Urine Clarity Urine pH Ur Specific [place] Urine Protein Urine Glucose (UA) Urine Ketones Urine Occult Blood Urine Nitrite Urine Bilirubin Urine Urobilinogen Ur Leukocyte Esterase Urine RBC Urine WBC Ur Squamous Epith Cells Urine Bacteria Urine Mucus Blood Type Antibody Screen Crossmatch 07/27/18 07/27/18 07/27/18 16:10 19:52 19:52 WBC RBC Hgb 8.3 L Hct 26.7 L MCV MCH MCHC RDW RDW Differential Plt Count MPV Immature Gran % (Auto) Neut % (Auto) Lymph % (Auto) [place] % (Auto) Eos % (Auto) Baso % (Auto) Absolute Neuts (auto) Absolute Lymphs (auto) Total Counted Neutrophils % (Manual) Band Neutrophils % Lymphocytes % (Manual) Monocytes % (Manual) Eosinophils % (Manual) Basophils % (Manual) Metamyelocytes % Myelocytes % Nucleated RBC % Nucleated RBCs/100 WBC Diff Path Review Platelet Estimate RBC Morphology Hypochromasia Anisocytosis Absolute Retic Sodium Potassium Chloride Carbon Dioxide Anion Gap BUN Creatinine Estim Creat Clear Calc Est GFR (MDRD) Af Amer Est GFR (MDRD) Non-Af BUN/Creatinine Ratio Glucose Calcium Magnesium 1.7 Total Bilirubin Direct Bilirubin AST ALT Alkaline Phosphatase Ammonia Total Protein Albumin Globulin Albumin/Globulin Ratio Urine Color Urine Clarity Urine pH Ur Specific [place] Urine Protein Urine Glucose (UA) Urine Ketones Urine Occult Blood Urine Nitrite Urine Bilirubin Urine Urobilinogen Ur Leukocyte Esterase Urine RBC Urine WBC Ur Squamous Epith Cells Urine Bacteria Urine Mucus Blood Type O NEGATIVE Antibody Screen NEGATIVE Crossmatch See Detail 07/27/18 07/28/18 07/28/18 22:23 00:05 01:12 WBC RBC Hgb 8.0 L Hct 25.4 L MCV MCH MCHC RDW RDW Differential Plt Count MPV Immature Gran % (Auto) Neut % (Auto) Lymph % (Auto) [place] % (Auto) Eos % (Auto) Baso % (Auto) Absolute Neuts (auto) Absolute Lymphs (auto) Total Counted Neutrophils % (Manual) Band Neutrophils % Lymphocytes % (Manual) Monocytes % (Manual) Eosinophils % (Manual) Basophils % (Manual) Metamyelocytes % Myelocytes % Nucleated RBC % Nucleated RBCs/100 WBC Diff Path Review Platelet Estimate RBC Morphology Hypochromasia Anisocytosis Absolute Retic Sodium Potassium Chloride Carbon Dioxide Anion Gap BUN Creatinine Estim Creat Clear Calc Est GFR (MDRD) Af Amer Est GFR (MDRD) Non-Af BUN/Creatinine Ratio Glucose Calcium Magnesium Total Bilirubin Direct Bilirubin AST ALT Alkaline Phosphatase Ammonia 52.0 H Total Protein Albumin Globulin Albumin/Globulin Ratio Urine Color Yellow Urine Clarity Sl. Cloudy Urine pH 6.0 Ur Specific [place] 1.010 Urine Protein 15 H Urine Glucose (UA) 100 H Urine Ketones Negative Urine Occult Blood 250 H Urine Nitrite Negative Urine Bilirubin Negative Urine Urobilinogen 4 H Ur Leukocyte Esterase 100 H Urine RBC 25-50 SEEN Urine WBC 0-5 SEEN Ur Squamous Epith Cells 5-10 SEEN Urine Bacteria 0 SEEN Urine Mucus 0 SEEN Blood Type Antibody Screen Crossmatch 07/28/18 07/28/18 07:08 07:08 WBC 5.5 RBC 3.15 L Hgb 8.3 L Hct 26.7 L MCV 84.8 MCH 26.3 L MCHC 31.1 L RDW 24.6 H RDW Differential 69.7 H Plt Count 42 L* MPV 9.3 Immature Gran % (Auto) Neut % (Auto) Not Reportable Lymph % (Auto) [place] % (Auto) Eos % (Auto) Baso % (Auto) Absolute Neuts (auto) 3.5 Absolute Lymphs (auto) 1.05 Total Counted 100 Neutrophils % (Manual) 64 Band Neutrophils % Lymphocytes % (Manual) 19 Monocytes % (Manual) 5 Eosinophils % (Manual) 6 H Basophils % (Manual) 2 H Metamyelocytes % 1 Myelocytes % 3 H Nucleated RBC % 3.6 Nucleated RBCs/100 WBC Diff Path Review Reviewed Platelet Estimate MKD DEC RBC Morphology N CHROM Hypochromasia Anisocytosis 1+ Absolute Retic 0.20 Sodium 136 Potassium 4.0 Chloride 106 Carbon Dioxide 27.0 Anion Gap 3 L BUN 12 Creatinine 1.14 Estim Creat Clear Calc 72.11 Est GFR (MDRD) Af Amer 82 Est GFR (MDRD) Non-Af 68 BUN/Creatinine Ratio 10.5 Glucose 94 Calcium 8.1 L Magnesium Total Bilirubin 2.20 H Direct Bilirubin AST 142 H ALT 43 Alkaline Phosphatase 1238 H Ammonia Total Protein 6.1 L Albumin 1.8 L Globulin 4.3 H Albumin/Globulin Ratio 0.4 L Urine Color Urine Clarity Urine pH Ur Specific [place] Urine Protein Urine Glucose (UA) Urine Ketones Urine Occult Blood Urine Nitrite Urine Bilirubin Urine Urobilinogen Ur Leukocyte Esterase Urine RBC Urine WBC Ur Squamous Epith Cells Urine Bacteria Urine Mucus Blood Type Antibody Screen Crossmatch POC Glucose 07/28/18 07/28/18 07/28/18 11:11 08:56 06:33 POC Glucose 97 90 80 07/27/18 22:42 POC Glucose 85 Assessment/Plan All Active Problems (Last Reviewed 07/28/18 @ 08:29 by Kimo Bonilla MD) Acute encephalopathy (Acute) JUDY (acute kidney injury) (Acute) Encephalopathy (Acute) Hypokalemia (Acute) GI bleed (Acute) Colitis (Acute) Pain in right foot (Acute) Ulcer of right foot with fat layer exposed (Acute) Mental status change (Acute) Healthcare-associated pneumonia (Ruled-out) Severe sepsis (Acute) Pneumonia (Acute) Elevated troponin (Acute) Stable ulcer to right heel DM with neuropathy Other comorbidities This 68-year-old diabetic male patient was consulted to podiatry for evaluation of a chronic right heel ulcer. Patient is resting in bed. Patient lethargic and will answer questions but is keeping his eyes closed most of the time. WBC 5.5 and vital signs are stable. X-rays were ordered but not taken yet. Patient's dressing was taken down to the right foot and ulcer site to posterior heel was examined. Currently there are no signs of local infection to the area. No cellulitis, no purulence. No significant debridement was performed today. This chronic ulcer site appears stable currently. Ulcer site was painted with Betadine in order to keep the area stable, and then dressed with 4 x 4's, ABDs, Kerlix, and a lightly wrapped Benji bandage. This dressing can be changed in this manner on a daily basis for the duration of the patient's hospital stay by nursing staff. Discussed the importance of keeping the heels of each foot completely offloaded with the assistance of both foam boots as well as offloading over the edges of 2 pillows stacked to make sure there is no pressure to either heel. Patient to be forefoot weightbearing to the right foot. [facility] He is to continue with this upon discharge. Podiatry can continue to follow this patient on an as-needed basis at this time.
[2018-07-28 12:18] LABS: Pathologist Review Reviewed
--- NOTE | 2018-07-28 12:40 | RAD_ITS ---
STUDY: X-RAY - RIGHT FOOT CLINICAL: Male, 68 years old. [place] TECHNIQUE: 3 view(s) of the foot. COMPARISON: None. FINDINGS: There is no evidence of fracture or dislocation. Plantar calcaneal spurring is present. There is anterior frontal soft tissue swelling. There are no radiodense foreign bodies. RAD/Foot min 3 Views IMPRESSION: No fracture or dislocation. Plantar calcaneal spurring. Anterior foot soft tissue swelling. Electronically Signed: Junior Quarles, at 16:12 EDT Tel , Service support ,
[2018-07-28] MEDS: Lactulose 20 GM/30 ML UDC PO ×2 (13:24→21:37)
[2018-07-28] MEDS: oxyCODONE 5 MG Tablet PO ×2 (13:29→21:37)
[2018-07-28 15:10] LABS: Bedside Glucose 102 mg/dL (70-110)
--- NOTE | 2018-07-28 16:08 | CHAPLAIN ---
Type of Pastoral Visit _x__ Initial Visit ___ Follow-up Visit ___ On-call Visit ___ General Patient Visit ___ Spiritual Assessment ___ Family Conference ___ Bereavement ___ Rapid Response ___ Code Blue ___ Other (describe below) Pastoral Care Referral From _x__ Patient ___ Family ___ Nurse ___ Physician ___ Language Path ___ Machine Technician ___ Other (describe below) Sacrament/Intervention _x__ Active listening ___ Anointing ___ Mormonism ___ Bereavement ___ Communion ___ Kristy exploration ___ ___ Life review _x__ Prayer ___ Reconciliation ___ Sacrament of Sick ___ Supportive presence ___ Wedding ___ Other (describe below) Pastoral Comments
[2018-07-28] MEDS: Menthol/Lanolin/Calamine/Znox 113 GM Tube 1 APPLIC TOPICAL ×2 (16:39→21:38)
[2018-07-28 17:01] LABS: Bedside Glucose 134 mg/dL (70-110)
--- NOTE | 2018-07-28 18:20 | PCM.PROGNOTE ---
Patient Problems: Active and Suspected Problems (Last Reviewed 07/28/18 @ 08:29 by Kimo Bonilla MD) GI bleed (Acute) Colitis (Acute) Subjective: Was seen and examined today, I talked to him extensively today as well as his by phone. Patient has no history of cirrhosis according the patient and the patient's , I started him on lactulose today and his mental status is improved and he was more alert this afternoon. General surgery saw the patient and does not want to proceed with any endoscopy, patient's hemoglobin seems to have stabilized where it is in a does not show evidence of any active bleeding at this time. I have elected to keep him off Plavix and aspirin, it is been approximately 9 months since his stent placement and I think it is too risky to give him these medications with his platelet count as low as it is. I have ordered a hepatitis profile, according to the , patient has no heavy drinking history and to her knowledge, he was not given a blood transfusion from anyone else during his lifetime. - Physical Exam General: Alert, Oriented x3, Cooperative, No apparent distress, Well developed, Well nourished HEENT: Atraumatic, PERRLA, EOMI, Normocephalic Oral: Moist Mucosa Neck: Supple, No JVD, No Nuchal Rigidity, Trachea Midline, Thyroid Normal Size and Texture Lungs: Clear to auscultation, Normal air movement, No rhonchi, No wheeze, No rales Cardiovascular: Regular rate, Regular Rhythm, Normal S1, Normal S2, No murmurs, No Ectopic Activity, PMI Normal, No rub noted, No Gallop Abdomen: Bowel Sounds Present, Soft, Non Tender, No hernias noted Extremities: No clubbing, No cyanosis, Capillary Refill Less than 3 Seconds Skin: No rashes Musculoskeletal: No Tenderness to Palpation of Joints or Extremities Neurological: Cranial nerves II-XII grossly intact, Neuro grossly intact, Sensory exam intact to light touch and pain Psych/Mental Status: Normal Affect, Appropriate, Alert and oriented to time, place, person, mood and affect Vital Signs Temp Pulse Resp BP Pulse Ox 97.7 F L 74 18 98/54 L 96 07/28/18 14:31 07/28/18 14:31 07/28/18 14:31 07/28/18 14:31 07/28/18 14:31 Oxygen Flow Rate (L/min) 4 Oxygen Delivery Method Nasal Cannula Weight: 99.7 kg Body Mass Index (BMI) 27.3 Finger Stick Blood Glucose 117 Intake and Output for Last 24 Hours 07/26/18 07/27/18 07/28/18 23:59 23:59 23:59 Intake Total 1478 / 1478 Output Total 1600 / 1600 Balance -122 / -122 Microbiology Past 72 Hours 07/27/18 15:44 Stool Occult Blood (LAURENT) - Final Stool Occult Blood Positive Laboratory Tests Past 24 Hrs 07/27/18 07/27/18 07/27/18 16:10 16:10 16:10 WBC RBC Hgb Hct MCV MCH MCHC RDW RDW Differential Plt Count MPV Neut % (Auto) Absolute Neuts (auto) Absolute Lymphs (auto) Total Counted Neutrophils % (Manual) Lymphocytes % (Manual) Monocytes % (Manual) Eosinophils % (Manual) Basophils % (Manual) Metamyelocytes % Myelocytes % Nucleated RBC % Diff Path Review Reviewed Platelet Estimate RBC Morphology Anisocytosis Absolute Retic Sodium Potassium Chloride Carbon Dioxide Anion Gap BUN Creatinine Estim Creat Clear Calc Est GFR (MDRD) Af Amer Est GFR (MDRD) Non-Af BUN/Creatinine Ratio Glucose Calcium Magnesium 1.7 Total Bilirubin 2.30 H Direct Bilirubin 1.49 H AST 149 H ALT 47 Alkaline Phosphatase 1336 H Ammonia Total Protein 6.5 Albumin 2.0 L Globulin 4.5 H Albumin/Globulin Ratio Urine Color Urine Clarity Urine pH Ur Specific [place] Urine Protein Urine Glucose (UA) Urine Ketones Urine Occult Blood Urine Nitrite Urine Bilirubin Urine Urobilinogen Ur Leukocyte Esterase Urine RBC Urine WBC Ur Squamous Epith Cells Urine Bacteria Urine Mucus Blood Type Antibody Screen Crossmatch 07/27/18 07/27/18 07/27/18 19:52 19:52 22:23 WBC RBC Hgb 8.3 L Hct 26.7 L MCV MCH MCHC RDW RDW Differential Plt Count MPV Neut % (Auto) Absolute Neuts (auto) Absolute Lymphs (auto) Total Counted Neutrophils % (Manual) Lymphocytes % (Manual) Monocytes % (Manual) Eosinophils % (Manual) Basophils % (Manual) Metamyelocytes % Myelocytes % Nucleated RBC % Diff Path Review Platelet Estimate RBC Morphology Anisocytosis Absolute Retic Sodium Potassium Chloride Carbon Dioxide Anion Gap BUN Creatinine Estim Creat Clear Calc Est GFR (MDRD) Af Amer Est GFR (MDRD) Non-Af BUN/Creatinine Ratio Glucose Calcium Magnesium Total Bilirubin Direct Bilirubin AST ALT Alkaline Phosphatase Ammonia 52.0 H Total Protein Albumin Globulin Albumin/Globulin Ratio Urine Color Urine Clarity Urine pH Ur Specific [place] Urine Protein Urine Glucose (UA) Urine Ketones Urine Occult Blood Urine Nitrite Urine Bilirubin Urine Urobilinogen Ur Leukocyte Esterase Urine RBC Urine WBC Ur Squamous Epith Cells Urine Bacteria Urine Mucus Blood Type O NEGATIVE Antibody Screen NEGATIVE Crossmatch See Detail 07/28/18 07/28/18 07/28/18 00:05 01:12 07:08 WBC 5.5 RBC 3.15 L Hgb 8.0 L 8.3 L Hct 25.4 L 26.7 L MCV 84.8 MCH 26.3 L MCHC 31.1 L RDW 24.6 H RDW Differential 69.7 H Plt Count 42 L* MPV 9.3 Neut % (Auto) Not Reportable Absolute Neuts (auto) 3.5 Absolute Lymphs (auto) 1.05 Total Counted 100 Neutrophils % (Manual) 64 Lymphocytes % (Manual) 19 Monocytes % (Manual) 5 Eosinophils % (Manual) 6 H Basophils % (Manual) 2 H Metamyelocytes % 1 Myelocytes % 3 H Nucleated RBC % 3.6 Diff Path Review Reviewed Platelet Estimate MKD DEC RBC Morphology N CHROM Anisocytosis 1+ Absolute Retic 0.20 Sodium Potassium Chloride Carbon Dioxide Anion Gap BUN Creatinine Estim Creat Clear Calc Est GFR (MDRD) Af Amer Est GFR (MDRD) Non-Af BUN/Creatinine Ratio Glucose Calcium Magnesium Total Bilirubin Direct Bilirubin AST ALT Alkaline Phosphatase Ammonia Total Protein Albumin Globulin Albumin/Globulin Ratio Urine Color Yellow Urine Clarity Sl. Cloudy Urine pH 6.0 Ur Specific [place] 1.010 Urine Protein 15 H Urine Glucose (UA) 100 H Urine Ketones Negative Urine Occult Blood 250 H Urine Nitrite Negative Urine Bilirubin Negative Urine Urobilinogen 4 H Ur Leukocyte Esterase 100 H Urine RBC 25-50 SEEN Urine WBC 0-5 SEEN Ur Squamous Epith Cells 5-10 SEEN Urine Bacteria 0 SEEN Urine Mucus 0 SEEN Blood Type Antibody Screen Crossmatch 07/28/18 07:08 WBC RBC Hgb Hct MCV MCH MCHC RDW RDW Differential Plt Count MPV Neut % (Auto) Absolute Neuts (auto) Absolute Lymphs (auto) Total Counted Neutrophils % (Manual) Lymphocytes % (Manual) Monocytes % (Manual) Eosinophils % (Manual) Basophils % (Manual) Metamyelocytes % Myelocytes % Nucleated RBC % Diff Path Review Platelet Estimate RBC Morphology Anisocytosis Absolute Retic Sodium 136 Potassium 4.0 Chloride 106 Carbon Dioxide 27.0 Anion Gap 3 L BUN 12 Creatinine 1.14 Estim Creat Clear Calc 72.11 Est GFR (MDRD) Af Amer 82 Est GFR (MDRD) Non-Af 68 BUN/Creatinine Ratio 10.5 Glucose 94 Calcium 8.1 L Magnesium Total Bilirubin 2.20 H Direct Bilirubin AST 142 H ALT 43 Alkaline Phosphatase 1238 H Ammonia Total Protein 6.1 L Albumin 1.8 L Globulin 4.3 H Albumin/Globulin Ratio 0.4 L Urine Color Urine Clarity Urine pH Ur Specific [place] Urine Protein Urine Glucose (UA) Urine Ketones Urine Occult Blood Urine Nitrite Urine Bilirubin Urine Urobilinogen Ur Leukocyte Esterase Urine RBC Urine WBC Ur Squamous Epith Cells Urine Bacteria Urine Mucus Blood Type Antibody Screen Crossmatch POC Glucose 07/28/18 07/28/18 07/28/18 16:57 15:06 11:11 POC Glucose 134 H 102 97 07/28/18 07/28/18 07/27/18 08:56 06:33 22:42 POC Glucose 90 80 85 Medical Necessity - Tobacco Use Smoking Status: Current every day smoker Tobacco Use: Cigarettes Assessment/Plan All Active Problems (Last Reviewed 07/28/18 @ 08:29 by Kimo Bonilla MD) Acute encephalopathy (Acute) JUDY (acute kidney injury) (Resolved) Hypokalemia (Resolved) GI bleed (Acute) Colitis (Acute) Mental status change (Acute) Healthcare-associated pneumonia (Ruled-out) Severe sepsis (Acute) Pneumonia (Acute) Elevated troponin (Acute) #1 hematochezia-etiology unclear, again general surgery does not want to proceed with any endoscopy at this time, it appears that the patient is not actively bleeding at this time. Patient may need a more intensive work-up as an outpatient or if he has another bleeding episode, he may need to be shipped to another hospital. I went over this at length with the patient's by phone. #2 newly diagnosed liver cirrhosis-etiology unclear at this point, I ordered a hepatitis A, B, and C profile #3 acute blood loss anemia-probably secondary to undiagnosed GI bleeding, continue to monitor blood count #4 hepatic [id number] was placed on lactulose 20 g twice daily #5 coronary artery disease-patient will need to stay off his Plavix and aspirin at this time #6 elevated liver enzymes-secondary to chronic cirrhosis, labs will be monitored #7 thrombocytopenia-probably secondary to chronic cirrhosis, labs will be monitored #8 chronic pain-patient takes Percocet at home, I discussed this with his , his states that he takes sometimes 10 Percocets per day-it is unknown whether the patient's cirrhosis could have resulted from overuse of Tylenol. Code Visit Inpatient E&M: 65446 Subs Hosp L2
[2018-07-28] MEDS: Atorvastatin Calcium 80 MG Tablet PO (21:37)
[2018-07-28] MEDS: Acetaminophen 325 MG Tablet 650 MG PO (21:37)
[2018-07-29] VITALS (12 sets, daily range): BP systolic 86–110; BP diastolic 43–59; PULSE 78–87; RESP 16–24; TEMP 36.2–36.8; O2SAT 91–94
[2018-07-29 00:01] LABS: Bedside Glucose 137 mg/dL (70-110)
[2018-07-29] MEDS: oxyCODONE 5 MG Tablet PO ×4 (04:12→20:24)
[2018-07-29 06:25] LABS: Hematocrit 25.8 % (40-54); Hemoglobin 8.1 g/dl (13.0-16.5); Mean Corp Hgb Conc 31.4 g/gl (32-36); Mean Corpuscular Hgb 26.7 pg (27.0-32.0); Mean Corpuscular Volume 85.1 fL (80-94); Mean Platelet Vol. 9.7 fl (6.2-12.0); Platelet Count 40 K/mm3 (150-450); RBC Distribution Width CV 24.8 % (11.6-14.6); RBC Distribution Width SD 71.5 fl (35.1-43.9); Red Blood Count 3.03 M/mm3 (4.6-6.2)
[2018-07-29 06:26] LABS: Differential Indicated MANUAL DIFF; POSITIVE COUNT YES; POSITIVE DIFFERENTIAL NO; POSITIVE MORPHOLOGY YES
[2018-07-29] MEDS: Ipratropium/Albuterol Sulfate 3 ML AMPUL.NEB INHALATION ×4 (06:40→18:50)
[2018-07-29 06:54] LABS: Lymphocyte 23 % (19-41); Metamyelocyte 1 % (0-1); Monocyte 3 % (0-10); Myelocyte 1 (0-0); Neutrophil-Band 4 % (0-5); Neutrophil-Segmented 62 % (47-70); Total Cells Counted 100 (MANUAL DIFF)
[2018-07-29 06:55] LABS: Corrected WBC 5.9 K/mm3 (4.4-11.0); Eosinophil 6 % (0-5); Nucleated Red Bld Cells,Manual 5 % (0-5)
[2018-07-29 06:56] LABS: Absolute Lymphocyte Count 1.36 X10^3/ul (0.83-4.51); Absolute Neutrophil Count 3.9 X10^3/uL (2.0-7.7); Lymphocyte # 1.36 X10^3/ul (4.0); Neutrophil # 3.89 X10^3/uL (2.7-7.7)
[2018-07-29 06:57] LABS: Anisocytosis 4+; Differential Comment SCANNED; Platelet Estimate MKD DEC (ADEQ)
[2018-07-29 06:58] LABS: ALB/GLOB Ratio 0.4 RATIO (0.9-2.4); AST(SGOT) 176 U/L (15-37); Alanine Aminotransfer ALT/SGPT 52 U/L (16-61); Albumin, Serum 1.7 g/dL (3.2-5.0); Alkaline Phosphatase 1269 U/L (45-117); Anion Gap 6 (5-15); BUN 13 mg/dL (7-18); BUN/Creat Ratio 11.5 RATIO (10-20); Calcium,Total 8.3 mg/dL (8.5-10.1); Chloride 104 mmol/L (98-107); Creatinine, Serum 1.13 mg/dL (0.70-1.30); EST Glomerular Filtration Rate 69 mL/min (>60); Est Glom Filt Rate - Afr Amer 83 mL/min (>60); Estimated Creatinine Clearance 72.74 ml/min; Globulin 4.1 g/dL (2.2-4.2); Glucose 100 mg/dL (74-106); Potassium 3.9 mmol/L (3.5-5.1); Protein, Total 5.8 g/dL (6.4-8.2); Sodium Level 139 mmol/L (136-145)
[2018-07-29 06:59] LABS: Polychromasia RARE
[2018-07-29 07:36] LABS: Bedside Glucose 104 mg/dL (70-110)
[2018-07-29] MEDS: Metoprolol(XL)Succ 50 MG Tablet PO (10:51)
[2018-07-29] MEDS: Lactulose 20 GM/30 ML UDC PO ×2 (10:52→22:24)
[2018-07-29] MEDS: Menthol/Lanolin/Calamine/Znox 113 GM Tube 1 APPLIC TOPICAL ×2 (10:53→22:24)
--- NOTE | 2018-07-29 12:46 | RAD_ITS ---
STUDY: X-RAY CHEST REASON FOR EXAM: Male, 68 years old. Shortness of breath and dyspnea TECHNIQUE: AP COMPARISON: 07/26/2018 FINDINGS: Persistent mild elevation of left hemidiaphragm with interval development of parenchymal consolidation in the left lung base. Reticular density adjacent to the right hilum may represent atelectasis, new. No pneumothorax or sizable effusion. Normal size heart. Normal mediastinum and pearl. Normal visualized pulmonary arteries. Normal visualized aortic arch and descending thoracic aorta. No acute bony process. There is no demonstrated abnormality of the visualized soft tissue structures of the upper abdomen. RAD/Chest 1 View (Portable) IMPRESSION: Left lower lobe infiltrate suggesting pneumonia, new. Minimal right perihilar atelectasis, new. Electronically Signed: Jayden Lopez MD at 13:23 EDT , Service support ,
--- NOTE | 2018-07-29 13:32 | PN_ITS ---
Patient Problems: Active and Suspected Problems (Last Reviewed 07/28/18 @ 08:29 by Kimo Bonilla MD) GI bleed (Acute) Colitis (Acute) Subjective: Patient was seen and examined today, his platelet count is 40,000 which is close to what it was yesterday, patient's hemoglobin is 8.1 and does not seem to be changed significantly. Patient still requires oxygen, he is alert and responsive and appropriate. I am questioning whether the patient has an element of chronic obstructive pulmonary disease which would make him oxygen dependent, I ordered a chest x-ray on him today, on examination today, his lungs are clear bilaterally. Patient's liver enzymes are still elevated with bilirubin being 2.2 and alkaline phosphatase being 1269. AST was elevated at 176 - Physical Exam General: Alert, Oriented x3, Cooperative, No apparent distress, Well developed HEENT: Atraumatic, PERRLA, EOMI, Normocephalic Oral: Moist Mucosa Neck: Supple, No JVD, No Nuchal Rigidity, Trachea Midline, Thyroid Normal Size and Texture Lungs: Clear to auscultation, No rhonchi, No wheeze, No rales, Diminished Cardiovascular: Regular rate, Regular Rhythm, Normal S1, Normal S2, No murmurs, No Ectopic Activity Abdomen: Bowel Sounds Present, Soft, Non Tender, No hernias noted Extremities: No clubbing, No cyanosis, No edema, Capillary Refill Less than 3 Seconds Skin: No rashes, No breakdown Musculoskeletal: No Tenderness to Palpation of Joints or Extremities Neurological: Cranial nerves II-XII grossly intact, Neuro grossly intact, Sensory exam intact to light touch and pain, Coordination normal Psych/Mental Status: Normal Affect, Appropriate, Alert and oriented to time, place, person, mood and affect Vital Signs Temp Pulse Resp BP Pulse Ox 97.1 F L 79 24 H 86/46 L 94 07/29/18 08:59 07/29/18 10:59 07/29/18 10:59 07/29/18 08:59 07/29/18 08:59 Oxygen Flow Rate (L/min) 4 Oxygen Delivery Method Nasal Cannula Weight: 96.3 kg Body Mass Index (BMI) 27.3 Finger Stick Blood Glucose 117 Intake and Output for Last 24 Hours 07/27/18 07/28/18 07/29/18 23:59 23:59 23:59 Intake Total 1705 / 1705 240 / 240 Output Total 1600 / 1600 300 / 300 Balance 105 / 105 -60 / -60 Microbiology Past 72 Hours 07/27/18 15:44 Stool Occult Blood (LAURENT) - Final Stool Occult Blood Positive Laboratory Tests Past 24 Hrs 07/29/18 07/29/18 07/29/18 05:50 05:50 05:50 WBC CLINICAL BIOSTATISTICS DIRECTOR Corrected WBC 5.9 RBC 3.03 L Hgb 8.1 L Hct 25.8 L MCV 85.1 MCH 26.7 L MCHC 31.4 L RDW 24.8 H RDW Differential 71.5 H Plt Count 40 L* MPV 9.7 Neut % (Auto) Not Reportable Absolute Neuts (auto) 3.9 Absolute Lymphs (auto) 1.36 Total Counted 100 Neutrophils % (Manual) 62 Band Neutrophils % 4 Lymphocytes % (Manual) 23 Monocytes % (Manual) 3 Eosinophils % (Manual) 6 H Metamyelocytes % 1 Myelocytes % 1 H Nucleated RBCs/100 WBC 5 Differential Comment SCANNED Diff Path Review May foll Platelet Estimate MKD DEC Polychromasia RARE Anisocytosis 4+ Sodium 139 Potassium 3.9 Chloride 104 Carbon Dioxide 29.0 Anion Gap 6 BUN 13 Creatinine 1.13 Estim Creat Clear Calc 72.74 Est GFR (MDRD) Af Amer 83 Est GFR (MDRD) Non-Af 69 BUN/Creatinine Ratio 11.5 Glucose 100 Calcium 8.3 L Total Bilirubin 2.20 H AST 176 H ALT 52 Alkaline Phosphatase 1269 H Total Protein 5.8 L Albumin 1.7 L Globulin 4.1 Albumin/Globulin Ratio 0.4 L Hepatitis A IgM Ab Pending Hepatitis A Ab Total Pending Hep Bs Antigen Pending Hep B Core Total Ab Pending Hep B Core IgM Ab Pending POC Glucose 07/29/18 07/28/18 07/28/18 06:47 21:35 16:57 POC Glucose 104 137 H 134 H 07/28/18 15:06 POC Glucose 102 Medical Necessity - Tobacco Use Smoking Status: Current every day smoker Tobacco Use: Cigarettes Assessment/Plan All Active Problems (Last Reviewed 07/28/18 @ 08:29 by Kimo Bonilla MD) Acute encephalopathy (Acute) JUDY (acute kidney injury) (Resolved) Hypokalemia (Resolved) GI bleed (Acute) Colitis (Acute) Mental status change (Acute) Healthcare-associated pneumonia (Ruled-out) Severe sepsis (Acute) Pneumonia (Acute) Elevated troponin (Acute) #1 hematochezia-etiology unclear, again general surgery does not want to proceed with any endoscopy at this time, it appears that the patient is not actively bleeding at this time. I will continue the patient on a PPI #2 newly diagnosed liver cirrhosis-etiology unclear at this point, I ordered a hepatitis A, B, and C profile, this is pending, it will probably not return by the time the patient is discharged to home. #3 acute blood loss anemia-probably secondary to undiagnosed GI bleeding, continue to monitor blood count #4 hepatic awarsivmbhdmjp-gzjo-dav appears alert and oriented today and appropriate, I will continue his lactulose on a twice daily basis #5 coronary artery disease-patient will need to stay off his Plavix and aspirin at this time due to his thrombocytopenia and anemia #6 elevated liver enzymes-secondary to chronic cirrhosis, labs will be monitored, labs will be obtained tomorrow #7 thrombocytopenia-probably secondary to chronic cirrhosis, labs will be monitored #8 chronic pain-patient takes Percocet at home, I discussed this with his , his states that he takes sometimes 10 Percocets per day-it is unknown whether the patient's cirrhosis could have resulted from overuse of Tylenol. Patient will be transition to OxyIR, he will need an Rx for it when he is discharged #9 hypoxia-I feel this is probably the result of chronic COPD, patient may need home O2 at the time of discharge from the hospital Code Visit Inpatient E&M: 94013 Subs Hosp L2
[2018-07-29 16:30] LABS: Bedside Glucose 148 mg/dL (70-110)
--- NOTE | 2018-07-29 16:35 | NURSING ---
HEEL PROTECTORS OFF WHILE UP IN CHAIR, ENCOURAGED TO KEEP LEGS ELEVATED WHILE IN CHAIR.
[2018-07-29 19:05] LABS: Hemoglobin 8.4 g/dl (13.0-16.5); Mean Corp Hgb Conc 31.1 g/gl (32-36); Mean Corpuscular Hgb 26.7 pg (27.0-32.0); Mean Corpuscular Volume 85.7 fL (80-94); Mean Platelet Vol. 9.1 fl (6.2-12.0); RBC Distribution Width CV 24.8 % (11.6-14.6); RBC Distribution Width SD 72.4 fl (35.1-43.9); Red Blood Count 3.15 M/mm3 (4.6-6.2); White Blood Count 6.9 K/mm3 (4.4-11.0)
[2018-07-29 19:08] LABS: Differential Indicated MANUAL DIFF; POSITIVE COUNT YES; POSITIVE DIFFERENTIAL NO; POSITIVE MORPHOLOGY YES; Platelet Count 41 K/mm3 (150-450)
[2018-07-29 19:30] LABS: Neutrophil-Band 2 % (0-5); Neutrophil-Segmented 74 % (47-70); Total Cells Counted 100 (MANUAL DIFF)
[2018-07-29 19:31] LABS: Anisocytosis 2+; Basophil 1 % (0-1); Eosinophil 3 % (0-5); Lymphocyte 14 % (19-41); Metamyelocyte 2 % (0-1); Monocyte 4 % (0-10); Platelet Estimate MKD DEC (ADEQ)
[2018-07-29 19:33] LABS: Absolute Lymphocyte Count 0.96 X10^3/ul (0.83-4.51); Absolute Neutrophil Count 5.2 X10^3/uL (2.0-7.7)
[2018-07-29 19:37] LABS: Absolute Nucleated RBC Count 0.31 10^3/uL (0-5); NRBC Flagged by Analyzer 4.5 % (0-5)
--- NOTE | 2018-07-29 19:42 | NURSING ---
Texted Dr. Prado results of PLt of 41. Loretta Charge nurse mini shifter also aware. No call back yet from Dr. rPado.
--- NOTE | 2018-07-29 19:44 | NURSING ---
Dr. Prado awware of PLT and WBC. No new orders.
[2018-07-29] MEDS: Zolpidem Tartrate 5 MG Tablet PO (22:24)
[2018-07-29] MEDS: Atorvastatin Calcium 80 MG Tablet PO (22:24)
[2018-07-29] MEDS: 0.9% NaCl Peripheral Flush Adult/Peds IV (22:25)
[2018-07-29 22:45] LABS: Bedside Glucose 119 mg/dL (70-110)
[2018-07-30] VITALS (11 sets, daily range): BP systolic 94–112; BP diastolic 52–58; PULSE 69–89; RESP 16–24; TEMP 36.1–37.9; O2SAT 91–97
[2018-07-30] MEDS: oxyCODONE 5 MG Tablet PO ×5 (00:43→23:17)
[2018-07-30] MEDS: 0.9% NaCl Peripheral Flush Adult/Peds IV ×3 (00:43→11:07)
[2018-07-30 06:44] LABS: Hematocrit 25.9 % (40-54); Hemoglobin 8.1 g/dl (13.0-16.5); Mean Corp Hgb Conc 31.3 g/gl (32-36); Mean Corpuscular Hgb 26.8 pg (27.0-32.0); Mean Corpuscular Volume 85.8 fL (80-94); Platelet Count 35 K/mm3 (150-450); RBC Distribution Width CV 25.1 % (11.6-14.6); RBC Distribution Width SD 72.4 fl (35.1-43.9); Red Blood Count 3.02 M/mm3 (4.6-6.2); White Blood Count 6.7 K/mm3 (4.4-11.0)
[2018-07-30 06:46] LABS: Absolute Nucleated RBC Count 0.26 10^3/uL (0-5); Differential Indicated MANUAL DIFF; NRBC Flagged by Analyzer 3.8 % (0-5); POSITIVE COUNT YES; POSITIVE DIFFERENTIAL NO; POSITIVE MORPHOLOGY YES
[2018-07-30 06:51] LABS: Bedside Glucose 107 mg/dL (70-110)
[2018-07-30] MEDS: Ipratropium/Albuterol Sulfate 3 ML AMPUL.NEB INHALATION ×2 (07:03→19:30)
[2018-07-30 07:23] LABS: ALB/GLOB Ratio 0.4 RATIO (0.9-2.4); AST(SGOT) 193 U/L (15-37); Alanine Aminotransfer ALT/SGPT 56 U/L (16-61); Albumin, Serum 1.7 g/dL (3.2-5.0); Alkaline Phosphatase 1405 U/L (45-117); Anion Gap 3 (5-15); BUN 12 mg/dL (7-18); Calcium,Total 8.3 mg/dL (8.5-10.1); Chloride 105 mmol/L (98-107); EST Glomerular Filtration Rate 64 mL/min (>60); Est Glom Filt Rate - Afr Amer 77 mL/min (>60); Globulin 4.2 g/dL (2.2-4.2); Glucose 103 mg/dL (74-106); Potassium 3.9 mmol/L (3.5-5.1); Protein, Total 5.9 g/dL (6.4-8.2); Sodium Level 137 mmol/L (136-145)
--- NOTE | 2018-07-30 07:55 | RAD_ITS ---
STUDY: X-RAY CHEST REASON FOR EXAM: Male, 68 years old. Hypoxia TECHNIQUE: Single AP portable view of the chest. COMPARISON: None. FINDINGS: No change in the alveolar opacity in the lower left lung consistent with left lower lobe pneumonia or atelectasis. There is no demonstrated pleural abnormality. Normal size heart. Normal mediastinum and pearl. Normal visualized pulmonary arteries. Normal visualized aortic arch and descending thoracic aorta. Normal visualized thoracic spine. Normal visualized ribs, clavicles, and shoulders. There is no demonstrated abnormality of the visualized soft tissue structures of the upper abdomen. RAD/Chest 1 View (Portable) IMPRESSION: No change in left lower lobe pneumonia or atelectasis. Electronically Signed: Donavon Villarreal MD at 8:51 EDT Tel , Service support ,
[2018-07-30 08:15] LABS: Eosinophil 4 % (0-5); Lymphocyte 18 % (19-41); Metamyelocyte 3 % (0-1); Monocyte 4 % (0-10); Myelocyte 2 (0-0); Neutrophil-Band 7 % (0-5); Neutrophil-Segmented 62 % (47-70); Nucleated Red Bld Cells,Manual 1 % (0-5); Total Cells Counted 100 (MANUAL DIFF)
[2018-07-30 08:16] LABS: Anisocytosis 2+; Macrocytosis 1+; Microcytosis 1+; Platelet Estimate MKD DEC (ADEQ); Polychromasia 1+
[2018-07-30 08:41] LABS: Absolute Neutrophil Count 4.6 X10^3/uL (2.0-7.7)
[2018-07-30] MEDS: Pantoprazole Sodium 40 MG Tablet PO (10:43)
[2018-07-30] MEDS: Lactulose 20 GM/30 ML UDC PO (10:43)
[2018-07-30] MEDS: Furosemide 20 MG/2 ML VIAL IV (10:43)
[2018-07-30] MEDS: Metoprolol(XL)Succ 50 MG Tablet PO (10:43)
[2018-07-30 10:45] LABS: International Normalized Ratio 1.2; Prothrombin Time (Protime)PT. 14.9 SECONDS (11.7-14.9)
[2018-07-30] MEDS: Menthol/Lanolin/Calamine/Znox 113 GM Tube 1 APPLIC TOPICAL ×2 (10:45→21:03)
[2018-07-30 10:52] LABS: LDH 775 U/L (87-241)
[2018-07-30] MEDS: Ondansetron 4 MG/2 ML Vial IV (11:07)
[2018-07-30 12:00] LABS: Bedside Glucose 117 mg/dL (70-110)
[2018-07-30 14:06] LABS: HEPATITIS B SURFACE AG Negative (Negative); Hepatitis A AB, Total Positive (Negative); Hepatitis A IgM Antibody Negative (Negative); Hepatitis B Core AB IgM Negative (Negative); Hepatitis B Core Ab Total Negative (Negative); Hepatitis C Ab <0.1 s/co ratio (0.0-0.9)
--- NOTE | 2018-07-30 17:33 | PCM.PROGNOTE ---
Patient Problems: Active and Suspected Problems (Last Reviewed 07/28/18 @ 08:29 by Kimo Bonilla MD) GI bleed (Acute) Colitis (Acute) Subjective: Patient was seen and examined today, I talked at length with his and daughter who were in the room today, patient appears alert but slightly sleepy today. He is appropriate. I have decided to try to get the patien transferred to [facility] in [place] today due to his dropping platelet count and the need to work-up the patient's cirrhosis. Unfortunately, I contacted the [facility] twice and my phone calls were not returned as of 530 this afternoon. I went over this with the patient's , she is okay if I wait till tomorrow to try again. If the [facility] does not have a bed, I will try to transfer him to [facility] if they can accept him tomorrow. In the meantime I have ordered additional lab testing on the patient. Patient's platelet count today was 35,000. He has no active signs of bleeding at this time. Patient's liver enzymes remain elevated, patient's alkaline phosphatase today was 1405, bilirubin is stable at 2.2 and AST was 193. Patient's alkaline phosphatase was elevated at 775, serum haptoglobin is pending. Patient's INR was 1.2 Patient's chest x-ray performed yesterday was read out as showing a left lower lobe pneumonia, I do not believe the patient has a left lower lobe pneumonia, I believe he has atelectasis and fluid at the left lung base. Patient is currently on 3 L of oxygen. He remains afebrile. - Physical Exam General: Oriented x3, Cooperative, No apparent distress, Lethargic HEENT: Atraumatic, PERRLA, EOMI, Normocephalic Oral: Moist Mucosa Neck: Supple, No Nuchal Rigidity, Trachea Midline, Thyroid Normal Size and Texture Lungs: Clear to auscultation, Normal air movement, No rhonchi, No wheeze, No rales Cardiovascular: Regular rate, Regular Rhythm, Normal S1, Normal S2, No murmurs, No Ectopic Activity, PMI Normal, No rub noted, No Gallop Abdomen: Bowel Sounds Present, Soft, Non Tender, Distended Extremities: No clubbing, No cyanosis, Capillary Refill Less than 3 Seconds Skin: No rashes, No breakdown Neurological: Cranial nerves II-XII grossly intact, Neuro grossly intact, Sensory exam intact to light touch and pain, Coordination normal Psych/Mental Status: Normal Affect, Appropriate, Alert and oriented to time, place, person, mood and affect Vital Signs Temp Pulse Resp BP Pulse Ox 98.1 F 69 18 112/52 L 96 07/30/18 16:30 07/30/18 16:30 07/30/18 16:30 07/30/18 16:30 07/30/18 16:30 Oxygen Flow Rate (L/min) 3 Oxygen Delivery Method Nasal Cannula Weight: 97.8 kg Body Mass Index (BMI) 27.3 Finger Stick Blood Glucose 117 Intake and Output for Last 24 Hours 07/28/18 07/29/18 07/30/18 23:59 23:59 23:59 Intake Total 1705 / 1705 760 / 760 620 / 620 Output Total 1600 / 1600 300 / 300 630 / 630 Balance 105 / 105 460 / 460 -10 / -10 Microbiology Past 72 Hours 07/27/18 15:44 Stool Occult Blood (LAURENT) - Final Stool Occult Blood Positive Laboratory Tests Past 24 Hrs 07/29/18 07/30/18 07/30/18 18:45 06:05 06:05 WBC 6.9 6.7 RBC 3.15 L 3.02 L Hgb 8.4 L 8.1 L Hct 27.0 L 25.9 L MCV 85.7 85.8 MCH 26.7 L 26.8 L MCHC 31.1 L 31.3 L RDW 24.8 H 25.1 H RDW Differential 72.4 H 72.4 H Plt Count 41 L* 35 L* MPV 9.1 Neut % (Auto) Not Reportable Not Reportable Absolute Neuts (auto) 5.2 4.6 Absolute Lymphs (auto) 0.96 1.20 Total Counted 100 100 Neutrophils % (Manual) 74 H 62 Band Neutrophils % 2 7 H Lymphocytes % (Manual) 14 L 18 L Monocytes % (Manual) 4 4 Eosinophils % (Manual) 3 4 Basophils % (Manual) 1 Metamyelocytes % 2 H 3 H Myelocytes % 2 H Nucleated RBC % 4.5 3.8 Nucleated RBCs/100 WBC 1 Diff Path Review May foll May foll Platelet Estimate MKD DEC MKD DEC Polychromasia 1+ Anisocytosis 2+ 2+ Microcytosis 1+ Macrocytosis 1+ Absolute Retic 0.31 0.26 PT INR Sodium 137 Potassium 3.9 Chloride 105 Carbon Dioxide 29.0 Anion Gap 3 L BUN 12 Creatinine 1.20 Estim Creat Clear Calc 68.50 Est GFR (MDRD) Af Amer 77 Est GFR (MDRD) Non-Af 64 BUN/Creatinine Ratio 10.0 Glucose 103 Calcium 8.3 L Total Bilirubin 2.20 H AST 193 H ALT 56 Alkaline Phosphatase 1405 H Lactate Dehydrogenase Total Protein 5.9 L Albumin 1.7 L Globulin 4.2 Albumin/Globulin Ratio 0.4 L 07/30/18 07/30/18 06:05 06:05 WBC RBC Hgb Hct MCV MCH MCHC RDW RDW Differential Plt Count MPV Neut % (Auto) Absolute Neuts (auto) Absolute Lymphs (auto) Total Counted Neutrophils % (Manual) Band Neutrophils % Lymphocytes % (Manual) Monocytes % (Manual) Eosinophils % (Manual) Basophils % (Manual) Metamyelocytes % Myelocytes % Nucleated RBC % Nucleated RBCs/100 WBC Diff Path Review Platelet Estimate Polychromasia Anisocytosis Microcytosis Macrocytosis Absolute Retic PT 14.9 INR 1.2 Sodium Potassium Chloride Carbon Dioxide Anion Gap BUN Creatinine Estim Creat Clear Calc Est GFR (MDRD) Af Amer Est GFR (MDRD) Non-Af BUN/Creatinine Ratio Glucose Calcium Total Bilirubin AST ALT Alkaline Phosphatase Lactate Dehydrogenase 775 H Total Protein Albumin Globulin Albumin/Globulin Ratio POC Glucose 07/30/18 07/30/18 07/29/18 11:49 06:35 22:17 POC Glucose 117 H 107 119 H Medical Necessity - Tobacco Use Smoking Status: Current every day smoker Tobacco Use: Cigarettes Assessment/Plan All Active Problems (Last Reviewed 07/28/18 @ 08:29 by Kimo Bonilla MD) Acute encephalopathy (Acute) JUDY (acute kidney injury) (Resolved) Hypokalemia (Resolved) GI bleed (Acute) Colitis (Acute) Healthcare-associated pneumonia (Ruled-out) Severe sepsis (Resolved) Pneumonia (Resolved) Elevated troponin (Resolved) #1 hematochezia-etiology unclear, again general surgery does not want to proceed with any endoscopy at this time, it appears that the patient is not actively bleeding at this time. I will continue the patient on a PPI #2 newly diagnosed liver cirrhosis-etiology unclear at this point, I ordered a hepatitis A, B, and C profile, this is pending, it will probably not return by the time the patient is discharged. I will place the patient on spironolactone daily, he received 1 dose of IV Lasix today. #3 acute blood loss anemia-probably secondary to undiagnosed GI bleeding, continue to monitor blood count #4 hepatic [id number]-olnx-lrw appears alert and oriented today and appropriate, I will continue his lactulose on a twice daily basis #5 coronary artery disease-patient will need to stay off his Plavix and aspirin at this time due to his thrombocytopenia and anemia #6 elevated liver enzymes-secondary to chronic cirrhosis, labs will be monitored, labs will be obtained tomorrow #7 thrombocytopenia-probably secondary to chronic cirrhosis, labs will be monitored the patient's shows no signs of active bleeding #8 chronic pain-patient takes Percocet at home, I discussed this with his , his states that he takes sometimes 10 Percocets per day-it is unknown whether the patient's cirrhosis could have resulted from overuse of Tylenol. Patient will be transition to OxyIR, he will need an Rx for it when he is discharged #9 hypoxia-I feel this is probably the result of chronic COPD and atelectasis, patient may need home O2 Code Visit Inpatient E&M: 54908 Subs Hosp L2
--- NOTE | 2018-07-30 17:39 | PN_ITS ---
Patient Problems: Active and Suspected Problems (Last Reviewed 07/28/18 @ 08:29 by Kimo Bonilla MD) GI bleed (Acute) Colitis (Acute) Subjective: Patient was seen and examined today, I talked at length with his and daughter who were in the room today, patient appears alert but slightly sleepy today. He is appropriate. I have decided to try to get the patien transferred to [facility] in [place] today due to his dropping platelet count and the need to work-up the patient's cirrhosis. Unfortunately, I contacted the [facility] twice and my phone calls were not returned as of 530 this afternoon. I went over this with the patient's , she is okay if I wait till tomorrow to try again. If the [facility] does not have a bed, I will try to transfer him to [facility] if they can accept him tomorrow. In the meantime I have ordered additional lab testing on the patient. Patient's platelet count today was 35,000. He has no active signs of bleeding at this time. Patient's liver enzymes remain elevated, patient's alkaline phosphatase today was 1405, bilirubin is stable at 2.2 and AST was 193. Patient's alkaline phosphatase was elevated at 775, serum haptoglobin is pending. Patient's INR was 1.2 Patient's chest x-ray performed yesterday was read out as showing a left lower lobe pneumonia, I do not believe the patient has a left lower lobe pneumonia, I believe he has atelectasis and fluid at the left lung base. Patient is currently on 3 L of oxygen. He remains afebrile. - Physical Exam General: Oriented x3, Cooperative, No apparent distress, Lethargic HEENT: Atraumatic, PERRLA, EOMI, Normocephalic Oral: Moist Mucosa Neck: Supple, No Nuchal Rigidity, Trachea Midline, Thyroid Normal Size and Texture Lungs: Clear to auscultation, Normal air movement, No rhonchi, No wheeze, No rales Cardiovascular: Regular rate, Regular Rhythm, Normal S1, Normal S2, No murmurs, No Ectopic Activity, PMI Normal, No rub noted, No Gallop Abdomen: Bowel Sounds Present, Soft, Non Tender, Distended Extremities: No clubbing, No cyanosis, Capillary Refill Less than 3 Seconds Skin: No rashes, No breakdown Neurological: Cranial nerves II-XII grossly intact, Neuro grossly intact, Sensory exam intact to light touch and pain, Coordination normal Psych/Mental Status: Normal Affect, Appropriate, Alert and oriented to time, place, person, mood and affect Vital Signs Temp Pulse Resp BP Pulse Ox 98.1 F 69 18 112/52 L 96 07/30/18 16:30 07/30/18 16:30 07/30/18 16:30 07/30/18 16:30 07/30/18 16:30 Oxygen Flow Rate (L/min) 3 Oxygen Delivery Method Nasal Cannula Weight: 97.8 kg Body Mass Index (BMI) 27.3 Finger Stick Blood Glucose 117 Intake and Output for Last 24 Hours 07/28/18 07/29/18 07/30/18 23:59 23:59 23:59 Intake Total 1705 / 1705 760 / 760 620 / 620 Output Total 1600 / 1600 300 / 300 630 / 630 Balance 105 / 105 460 / 460 -10 / -10 Microbiology Past 72 Hours 07/27/18 15:44 Stool Occult Blood (LAURENT) - Final Stool Occult Blood Positive Laboratory Tests Past 24 Hrs 07/29/18 07/30/18 07/30/18 18:45 06:05 06:05 WBC 6.9 6.7 RBC 3.15 L 3.02 L Hgb 8.4 L 8.1 L Hct 27.0 L 25.9 L MCV 85.7 85.8 MCH 26.7 L 26.8 L MCHC 31.1 L 31.3 L RDW 24.8 H 25.1 H RDW Differential 72.4 H 72.4 H Plt Count 41 L* 35 L* MPV 9.1 Neut % (Auto) Not Reportable Not Reportable Absolute Neuts (auto) 5.2 4.6 Absolute Lymphs (auto) 0.96 1.20 Total Counted 100 100 Neutrophils % (Manual) 74 H 62 Band Neutrophils % 2 7 H Lymphocytes % (Manual) 14 L 18 L Monocytes % (Manual) 4 4 Eosinophils % (Manual) 3 4 Basophils % (Manual) 1 Metamyelocytes % 2 H 3 H Myelocytes % 2 H Nucleated RBC % 4.5 3.8 Nucleated RBCs/100 WBC 1 Diff Path Review May foll May foll Platelet Estimate MKD DEC MKD DEC Polychromasia 1+ Anisocytosis 2+ 2+ Microcytosis 1+ Macrocytosis 1+ Absolute Retic 0.31 0.26 PT INR Sodium 137 Potassium 3.9 Chloride 105 Carbon Dioxide 29.0 Anion Gap 3 L BUN 12 Creatinine 1.20 Estim Creat Clear Calc 68.50 Est GFR (MDRD) Af Amer 77 Est GFR (MDRD) Non-Af 64 BUN/Creatinine Ratio 10.0 Glucose 103 Calcium 8.3 L Total Bilirubin 2.20 H AST 193 H ALT 56 Alkaline Phosphatase 1405 H Lactate Dehydrogenase Total Protein 5.9 L Albumin 1.7 L Globulin 4.2 Albumin/Globulin Ratio 0.4 L 07/30/18 07/30/18 06:05 06:05 WBC RBC Hgb Hct MCV MCH MCHC RDW RDW Differential Plt Count MPV Neut % (Auto) Absolute Neuts (auto) Absolute Lymphs (auto) Total Counted Neutrophils % (Manual) Band Neutrophils % Lymphocytes % (Manual) Monocytes % (Manual) Eosinophils % (Manual) Basophils % (Manual) Metamyelocytes % Myelocytes % Nucleated RBC % Nucleated RBCs/100 WBC Diff Path Review Platelet Estimate Polychromasia Anisocytosis Microcytosis Macrocytosis Absolute Retic PT 14.9 INR 1.2 Sodium Potassium Chloride Carbon Dioxide Anion Gap BUN Creatinine Estim Creat Clear Calc Est GFR (MDRD) Af Amer Est GFR (MDRD) Non-Af BUN/Creatinine Ratio Glucose Calcium Total Bilirubin AST ALT Alkaline Phosphatase Lactate Dehydrogenase 775 H Total Protein Albumin Globulin Albumin/Globulin Ratio POC Glucose 07/30/18 07/30/18 07/29/18 11:49 06:35 22:17 POC Glucose 117 H 107 119 H Medical Necessity - Tobacco Use Smoking Status: Current every day smoker Tobacco Use: Cigarettes Assessment/Plan All Active Problems (Last Reviewed 07/28/18 @ 08:29 by Kimo Bonilla MD) Acute encephalopathy (Acute) JUDY (acute kidney injury) (Resolved) Hypokalemia (Resolved) GI bleed (Acute) Colitis (Acute) Healthcare-associated pneumonia (Ruled-out) Severe sepsis (Resolved) Pneumonia (Resolved) Elevated troponin (Resolved) #1 hematochezia-etiology unclear, again general surgery does not want to proceed with any endoscopy at this time, it appears that the patient is not actively bleeding at this time. I will continue the patient on a PPI #2 newly diagnosed liver cirrhosis-etiology unclear at this point, I ordered a hepatitis A, B, and C profile, this is pending, it will probably not return by the time the patient is discharged. I will place the patient on spironolactone daily, he received 1 dose of IV Lasix today. #3 acute blood loss anemia-probably secondary to undiagnosed GI bleeding, continue to monitor blood count #4 hepatic yragjjlhcpsrtt-pgil-bnk appears alert and oriented today and appro priate, I will continue his lactulose on a twice daily basis #5 coronary artery disease-patient will need to stay off his Plavix and aspirin at this time due to his thrombocytopenia and anemia #6 elevated liver enzymes-secondary to chronic cirrhosis, labs will be monitored, labs will be obtained tomorrow #7 thrombocytopenia-probably secondary to chronic cirrhosis, labs will be monitored the patient's shows no signs of active bleeding #8 chronic pain-patient takes Percocet at home, I discussed this with his , his states that he takes sometimes 10 Percocets per day-it is unknown w hether the patient's cirrhosis could have resulted from overuse of Tylenol. Patient will be transition to OxyIR, he will need an Rx for it when he is discharged #9 hypoxia-I feel this is probably the result of chronic COPD and atelectasis, patient may need home O2 Code Visit Inpatient E&M: [id number] Subs Hosp L2
[2018-07-30] MEDS: Spironolactone 25 MG Tablet PO (18:39)
[2018-07-30] MEDS: Acetaminophen 325 MG Tablet 650 MG PO (21:00)
[2018-07-30] MEDS: Atorvastatin Calcium 80 MG Tablet PO (21:03)
[2018-07-30 22:06] LABS: Bedside Glucose 120 mg/dL (70-110)
--- NOTE | 2018-07-30 22:49 | NURSING ---
Pt's called. She is aware that Dr. Prado is trying to get pt transferred to the [facility] but if that is unsuccessful he may be looking at [facility]. wants to know if there is a GI doctor at [place]. I told her I would pass the information on to the day shift discharge door operator so that it could be conveyed to Dr. Prado.
[2018-07-30] MEDS: Zolpidem Tartrate 5 MG Tablet PO (23:51)
[2018-07-31] VITALS (9 sets, daily range): BP systolic 99–114; BP diastolic 51–59; PULSE 79–91; RESP 16–20; TEMP 36.8–37.9; O2SAT 93–95
[2018-07-31 06:09] LABS: Absolute Lymphocyte Count 1.13 X10^3/ul (0.83-4.51); Absolute Neutrophil Count 5.4 X10^3/uL (2.0-7.7); Basophil# 0.09 X10^3/uL; Basophil% 1.2 % (0-1); Eosinophil# 0.14 X10^3/uL; Eosinophils% 1.9 % (0-5); Hemoglobin 8.5 g/dl (13.0-16.5); Lymphocyte # 1.13 X10^3/ul (4.0); Lymphocyte % 15.2 % (19-41); Mean Corp Hgb Conc 31.5 g/gl (32-36); Mean Corpuscular Hgb 26.8 pg (27.0-32.0); Mean Corpuscular Volume 85.2 fL (80-94); Mean Platelet Vol. 9.9 fl (6.2-12.0); Monocyte# 0.59 X10^3/uL; Neutrophil # 5.36 X10^3/uL (2.7-7.7); Neutrophil % 72.2 % (47-70); RBC Distribution Width CV 25.5 % (11.6-14.6); RBC Distribution Width SD 70.7 fl (35.1-43.9); Red Blood Count 3.17 M/mm3 (4.6-6.2); White Blood Count 7.4 K/mm3 (4.4-11.0)
[2018-07-31 06:13] LABS: Absolute Nucleated RBC Count 0.44 10^3/uL (0-5); Differential Indicated SCAN CRITERIA MET; NRBC Flagged by Analyzer 5.9 % (0-5); POSITIVE COUNT YES; POSITIVE DIFFERENTIAL NO; POSITIVE MORPHOLOGY YES
[2018-07-31 06:14] LABS: Platelet Count 39 K/mm3 (150-450)
[2018-07-31 06:34] LABS: Differential Comment SCANNED; Macrocytosis 1+; Microcytosis 2+; Target Cells RARE
[2018-07-31 06:36] LABS: Bedside Glucose 100 mg/dL (70-110)
[2018-07-31 06:53] LABS: ALB/GLOB Ratio 0.4 RATIO (0.9-2.4); AST(SGOT) 216 U/L (15-37); Alanine Aminotransfer ALT/SGPT 51 U/L (16-61); Albumin, Serum 1.8 g/dL (3.2-5.0); Alkaline Phosphatase 1481 U/L (45-117); Anion Gap 4 (5-15); BUN 16 mg/dL (7-18); Calcium,Total 8.7 mg/dL (8.5-10.1); Chloride 104 mmol/L (98-107); Creatinine, Serum 1.23 mg/dL (0.70-1.30); EST Glomerular Filtration Rate 62 mL/min (>60); Est Glom Filt Rate - Afr Amer 75 mL/min (>60); Estimated Creatinine Clearance 66.83 ml/min; Globulin 4.2 g/dL (2.2-4.2); Glucose 98 mg/dL (74-106); Sodium Level 137 mmol/L (136-145)
--- NOTE | 2018-07-31 09:14 | NURSING ---
wound photo: right heel
[2018-07-31 10:39] LABS: HIV - WCH Non-Reactive (Nonreactive)
[2018-07-31] MEDS: Menthol/Lanolin/Calamine/Znox 113 GM Tube 1 APPLIC TOPICAL (10:39)
[2018-07-31] MEDS: Ipratropium/Albuterol Sulfate 3 ML AMPUL.NEB INHALATION ×2 (11:01→14:50)
[2018-07-31 11:11] LABS: Hep B Surface Antibodies Non Reactive (.)
[2018-07-31 11:26] LABS: Bedside Glucose 98 mg/dL (70-110)
[2018-07-31 13:14] LABS: Pathologist Review Reviewed
[2018-07-31 13:17] LABS: Pathologist Review Reviewed
[2018-07-31 13:18] LABS: Pathologist Review Reviewed
[2018-07-31 13:21] LABS: Pathologist Review Reviewed
[2018-07-31] MEDS: Metoprolol(XL)Succ 50 MG Tablet PO (13:39)
[2018-07-31] MEDS: Pantoprazole Sodium 40 MG Tablet PO (13:39)
[2018-07-31] MEDS: Spironolactone 25 MG Tablet PO (13:46)
--- NOTE | 2018-07-31 15:48 | NURSING ---
Report called to Tamika the receiving nurse at [facility].
[2018-07-31 16:21] LABS: Bedside Glucose 84 mg/dL (70-110)
--- NOTE | 2018-07-31 17:05 | PCM.DC.SUM ---
Discharge Date and Diagnosis Date of Admission: 07/27/18 Date of Discharge: 07/31/18 - Primary Discharge Diagnosis #1 hematochezia-etiology unclear #2 newly diagnosed liver cirrhosis-etiology unclear at this point #3 acute blood loss anemia-probably secondary to undiagnosed GI bleeding #4 hepatic encephalopathy-mild #5 coronary artery disease #6 elevated liver enzymes-secondary to chronic cirrhosis #7 thrombocytopenia-probably secondary to chronic cirrhosis #8 chronic pain #9 hypoxia-I feel this is probably the result of chronic COPD and atelectasis #10 chronic obstructive pulmonary disease - Secondary Discharge Diagnosis Chronic Problems (Last Reviewed 07/28/18 @ 08:29 by Kimo Bonilla MD) HTN (hypertension) (Chronic) HLD (hyperlipidemia) (Chronic) PAD (peripheral artery disease) (Chronic) CKD (chronic kidney disease) stage 3, GFR 30-59 ml/min (Chronic) Debility (Chronic) Chronic respiratory failure with hypoxia (Chronic) Chronic anemia (Chronic) Chronic back pain (Chronic) PAOD (peripheral arterial occlusive disease) (Chronic) Chronic kidney disease (Chronic) Coronary artery disease (Chronic) Diabetes mellitus (Chronic) COPD (chronic obstructive pulmonary disease) (Chronic) Muscle spasm (Chronic) Diabetic neuropathy (Chronic) Pain in right foot (Chronic) Ulcer of right foot with fat layer exposed (Chronic) Stented coronary artery (Chronic 09/22/17) 3.5 X 16 Promus Synergy to mid LAD; 4.0 X 24 Promus Synergy to proximal LAD; POBA to Diagonal [address] Ruff @ [facility] NSTEMI (non-ST elevated myocardial infarction) (Chronic 09/22/17) Tobacco abuse (Chronic) Hospital Course and Treatment Consultations 07/27/18 21:54 Consult: Onc/Wound/radial arm saw operator Routine Comment: Operations: None Procedures: None Summary of Care Provided: The patient is a 68 year old M was seen in the emergency room at [facility] with a chief complaint generalized abdominal pain and dark-colored stools. Patient had been seen in the emergency room the day prior and was found to have anemia and guaiac negative stools, work-up in the ER now showed a hemoglobin of 8.9, potassium was 3.3, CT of the pelvis showed hepatic cirrhosis with distal thickening of the ascending and transverse colon wall suggesting colitis. Stool was Hemoccult positive. Patient was admitted to MedSurg 3, he was seen in consultation by general surgery who did not want to perform any endoscopy on the patient due to high risk. They did not feel that the patient had colitis. Patient's ammonia level was noted to be elevated and he was placed on lactulose. Patient required supplemental oxygen to maintain his pulse ox above 90%, chest x-ray was obtained which suggested a left lower lobe pneumonia but this examiner did not feel that the patient had left lower lobe pneumonia-this examiner felt that the patient had atelectasis and possibly left pleural effusion. Patient was noted to be thrombocytopenic and this persisted during the patient's hospital stay, it was felt that the patient would benefit from transfer to tertiary hospital for further care due to the complexity of his illness, I felt that the patient needed a consultation from GI which we did not have the hospital here. Attempt was made to transfer the patient to the [facility] but they did not reply to my attempts to contact them and so the patient was transferred to [facility] for further care. On 07/31/2018, patient was seen and examined: On examination he appeared lethargic and unwell. Vital signs as documented. Skin warm and dry and without overt rashes. Neck without JVD. Lungs clear. Heart exam notable for regular rhythm, normal sounds and absence of murmurs, rubs or gallops. Abdomen unremarkable and without evidence of organomegaly, masses, or abdominal aortic enlargement. Extremities nonedematous. Neuro: Cranial nerves II through XII are grossly intact, no focal motor deficits were noted, sensation to light touch and pinprick intact. Psych: Patient was lethargic and answered simple questions appropriately, he has refused medications today On 07/31/2018, patient was transferred to [facility] in stable but guarded condition. Further note: I do not feel the patient had colitis or pneumonia during his hospitalization. - Physical Exam Vital Signs Temp Pulse Resp BP Pulse Ox 99.7 F H 79 20 H 114/51 L 95 07/31/18 14:07 07/31/18 14:50 07/31/18 14:50 07/31/18 14:07 07/31/18 14:07 Oxygen Flow Rate (L/min) 2 Oxygen Delivery Method Nasal Cannula Weight: 96 kg Body Mass Index (BMI) 27.3 Finger Stick Blood Glucose 117 Intake and Output for Last 24 Hours 07/29/18 07/30/18 07/31/18 23:59 23:59 23:59 Intake Total 760 / 760 1320 / 1320 60 / 60 Output Total 300 / 300 1180 / 1180 175 / 175 Balance 460 / 460 140 / 140 -115 / -115 Laboratory Tests Past 24 Hrs 07/27/18 07/29/18 07/29/18 19:52 05:50 05:50 WBC RBC Hgb Hct MCV MCH MCHC RDW RDW Differential Plt Count MPV Immature Gran % (Auto) Neut % (Auto) Lymph % (Auto) [place] % (Auto) Eos % (Auto) Baso % (Auto) Absolute Neuts (auto) Absolute Lymphs (auto) Total Counted Nucleated RBC % Differential Comment Diff Path Review Reviewed Microcytosis Macrocytosis Target Cells Absolute Retic Haptoglobin Sodium Potassium Chloride Carbon Dioxide Anion Gap BUN Creatinine Estim Creat Clear Calc Est GFR (MDRD) Af Amer Est GFR (MDRD) Non-Af BUN/Creatinine Ratio Glucose Calcium Total Bilirubin AST ALT Alkaline Phosphatase Ammonia Total Protein Albumin Globulin Albumin/Globulin Ratio Hepatitis A IgM Ab Negative Hepatitis A Ab Total Positive H Hep Bs Antigen Negative Hep B Core Total Ab Negative Hep B Core IgM Ab Negative Hepatitis C Ab Confirm <0.1 Hepatitis C Comment Comment HIV 1&2 Antibody Crossmatch See Detail 07/29/18 07/30/18 07/31/18 18:45 06:05 05:35 WBC 7.4 RBC 3.17 L Hgb 8.5 L Hct 27.0 L MCV 85.2 MCH 26.8 L MCHC 31.5 L RDW 25.5 H RDW Differential 70.7 H Plt Count 39 L* MPV 9.9 Immature Gran % (Auto) 1.500 H Neut % (Auto) 72.2 H Lymph % (Auto) 15.2 L [place] % (Auto) 8.0 Eos % (Auto) 1.9 Baso % (Auto) 1.2 H Absolute Neuts (auto) 5.4 Absolute Lymphs (auto) 1.13 Total Counted Not Reportable Nucleated RBC % 5.9 H Differential Comment SCANNED Diff Path Review Reviewed Reviewed Reviewed Microcytosis 2+ Macrocytosis 1+ Target Cells RARE Absolute Retic 0.44 Haptoglobin Sodium Potassium Chloride Carbon Dioxide Anion Gap BUN Creatinine Estim Creat Clear Calc Est GFR (MDRD) Af Amer Est GFR (MDRD) Non-Af BUN/Creatinine Ratio Glucose Calcium Total Bilirubin AST ALT Alkaline Phosphatase Ammonia Total Protein Albumin Globulin Albumin/Globulin Ratio Hepatitis A IgM Ab Hepatitis A Ab Total Hep Bs Antigen Hep B Core Total Ab Hep B Core IgM Ab Hepatitis C Ab Confirm Hepatitis C Comment HIV 1&2 Antibody Crossmatch 07/31/18 07/31/18 07/31/18 05:35 05:35 05:35 WBC RBC Hgb Hct MCV MCH MCHC RDW RDW Differential Plt Count MPV Immature Gran % (Auto) Neut % (Auto) Lymph % (Auto) [place] % (Auto) Eos % (Auto) Baso % (Auto) Absolute Neuts (auto) Absolute Lymphs (auto) Total Counted Nucleated RBC % Differential Comment Diff Path Review Microcytosis Macrocytosis Target Cells Absolute Retic Haptoglobin Pending Sodium 137 Potassium 4.0 Chloride 104 Carbon Dioxide 29.0 Anion Gap 4 L BUN 16 Creatinine 1.23 Estim Creat Clear Calc 66.83 Est GFR (MDRD) Af Amer 75 Est GFR (MDRD) Non-Af 62 BUN/Creatinine Ratio 13.0 Glucose 98 Calcium 8.7 Total Bilirubin 3.10 H AST 216 H ALT 51 Alkaline Phosphatase 1481 H Ammonia Total Protein 6.0 L Albumin 1.8 L Globulin 4.2 Albumin/Globulin Ratio 0.4 L Hepatitis A IgM Ab Hepatitis A Ab Total Hep Bs Antigen Hep B Core Total Ab Hep B Core IgM Ab Hepatitis C Ab Confirm Hepatitis C Comment HIV 1&2 Antibody Non-Reactive Crossmatch 07/31/18 10:04 WBC RBC Hgb Hct MCV MCH MCHC RDW RDW Differential Plt Count MPV Immature Gran % (Auto) Neut % (Auto) Lymph % (Auto) [place] % (Auto) Eos % (Auto) Baso % (Auto) Absolute Neuts (auto) Absolute Lymphs (auto) Total Counted Nucleated RBC % Differential Comment Diff Path Review Microcytosis Macrocytosis Target Cells Absolute Retic Haptoglobin Sodium Potassium Chloride Carbon Dioxide Anion Gap BUN Creatinine Estim Creat Clear Calc Est GFR (MDRD) Af Amer Est GFR (MDRD) Non-Af BUN/Creatinine Ratio Glucose Calcium Total Bilirubin AST ALT Alkaline Phosphatase Ammonia 43.0 H Total Protein Albumin Globulin Albumin/Globulin Ratio Hepatitis A IgM Ab Hepatitis A Ab Total Hep Bs Antigen Hep B Core Total Ab Hep B Core IgM Ab Hepatitis C Ab Confirm Hepatitis C Comment HIV 1&2 Antibody Crossmatch POC Glucose 07/31/18 07/31/1819 16:14 11:19 06:19 POC Glucose 84 98 100 07/30/18 21:59 POC Glucose 120 H Home Medications: Medications to take at Discharge Acetaminophen [Tylenol] 500 mg PO Q6H PRN PRN tablet 07/01/18 Aspirin [Aspirin, Baby] 81 mg PO DAILY@0800 07/01/18 Clopidogrel Bisulfate [Plavix] 75 mg PO DAILY 07/01/18 Atorvastatin Calcium 80 mg PO QHS 07/27/18 Empagliflozin [Jardiance] 10 mg PO DAILY 07/27/18 Metoprolol Succinate [Kapspargo Sprinkle] 50 mg PO DAILY 07/27/18 Oxycodone HCl/Acetaminophen [Oxycodon-Acetaminophen 7.5-325] 1 each PO Q6H PRN PRN 07/27/18 Zolpidem Tartrate [Ambien] 5 mg PO QHS 07/27/18 metFORMIN HCl [Glucophage] 1,000 mg PO BIDCM 07/27/18 [facility] [Primary [facility] Provider] - Disposition: Acute care Hospital Minutes spent on discharge:: 32 Patient Condition:: Stable Medical Necessity - Tobacco Use Smoking Status: Current every day smoker Tobacco Use: Cigarettes Meaningful Use Info Meaningful Use Diagnoses (Choose all that apply): None applicable Code Visit Inpatient E&M: 16543 Disch Hosp
--- NOTE | 2018-07-31 17:14 | DS.PCM_ITS ---
Discharge Date and Diagnosis Date of Admission: 07/27/18 Date of Discharge: 07/31/18 - Primary Discharge Diagnosis #1 hematochezia-etiology unclear #2 newly diagnosed liver cirrhosis-etiology unclear at this point #3 acute blood loss anemia-probably secondary to undiagnosed GI bleeding #4 hepatic encephalopathy-mild #5 coronary artery disease #6 elevated liver enzymes-secondary to chronic cirrhosis #7 thrombocytopenia-probably secondary to chronic cirrhosis #8 chronic pain #9 hypoxia-I feel this is probably the result of chronic COPD and atelectasis #10 chronic obstructive pulmonary disease - Secondary Discharge Diagnosis Chronic Problems (Last Reviewed 07/28/18 @ 08:29 by Kimo Bonilla MD) HTN (hypertension) (Chronic) HLD (hyperlipidemia) (Chronic) PAD (peripheral artery disease) (Chronic) CKD (chronic kidney disease) stage 3, GFR 30-59 ml/min (Chronic) Debility (Chronic) Chronic respiratory failure with hypoxia (Chronic) Chronic anemia (Chronic) Chronic back pain (Chronic) PAOD (peripheral arterial occlusive disease) (Chronic) Chronic kidney disease (Chronic) Coronary artery disease (Chronic) Diabetes mellitus (Chronic) COPD (chronic obstructive pulmonary disease) (Chronic) Muscle spasm (Chronic) Diabetic neuropathy (Chronic) Pain in right foot (Chronic) Ulcer of right foot with fat layer exposed (Chronic) Stented coronary artery (Chronic 09/22/17) 3.5 X 16 Promus Synergy to mid LAD; 4.0 X 24 Promus Synergy to proximal LAD; POBA to Diagonal [address] Ruff @ [facility] NSTEMI (non-ST elevated myocardial infarction) (Chronic 09/22/17) Tobacco abuse (Chronic) Hospital Course and Treatment Consultations 07/27/18 21:54 Consult: Onc/Wound/party coordinator Routine Comment: Operations: None Procedures: None Summary of Care Provided: The patient is a 68 year old M was seen in the emergency room at [facility] with a chief complaint generalized abdominal pain and dark- colored stools. Patient had been seen in the emergency room the day prior and was found to have anemia and guaiac negative stools, work-up in the ER now showed a hemoglobin of 8.9, potassium was 3.3, CT of the pelvis showed hepatic cirrhosis with distal thickening of the ascending and transverse colon wall suggesting colitis. Stool was Hemoccult positive. Patient was admitted to MedSurg 3, he was seen in consultation by general surgery who did not want to perform any endoscopy on the patient due to high risk. They did not feel that the patient had colitis. Patient's ammonia level was noted to be elevated and he was placed on lactulose. Patient required supplemental oxygen to maintain his pulse ox above 90%, chest x-ray was obtained which suggested a left lower lobe pneumonia but this examiner did not feel that the patient had left lower lobe pneumonia-this examiner felt that the patient had atelectasis and possibly left pleural effusion. Patient was noted to be thrombocytopenic and this persisted during the patient's hospital stay, it was felt that the patient would benefit from transfer to tertiary hospital for further care due to the complexity of his illness, I felt that the patient needed a consultation from GI which we did not have the hospital here. Attempt was made to transfer the patient to the [facility] but they did not reply to my attempts to contact them and so the p atient was transferred to [facility] for further care. On 07/31/2018, patient was seen and examined: On examination he appeared lethargic and unwell. Vital signs as documented. Skin warm and dry and without overt rashes. Neck without JVD. Lungs clear. Heart exam notable for regular rhythm, normal sounds and absence of murmurs, rubs or gallops. Abdomen unremarkable and without evidence of organomegaly, masses, or abdominal aortic enlargement. Extremities nonedematous. Neuro: Cranial nerves II through XII are grossly intact, no focal motor deficits were noted, sensation to light touch and pinprick intact. Psych: Patient was lethargic and answered simple questions appropriately, he has refused medications today On 07/31/2018, patient was transferred to [facility] in stable but guarded condition. Further note: I do not feel the patient had colitis or pneumonia during his hospitalization. - Physical Exam Vital Signs Temp Pulse Resp BP Pulse Ox 99.7 F H 79 20 H 114/51 L 95 07/31/18 14:07 07/31/18 14:50 07/31/18 14:50 07/31/18 14:07 07/31/18 14:07 Oxygen Flow Rate (L/min) 2 Oxygen Delivery Method Nasal Cannula Weight: 96 kg Body Mass Index (BMI) 27.3 Finger Stick Blood Glucose 117 Intake and Output for Last 24 Hours 07/29/18 07/30/1819 23:59 23:59 23:59 Intake Total 760 / 760 1320 / 1320 60 / 60 Output Total 300 / 300 1180 / 1180 175 / 175 Balance 460 / 460 140 / 140 -115 / -115 Laboratory Tests Past 24 Hrs 07/27/18 07/29/18 07/29/18 19:52 05:50 05:50 WBC RBC Hgb Hct MCV MCH MCHC RDW RDW Differential Plt Count MPV Immature Gran % (Auto) Neut % (Auto) Lymph % (Auto) [place] % (Auto) Eos % (Auto) Baso % (Auto) Absolute Neuts (auto) Absolute Lymphs (auto) Total Counted Nucleated RBC % Differential Comment Diff Path Review Reviewed Microcytosis Macrocytosis Target Cells Absolute Retic Haptoglobin Sodium Potassium Chloride Carbon Dioxide Anion Gap BUN Creatinine Estim Creat Clear Calc Est GFR (MDRD) Af Amer Est GFR (MDRD) Non-Af BUN/Creatinine Ratio Glucose Calcium Total Bilirubin AST ALT Alkaline Phosphatase Ammonia Total Protein Albumin Globulin Albumin/Globulin Ratio Hepatitis A IgM Ab Negative Hepatitis A Ab Total Positive H Hep Bs Antigen Negative Hep B Core Total Ab Negative Hep B Core IgM Ab Negative Hepatitis C Ab Confirm <0.1 Hepatitis C Comment Comment HIV 1&2 Antibody Crossmatch See Detail 07/29/18 07/30/18 07/31/18 18:45 06:05 05:35 WBC 7.4 RBC 3.17 L Hgb 8.5 L Hct 27.0 L MCV 85.2 MCH 26.8 L MCHC 31.5 L RDW 25.5 H RDW Differential 70.7 H Plt Count 39 L* MPV 9.9 Immature Gran % (Auto) 1.500 H Neut % (Auto) 72.2 H Lymph % (Auto) 15.2 L [place] % (Auto) 8.0 Eos % (Auto) 1.9 Baso % (Auto) 1.2 H Absolute Neuts (auto) 5.4 Absolute Lymphs (auto) 1.13 Total Counted Not Reportable Nucleated RBC % 5.9 H Differential Comment SCANNED Diff Path Review Reviewed Reviewed Reviewed Microcytosis 2+ Macrocytosis 1+ Target Cells RARE Absolute Retic 0.44 Haptoglobin Sodium Potassium Chloride Carbon Dioxide Anion Gap BUN Creatinine Estim Creat Clear Calc Est GFR (MDRD) Af Amer Est GFR (MDRD) Non-Af BUN/Creatinine Ratio Glucose Calcium Total Bilirubin AST ALT Alkaline Phosphatase Ammonia Total Protein Albumin Globulin Albumin/Globulin Ratio Hepatitis A IgM Ab Hepatitis A Ab Total Hep Bs Antigen Hep B Core Total Ab Hep B Core IgM Ab Hepatitis C Ab Confirm Hepatitis C Comment HIV 1&2 Antibody Crossmatch 07/31/18 07/31/18 07/31/18 05:35 05:35 05:35 WBC RBC Hgb Hct MCV MCH MCHC RDW RDW Differential Plt Count MPV Immature Gran % (Auto) Neut % (Auto) Lymph % (Auto) [place] % (Auto) Eos % (Auto) Baso % (Auto) Absolute Neuts (auto) Absolute Lymphs (auto) Total Counted Nucleated RBC % Differential Comment Diff Path Review Microcytosis Macrocytosis Target Cells Absolute Retic Haptoglobin Pending Sodium 137 Potassium 4.0 Chloride 104 Carbon Dioxide 29.0 Anion Gap 4 L BUN 16 Creatinine 1.23 Estim Creat Clear Calc 66.83 Est GFR (MDRD) Af Amer 75 Est GFR (MDRD) Non-Af 62 BUN/Creatinine Ratio 13.0 Glucose 98 Calcium 8.7 Total Bilirubin 3.10 H AST 216 H ALT 51 Alkaline Phosphatase 1481 H Ammonia Total Protein 6.0 L Albumin 1.8 L Globulin 4.2 Albumin/Globulin Ratio 0.4 L Hepatitis A IgM Ab Hepatitis A Ab Total Hep Bs Antigen Hep B Core Total Ab Hep B Core IgM Ab Hepatitis C Ab Confirm Hepatitis C Comment HIV 1&2 Antibody Non-Reactive Crossmatch 07/31/18 10:04 WBC RBC Hgb Hct MCV MCH MCHC RDW RDW Differential Plt Count MPV Immature Gran % (Auto) Neut % (Auto) Lymph % (Auto) [place] % (Auto) Eos % (Auto) Baso % (Auto) Absolute Neuts (auto) Absolute Lymphs (auto) Total Counted Nucleated RBC % Differential Comment Diff Path Review Microcytosis Macrocytosis Target Cells Absolute Retic Haptoglobin Sodium Potassium Chloride Carbon Dioxide Anion Gap BUN Creatinine Estim Creat Clear Calc Est GFR (MDRD) Af Amer Est GFR (MDRD) Non-Af BUN/Creatinine Ratio Glucose Calcium Total Bilirubin AST ALT Alkaline Phosphatase Ammonia 43.0 H Total Protein Albumin Globulin Albumin/Globulin Ratio Hepatitis A IgM Ab Hepatitis A Ab Total Hep Bs Antigen Hep B Core Total Ab Hep B Core IgM Ab Hepatitis C Ab Confirm Hepatitis C Comment HIV 1&2 Antibody Crossmatch POC Glucose 06/07/31/18 07/31/18 16:14 11:19 06:19 POC Glucose 84 98 100 07/30/18 21:59 POC Glucose 120 H Home Medications: Medications to take at Discharge Acetaminophen [Tylenol] 500 mg PO Q6H PRN PRN tablet 07/01/18 Aspirin [Aspirin, Baby] 81 mg PO DAILY@0800 07/01/18 Clopidogrel Bisulfate [Plavix] 75 mg PO DAILY 07/01/18 Atorvastatin Calcium 80 mg PO QHS 07/27/18 Empagliflozin [Jardiance] 10 mg PO DAILY 07/27/18 Metoprolol Succinate [Kapspargo Sprinkle] 50 mg PO DAILY 07/27/18 Oxycodone HCl/Acetaminophen [Oxycodon-Acetaminophen 7.5-325] 1 each PO Q6H PRN PRN 07/27/18 Zolpidem Tartrate [Ambien] 5 mg PO QHS 07/27/18 metFORMIN HCl [Glucophage] 1,000 mg PO BIDCM 07/27/18 [facility] [Primary [facility] Provider] - Disposition: Acute care Hospital Minutes spent on discharge:: 32 Patient Condition:: Stable Medical Necessity - Tobacco Use Smoking Status: Current every day smoker Tobacco Use: Cigarettes Meaningful Use Info Meaningful Use Diagnoses (Choose all that apply): None applicable Code Visit Inpatient E&M: 52538 Disch Hosp
[2018-08-01 15:32] LABS: Haptoglobin 182 mg/dL (34-200)
== END 2018-07-31 17:00 | disposition short-term general hospital (02) | DRG 378 ==
LOC: ED 15:48 → MS3 18:45
PROVIDERS: Hospitalist; Admitting Provider Internal Medicine; Emergency Provider Emergency Medicine; Visit Provider Internal Medicine
DX: K92.1 Melena (principal); D62 Acute posthemorrhagic anemia; J98.11 Atelectasis; L97.419 Non-pressure chronic ulcer of right heel and midfoot with unspecified severity; K72.90 Hepatic failure, unspecified without coma; I25.10 Atherosclerotic heart disease of native coronary artery without angina pectoris; K74.60 Unspecified cirrhosis of liver; G89.29 Other chronic pain; D69.59 Other secondary thrombocytopenia; J44.9 Chronic obstructive pulmonary disease, unspecified; E78.5 Hyperlipidemia, unspecified; F17.210 Nicotine dependence, cigarettes, uncomplicated; E11.42 Type 2 diabetes mellitus with diabetic polyneuropathy; I25.2 Old myocardial infarction; Z95.5 Presence of coronary angioplasty implant and graft; Z79.84 Long term (current) use of oral hypoglycemic drugs; R53.81 Other malaise; D64.9 Anemia, unspecified; I12.9 Hypertensive chronic kidney disease with stage 1 through stage 4 chronic kidney disease, or unspecified chronic kidney disease; E11.22 Type 2 diabetes mellitus with diabetic chronic kidney disease; N18.9 Chronic kidney disease, unspecified; R60.0 Localized edema; I73.9 Peripheral vascular disease, unspecified; G62.9 Polyneuropathy, unspecified; Z79.02 Long term (current) use of antithrombotics/antiplatelets; Z79.891 Long term (current) use of opiate analgesic; Z85.51 Personal history of malignant neoplasm of bladder; Z79.82 Long term (current) use of aspirin
CPT/HCPCS: 36415; 71045; 71046; 73590; 73630; 74177; 80048; 80053; 80076; 81001; 82140; 82274; 82962; 83010; 83615; 83735; 85014; 85018; 85025; 85610; 86703; 86704; 86705; 86706; 86708; 86709; 86803; 86850; 86900; 86920; 86922; 87340; 93005; 93971; 94640; 94668; 97162; 97166; 97530; 97535; 99282; 99283; 99285; J7030; P9612; Q9967; A4216; J1940; J2405